=== PATIENT | male | born 1980 | race Caucasian/White ===

== ENCOUNTER 2022-11-21 12:30 | Emergency (ER) | payer MEDICARE, SELFPAY ==
[2022-11-21 12:44] VITALS: BP 123/81; PULSE 75; O2SAT 99
[2022-11-21 13:03] VITALS: BP 110/67; PULSE 65; RESP 16; TEMP 35.5; O2SAT 97; BMI 19.3
--- NOTE | 2022-11-21 13:58 | PC.NURSE ---
patient a&ox3, pt admits to using 1 bag of heroin today- he states he intermittently uses heroin, generally uses crack. pt is not interested in any type of services/rehab. vss, denies pain/discomfort, speaking in full sentences, will continue to monitor
--- NOTE | 2022-11-21 14:09 | ED.OVERDOSE ---
HPI - Overdose General Chief Complaint: ETOH/Substance Use Stated Complaint: Overdose Time Seen by Provider: 11/21/22 14:03 Source: patient Mode of arrival: EMS Limitations: no limitations History of Present Illness HPI Narrative: Patient comes to emergency room after overdosing on heroin. Patient states that this was an accident, denies suicidal or homicidal ideation. Patient admits using heroin. Patient states that intermittently he uses heroin but usually he uses crack. Seems that police department gave the patient 12 mg of intranasal Narcan. At this time, patient has no complaints. Related Data Allergies Allergy/AdvReac Type Severity Reaction Status Date / Time No Known Allergies Allergy Verified 11/21/22 14:12 Review of Systems Review of Systems: Constitutional : No Weight loss, No Fever, No Chills, No Night Sweats, No Fatigue, No Malaise ENT/Mouth : No Hearing loss, No Ear Pain, No Nasal Congestion, No Sinus Pain, No Hoarseness, No sore throat, No Rhinorrhea, No Swallowing Difficulty Eyes: No Eye Pain, No Swelling, No Redness, No Foreign Body, No Discharge, No Vision Changes Cardiovascular : No Chest Pain, No SOB, No Dyspnea on Exertion, No Orthopnea, No Edema, No Palpitations Respiratory : No Cough, No Sputum, No Wheezing, No Smoke Exposure, No Dyspnea Gastrointestinal : No Nausea, No Vomiting, No Diarrhea, No Constipation, No abdominal Pain, No Hematochezia, No Melena Genitourinary : no irregular bleeding, No Dysuria, No Urinary Frequency, No Hematuria, No Urinary Incontinence, No Urgency, No Flank Pain, No Urinary Flow Changes, No Hesitancy Musculoskeletal : No joint pain, No Myalgias, No Joint Swelling Skin : No Skin Lesions, No rash Neuro : No Weakness, No Numbness, No Paresthesias, No Loss of Consciousness, No Dizziness, No Headache Psych : No Anxiety/Panic, No Depression, No SI/HI/AH/VH, admits to drug abuse Heme/Lymph: No Bruising, No Bleeding,No Lymphadenopathy Endocrine : No Polyuria, No Polydipsia, No Temperature Intolerance PMFSH Past Medical History Medical History Crack cocaine use Heroin abuse Schizophrenia Substance abuse Social History Social History Alcohol intake: current Alcohol intake frequency: holidays/special occasions only Smoked in Last 30 Days: Yes Use of substances other than those prescribed or required for medical reasons: Yes Substance Use Type: Crack/Cocaine and Heroin Substance Use Frequency: Occasionally Any prior treatment program specific to substance use: Yes Advance Directives: No Advance Directives Information Provided: Yes Physical Exam Vital Signs: Vital Signs: Last Vital Signs Temp 96 F L 11/21/22 13:03 Pulse 65 11/21/22 13:03 Resp 16 11/21/22 13:03 BP 110/67 11/21/22 13:03 Pulse Ox 97 11/21/22 13:03 O2 Del Method Room Air 11/21/22 13:03 BMI result Body Mass Index 19.3 Const: Other: Appearance: Alert. Oriented X3. No acute distress. Eyes: Pupils equal, round and reactive to light. ENT: Pharynx normal. Neck: Normal inspection. Neck supple. No lymph nodes noted. No crepitus CVS: Normal heart rate and rhythm. Pulses normal. Normal S1 and S2 Respiratory: No respiratory distress. Breath sounds normal. No Wheezing. No rales Abdomen: Soft and nontender. No rigidity. No distention. Skin: Skin warm and dry. Normal skin color. Normal skin turgor. Extremities: No lower extremity edema. No Lacerations. No Rash Neuro: Oriented X 3. No motor deficit. No sensory deficit. Moving all extremities. No slurred speech. CN 2 through 12 grossly intact Psych: calm, cooperative, normal affect Medical Decision Making Medical Decision Making MDM Narrative: -patient denies suicidal or homicidal ideation, admits this was an accident -patient declined an evaluation by the care team/jud ramos -patient has been in the emergency room for nearly 2 hours, patient has been awake, alert and oriented x3, calm, cooperative -patient was provided with home Narcan Differential Diagnosis Differential Diagnoses: The differential diagnosis associated with the presentation includes (Polysubstance overdose, depression) Discharge Plan Discharge Clinical Impression: Accidental overdose Patient Disposition: Home, Self-Care Instructions: Adult Overdose (ED) Additional Instructions: Please follow-up with your primary care physician tomorrow. If you have any worsening or new symptoms, please return to the emergency room or call 911
[2022-11-21] MEDS: Naloxone HCl Nasal TAKE HOME 4 MG SPRAY NOSTRILALT (14:30)
== END 2022-11-21 14:36 | disposition home or self-care (01) ==
PROVIDERS: Emergency Provider Emergency Medicine
DX: F19.10 Other psychoactive substance abuse, uncomplicated (principal); T40.1X1A Poisoning by heroin, accidental (unintentional), initial encounter; Y92.9 Unspecified place or not applicable
CPT/HCPCS: 99283; 99284

== ENCOUNTER 2023-01-29 10:56 | Emergency (ER) | payer MEDICARE, SELFPAY ==
[2023-01-29 11:46] VITALS: BP 120/76; PULSE 93; RESP 16; TEMP 36.8; O2SAT 97; BMI 21.5
--- NOTE | 2023-01-29 11:46 | ED_ITS ---
HPI - General Adult General Chief complaint: General Medical Stated complaint: Testing to be done before going to [facility]? Time Seen by Provider: 01/29/23 12:46 Source: patient Mode of arrival: ambulatory Limitations: no limitations History of Present Illness HPI narrative: 42 yold male presents to the ED for Utox screen. patient was at [facility] and left. In order for patient to be allowed back to the rehab program, they required him to have a utox. patient admits to cocaine use. patient states no physical complaints. Related Data Allergies Allergy/AdvReac Type Severity Reaction Status Date / Time No Known Allergies Allergy Verified 01/29/23 11:50 Review of Systems Review of Systems: VORA Yes all other systems are reviewed and are negative [facility] Past Medical History Medical History Crack cocaine use Heroin abuse Schizophrenia Substance abuse Social History Social History Alcohol intake: current Alcohol intake frequency: holidays/special occasions only Substance Use Type: Crack/Cocaine and Heroin Advance Directives: No Advance Directives Information Provided: Yes Physical Exam ED Vital Signs: Vital Signs - 24 hr 01/29/23 11:46 Temperature 98.2 F Pulse Rate 93 Respiratory Rate 16 Blood Pressure 120/76 Pulse Oximetry 97 Oxygen Delivery Method Room Air BMI result Body Mass Index 21.5 Const General: cooperative, healthy appearing, comfortable, no acute distress, well developed, alert and awake Orientation/consciousness: oriented to person, oriented to place, oriented to time and patient oriented x3 HENMT Head: Yes normal to inspection, Yes No palpable skull fracture present, Yes normocephalic, Yes atraumatic and No abrasion Eyes General: appearance normal, both eyes and all related structures Neck Neck: Yes normal visual inspection, Yes full ROM, Yes no lymphadenopathy, Yes no meningeal signs, Yes trachea midline, Yes supple, No anterior neck swelling and No tender Chest Chest palpation & inspection: normal inspection of the chest and normal palpation of entire chest wall Resp Effort & Inspection: normal respiratory effort and able to speak in complete sentences Auscultation: clear to auscultation bilaterally Cardio Jugular venous distension: no JVD Heart sounds: S1 normal heart sound present and S2 normal heart sound present GI Inspection: Yes normal to inspection and No abdominal wall ecchymosis Palpation (GI): Soft to palpation, not firm, nontender, no guarding and not rigid General: No CVA tenderness and Yes no CVA tenderness Back/Spine/Pelvis Back: no CVA tenderness, No CVA tenderness and No back tenderness Skin General skin exam: no rashes or lesions noted, elasticity normal and turgor normal Neuro General: oriented to person, oriented to place, oriented to time, patient oriented x3, gait normal, tone normal, moves all extremities, Normal light touch and pain sensation, no meningeal signs, no focal motor deficits, CN's II-XI intact bilaterally and normal sensation to monofilament Extrem General: Yes normal to inspection and Yes full ROM Psych Appearance: grossly normal, well kempt and not disheveled Course Course Course Narrative: This is a rapid medical exam. Deferred additional HPI, ROS, PE to primary provider. 42 yo male with history of cocaine abuse here seeking VORA so he may return to his sober living home. Patient reports he left and in order to return he needs a drug screen. No other complaints. Will obtain VORA. VSS Medical Decision Making Medical Decision Making [facility] Narrative: Patient presents to ED for U tox techs mandated by rehab program. Patient left rehab program and they required patient to get a Utox before coming back to the program. Patient denies any physical complaints. BS positive for cocaine Differential Diagnosis Differential Diagnoses: The differential diagnosis associated with the presen tation includes ( U tox) Lab Data [facility] Lab Attestation statement: I reviewed the patient's lab results. Labs: Lab Results 01/29/23 Range/Units 11:55 Urine Opiates Screen Not Detected (Not Detect) Urine Fentanyl Screen Not Detected (Not Detect) Ur Barbiturates Screen Not Detected (Not Detect) Ur Phencyclidine Scrn Not Detected (Not Detect) Ur Amphetamines Screen Not Detected (Not Detect) U Benzodiazepines Scrn Not Detected (Not Detect) Urine Cocaine Screen POSITIVE H (Not Detect) U Marijuana (THC) Screen Not Detected (Not Detect) Independent Historian Clinical information obtained from an independent historian. History obtained from or confirmed by: Other (Detox program technician) External Record Review External record reviewed: Other (previous ED visit) Chronic Conditions Patient?s care impacted by: Other (Substance) Discharge Plan Discharge Clinical Impression: Substance abuse Patient Disposition: Home, Self-Care Instructions: Cocaine Abuse (ED) Additional Instructions: return to the ED immediately for any physical or mental complaints. Please follow-up with rehab program and Primary provider Interventions: ED Discharge Assessment Last Done: 01/29/23 13:12 Discharge Date/Time: 01/29/23 13:12 Print Language: Greenlandic
--- NOTE | 2023-01-29 11:52 | PC.NURSE ---
Patient attempting to provide urine specimen at this time for urine drug screen.
[2023-01-29 12:27] LABS: Amphetamine Screen Urine Not Detected (Not Detect); Barbiturates, Urine Not Detected (Not Detect); Benzodiazepines Screen Urine Not Detected (Not Detect); Cannabinoid Screen Urine Not Detected (Not Detect); Cocaine Screen Urine POSITIVE (Not Detect); Fentanyl, urine Not Detected (Not Detect); Opiate Screen Urine Not Detected (Not Detect); Phencyclidine Screen Urine Not Detected (Not Detect)
== END 2023-01-29 13:12 | disposition home or self-care (01) ==
PROVIDERS: Nurse Practitioner Family; Emergency Provider Emergency Medicine
DX: F14.19 Cocaine abuse with unspecified cocaine-induced disorder (principal); Z79.899 Other long term (current) drug therapy
CPT/HCPCS: 80307; 99282

== ENCOUNTER 2024-01-02 09:23 | Inpatient (IN) | payer OTHER, SELFPAY ==
[2024-01-02] VITALS (29 sets, daily range): BP systolic 80–113; BP diastolic 38–73; PULSE 68–103; RESP 15–30; TEMP 34.9–37.1; O2SAT 94–99; BMI 21.0; BMI 20.9
--- NOTE | ~2024-01-02 | XR_ITS ---
EXAMINATION: XR CHEST CLINICAL INFORMATION: Patient found down. Possible aspiration. COMPARISON: None available. TECHNIQUE: Frontal view of the chest was obtained. FINDINGS: Lungs are well-inflated and clear. Trachea is midline in position. No interstitial disease, consolidation or mass. No pleural effusion or pneumothorax. Cardiac silhouette and pulmonary vessels are normal in size. The mediastinum and rusty have normal contour. The visualized bones and upper abdomen are unremarkable. XR/XR chest 1V IMPRESSION: No evidence of aspiration pneumonia. No acute cardiopulmonary abnormality.
--- NOTE | ~2024-01-02 | CT_ITS ---
EXAMINATION: CT HEAD W/O IV CONTRAST CT CERVICAL SPINE W/O IV CONTRAST CLINICAL INFORMATION: 43-year-old male with history of change in mental status. Possible neck trauma. COMPARISON: None TECHNIQUE: Head - Contiguous axial imaging of the head was performed from the skull base to the vertex without the administration of intravenous contrast, and axial images are reconstructed at 2 mm and 5 mm slice thickness. Cervical spine - A volumetric, helical CT acquisition of the cervical spine was obtained without contrast; in addition to the standard set of axial images, multiplanar reformatted images were provided in the coronal and sagittal imaging planes. This CT examination was performed using dose optimization techniques as appropriate, variously including the following: *Automated exposure control *Adjustment of mA and/or kV according to patient size (this includes techniques or standardized protocols for targeted exams where dose is matched to indication/reason for exam; i.e. extremities or head) *Use of iterative reconstruction technique DLP: 1767 mGy-cm (total) FINDINGS: HEAD: The localizer images demonstrate that the patient's head is tilted toward the right. No acute intracranial findings. Vasquez to white matter differentiation is preserved. No evidence of intracranial hemorrhage, major vascular territory infarction, focal mass effect or midline shift. The ventricles have normal size and configuration. No hydrocephalus or extra-axial fluid collections. The calvarium is intact. Mild mucosal thickening at the floor of the right maxillary sinus. Dental caries of some of the partially visualized right maxillary teeth and associated periapical lucency around roots of one of these teeth which appears to represent the first premolar. The mastoid air cells and middle ear cavities are clear. The temporomandibular joints are normal. The orbits and globes are unremarkable. CERVICAL SPINE: The craniocervical junction is normal. The occipital condyles, dens and atlantodental articulation are intact. The vertebral body heights and alignment are maintained. No fractures in the anterior or posterior elements. No prevertebral soft tissue edema or hematoma. The disc spaces are preserved. The facet joints and uncovertebral joints are unremarkable. No significant stenosis of the central spinal canal or neural foramina. Thyroid gland is unremarkable. Centrilobular and paraseptal emphysematous changes at the visualized lung apices. CT/CT cervical spine wo IV con IMPRESSION: * No intracranial hemorrhage or other acute intracranial pathology. * No fracture or malalignment in the cervical spine. * Centrilobular and paraseptal emphysema within the visualized lung apices. * Incidentally noted are dental caries of some of the partially visualized maxillary teeth and periapical lucency around a right maxillary premolar tooth.
--- NOTE | ~2024-01-02 | CT_ITS ---
EXAMINATION: CT ABDOMEN AND PELVIS WITH CONTRAST CLINICAL INFORMATION: Unexplained lactic acidosis COMPARISON: None available. TECHNIQUE: Multidetector volumetric images were obtained from the superior aspect of the liver through the pubic symphysis following administration 85 mL of Omnipaque 350 intravenous contrast. Sagittal and coronal reformatted images were obtained on the technologist's workstation. Oral contrast: No This CT examination was performed using dose optimization techniques as appropriate, variously including the following: *Automated exposure control *Adjustment of mA and/or kV according to patient size (this includes techniques or standardized protocols for targeted exams where dose is matched to indication/reason for exam; i.e. extremities or head) *Use of iterative reconstruction technique DLP: 545 mGy-cm FINDINGS: LUNG BASES: The visualized lung bases are unremarkable. There is minimal bibasilar atelectasis. LIVER, GALLBLADDER, AND BILIARY TREE: The liver is normal in size, shape, and attenuation. No focal hepatic lesion or biliary ductal dilatation is present. There is mild periportal edema. The gallbladder is unremarkable with no evidence of radiopaque gallstones, gallbladder wall thickening, or obvious pericholecystic inflammatory changes. PANCREAS: Unremarkable. SPLEEN: Unremarkable. ADRENAL GLANDS: Unremarkable. KIDNEYS AND URETERS: The kidneys are normal in size, shape, and attenuation. No hydronephrosis, hydroureter, or calculi seen. No perinephric stranding. BLADDER: Lara catheter present in the bladder which is empty GASTROINTESTINAL TRACT: The small and large bowel are unremarkable. A moderate stool burden is present throughout the colon. The appendix is unremarkable. ABDOMINAL WALL: No significant hernia is appreciated. LYMPH NODES: No retroperitoneal lymphadenopathy. VASCULAR: Calcific atherosclerotic changes are present in the aorta and iliofemoral vessels. There is no evidence of an abdominal aortic aneurysm. PELVIC VISCERA: Unremarkable. OSSEOUS STRUCTURES: Unremarkable. CT/CT abdomen pelvis w IV con IMPRESSION: 1. A cause for the patient's lactic acidosis has not been found. 2. Incidental note made of mild periportal edema, Lara catheter in the bladder and calcific atherosclerotic changes in the aorta and iliofemoral vessels. Fleischner guidelines were followed.
[2024-01-02] MEDS: Naloxone HCl 2 MG/2 ML SYRINGE IVPUSH (09:30)
[2024-01-02] MEDS: ondansetron HCL 4 MG/2 ML VIAL IVPUSH (09:30)
--- NOTE | 2024-01-02 09:31 | ECG_ITS ---
Test Reason : OD Blood Pressure : / mmHG Vent. Rate : 078 BPM Atrial Rate : 078 BPM P-R Int : 130 ms QRS Dur : 096 ms QT Int : 380 ms P-R-T Axes : 073 088 068 degrees QTc Int : 433 ms Normal sinus rhythm Normal ECG No previous ECGs available Referred By: Kira Serrano Electronically Signed By:Stuart Gary
--- NOTE | 2024-01-02 09:35 | ED_ITS ---
HPI - General Adult General Chief complaint: General Medical Stated complaint: UNRESPONSIVE/AMS, PER EMS Source: EMS Mode of arrival: EMS Limitations: altered mental status History of Present Illness ED Provider: ZAIDA IRWIN narrative: 43 yo male with PMH of schizophrenia and substance abuse was found laying down on pavement responsive to pain only given 4mg IN narcan no response. hypotensive on EMS arrival no other history provided BS in 100s MD complaint: found down Onset (ago): unknown Severity: severe Relieving factors: none Exacerbating factors: none Associated symptoms: denies other symptoms Treatments prior to arrival: other (IVF) Related Data Allergies Allergy/AdvReac Type Severity Reaction Status Date / Time No Known Allergies Allergy Verified 01/02/24 09:30 Review of Systems 2 Review of Systems: ROS unable to be obtained due to altered mental status [facility] Past Medical History Source: old records reviewed Medical History Crack cocaine use Heroin abuse Substance abuse Schizophrenia Social History Social History Unable to assess alcohol history related to: Unknown Alcohol intake: current Alcohol intake frequency: holidays/special occasions only Use of substances other than those prescribed or required for medical reasons: Unknown Substance Use Type: Crack/Cocaine and Heroin Advance Directives: No Physical Exam ED Vital Signs: Vital Signs - 24 hr 01/02/24 09:28 01/02/24 09:41 01/02/24 10:01 Temperature 98.7 F Pulse Rate 83 83 102 H Respiratory Rate 20 15 25 H Blood Pressure 92/47 L 88/39 L 93/42 L Pulse Oximetry 95 94 97 Oxygen Delivery Method Room Air Room Air 01/02/24 10:12 01/02/24 10:19 01/02/24 10:27 Temperature Pulse Rate 99 94 90 Respiratory Rate 21 H 19 20 Blood Pressure 92/43 L 94/38 L 89/39 L Pulse Oximetry 97 96 97 Oxygen Delivery Method Room Air Room Air Room Air 01/02/24 10:49 01/02/24 11:13 01/02/24 11:27 Temperature Pulse Rate 103 H 96 95 Respiratory Rate 21 H 19 22 H Blood Pressure 94/39 L 99/45 L 82/42 L Pulse Oximetry 98 99 Oxygen Delivery Method Room Air Room Air 01/02/24 11:35 01/02/24 12:00 01/02/24 12:49 Temperature Pulse Rate 103 H 95 75 Respiratory Rate 30 H 28 H 20 Blood Pressure 84/42 L 101/47 L 88/45 L Pulse Oximetry 97 98 98 Oxygen Delivery Method Room Air Room Air Room Air 01/02/24 13:19 01/02/24 14:02 01/02/24 15:17 Temperature Pulse Rate 68 70 73 Respiratory Rate 16 19 19 Blood Pressure 92/41 L 88/55 L 83/42 L Pulse Oximetry 99 99 99 Oxygen Delivery Method Room Air Room Air Room Air BMI result Body Mass Index 21.0 Appearance: lethargic responsive to painful stimuli. Moderate acute distress. thin and small Eyes: Pupils equal, round and reactive to light. 5mm ENT: Pharynx normal. atraumatic no blood in nose or ears no abrasions to tongue Neck: Normal inspection. Neck supple. CVS: Normal heart rate and rhythm. Pulses normal. Respiratory: No respiratory distress. Breath sounds normal. Abdomen: Soft and nontender. no distention on incontinence Skin: Skin warm and dry. Normal skin color. Extremities: No lower extremity edema. atraumatic no obvious track panda Neuro: withdraws from painful stimuli, making incoherent sounds, responds to tactile stimuli currently GCS 9 Course Course Course Narrative: awakes to voice now and follows commands but not fully with it and intermittently agitated droperidol for CT scans ordered Reevaluation(s) Reevaluation #1: at this time repeat hypotension due to versed (needed sedation for imaging) and not infection or severe sepsis [id number] focused exam for sepsis performed at 12pm will continue fluids, pending CT scans at this time Reevaluation #2: ICU Dr. Hughes has been notified HR and BP low but he is improving I am going to get abdominal CT scan to be thorough will continue to observe he is making urine he has no obvious signs of infection aorta US bedside normal will hold off pressors low suspicion for severe sepsis at this time Reevaluation #3: repeat call to ICU recommends continue to give IVF and monitor repeat eval at 530pm does not feel he warrants ICU at this time 330pm Medications Administered Discontinued Medications Generic Name Dose Route Start Last Admin Trade Name Freq PRN Reason Stop Dose Admin Droperidol 1.25 mg 01/02/24 09:53 01/02/24 09:56 Droperidol 5 Mg/2 Ml Vial IVPUSH 01/02/24 09:54 1.25 mg ONCE ONE Administration Sodium Chloride 1,000 mls @ 999 mls/hr 01/02/24 09:30 01/02/24 10:12 Ns IV 01/02/24 10:30 Infused .Q1H1M ONE Infusion Sodium Chloride 1,000 mls @ 999 mls/hr 01/02/24 09:30 01/02/24 10:30 Ns IV 01/02/24 10:30 Infused .Q1H1M ONE Infusion Sodium Chloride 1,000 mls @ 999 mls/hr 01/02/24 09:41 01/02/24 10:50 Ns IV 01/02/24 10:41 Infused .Q1H1M ONE Infusion Ceftriaxone Sodium 2 gm/ 50 mls @ 100 mls/hr 01/02/24 09:42 01/02/24 10:19 Sodium Chloride IV 01/02/24 10:11 Infused ONCE ONE Infusion Albumin Human 100 mls @ 133.333 mls/hr 01/02/24 13:00 01/02/24 15:08 Kedbumin 25 % IV 01/02/24 14:44 Infused Q1H HEIDY Infusion Iohexol 85 ml 01/02/24 14:56 01/02/24 14:57 Iohexol 350 Mg/Ml 100 Ml Infus..Btl IV 01/02/24 14:57 85 ml ONCE ONE Administration Lidocaine HCl 10 ml 01/02/24 14:21 01/02/24 14:25 Lidocaine Hcl 2 % Urojet 10 Ml Jel.Pf.Lilliam TOPICAL 01/02/24 14:22 10 ml ONCE ONE Administration Midazolam HCl 2 mg 01/02/24 11:19 01/02/24 11:22 Midazolam Hcl/Pf 2 Mg/2 Ml Vial IVPUSH 01/02/24 11:20 2 mg ONCE ONE Administration Naloxone HCl 2 mg 01/02/24 09:32 01/02/24 09:30 Naloxone Hcl 2 Mg/2 Ml Syringe IVPUSH 01/02/24 09:33 2 mg ONCE ONE Administration Ondansetron HCl 4 mg 01/02/24 09:32 01/02/24 09:30 Ondansetron Hcl 4 Mg/2 Ml Vial IVPUSH 01/02/24 09:33 4 mg ONCE ONE Administration Procedures FAST Exam FAST Exam 1: Fluid in Morison's pouch: Yes Fluid in Splenorenal [place]: Yes Fluid around bladder, Transverse view: Yes Fluid around bladder, Sagittal view: Yes Fluid in Pericardial Sac: Yes Gross Wall Motion Abnormality: No Study normal for this patient: Yes Images saved for further review: No Medical Decision Making Medical Decision Making [facility] Narrative: 43 yo male with undifferentiated found down in street with hx of substance abuse - at this time no obvious trauma will need basic labs, EKG, CT head/cspine, CXR, FAST exam, IVF x 3L, repeat narcan in case of xylazine but no effect noted, anticipate sedation possible droperidol for CT scan has normal qtc wide differential for cause - infectious, metabolic toxic encephalopathy. Seizure is possible but no tongue biting no incontinence. Differential Diagnosis Differential Diagnoses: The differential diagnosis associated with the presentation includes infectious, metabolic toxic encephalopathy Admission/Observation Consideration of admission/observation: Escalation of care including admission/observation considered Consult Healthcare Provider Management of the patient was discussed with: Crop Specialist (Dr. Hughes has been notified) Lab Data [facility] Lab Attestation statement: I reviewed the patient's lab results. 01/02/24 09:35 01/02/24 09:35 Labs: Lab Results 01/02/24 01/02/24 01/02/24 Range/Units 09:25 09:35 09:48 WBC 11.2 H (4.8-10.8) X10*3/uL RBC 3.82 L (4.60-5.80) X10*6/uL Hgb 12.3 L (14.0-18.0) g/dl Hct 34.9 L (42.0-52.0) % MCV 91.4 (80.0-98.0) fL MCH 32.2 (27.0-33.0) pg MCHC 35.2 (31.0-36.0) g/dl RDW 13.5 (11.0-16.0) % Plt Count 222 (160-400) X10*3/uL MPV 10.1 (9.4-12.4) fL Immature Gran % (Auto) 0.4 (0.0-0.4) % Neut % (Auto) 71.6 (45-73) % Lymph % (Auto) 20.4 (20-40) % [place] % (Auto) 6.0 (2-11) % Eos % (Auto) 1.2 (0-4) % Baso % (Auto) 0.4 (0-2) % Lymph # (Auto) 2.3 (1.2-4.9) X10*3/uL [place] # (Auto) 0.7 (0.1-1.2) X10*3/uL Eos # (Auto) 0.1 (0.0-0.4) X10*3/uL Baso # (Auto) 0.0 (0.0-0.2) X10*3/uL Abs Immat Gran (auto) 0.05 H (0.00-0.03) X10*3/uL Absolute Neuts (auto) 8.1 (2.0-8.3) x10*3/uL Absolute Nucleated RBC 0.000 (0.0-0.012) X10*3/uL Nucleated RBC % (auto) 0.0 (0.0-0.2) /100WBC VBG pH 7.37 (7.32-7.43) VBG pCO2 29 mmHg VBG pO2 195 mmHg VBG HCO3 17 L (22-26) mmol/L VBG O2 Saturation 99.0 % VBG Base Excess -6.5 mmol/L Sodium 143 (135-145) mmol/L Potassium 3.9 (3.3-5.1) mmol/L Chloride 110 H (96-108) mmol/L Carbon Dioxide 18 L (22-29) mmol/L Anion Gap 19 (12-20) BUN 15 (9-16) mg/dL Creatinine 1.00 (0.5-1.4) mg/dL Estim Creat Clear Calc 87.7 Estimated GFR > 60 POC Glucose 124 H (60-115) mg/dL Random Glucose 124 H (60-115) mg/dL Lactic Acid 4.0 H* (0.5-2.0) mmol/L Lactic Acid F/U @ 2Hr (0.5-2.0) mmol/L Lactic Acid F/U @ 4Hr (0.5-2.0) mmol/L Calcium 8.7 (8.4-10.2) mg/dL Magnesium 2.0 (1.6-2.6) mg/dL Total Bilirubin 0.1 (0.0-1.0) mg/dL Direct Bilirubin < 0.2 (0.0-0.5) mg/dL AST 13 (5-37) U/L ALT 8 (0-40) U/L Alkaline Phosphatase 49 (39-117) U/L Ammonia 28 (13-55) umol/L Total Creatine Kinase 105 (38-174) U/L Troponin I High Sens < 2.7 (<3.5-35.0) ng/L B-Natriuretic Peptide < 10 (<100) pg/mL Total Protein 6.5 (6.5-8.0) g/dL Albumin 4.0 (3.5-5.0) g/dL Lipase 15 (8-78) U/L TSH 2.71 (0.32-4.0) uIU/mL Urine Color Urine Appearance Urine pH (5.0-9.0) Ur Specific Benson (1.005-1.025) Urine Protein (Neg-Trace) mg/dL Urine Glucose (UA) (Negative) mg/dL Urine Ketones (Negative) mg/dL Urine Blood (Negative) Urine Nitrite (Negative) Ur Leukocyte Esterase (Negative) Urine Opiates Screen (Not Detect) Ur Buprenorphine Scrn (Not Detect) ng/mL Ur Oxycodone Screen (Not Detect) ng/mL Urine Methadone Screen (Not Detect) ng/mL Urine Fentanyl Screen (Not Detect) Ur Barbiturates Screen (Not Detect) Ur Phencyclidine Scrn (Not Detect) Ur Amphetamines Screen (Not Detect) U Benzodiazepines Scrn (Not Detect) Urine Cocaine Screen (Not Detect) U Marijuana (THC) Screen (Not Detect) Ethyl Alcohol < 10 mg/dL Influenza Type A (PCR) NEGATIVE (Negative) Influenza Type B (PCR) NEGATIVE (Negative) RSV RNA Qual (PCR) NEGATIVE (Negative) SARS-CoV-2 RNA (RT-PCR) NEGATIVE (Negative) 01/02/24 01/02/24 01/02/24 Range/Units 11:57 12:01 14:39 WBC (4.8-10.8) X10*3/uL RBC (4.60-5.80) X10*6/uL Hgb (14.0-18.0) g/dl Hct (42.0-52.0) % MCV (80.0-98.0) fL MCH (27.0-33.0) pg MCHC (31.0-36.0) g/dl RDW (11.0-16.0) % Plt Count (160-400) X10*3/uL MPV (9.4-12.4) fL Immature Gran % (Auto) (0.0-0.4) % Neut % (Auto) (45-73) % Lymph % (Auto) (20-40) % [place] % (Auto) (2-11) % Eos % (Auto) (0-4) % Baso % (Auto) (0-2) % Lymph # (Auto) (1.2-4.9) X10*3/uL [place] # (Auto) (0.1-1.2) X10*3/uL Eos # (Auto) (0.0-0.4) X10*3/uL Baso # (Auto) (0.0-0.2) X10*3/uL Abs Immat Gran (auto) (0.00-0.03) X10*3/uL Absolute Neuts (auto) (2.0-8.3) x10*3/uL Absolute Nucleated RBC (0.0-0.012) X10*3/uL Nucleated RBC % (auto) (0.0-0.2) /100WBC VBG pH (7.32-7.43) VBG pCO2 mmHg VBG pO2 mmHg VBG HCO3 (22-26) mmol/L VBG O2 Saturation % VBG Base Excess mmol/L Sodium (135-145) mmol/L Potassium (3.3-5.1) mmol/L Chloride (96-108) mmol/L Carbon Dioxide (22-29) mmol/L Anion Gap (12-20) BUN (9-16) mg/dL Creatinine (0.5-1.4) mg/dL Estim Creat Clear Calc Estimated GFR POC Glucose (60-115) mg/dL Random Glucose (60-115) mg/dL Lactic Acid (0.5-2.0) mmol/L Lactic Acid F/U @ 2Hr 3.7 H* (0.5-2.0) mmol/L Lactic Acid F/U @ 4Hr 2.7 H* (0.5-2.0) mmol/L Calcium (8.4-10.2) mg/dL Magnesium (1.6-2.6) mg/dL Total Bilirubin (0.0-1.0) mg/dL Direct Bilirubin (0.0-0.5) mg/dL AST (5-37) U/L ALT (0-40) U/L Alkaline Phosphatase (39-117) U/L Ammonia (13-55) umol/L Total Creatine Kinase (38-174) U/L Troponin I High Sens (<3.5-35.0) ng/L B-Natriuretic Peptide (<100) pg/mL Total Protein (6.5-8.0) g/dL Albumin (3.5-5.0) g/dL Lipase (8-78) U/L TSH (0.32-4.0) uIU/mL Urine Color Yellow Urine Appearance Clear Urine pH 5.5 (5.0-9.0) Ur Specific [place] 1.015 (1.005-1.025) Urine Protein Negative (Neg-Trace) mg/dL Urine Glucose (UA) Negative (Negative) mg/dL Urine Ketones Negative (Negative) mg/dL Urine Blood Negative (Negative) Urine Nitrite Negative (Negative) Ur Leukocyte Esterase Negative (Negative) Urine Opiates Screen Not Detected (Not Detect) Ur Buprenorphine Scrn Not Detected (Not Detect) ng/mL Ur Oxycodone Screen Not Detected (Not Detect) ng/mL Urine Methadone Screen Not Detected (Not Detect) ng/mL Urine Fentanyl Screen Not Detected (Not Detect) Ur Barbiturates Screen Not Detected (Not Detect) Ur Phencyclidine Scrn Not Detected (Not Detect) Ur Amphetamines Screen Not Detected (Not Detect) U Benzodiazepines Scrn Not Detected (Not Detect) Urine Cocaine Screen POSITIVE H (Not Detect) U Marijuana (THC) Screen Not Detected (Not Detect) Ethyl Alcohol mg/dL Influenza Type A (PCR) (Negative) Influenza Type B (PCR) (Negative) RSV RNA Qual (PCR) (Negative) SARS-CoV-2 RNA (RT-PCR) (Negative) Independent Interpretation I performed an independent interpretation of an: EKG, Plain X-Ray (no pneumonia) and CT Scan Interpretation: Rate: 78 Rhythm: NSR Gilmer: normal Normal P waves. Normal ALESSANDRA. Normal QRS complex. ST T wave : no LOVELY, inverated T wave V3 qTC: 430 prior studies: no prior The study has been interpreted contemporaneously by me. . Radiology Impression Discussion of test interpretation with radiology: I have reviewed the radiologist's reading. Independent Historian Clinical information obtained from an independent historian. History obtained from or confirmed by: EMS External Record Review External record reviewed: Inpatient record Critical Care Time Critical Care Time Critical Care Time: Yes Total Critical Care Time: 80 Attestation: IVF x 3L, repeat lactic acid, repeat assessments, medical consult, review of labs, repeat neuro checks I attest to this time spent taking care of the patient Discharge Plan Discharge Clinical Impression: Acute alteration in mental status, Cocaine abuse, Acidosis, lactic, Acute hypotension Patient Disposition: Still a Patient Print Language: Bulgarian
[2024-01-02] MEDS: 0.9 % Sodium Chloride 1,000 ML 999 ML IV ×4 (09:39→18:28)
[2024-01-02 09:44] LABS: MANUAL DIFF FLAG NO
[2024-01-02 09:46] LABS: Basophils Percent Auto 0.4 % (0-2); Eosinophils Absolute Auto 0.1 X10*3/uL (0.0-0.4); Eosinophils Percent Auto 1.2 % (0-4); Hematocrit 34.9 % (42.0-52.0); Hemoglobin 12.3 g/dl (14.0-18.0); Imm Gran Abs Auto 0.05 X10*3/uL (0.00-0.03); Imm Gran Pct Auto 0.4 % (0.0-0.4); Lymphocytes Absolute Auto 2.3 X10*3/uL (1.2-4.9); Lymphocytes Percent Auto 20.4 % (20-40); Mean Corpuscular HGB Conc 35.2 g/dl (31.0-36.0); Mean Corpuscular Hemoglobin 32.2 pg (27.0-33.0); Mean Corpuscular Volume 91.4 fL (80.0-98.0); Mean Platelet Volume 10.1 fL (9.4-12.4); Monocytes Absolute Auto 0.7 X10*3/uL (0.1-1.2); Neutrophils Absolute Auto 8.1 x10*3/uL (2.0-8.3); Neutrophils Percent Auto 71.6 % (45-73); Platelet Count 222 X10*3/uL (160-400); Red Blood Count 3.82 X10*6/uL (4.60-5.80); Red Cell Distribution Width 13.5 % (11.0-16.0); White Blood Count 11.2 X10*3/uL (4.8-10.8)
[2024-01-02 09:54] LABS: Ammonia 28 umol/L (13-55)
[2024-01-02] MEDS: cefTRIAXone sodium 2 GM in 0.9 % Sodium Chloride 50 ML IV (09:54)
[2024-01-02 09:55] LABS: VBG Base Excess -6.5 mmol/L; VBG HCO3 17 mmol/L (22-26); VBG pCO2 29 mmHg; VBG pH 7.37 (7.32-7.43); VBG pO2 195 mmHg
[2024-01-02] MEDS: droPERidol 5 MG/2 ML VIAL 1.25 MG IVPUSH (09:56)
[2024-01-02 10:04] LABS: Alanine Aminotransferase 8 U/L (0-40); Alkaline Phosphatase 49 U/L (39-117); Anion Gap 19 (12-20); Aspartate Amino Transferase 13 U/L (5-37); Bilirubin Direct < 0.2 mg/dL (0.0-0.5); Bilirubin Total 0.1 mg/dL (0.0-1.0); Blood Urea Nitrogen 15 mg/dL (9-16); Calcium 8.7 mg/dL (8.4-10.2); Carbon Dioxide 18 mmol/L (22-29); Chloride 110 mmol/L (96-108); Creatinine Clr Calc Pharmacy 87.7; Estimated Glomerular Filt Rate > 60; Glucose Random 124 mg/dL (60-115); Lipase 15 U/L (8-78); Potassium 3.9 mmol/L (3.3-5.1); Sodium 143 mmol/L (135-145); Total Protein 6.5 g/dL (6.5-8.0)
--- NOTE | 2024-01-02 10:08 | PC.NURSE ---
Pt presented to ED by EMS, EMS reports pt found unresponsive, given 4mg of IN Narcan by PD with no improvements. EMS placed IV line and gave approx 200 mL NS, no other meds. Pt semi-responsive, opens eyes to painful stimuli, no verbal response and doesn't follow commands. Breathing elevated, skin clammy and pale. NSR on speech communication instructor, BP hypotensive. Second IV line established and pt medicated per SEP.
[2024-01-02 10:09] LABS: Venous Blood Gas Refer to POC result
--- NOTE | 2024-01-02 10:10 | PC.NURSE ---
Pt restless in bed, pulling at lines. Redirected and calmed by RNs. No obvious trauma noted to body on fast exam.
[2024-01-02 10:12] LABS: Troponin-I High Sensitivity < 2.7 ng/L (<3.5-35.0)
[2024-01-02 10:23] LABS: Influenza A PCR NEGATIVE (Negative); Influenza B PCR NEGATIVE (Negative); Resp Syncy Virus RNA Qual PCR NEGATIVE (Negative); SARS COV2 PCR INHOUSE NEGATIVE (Negative)
[2024-01-02] MEDS: Midazolam HCl/PF 2 MG/2 ML VIAL IVPUSH (11:22)
--- NOTE | 2024-01-02 11:35 | PC.NURSE ---
Sedation needed for CT due to pt moving and grabbing at wires. Medicated per MAR
[2024-01-02 11:41] LABS: Reflex Lactate? Lactic Acid Added
--- NOTE | 2024-01-02 11:45 | PC.NURSE ---
Pt noted to have increase in RR, 28-35. rapid breathing. Remains unresponsive. Provider alerted and at bedside for eval. Pt straight cath, tolerated procedure well, 450 mL urine out put clear straw yellow
[2024-01-02 12:07] LABS: Appearance Urine Clear; Color Urine Yellow; Glucose Urine UA Negative (Negative); Leukocyte Esterase Urine Negative (Negative); Nitrite Urine Negative (Negative); PH 5.5 (5.0-9.0); Specific Gravity - Urine 1.015 (1.005-1.025); Urine Blood Negative (Negative); Urine Ketones Negative (Negative); Urine Protein Negative (Neg-Trace)
[2024-01-02 12:19] LABS: B Type Natriuretic Peptide < 10 pg/mL (<100)
[2024-01-02 12:20] LABS: Ethanol < 10 mg/dL
[2024-01-02 12:29] LABS: TSH reflex Free T4 2.71 uIU/mL (0.32-4.0)
[2024-01-02 12:38] LABS: ~Lactic Acid-LAB USE ONLY 3.7 mmol/L (0.5-2.0)
[2024-01-02 12:38] LABS: Amphetamine Screen Urine Not Detected (Not Detect); Barbiturates, Urine Not Detected (Not Detect); Benzodiazepines Screen Urine Not Detected (Not Detect); Buprenorphine Scr Not Detected (Not Detect); Cannabinoid Screen Urine Not Detected (Not Detect); Cocaine Screen Urine POSITIVE (Not Detect); Fentanyl, urine Not Detected (Not Detect); Methadone Screen, Urine Not Detected (Not Detect); Opiate Screen Urine Not Detected (Not Detect); Oxycodone Screen Urine Not Detected (Not Detect); Phencyclidine Screen Urine Not Detected (Not Detect)
[2024-01-02 12:38] LABS: Glucose, Whole Blood 124 mg/dL (60-115)
--- NOTE | 2024-01-02 12:50 | PC.NURSE ---
Pt sleeping at this time, only response to painful stimul. NSR on property assessment monitor, remains hypotensive
[2024-01-02] MEDS: Albumin Human 25 % 100 ML 133.33 ML IV ×2 (13:19→14:02)
[2024-01-02 14:03] LABS: Reflex Lactate? 2 Y
[2024-01-02] MEDS: Lidocaine HCl 2 % Urojet 10 ML JEL.PF.APP TOPICAL (14:25)
[2024-01-02] MEDS: iohexoL 350 MG/ML 100 ML INFUS..BTL 85 ML IV (14:57)
[2024-01-02 15:02] LABS: ~Lactic Acid-LAB USE ONLY 2.7 mmol/L (0.5-2.0)
--- NOTE | 2024-01-02 18:19 | PC.NURSE ---
Pt continues to have drops in BP, provider aware.
--- NOTE | 2024-01-02 19:10 | PC.NURSE ---
assumed care of pt at 1900. Pt resting comfortably on stretcher in no apparent distress. BP 87/41 - MD Zazueta aware. Pt pending admission to ICU for low bps.
[2024-01-02 19:30] LABS: MANUAL DIFF FLAG NO
--- NOTE | 2024-01-02 19:31 | PM.CCHP ---
History of Present Illness Date of Service: 01/02/24 Attending physician on admission: Robert Hughes Chief Complaint: Unresponsive The patient is a 43-year-old male with a past medical history of schizophrenia and substance abuse who presented to the emergency department after he was found unresponsive.? Per EMS,? patient only responsive to pain when he was found,? was given 4 mg IN? Narcan no response.? ? On arrival to the emergency department? he was hypotensive to systolic of 80s,? slightly tachycardic to 102,? afebrile. ? He? continue to be? minimally responsive,? responsive only to painful stimuli, but protecting airway.? Laboratory data was significant for? WBC 11.2,? serum bicarb 18 and? lactic acid 4 IMAGING:? CHEST X-RAY:? no acute ? findings Abdominal CT:? no evidence of? infectious process/? cause for elevated lactic acid Head/ Cervical spine CT: ? no acute findings ED COURSE:? He received a total of 4 L of crystalloids,? 200 mL of albumin, ceftriaxone 2 g, Narcan 2 mg, Zofran 4 mg, droperidol 1.25,? and 2 mg of Versed.? ? Despite 4 L administration of? crystalloids and albumin,? patient continued to be hypotensive.? Will be admitted to ICU? hemodynamically monitoring.? Review of Systems Review of Systems: Yes Unobtainable due to mental status PMFSH Past Medical History Medical History Crack cocaine use Heroin abuse Substance abuse Schizophrenia Social History Social History Unable to assess alcohol history related to: Unknown Alcohol intake: current Alcohol intake frequency: holidays/special occasions only Patient Tobacco Use Status: Tobacco use Unknown Use of substances other than those prescribed or required for medical reasons: Unknown Substance Use Type: Crack/Cocaine and Heroin Currently Displaying Signs/Symptoms of Drug Intoxication Withdrawal: No Advance Directives: No Suicidal Behavior: History of suicide attemps Current/Past Psychiatric Disorders: Alcohol abuse, Psychotic disorder and Substance abuse [place] Symptoms: Hopelessness Do you have a plan to hurt others: No Plan Nutrition Risks: No Nutritional Risk Meds Allergies Allergy/AdvReac Type Severity Reaction Status Date / Time No Known Allergies Allergy Verified 01/02/24 09:30 Active Medications: Current Medications Enoxaparin Sodium (Enoxaparin Sodium 40 Mg/0.4 Ml Syringe) 40 mg SUBCUT Q24H HEIDY Norepinephrine Bitartrate (Levophed) 8 mg in 250 mls @ 0 mls/hr IV .Q0M HEIDY; Protocol Lactated Ringer's (Lr) 1,000 mls @ 150 mls/hr IVCONT .Q6H40M HEIDY Home Medications ?Medication ?Instructions ?Recorded ?Confirmed ?Last Taken ?Type benztropine 1 mg tablet 1 mg PO DAILY 01/02/24 01/02/24 Unknown History risperidone 4 mg tablet 4 mg PO BEDTIME 01/02/24 01/02/24 Unknown History Physical Exam Vital Signs: Vital Signs: Last Vital Signs Temp 97.8 F 01/02/24 16:16 Pulse 83 01/02/24 18:20 Resp 20 01/02/24 18:20 BP 91/52 L 01/02/24 18:20 Pulse Ox 99 01/02/24 18:20 O2 Del Method Room Air 01/02/24 18:20 BMI result Body Mass Index 21.0 ?General:? No severe distress ?HEENT:? Head is normocephalic, atraumatic, pupils equal round reactive to light accommodation bilaterally.? Buccal mucosa is dry, Neck is supple ?Cardiac:? Sinus tach, 100-110. Clear S1-S2, no murmurs rubs or gallops. ?Pulmonary:? Rhonchi at bases. No significant respiratory distress. ?Abdomen:? ?Abdomen soft, non-tender, non-distended. Normal bowel sounds. No pulsatile mass. No hepatosplenomegaly. ?Musculoskeletal:? Moving all 4 extremities randomly and to painful stimuli ?Neurologic:?Lethargic, mumbles to some verbal commands, withdraws to painful stimuli..?? ?Skin:? Intact, no lesions, edema, erythema, clubbing or cyanosis.? No ulcers. Vascular:? 2+ pulses upper and lower extremities distally.? Results Labs 01/03/24 04:38 01/03/24 04:38 Labs: Laboratory Results - last 24 hr 01/02/24 01/02/24 01/02/24 09:25 09:35 09:48 MCV 91.4 MCH 32.2 MCHC 35.2 RDW 13.5 Plt Count 222 MPV 10.1 Immature Gran % (Auto) 0.4 Neut % (Auto) 71.6 Lymph % (Auto) 20.4 [place] % (Auto) 6.0 Eos % (Auto) 1.2 Baso % (Auto) 0.4 Lymph # (Auto) 2.3 [place] # (Auto) 0.7 Eos # (Auto) 0.1 Baso # (Auto) 0.0 Abs Immat Gran (auto) 0.05 H Absolute Neuts (auto) 8.1 Absolute Nucleated RBC 0.000 Nucleated RBC % (auto) 0.0 VBG pH 7.37 VBG pCO2 29 VBG pO2 195 VBG HCO3 17 L VBG O2 Saturation 99.0 VBG Base Excess -6.5 Anion Gap 19 Estim Creat Clear Calc 87.7 Estimated GFR > 60 POC Glucose 124 H Random Glucose 124 H Lactic Acid 4.0 H* Lactic Acid F/U @ 2Hr Lactic Acid F/U @ 4Hr Calcium 8.7 Magnesium 2.0 Total Bilirubin 0.1 Direct Bilirubin < 0.2 AST 13 ALT 8 Alkaline Phosphatase 49 Ammonia 28 Total Creatine Kinase 105 Troponin I High Sens < 2.7 B-Natriuretic Peptide < 10 Total Protein 6.5 Albumin 4.0 Lipase 15 TSH 2.71 Urine Color Urine Appearance Urine pH Ur Specific [place] Urine Protein Urine Glucose (UA) Urine Ketones Urine Blood Urine Nitrite Ur Leukocyte Esterase Urine Opiates Screen Ur Buprenorphine Scrn Ur Oxycodone Screen Urine Methadone Screen Urine Fentanyl Screen Ur Barbiturates Screen Ur Phencyclidine Scrn Ur Amphetamines Screen U Benzodiazepines Scrn Urine Cocaine Screen U Marijuana (THC) Screen Ethyl Alcohol < 10 Influenza Type A (PCR) NEGATIVE Influenza Type B (PCR) NEGATIVE RSV RNA Qual (PCR) NEGATIVE SARS-CoV-2 RNA (RT-PCR) NEGATIVE 01/02/24 01/02/24 01/02/24 11:57 12:01 14:39 MCV MCH MCHC RDW Plt Count MPV Immature Gran % (Auto) Neut % (Auto) Lymph % (Auto) [place] % (Auto) Eos % (Auto) Baso % (Auto) Lymph # (Auto) [place] # (Auto) Eos # (Auto) Baso # (Auto) Abs Immat Gran (auto) Absolute Neuts (auto) Absolute Nucleated RBC Nucleated RBC % (auto) VBG pH VBG pCO2 VBG pO2 VBG HCO3 VBG O2 Saturation VBG Base Excess Anion Gap Estim Creat Clear Calc Estimated GFR POC Glucose Random Glucose Lactic Acid Lactic Acid F/U @ 2Hr 3.7 H* Lactic Acid F/U @ 4Hr 2.7 H* Calcium Magnesium Total Bilirubin Direct Bilirubin AST ALT Alkaline Phosphatase Ammonia Total Creatine Kinase Troponin I High Sens B-Natriuretic Peptide Total Protein Albumin Lipase TSH Urine Color Yellow Urine Appearance Clear Urine pH 5.5 Ur Specific [place] 1.015 Urine Protein Negative Urine Glucose (UA) Negative Urine Ketones Negative Urine Blood Negative Urine Nitrite Negative Ur Leukocyte Esterase Negative Urine Opiates Screen Not Detected Ur Buprenorphine Scrn Not Detected Ur Oxycodone Screen Not Detected Urine Methadone Screen Not Detected Urine Fentanyl Screen Not Detected Ur Barbiturates Screen Not Detected Ur Phencyclidine Scrn Not Detected Ur Amphetamines Screen Not Detected U Benzodiazepines Scrn Not Detected Urine Cocaine Screen POSITIVE H U Marijuana (THC) Screen Not Detected Ethyl Alcohol Influenza Type A (PCR) Influenza Type B (PCR) RSV RNA Qual (PCR) SARS-CoV-2 RNA (RT-PCR) Imaging Radiologist's Impressions: Impressions Chest X-Ray 01/02/24 10:27 IMPRESSION: No evidence of aspiration pneumonia. No acute cardiopulmonary abnormality. Cervical Spine CT 01/02/24 12:10 IMPRESSION: * No intracranial hemorrhage or other acute intracranial pathology. * No fracture or malalignment in the cervical spine. * Centrilobular and paraseptal emphysema within the visualized lung apices. * Incidentally noted are dental caries of some of the partially visualized maxillary teeth and periapical lucency around a right maxillary premolar tooth. Head CT 01/02/24 12:10 IMPRESSION: * No intracranial hemorrhage or other acute intracranial pathology. * No fracture or malalignment in the cervical spine. * Centrilobular and paraseptal emphysema within the visualized lung apices. * Incidentally noted are dental caries of some of the partially visualized maxillary teeth and periapical lucency around a right maxillary premolar tooth. Abdomen/Pelvis CT 01/02/24 14:55 IMPRESSION: 1. A cause for the patient's lactic acidosis has not been found. 2. Incidental note made of mild periportal edema, Lara catheter in the bladder and calcific atherosclerotic changes in the aorta and iliofemoral vessels. Fleischner guidelines were followed. Assessment and Plan (1) Acute hypotension: Status: Acute (2) Acidosis, lactic: Status: Acute (3) Cocaine abuse: Status: Acute (4) Encephalopathy: Status: Acute (5) Metabolic acidosis: Status: Acute (6) Leukocytosis: Status: Acute Plan ?43-year-old with a past medical history of schizophrenia and substance abuse who presented to the emergency department unresponsive now admitted to ICU with hypotension likely from substance? use Neuro: ?Encephalopathy: patient is lethargic,? response to painful stimuli? and some verbal commands, ? likely from substance use,? patient is slightly metabolic acidic,? urine? toxicology was positive for cocaine.? Head CT is negative for acute findings. ? Continue to monitor neuro checks Cardiac:? ?Elevated lactic acidosis:? patient with significant elevation in lactic acid to 4,? but there is no evidence of severe sepsis,? chest x-ray,? abdominal CT? and urine do not show any signs of infection.? This is related to cocaine abuse. ? Lactic is down trending,? but will continue to monitor.? ?Hypotension:? no evidence of infection,? patient has received a total of 4 L of normal saline and 200 mL of albumin and continued to be slightly hypotensive.? Could be related to cocaine abuse.? We will continue IV fluids? and? start Levophed if necessary. Pulmonary:? ??No acute issues?? Renal:? ?Metabolic acidosis:? serum bicarb is 18,? venous pH is 7.29.? Abdominal CT is negative for acute findings, Patients not a diabetic,? there is no clear source for acidosis.? We will give 2 amps of bicarb, ? repeat lactic and blood gas.? Endo:? No acute issues.?? GI:? no acute issues ID: ?Leukocytosis:? patient with a slight elevation in leukocytosis,? no evidence of severe septic shock,? chest x-ray did not show any signs of pneumonia or aspiration,? but due to patient?s mentation aspiration is highly likely.? We will cover with Unasyn? empirically.? Blood cultures are pending Heme/Onc:? No acute issues. Psych:? No acute issues. Miscellaneous:? no acute issues Diet: NPO? due to mentation prophylaxis:? Lovenox ?Critical care time:? X 75 minutes of critical care time
[2024-01-02 19:34] LABS: Basophils Percent Auto 0.2 % (0-2); Eosinophils Percent Auto 0.1 % (0-4); Hematocrit 33.6 % (42.0-52.0); Hemoglobin 11.9 g/dl (14.0-18.0); Imm Gran Abs Auto 0.08 X10*3/uL (0.00-0.03); Imm Gran Pct Auto 0.5 % (0.0-0.4); Lymphocytes Absolute Auto 2.1 X10*3/uL (1.2-4.9); Mean Corpuscular HGB Conc 35.4 g/dl (31.0-36.0); Mean Corpuscular Hemoglobin 32.8 pg (27.0-33.0); Mean Corpuscular Volume 92.6 fL (80.0-98.0); Mean Platelet Volume 9.7 fL (9.4-12.4); Monocytes Absolute Auto 0.7 X10*3/uL (0.1-1.2); Monocytes Percent Auto 4.1 % (2-11); Neutrophils Absolute Auto 13.4 x10*3/uL (2.0-8.3); Neutrophils Percent Auto 82.1 % (45-73); Platelet Count 203 X10*3/uL (160-400); Red Blood Count 3.63 X10*6/uL (4.60-5.80); Red Cell Distribution Width 13.8 % (11.0-16.0); White Blood Count 16.3 X10*3/uL (4.8-10.8)
[2024-01-02 19:36] LABS: VBG Base Excess -7.8 mmol/L; VBG HCO3 17 mmol/L (22-26); VBG pCO2 35 mmHg; VBG pH 7.29 (7.32-7.43); VBG pO2 50 mmHg
[2024-01-02 19:37] LABS: Venous Blood Gas Refer to POC result
--- NOTE | 2024-01-02 19:40 | PC.NURSE ---
report given to Jonathon RN, ICU.
[2024-01-02] MEDS: Lactated Ringers 1,000 ML 150 ML IVCONT ×2 (19:48→20:42)
[2024-01-02 19:51] LABS: Alanine Aminotransferase 8 U/L (0-40); Alkaline Phosphatase 43 U/L (39-117); Anion Gap 19 (12-20); Aspartate Amino Transferase 15 U/L (5-37); Bilirubin Total 0.1 mg/dL (0.0-1.0); Blood Urea Nitrogen 13 mg/dL (9-16); Calcium 7.8 mg/dL (8.4-10.2); Carbon Dioxide 18 mmol/L (22-29); Chloride 113 mmol/L (96-108); Creatinine Clr Calc Pharmacy 105.7; Estimated Glomerular Filt Rate > 60; Glucose Random 91 mg/dL (60-115); Magnesium 2.1 mg/dL (1.6-2.6); Phosphorus 3.9 mg/dL (2.7-4.5); Potassium 4.1 mmol/L (3.3-5.1); Sodium 146 mmol/L (135-145); Total Protein 6.2 g/dL (6.5-8.0)
--- NOTE | 2024-01-02 19:53 | PHA.MEDREC ---
Pharmacy Consult ? Medication Reconciliation Pharmacy has completed the medication reconciliation. Patient cover his head with a blanket when I attempted to speak with him. Utilized claim history to complete med rec. Jasmina RomeroD
--- NOTE | 2024-01-02 20:02 | MHC.EDTECH ---
All patient belongings are lock in decon
[2024-01-02] MEDS: Calcium Gluconate/NaCl,Iso-Osm 2 GM/100 ML PLAST..BAG IV (20:34)
[2024-01-02] MEDS: Sodium Bicarbonate 8.4% 50 MEQ/50 ML SYRINGE IVPUSH ×2 (20:37→22:10)
[2024-01-02] MEDS: Ampicillin Sodium/Sulbactam Na 3 GM in 0.9 % Sodium Chloride 100 ML IV (20:38)
[2024-01-02] MEDS: Enoxaparin Sodium 40 MG/0.4 ML SYRINGE SUBCUT (20:42)
[2024-01-02 23:16] LABS: VBG Base Excess -3.4 mmol/L; VBG HCO3 19 mmol/L (22-26); VBG pCO2 29 mmHg; VBG pH 7.43 (7.32-7.43); VBG pO2 60 mmHg
[2024-01-02 23:20] LABS: Lactic Acid 0.9 mmol/L (0.5-2.0)
[2024-01-02 23:32] LABS: Venous Blood Gas Refer to POC result
[2024-01-03] VITALS (15 sets, daily range): BP systolic 111–151; BP diastolic 55–92; PULSE 60–87; RESP 14–24; TEMP 36.3–37; O2SAT 97–100; BMI 20.5
[2024-01-03] MEDS: Ampicillin Sodium/Sulbactam Na 3 GM in 0.9 % Sodium Chloride 100 ML IV ×4 (01:15→19:58)
[2024-01-03] MEDS: Lactated Ringers 1,000 ML 150 ML IVCONT ×2 (01:17→07:17)
[2024-01-03 04:52] LABS: VBG Base Excess -3.3 mmol/L; VBG HCO3 19 mmol/L (22-26); VBG pCO2 28 mmHg; VBG pH 7.43 (7.32-7.43); VBG pO2 60 mmHg
[2024-01-03 04:55] LABS: MANUAL DIFF FLAG NO
[2024-01-03 04:57] LABS: Basophils Absolute Auto 0.1 X10*3/uL (0.0-0.2); Basophils Percent Auto 0.3 % (0-2); Eosinophils Percent Auto 0.1 % (0-4); Hematocrit 35.7 % (42.0-52.0); Hemoglobin 12.5 g/dl (14.0-18.0); Imm Gran Pct Auto 0.5 % (0.0-0.4); Lymphocytes Absolute Auto 2.5 X10*3/uL (1.2-4.9); Lymphocytes Percent Auto 13.2 % (20-40); Mean Corpuscular Hemoglobin 31.8 pg (27.0-33.0); Mean Corpuscular Volume 90.8 fL (80.0-98.0); Monocytes Absolute Auto 1.2 X10*3/uL (0.1-1.2); Monocytes Percent Auto 6.3 % (2-11); Neutrophils Absolute Auto 15.1 x10*3/uL (2.0-8.3); Neutrophils Percent Auto 79.6 % (45-73); Platelet Count 209 X10*3/uL (160-400); Red Blood Count 3.93 X10*6/uL (4.60-5.80); White Blood Count 18.9 X10*3/uL (4.8-10.8)
[2024-01-03 05:03] LABS: Venous Blood Gas Refer to POC result
[2024-01-03 05:13] LABS: Alanine Aminotransferase 9 U/L (0-40); Albumin Level 3.9 g/dL (3.5-5.0); Alkaline Phosphatase 43 U/L (39-117); Anion Gap 14 (12-20); Aspartate Amino Transferase 14 U/L (5-37); Bilirubin Total 0.2 mg/dL (0.0-1.0); Blood Urea Nitrogen 15 mg/dL (9-16); Calcium 8.7 mg/dL (8.4-10.2); Carbon Dioxide 20 mmol/L (22-29); Chloride 111 mmol/L (96-108); Creatinine Clr Calc Pharmacy 108.3; Estimated Glomerular Filt Rate > 60; Glucose Random 138 mg/dL (60-115); Magnesium 1.9 mg/dL (1.6-2.6); Phosphorus 2.7 mg/dL (2.7-4.5); Potassium 3.4 mmol/L (3.3-5.1); Sodium 142 mmol/L (135-145); Total Protein 6.1 g/dL (6.5-8.0)
[2024-01-03] MEDS: Potassium Chloride Packet 20 MEQ PACKET 40 MEQ PO (06:29)
--- NOTE | 2024-01-03 07:29 | PC.NURSE ---
Assumed care at 0700. Informed patient on current medical status. Patient A&Ox3, no complaints this morning. Patient admits to taking 200 over the counter pain pills along with a 3 day prescription of risperadol prior to admission. Patient admits this was a positive SI attempt stating I wanted to end myself . Sitter placed at bedside. notified. Care team consult placed.
[2024-01-03 09:01] LABS: Acetaminophen LAB < 3 mcg/mL (<30)
--- NOTE | 2024-01-03 09:49 | P.PNCC_ITS ---
Subjective Subjective Date of Service: 01/03/24 Interval History: 43-year-old gentleman with underlying schizophrenia and polysubstance abuse including cocaine and heroin admitted 01/02/2024 after he was found unresponsive with no response to Narcan. On ER evaluation patient somnolent and with borderline blood pressors after IV fluid resuscitation with no evidence of sepsis and essentially normal imaging admitted to the intensive care unit for close monitoring. This a.m. patient with improvement in blood pressure and stating that he was trying to commit suicide by taking unspecified amount of unspecified [id number] pain pills and his 3 day supply of risperidone. His laboratory study shows normal renal function, no evidence of transaminitis, and undetectable salicylate level. No events overnight. Critical Care Time (minutes): 0 Physical Exam 2 Vital Signs: Vital Signs: Last Vital Signs Temp 98.6 F 01/03/24 08:00 Pulse 75 01/03/24 08:00 Resp 14 01/03/24 08:00 BP 128/75 01/03/24 08:00 Pulse Ox 99 01/03/24 08:00 O2 Del Method Room Air 01/03/24 08:00 BMI result Body Mass Index 20.5 Const: General: no acute distress, alert and awake Eyes: Sclerae: sclerae normal EOM: EOMs intact bilaterally Neck: Neck: Yes no lymphadenopathy, Yes trachea midline and Yes supple Resp: Effort & Inspection: normal respiratory effort and no respiratory distress Auscultation: clear to auscultation bilaterally Cardio: Rate: regular rate Rhythm: regular rhythm Heart sounds: no gallops, no murmurs and no rubs GI: Palpation (GI): Soft to palpation and Other GI palpation findings present ( Nontender) Auscultation: normal bowel sounds Extrem: General: Yes no pedal edema, No clubbing and No cyanosis Objective Data Labs 01/03/24 04:38 01/03/24 04:38 Labs: Laboratory Results - last 24 hr 01/02/24 01/02/24 01/02/24 09:25 09:35 09:48 WBC RBC Hgb Hct MCV MCH MCHC RDW Plt Count MPV Immature Gran % (Auto) Neut % (Auto) Lymph % (Auto) [place] % (Auto) Eos % (Auto) Baso % (Auto) Lymph # (Auto) [place] # (Auto) Eos # (Auto) Baso # (Auto) Abs Immat Gran (auto) Absolute Neuts (auto) Absolute Nucleated RBC Nucleated RBC % (auto) VBG pH 7.37 VBG pCO2 29 VBG pO2 195 VBG HCO3 17 L VBG O2 Saturation 99.0 VBG Base Excess -6.5 Sodium 143 Potassium 3.9 Chloride 110 H Carbon Dioxide 18 L Anion Gap 19 BUN 15 Creatinine 1.00 Estim Creat Clear Calc 87.7 Estimated GFR > 60 POC Glucose 124 H Random Glucose 124 H Lactic Acid 4.0 H* Lactic Acid F/U @ 2Hr Lactic Acid F/U @ 4Hr Calcium 8.7 Phosphorus Magnesium 2.0 Total Bilirubin 0.1 Direct Bilirubin < 0.2 AST 13 ALT 8 Alkaline Phosphatase 49 Ammonia 28 Total Creatine Kinase 105 Troponin I High Sens < 2.7 B-Natriuretic Peptide < 10 Total Protein 6.5 Albumin 4.0 Lipase 15 TSH 2.71 Urine Color Urine Appearance Urine pH Ur Specific [place] Urine Protein Urine Glucose (UA) Urine Ketones Urine Blood Urine Nitrite Ur Leukocyte Esterase Urine Opiates Screen Ur Buprenorphine Scrn Ur Oxycodone Screen Urine Methadone Screen Urine Fentanyl Screen Acetaminophen Ur Barbiturates Screen Ur Phencyclidine Scrn Ur Amphetamines Screen U Benzodiazepines Scrn Urine Cocaine Screen U Marijuana (THC) Screen Ethyl Alcohol < 10 Influenza Type A (PCR) NEGATIVE Influenza Type B (PCR) NEGATIVE RSV RNA Qual (PCR) NEGATIVE SARS-CoV-2 RNA (RT-PCR) NEGATIVE 01/02/24 01/02/24 01/02/24 11:57 12:01 14:39 WBC RBC Hgb Hct MCV MCH MCHC RDW Plt Count MPV Immature Gran % (Auto) Neut % (Auto) Lymph % (Auto) [place] % (Auto) Eos % (Auto) Baso % (Auto) Lymph # (Auto) [place] # (Auto) Eos # (Auto) Baso # (Auto) Abs Immat Gran (auto) Absolute Neuts (auto) Absolute Nucleated RBC Nucleated RBC % (auto) VBG pH VBG pCO2 VBG pO2 VBG HCO3 VBG O2 Saturation VBG Base Excess Sodium Potassium Chloride Carbon Dioxide Anion Gap BUN Creatinine Estim Creat Clear Calc Estimated GFR POC Glucose Random Glucose Lactic Acid Lactic Acid F/U @ 2Hr 3.7 H* Lactic Acid F/U @ 4Hr 2.7 H* Calcium Phosphorus Magnesium Total Bilirubin Direct Bilirubin AST ALT Alkaline Phosphatase Ammonia Total Creatine Kinase Troponin I High Sens B-Natriuretic Peptide Total Protein Albumin Lipase TSH Urine Color Yellow Urine Appearance Clear Urine pH 5.5 Ur Specific [place] 1.015 Urine Protein Negative Urine Glucose (UA) Negative Urine Ketones Negative Urine Blood Negative Urine Nitrite Negative Ur Leukocyte Esterase Negative Urine Opiates Screen Not Detected Ur Buprenorphine Scrn Not Detected Ur Oxycodone Screen Not Detected Urine Methadone Screen Not Detected Urine Fentanyl Screen Not Detected Acetaminophen Ur Barbiturates Screen Not Detected Ur Phencyclidine Scrn Not Detected Ur Amphetamines Screen Not Detected U Benzodiazepines Scrn Not Detected Urine Cocaine Screen POSITIVE H U Marijuana (THC) Screen Not Detected Ethyl Alcohol Influenza Type A (PCR) Influenza Type B (PCR) RSV RNA Qual (PCR) SARS-CoV-2 RNA (RT-PCR) 01/02/24 01/02/24 01/02/24 19:25 19:28 23:04 WBC 16.3 H RBC 3.63 L Hgb 11.9 L Hct 33.6 L MCV 92.6 MCH 32.8 MCHC 35.4 RDW 13.8 Plt Count 203 MPV 9.7 Immature Gran % (Auto) 0.5 H Neut % (Auto) 82.1 H Lymph % (Auto) 13.0 L [place] % (Auto) 4.1 Eos % (Auto) 0.1 Baso % (Auto) 0.2 Lymph # (Auto) 2.1 [place] # (Auto) 0.7 Eos # (Auto) 0.0 Baso # (Auto) 0.0 Abs Immat Gran (auto) 0.08 H Absolute Neuts (auto) 13.4 H Absolute Nucleated RBC 0.000 Nucleated RBC % (auto) 0.0 VBG pH 7.29 L VBG pCO2 35 VBG pO2 50 VBG HCO3 17 L VBG O2 Saturation 76.0 VBG Base Excess -7.8 Sodium 146 H Potassium 4.1 Chloride 113 H Carbon Dioxide 18 L Anion Gap 19 BUN 13 Creatinine 0.83 Estim Creat Clear Calc 105.7 Estimated GFR > 60 POC Glucose Random Glucose 91 Lactic Acid 0.9 Lactic Acid F/U @ 2Hr Lactic Acid F/U @ 4Hr Calcium 7.8 L D Phosphorus 3.9 Magnesium 2.1 Total Bilirubin 0.1 Direct Bilirubin AST 15 ALT 8 Alkaline Phosphatase 43 Ammonia Total Creatine Kinase Troponin I High Sens B-Natriuretic Peptide Total Protein 6.2 L Albumin 4.0 Lipase TSH Urine Color Urine Appearance Urine pH Ur Specific [place] Urine Protein Urine Glucose (UA) Urine Ketones Urine Blood Urine Nitrite Ur Leukocyte Esterase Urine Opiates Screen Ur Buprenorphine Scrn Ur Oxycodone Screen Urine Methadone Screen Urine Fentanyl Screen Acetaminophen Ur Barbiturates Screen Ur Phencyclidine Scrn Ur Amphetamines Screen U Benzodiazepines Scrn Urine Cocaine Screen U Marijuana (THC) Screen Ethyl Alcohol Influenza Type A (PCR) Influenza Type B (PCR) RSV RNA Qual (PCR) SARS-CoV-2 RNA (RT-PCR) 01/02/24 01/03/24 01/03/24 23:07 04:38 04:42 WBC 18.9 H RBC 3.93 L Hgb 12.5 L Hct 35.7 L MCV 90.8 MCH 31.8 MCHC 35.0 RDW 14.0 Plt Count 209 MPV 10.0 Immature Gran % (Auto) 0.5 H Neut % (Auto) 79.6 H Lymph % (Auto) 13.2 L [place] % (Auto) 6.3 Eos % (Auto) 0.1 Baso % (Auto) 0.3 Lymph # (Auto) 2.5 [place] # (Auto) 1.2 Eos # (Auto) 0.0 Baso # (Auto) 0.1 Abs Immat Gran (auto) 0.10 H Absolute Neuts (auto) 15.1 H Absolute Nucleated RBC 0.000 Nucleated RBC % (auto) 0.0 VBG pH 7.43 7.43 VBG pCO2 29 28 VBG pO2 60 60 VBG HCO3 19 L 19 L VBG O2 Saturation 90.0 90.0 VBG Base Excess -3.4 -3.3 Sodium 142 Potassium 3.4 Chloride 111 H Carbon Dioxide 20 L Anion Gap 14 BUN 15 Creatinine 0.79 Estim Creat Clear Calc 108.3 Estimated GFR > 60 POC Glucose Random Glucose 138 H Lactic Acid Lactic Acid F/U @ 2Hr Lactic Acid F/U @ 4Hr Calcium 8.7 D Phosphorus 2.7 Magnesium 1.9 Total Bilirubin 0.2 Direct Bilirubin AST 14 ALT 9 Alkaline Phosphatase 43 Ammonia Total Creatine Kinase Troponin I High Sens B-Natriuretic Peptide Total Protein 6.1 L Albumin 3.9 Lipase TSH Urine Color Urine Appearance Urine pH Ur Specific [place] Urine Protein Urine Glucose (UA) Urine Ketones Urine Blood Urine Nitrite Ur Leukocyte Esterase Urine Opiates Screen Ur Buprenorphine Scrn Ur Oxycodone Screen Urine Methadone Screen Urine Fentanyl Screen Acetaminophen Ur Barbiturates Screen Ur Phencyclidine Scrn Ur Amphetamines Screen U Benzodiazepines Scrn Urine Cocaine Screen U Marijuana (THC) Screen Ethyl Alcohol Influenza Type A (PCR) Influenza Type B (PCR) RSV RNA Qual (PCR) SARS-CoV-2 RNA (RT-PCR) 01/03/24 08:36 WBC RBC Hgb Hct MCV MCH MCHC RDW Plt Count MPV Immature Gran % (Auto) Neut % (Auto) Lymph % (Auto) [place] % (Auto) Eos % (Auto) Baso % (Auto) Lymph # (Auto) [place] # (Auto) Eos # (Auto) Baso # (Auto) Abs Immat Gran (auto) Absolute Neuts (auto) Absolute Nucleated RBC Nucleated RBC % (auto) VBG pH VBG pCO2 VBG pO2 VBG HCO3 VBG O2 Saturation VBG Base Excess Sodium Potassium Chloride Carbon Dioxide Anion Gap BUN Creatinine Estim Creat Clear Calc Estimated GFR POC Glucose Random Glucose Lactic Acid Lactic Acid F/U @ 2Hr Lactic Acid F/U @ 4Hr Calcium Phosphorus Magnesium Total Bilirubin Direct Bilirubin AST ALT Alkaline Phosphatase Ammonia Total Creatine Kinase Troponin I High Sens B-Natriuretic Peptide Total Protein Albumin Lipase TSH Urine Color Urine Appearance Urine pH Ur Specific [place] Urine Protein Urine Glucose (UA) Urine Ketones Urine Blood Urine Nitrite Ur Leukocyte Esterase Urine Opiates Screen Ur Buprenorphine Scrn Ur Oxycodone Screen Urine Methadone Screen Urine Fentanyl Screen Acetaminophen < 3 Ur Barbiturates Screen Ur Phencyclidine Scrn Ur Amphetamines Screen U Benzodiazepines Scrn Urine Cocaine Screen U Marijuana (THC) Screen Ethyl Alcohol Influenza Type A (PCR) Influenza Type B (PCR) RSV RNA Qual (PCR) SARS-CoV-2 RNA (RT-PCR) Progress Note: A&P Assessment and plan (1) Suicide attempt: Status: Acute (2) Cocaine abuse: Status: Acute (3) Acute alteration in mental status: Status: Acute (4) Schizophrenia: Status: Acute Plan Assessment: Plan: Neuro: No acute issues. Cardiac: No acute issues. Pulmonary: Possible pulmonary aspiration, now on empiric Unasyn. Renal: No acute issues. Endo: No acute issues. GI: No acute issues. ID: No acute issues Heme/Onc: No acute issues. Psych: Underlying polysubstance abuse and schizophrenia with what appears to be suicide attempt. One-to-one sitter. Psychiatric evaluation. Miscellaneous: No acute issues. Prophylaxis: Heparin Diet: Regular Quality Stroke Does the patient have a stroke diagnosis?: No VTE Prior VTE?: No VTE Risk Level:: Medical - moderate - high VTE Device Contraindication: N/A - Device Ordered VTE Drug Contraindication: N/A - Med Ordered
--- NOTE | 2024-01-03 13:35 | MHC.CM.PN ---
CM RECEIVED A CALL FROM [facility] [employer], MITCHEL STEWARD [phone] SHE REPORTS [facility] AND THE PTS MOTHER HAVE BEEN UNABLE TO FIND HIM FOR DAYS SHE AND THE [facility] RN, KERWIN [phone] REQUESTED UPDATES AND ASKED THAT THEY BE INFORMED OF DC PLANS MITCHEL [phone] KERWIN [phone]
--- NOTE | 2024-01-03 13:53 | MHC.CM.PN ---
IMM 01/03/24 Male 43 Found down BIBA DX Hypotension s/p intentional OD (pills). HX polysubstance OUD . He is not receiving Methadone. He is not interested.The patient transferred to ICU (hypotension) from the ER. t/w met patient in ICU. 1:[address] r/t SA. He states that he lives by himself. He is independent with all functional mobility. He is connected with [facility] (see previous CM note for contact info). A HCP has been documented. Pt named his Mother Casandra Ortega. PCP Dr Vanessa Pulido update in EMR. Careteam eval ordered. He will be seen when he is medically cleared. An Addiction medicine consult has been ordered. Patient blood cultures cleared. Plan is transfer to Med-surg. DP likely INPT Psych for SA. Patient will need assist with transport at discharge.
--- NOTE | 2024-01-03 14:20 | PM.PSYCN ---
History of Present Illness Date of Service: t Chief Complaint: Hypotension Reason for Consult: Assessment of suicidal ideation Discussed with referring provider: Yes Sources of Information: patient interviewed, chart reviewed and crisis/core team assessment reviewed HPI Narrative: The patient is a 43-year-old male, single, father of 1 adult son, unemployed on disability with a past history of schizophrenia paranoid type, substance abuse with legal encounters, currently on probation and limited social support who was referred to the emergency room after he disclosed to a friend that he took an overdose on his prescription medications such as Risperdal, Tylenol and others in a suicidal attempt.? He was rushed to the emergency room, medically stabilized and transferred to the ICU for continuation of treatment. The patient reported that he had been feeling overwhelmed recently.? He has a legal problem due to substance abuse he is on probation at this moment and he has also conflicts with his girlfriend.? He was feeling desperate and he took an overdose in attempt to or at least sleep.? He called a friend and his friend called 911.? The patient is unable to recall exactly what happened after that since he was intoxicated with several medications. On interview, the patient reported that he carries a diagnosis of schizophrenia and he has legal encounters due to his substance abuse and he feels overwhelmed.? He was able to contract for safety.? He admits chronic auditory hallucinations and mild paranoia but he is able to contract for safety.? We discussed at length safety concerns and he agreed that he should continue treatment as an inpatient.? We are going to inform the care team. Past Psychiatric History: The patient reported that his 1st psychiatric contact was when he was very young, he had been admitted into the hospital several times at least 8 times last admission 2 years ago. He reports that he has been taking Risperdal for several years. Medical Evaluation Reviewed: Yes [facility] Medical History Crack cocaine use Heroin abuse Substance abuse Schizophrenia Diagnostics Vital Signs (24Hr): Vital Signs - 24 hr 01/02/24 15:17 01/02/24 15:56 01/02/24 16:16 Temperature 97.8 F Pulse Rate 73 73 Respiratory Rate 19 20 Blood Pressure 83/42 L 86/43 L Pulse Oximetry 99 97 Oxygen Delivery Method Room Air Room Air 01/02/24 16:51 01/02/24 17:08 01/02/24 17:56 Temperature Pulse Rate 72 70 71 Respiratory Rate 19 18 17 Blood Pressure 90/43 L 99/48 L 82/43 L Pulse Oximetry 98 98 98 Oxygen Delivery Method Room Air Room Air Room Air 01/02/24 18:20 01/02/24 19:38 01/02/24 19:48 Temperature 94.8 F L Pulse Rate 83 89 Respiratory Rate 20 21 H Blood Pressure 91/52 L 87/41 L 89/43 L Pulse Oximetry 99 97 Oxygen Delivery Method Room Air Room Air 01/02/24 20:00 01/02/24 20:39 01/02/24 20:52 Temperature 97.6 F Pulse Rate 77 74 76 Respiratory Rate 19 25 H 18 Blood Pressure 112/59 L 98/58 L 110/69 Pulse Oximetry 97 97 98 Oxygen Delivery Method Room Air Room Air Room Air 01/02/24 21:50 01/02/24 22:44 01/03/24 00:00 Temperature 97.4 F 97.5 F Pulse Rate 74 78 75 Respiratory Rate 18 18 20 Blood Pressure 112/73 113/69 116/67 Pulse Oximetry 99 98 98 Oxygen Delivery Method Room Air Room Air Room Air 01/03/24 01:00 01/03/24 01:07 01/03/24 02:02 Temperature Pulse Rate 78 82 82 Respiratory Rate 21 H 22 H 18 Blood Pressure 113/55 L 113/55 L 114/63 Pulse Oximetry 99 99 100 Oxygen Delivery Method Room Air Room Air Room Air 01/03/24 02:56 01/03/24 03:59 01/03/24 05:00 Temperature 97.4 F Pulse Rate 76 79 87 Respiratory Rate 20 19 16 Blood Pressure 124/70 115/64 121/69 Pulse Oximetry 100 99 100 Oxygen Delivery Method Room Air Room Air Room Air 01/03/24 06:00 01/03/24 07:00 01/03/24 08:00 Temperature 98.6 F Pulse Rate 78 75 75 Respiratory Rate 19 19 14 Blood Pressure 115/70 111/60 128/75 Pulse Oximetry 100 99 99 Oxygen Delivery Method Room Air Room Air Room Air 01/03/24 12:00 01/03/24 13:50 Temperature 97.7 F Pulse Rate 87 80 Respiratory Rate 24 H 14 Blood Pressure 136/73 129/80 Pulse Oximetry 97 99 Oxygen Delivery Method Room Air Room Air [facility] result Body Mass Index 20.5 Labs 01/03/24 04:38 01/03/24 04:38 Labs: Laboratory Results - last 48 hr 01/02/24 01/02/24 01/02/24 09:25 09:35 09:48 WBC 11.2 H RBC 3.82 L Hgb 12.3 L Hct 34.9 L MCV 91.4 MCH 32.2 MCHC 35.2 RDW 13.5 Plt Count 222 MPV 10.1 Immature Gran % (Auto) 0.4 Neut % (Auto) 71.6 Lymph % (Auto) 20.4 [place] % (Auto) 6.0 Eos % (Auto) 1.2 Baso % (Auto) 0.4 Lymph # (Auto) 2.3 [place] # (Auto) 0.7 Eos # (Auto) 0.1 Baso # (Auto) 0.0 Abs Immat Gran (auto) 0.05 H Absolute Neuts (auto) 8.1 Absolute Nucleated RBC 0.000 Nucleated RBC % (auto) 0.0 VBG pH 7.37 VBG pCO2 29 VBG pO2 195 VBG HCO3 17 L VBG O2 Saturation 99.0 VBG Base Excess -6.5 Sodium 143 Potassium 3.9 Chloride 110 H Carbon Dioxide 18 L Anion Gap 19 BUN 15 Creatinine 1.00 Estim Creat Clear Calc 87.7 Estimated GFR > 60 POC Glucose 124 H Random Glucose 124 H Lactic Acid 4.0 H* Lactic Acid F/U @ 2Hr Lactic Acid F/U @ 4Hr Calcium 8.7 Phosphorus Magnesium 2.0 Total Bilirubin 0.1 Direct Bilirubin < 0.2 AST 13 ALT 8 Alkaline Phosphatase 49 Ammonia 28 Total Creatine Kinase 105 Troponin I High Sens < 2.7 B-Natriuretic Peptide < 10 Total Protein 6.5 Albumin 4.0 Lipase 15 TSH 2.71 Urine Color Urine Appearance Urine pH Ur Specific [place] Urine Protein Urine Glucose (UA) Urine Ketones Urine Blood Urine Nitrite Ur Leukocyte Esterase Urine Opiates Screen Ur Buprenorphine Scrn Ur Oxycodone Screen Urine Methadone Screen Urine Fentanyl Screen Acetaminophen Ur Barbiturates Screen Ur Phencyclidine Scrn Ur Amphetamines Screen U Benzodiazepines Scrn Urine Cocaine Screen U Marijuana (THC) Screen Ethyl Alcohol < 10 Influenza Type A (PCR) NEGATIVE Influenza Type B (PCR) NEGATIVE RSV RNA Qual (PCR) NEGATIVE SARS-CoV-2 RNA (RT-PCR) NEGATIVE 01/02/24 01/02/24 01/02/24 11:57 12:01 14:39 WBC RBC Hgb Hct MCV MCH MCHC RDW Plt Count MPV Immature Gran % (Auto) Neut % (Auto) Lymph % (Auto) [place] % (Auto) Eos % (Auto) Baso % (Auto) Lymph # (Auto) [place] # (Auto) Eos # (Auto) Baso # (Auto) Abs Immat Gran (auto) Absolute Neuts (auto) Absolute Nucleated RBC Nucleated RBC % (auto) VBG pH VBG pCO2 VBG pO2 VBG HCO3 VBG O2 Saturation VBG Base Excess Sodium Potassium Chloride Carbon Dioxide Anion Gap BUN Creatinine Estim Creat Clear Calc Estimated GFR POC Glucose Random Glucose Lactic Acid Lactic Acid F/U @ 2Hr 3.7 H* Lactic Acid F/U @ 4Hr 2.7 H* Calcium Phosphorus Magnesium Total Bilirubin Direct Bilirubin AST ALT Alkaline Phosphatase Ammonia Total Creatine Kinase Troponin I High Sens B-Natriuretic Peptide Total Protein Albumin Lipase TSH Urine Color Yellow Urine Appearance Clear Urine pH 5.5 Ur Specific [place] 1.015 Urine Protein Negative Urine Glucose (UA) Negative Urine Ketones Negative Urine Blood Negative Urine Nitrite Negative Ur Leukocyte Esterase Negative Urine Opiates Screen Not Detected Ur Buprenorphine Scrn Not Detected Ur Oxycodone Screen Not Detected Urine Methadone Screen Not Detected Urine Fentanyl Screen Not Detected Acetaminophen Ur Barbiturates Screen Not Detected Ur Phencyclidine Scrn Not Detected Ur Amphetamines Screen Not Detected U Benzodiazepines Scrn Not Detected Urine Cocaine Screen POSITIVE H U Marijuana (THC) Screen Not Detected Ethyl Alcohol Influenza Type A (PCR) Influenza Type B (PCR) RSV RNA Qual (PCR) SARS-CoV-2 RNA (RT-PCR) 01/02/24 01/02/24 01/02/24 19:25 19:28 23:04 WBC 16.3 H RBC 3.63 L Hgb 11.9 L Hct 33.6 L MCV 92.6 MCH 32.8 MCHC 35.4 RDW 13.8 Plt Count 203 MPV 9.7 Immature Gran % (Auto) 0.5 H Neut % (Auto) 82.1 H Lymph % (Auto) 13.0 L [place] % (Auto) 4.1 Eos % (Auto) 0.1 Baso % (Auto) 0.2 Lymph # (Auto) 2.1 [place] # (Auto) 0.7 Eos # (Auto) 0.0 Baso # (Auto) 0.0 Abs Immat Gran (auto) 0.08 H Absolute Neuts (auto) 13.4 H Absolute Nucleated RBC 0.000 Nucleated RBC % (auto) 0.0 VBG pH 7.29 L VBG pCO2 35 VBG pO2 50 VBG HCO3 17 L VBG O2 Saturation 76.0 VBG Base Excess -7.8 Sodium 146 H Potassium 4.1 Chloride 113 H Carbon Dioxide 18 L Anion Gap 19 BUN 13 Creatinine 0.83 Estim Creat Clear Calc 105.7 Estimated GFR > 60 POC Glucose Random Glucose 91 Lactic Acid 0.9 Lactic Acid F/U @ 2Hr Lactic Acid F/U @ 4Hr Calcium 7.8 L D Phosphorus 3.9 Magnesium 2.1 Total Bilirubin 0.1 Direct Bilirubin AST 15 ALT 8 Alkaline Phosphatase 43 Ammonia Total Creatine Kinase Troponin I High Sens B-Natriuretic Peptide Total Protein 6.2 L Albumin 4.0 Lipase TSH Urine Color Urine Appearance Urine pH Ur Specific [place] Urine Protein Urine Glucose (UA) Urine Ketones Urine Blood Urine Nitrite Ur Leukocyte Esterase Urine Opiates Screen Ur Buprenorphine Scrn Ur Oxycodone Screen Urine Methadone Screen Urine Fentanyl Screen Acetaminophen Ur Barbiturates Screen Ur Phencyclidine Scrn Ur Amphetamines Screen U Benzodiazepines Scrn Urine Cocaine Screen U Marijuana (THC) Screen Ethyl Alcohol Influenza Type A (PCR) Influenza Type B (PCR) RSV RNA Qual (PCR) SARS-CoV-2 RNA (RT-PCR) 01/02/24 01/03/24 01/03/24 23:07 04:38 04:42 WBC 18.9 H RBC 3.93 L Hgb 12.5 L Hct 35.7 L MCV 90.8 MCH 31.8 MCHC 35.0 RDW 14.0 Plt Count 209 MPV 10.0 Immature Gran % (Auto) 0.5 H Neut % (Auto) 79.6 H Lymph % (Auto) 13.2 L [place] % (Auto) 6.3 Eos % (Auto) 0.1 Baso % (Auto) 0.3 Lymph # (Auto) 2.5 [place] # (Auto) 1.2 Eos # (Auto) 0.0 Baso # (Auto) 0.1 Abs Immat Gran (auto) 0.10 H Absolute Neuts (auto) 15.1 H Absolute Nucleated RBC 0.000 Nucleated RBC % (auto) 0.0 VBG pH 7.43 7.43 VBG pCO2 29 28 VBG pO2 60 60 VBG HCO3 19 L 19 L VBG O2 Saturation 90.0 90.0 VBG Base Excess -3.4 -3.3 Sodium 142 Potassium 3.4 Chloride 111 H Carbon Dioxide 20 L Anion Gap 14 BUN 15 Creatinine 0.79 Estim Creat Clear Calc 108.3 Estimated GFR > 60 POC Glucose Random Glucose 138 H Lactic Acid Lactic Acid F/U @ 2Hr Lactic Acid F/U @ 4Hr Calcium 8.7 D Phosphorus 2.7 Magnesium 1.9 Total Bilirubin 0.2 Direct Bilirubin AST 14 ALT 9 Alkaline Phosphatase 43 Ammonia Total Creatine Kinase Troponin I High Sens B-Natriuretic Peptide Total Protein 6.1 L Albumin 3.9 Lipase TSH Urine Color Urine Appearance Urine pH Ur Specific [place] Urine Protein Urine Glucose (UA) Urine Ketones Urine Blood Urine Nitrite Ur Leukocyte Esterase Urine Opiates Screen Ur Buprenorphine Scrn Ur Oxycodone Screen Urine Methadone Screen Urine Fentanyl Screen Acetaminophen Ur Barbiturates Screen Ur Phencyclidine Scrn Ur Amphetamines Screen U Benzodiazepines Scrn Urine Cocaine Screen U Marijuana (THC) Screen Ethyl Alcohol Influenza Type A (PCR) Influenza Type B (PCR) RSV RNA Qual (PCR) SARS-CoV-2 RNA (RT-PCR) 01/03/24 08:36 WBC RBC Hgb Hct MCV MCH MCHC RDW Plt Count MPV Immature Gran % (Auto) Neut % (Auto) Lymph % (Auto) [place] % (Auto) Eos % (Auto) Baso % (Auto) Lymph # (Auto) [place] # (Auto) Eos # (Auto) Baso # (Auto) Abs Immat Gran (auto) Absolute Neuts (auto) Absolute Nucleated RBC Nucleated RBC % (auto) VBG pH VBG pCO2 VBG pO2 VBG HCO3 VBG O2 Saturation VBG Base Excess Sodium Potassium Chloride Carbon Dioxide Anion Gap BUN Creatinine Estim Creat Clear Calc Estimated GFR POC Glucose Random Glucose Lactic Acid Lactic Acid F/U @ 2Hr Lactic Acid F/U @ 4Hr Calcium Phosphorus Magnesium Total Bilirubin Direct Bilirubin AST ALT Alkaline Phosphatase Ammonia Total Creatine Kinase Troponin I High Sens B-Natriuretic Peptide Total Protein Albumin Lipase TSH Urine Color Urine Appearance Urine pH Ur Specific [place] Urine Protein Urine Glucose (UA) Urine Ketones Urine Blood Urine Nitrite Ur Leukocyte Esterase Urine Opiates Screen Ur Buprenorphine Scrn Ur Oxycodone Screen Urine Methadone Screen Urine Fentanyl Screen Acetaminophen < 3 Ur Barbiturates Screen Ur Phencyclidine Scrn Ur Amphetamines Screen U Benzodiazepines Scrn Urine Cocaine Screen U Marijuana (THC) Screen Ethyl Alcohol Influenza Type A (PCR) Influenza Type B (PCR) RSV RNA Qual (PCR) SARS-CoV-2 RNA (RT-PCR) Imaging Radiology Impressions: ITS Impressions Chest X-Ray 01/02/24 10:27 IMPRESSION: No evidence of aspiration pneumonia. No acute cardiopulmonary abnormality. Cervical Spine CT 01/02/24 12:10 IMPRESSION: * No intracranial hemorrhage or other acute intracranial pathology. * No fracture or malalignment in the cervical spine. * Centrilobular and paraseptal emphysema within the visualized lung apices. * Incidentally noted are dental caries of some of the partially visualized maxillary teeth and periapical lucency around a right maxillary premolar tooth. Head CT 01/02/24 12:10 IMPRESSION: * No intracranial hemorrhage or other acute intracranial pathology. * No fracture or malalignment in the cervical spine. * Centrilobular and paraseptal emphysema within the visualized lung apices. * Incidentally noted are dental caries of some of the partially visualized maxillary teeth and periapical lucency around a right maxillary premolar tooth. Abdomen/Pelvis CT 01/02/24 14:55 IMPRESSION: 1. A cause for the patient's lactic acidosis has not been found. 2. Incidental note made of mild periportal edema, Lara catheter in the bladder and calcific atherosclerotic changes in the aorta and iliofemoral vessels. Fleischner guidelines were followed. Mental Status Exam Mental Status Exam Patient Appearance: Disheveled and Appropriate (On hospital gowns) Patient Orientation: Person and Situation Level of Consciousness: Awake and Appropriate Patient Behavior: Guarded and Passive Mood Description: Withdrawn Affect Description: Blunted Patient Cognition Impaired: No Ability to Follow Directions: Fair Speech Pattern: Clear and Monotone Hallucinations: Auditory Delusions: Paranoid Ideation and Ideas of Reference Thought Process: Distracted and Slowed Thinking Thought Content: positive for [place], positive for Circumstantial and positive for Poverty of Content Judgement: Poor Medications Medications Current Medications Enoxaparin Sodium (Enoxaparin Sodium 40 Mg/0.4 Ml Syringe) 40 mg SUBCUT Q24H [facility] Last Admin: 01/02/24 20:42 Dose: 40 mg Ampicillin Sodium/Sulbactam (Sodium 3 gm/ Sodium Chloride) 100 mls @ 200 mls/hr IV Q6H [facility] Last Admin: 01/03/24 13:50 Dose: 200 mls/hr Allergies Allergies Allergy/AdvReac Type Severity Reaction Status Date / Time No Known Allergies Allergy Verified 01/02/24 09:30 Assessment & Plan Assessment & Plan (1) Schizophrenia: Status: Acute Code(s): F20.9 - Schizophrenia, unspecified (2) Cocaine abuse: Status: Acute Code(s): F14.10 - Cocaine abuse, uncomplicated (3) Suicide attempt: Status: Acute Code(s): T14.91XA - Suicide attempt, initial encounter (4) Opioid abuse: Status: Acute Code(s): F11.10 - Opioid abuse, uncomplicated Plan The patient is a young male with a past history of schizophrenia, cocaine use disorder, opiate use disorder and limited Social support admitted for an overdose of prescription medications in a suicidal attempt. The patient has several stressors and he was unable to cope with them. Initially admitted at ICU for stabilization and later transferred to the medical robin. At the moment of the interview, the patient reported passive suicidal ideation chronic psychotic symptoms and he admitted an intentional overdose on prescription medications in a suicidal attempt. Plan 1. Gather collateral information. The patient has a community resource officer and needs to be informed that the patient is in the hospital. 2. At this moment we will not start any medications since the patient is still sedated from the overdose. 3. Care team referral for admission to Psychiatry. 4. The patient does not have capacity to sign AMA. He needs to be transferred to Psychiatry for stabilization. If the patient refused to sign a CV, a 12B should be issues. Total time managing care of this patient today __30__ minutes. Patient educated on: diagnosis, substance abuse and therapeutic strategies Informed Consent: further education needed
--- NOTE | 2024-01-03 16:02 | PC.NURSE ---
Pt remains on 1:1 for SI awating care team / psych evaluation
[2024-01-03] MEDS: Enoxaparin Sodium 40 MG/0.4 ML SYRINGE SUBCUT (19:58)
--- NOTE | 2024-01-03 20:20 | MHC.CARE ---
Sofie ([facility] Program Fishing Guide) is able to offer collateral information if needed. [phone]
[2024-01-04] MEDS: Ampicillin Sodium/Sulbactam Na 3 GM in 0.9 % Sodium Chloride 100 ML IV ×2 (01:44→07:15)
[2024-01-04 04:00] VITALS: RESP 18
[2024-01-04 06:00] VITALS: BMI 20.6
[2024-01-04 06:57] LABS: MANUAL DIFF FLAG NO
[2024-01-04 07:04] LABS: Basophils Percent Auto 0.2 % (0-2); Eosinophils Percent Auto 0.3 % (0-4); Hematocrit 34.6 % (42.0-52.0); Imm Gran Abs Auto 0.04 X10*3/uL (0.00-0.03); Imm Gran Pct Auto 0.3 % (0.0-0.4); Lymphocytes Absolute Auto 2.8 X10*3/uL (1.2-4.9); Lymphocytes Percent Auto 23.5 % (20-40); Mean Corpuscular HGB Conc 34.7 g/dl (31.0-36.0); Mean Corpuscular Hemoglobin 31.9 pg (27.0-33.0); Mean Platelet Volume 10.6 fL (9.4-12.4); Monocytes Absolute Auto 0.9 X10*3/uL (0.1-1.2); Monocytes Percent Auto 7.4 % (2-11); Neutrophils Absolute Auto 8.1 x10*3/uL (2.0-8.3); Neutrophils Percent Auto 68.3 % (45-73); Platelet Count 191 X10*3/uL (160-400); Red Blood Count 3.76 X10*6/uL (4.60-5.80); White Blood Count 11.9 X10*3/uL (4.8-10.8)
--- NOTE | 2024-01-04 07:19 | PC.NURSE ---
History of SI, no SI this AM at the start of the shift.
[2024-01-04 07:29] VITALS: BP 125/78; PULSE 60; RESP 18; TEMP 36; O2SAT 98
[2024-01-04 07:47] LABS: Anion Gap 13 (12-20); Blood Urea Nitrogen 9 mg/dL (9-16); Calcium 8.4 mg/dL (8.4-10.2); Carbon Dioxide 20 mmol/L (22-29); Chloride 110 mmol/L (96-108); Creatinine Clr Calc Pharmacy 124.6; Estimated Glomerular Filt Rate > 60; Glucose Random 87 mg/dL (60-115); Magnesium 2.1 mg/dL (1.6-2.6); Phosphorus 1.8 mg/dL (2.7-4.5); Sodium 139 mmol/L (135-145)
--- NOTE | 2024-01-04 09:08 | PC.NURSE ---
Pt refused PO MD Nuvia Pa notified.
[2024-01-04 12:00] VITALS: BP 145/82; PULSE 61; RESP 18; TEMP 36.2; O2SAT 100
--- NOTE | 2024-01-04 14:39 | P.PNIM_ITS ---
Subjective Subjective Date of Service: 01/04/24 Interval History: No acute issues overnight. Maintained with one-to-one sitter. No acute behavioral issues Review of Systems Denies chest pain Denies shortness of breath Denies nausea vomiting diarrhea Denies fever chills Physical Exam 2 Vital Signs: Vital Signs: Last Vital Signs Temp 97.2 F 01/04/24 12:00 Pulse 61 01/04/24 12:00 Resp 18 01/04/24 12:00 BP 145/82 H 01/04/24 12:00 Pulse Ox 100 01/04/24 12:00 O2 Del Method Room Air 01/04/24 12:00 BMI result Body Mass Index 20.6 Const: Other: Awake alert no acute distress Resp: Other: Clear to auscultation bilaterally no rales rhonchi or wheezes Cardio: Other: No S4; positive S1-S2; no S3 murmurs rubs or gallops GI: Other: Soft nontender nondistended normoactive bowel sounds Extrem: Other: No edema bilaterally Objective Data Active Medications Enoxaparin Sodium (Enoxaparin Sodium 40 Mg/0.4 Ml Syringe) 40 mg SUBCUT Q24H [facility] Last Admin: 01/03/24 19:58 Dose: 40 mg Documented By: RIMMA Labs 01/04/24 05:44 01/04/24 05:44 Labs: Laboratory Results - last 24 hr 01/04/24 05:44 MCV 92.0 MCH 31.9 MCHC 34.7 RDW 14.0 Plt Count 191 MPV 10.6 Immature Gran % (Auto) 0.3 Neut % (Auto) 68.3 Lymph % (Auto) 23.5 [place] % (Auto) 7.4 Eos % (Auto) 0.3 Baso % (Auto) 0.2 Lymph # (Auto) 2.8 [place] # (Auto) 0.9 Eos # (Auto) 0.0 Baso # (Auto) 0.0 Abs Immat Gran (auto) 0.04 H Absolute Neuts (auto) 8.1 Absolute Nucleated RBC 0.000 Nucleated RBC % (auto) 0.0 Anion Gap 13 Estim Creat Clear Calc 124.6 Estimated GFR > 60 Random Glucose 87 Calcium 8.4 Phosphorus 1.8 L Magnesium 2.1 Microbiology Microbiology Results: Microbiology 01/02/24 09:35 Blood Culture - Preliminary Blood - Venous No growth after 48 hours. 06/20/24 09:35 Blood Culture - Preliminary Blood - Venous No growth after 48 hours. Assessment and Plan (1) Schizophrenia: Status: Acute Plan The patient is a young male with a past history of schizophrenia, cocaine use disorder, opiate use disorder and limited Social support admitted for an overdose of prescription medications in a suicidal attempt. The patient has several stressors and he was unable to cope with them. Initially admitted at ICU for stabilization and later transferred to the medical robin. Has remained hemodynamically stable 1. Schizophrenia with hypotensive episode (resolved) -Unasyn added empirically... Exam benign setting 100% on room air. Will DC Unasyn -seen by Psychiatry appreciate Dr. Hogan's assistance -care team eval for transfer to acute psychiatric unit (medically acceptable at this time for transfer) Full code Lovenox Requires ongoing hospitalization with one-to-one sitter given suicidal ideations pending safe disposition to acute psychiatric robin Quality Stroke Does the patient have a stroke diagnosis?: No VTE Prior VTE?: No VTE Risk Level:: Medical - moderate - high VTE Device Contraindication: N/A - Device Ordered VTE Drug Contraindication: N/A - Med Ordered
--- NOTE | 2024-01-04 15:06 | PC.NURSE ---
Medically cleared per MD, waiting for psych to take this patient to M5 or M3.
[2024-01-04 16:00] VITALS: BP 135/86; PULSE 58; RESP 16; TEMP 36.5; O2SAT 98
[2024-01-04 19:49] VITALS: BP 115/59; PULSE 50; RESP 16; TEMP 36.4; O2SAT 98
[2024-01-04] MEDS: Enoxaparin Sodium 40 MG/0.4 ML SYRINGE SUBCUT (20:08)
[2024-01-04 23:11] VITALS: BP 124/79; PULSE 52; RESP 16; TEMP 36.3; O2SAT 97
[2024-01-05 03:08] VITALS: BP 130/74; PULSE 55; RESP 16; TEMP 36.2; O2SAT 98
[2024-01-05 05:23] VITALS: BMI 20.4
[2024-01-05 06:58] VITALS: BP 115/76; PULSE 60; RESP 13; TEMP 36.3; O2SAT 98
--- NOTE | 2024-01-05 07:54 | PC.NURSE ---
Medically cleared, waiting for psych bed.
--- NOTE | 2024-01-05 11:52 | P.PNIM_ITS ---
Subjective Subjective Date of Service: 01/05/24 Interval History: No acute issues overnight. No acute behavioral issues. Remains on one-to-one supervision Review of Systems Denies chest pain Denies shortness of breath Denies nausea vomiting diarrhea Denies fever chills Physical Exam 2 Vital Signs: Vital Signs: Last Vital Signs Temp 97.3 F 01/05/24 06:58 Pulse 60 01/05/24 06:58 Resp 13 01/05/24 06:58 BP 115/76 01/05/24 06:58 Pulse Ox 98 01/05/24 06:58 O2 Del Method Room Air 01/05/24 03:08 BMI result Body Mass Index 20.4 Const: Other: Awake alert no acute distress Resp: Other: Clear to auscultation bilaterally no rales rhonchi or wheezes Cardio: Other: No S4; positive S1-S2; no S3 murmurs rubs or gallops GI: Other: Soft nontender nondistended normoactive bowel sounds Extrem: Other: No edema bilaterally Objective Data Active Medications Enoxaparin Sodium (Enoxaparin Sodium 40 Mg/0.4 Ml Syringe) 40 mg SUBCUT Q24H [facility] Last Admin: 01/04/24 20:08 Dose: 40 mg Documented By: RIMMA Labs 01/04/24 05:44 01/04/24 05:44 Microbiology Microbiology Results: Microbiology 01/02/24 09:35 Blood Culture - Preliminary Blood - Venous No growth after 48 hours. 01/02/24 09:35 Blood Culture - Preliminary Blood - Venous No growth after 48 hours. Assessment and Plan (1) Schizophrenia: Status: Acute (2) Suicide attempt: Status: Acute Plan The patient is a young male with a past history of schizophrenia, cocaine use disorder, opiate use disorder and limited Social support admitted for an overdose of prescription medications in a suicidal attempt. The patient has several stressors and he was unable to cope with them. Initially admitted at ICU for stabilization and later transferred to the medical robin. Has remained hemodynamically stable 1. Schizophrenia with hypotensive episode (resolved) -seen by Psychiatry appreciate Dr. Hogan's assistance -care team eval for transfer to acute psychiatric unit (medically acceptable at this time for transfer) -awaiting bed availability Full code Lovenox Requires ongoing hospitalization with one-to-one sitter given suicidal ideations pending safe disposition to acute psychiatric robin Quality Stroke Does the patient have a stroke diagnosis?: No VTE Prior VTE?: No VTE Risk Level:: Medical - moderate - high VTE Device Contraindication: N/A - Device Ordered VTE Drug Contraindication: N/A - Med Ordered
[2024-01-05 11:58] VITALS: BP 116/75; PULSE 63; RESP 13; TEMP 36.2; O2SAT 100
--- NOTE | 2024-01-05 15:50 | P.DS_ITS ---
DS: Providers Provider Date of Service: 01/05/24 Date of admission: 01/02/24 19:22 Date of discharge: 01/05/24 Primary care physician: Unknown Physician Consults: 01/03/24 07:35 Consult for Sitter Routine Reason for consultation: SI Consult to Care Team Stat Comment: Reason for consultation: SI 01/03/24 09:12 Consult to Psychiatry Stat Consulting Provider: Psych Covering Reason for consultation: 01/04/24 13:27 Consult to Care Team Routine Comment: Reason for consultation: Seen by Dr Hogan;suicidal ideation. Medically acceptable for transfer DS: Diagnosis Discharge Diagnosis (1) Schizophrenia: Status: Acute (2) Suicide attempt: Status: Acute DS: Summary Hospital Course Hospital Course: 43-year-old male past medical history of schizophrenia and substance abuse who presents to emergency room after was found unresponsive. Per EMS he was only responsive to painful stimuli and did not respond to 4 mg of intranasal Narcan. Upon arrival to the ER he was found to be hypotensive and mildly tachycardic minimally responsive. He received 4 L of crystalloid and 200 ml of albumin with minimal response. He was given an additional 2 mg of Narcan without response. Case was discussed with ICU and he was transferred to ICU for monitoring. Received 2 g of ceftriaxone as an empiric dosing. Chest x-ray was without acute findings. After 24 hours in the ICU his blood pressure was satisfactory for transfer to the floor. Upon further query by ICU, he stated that he took meds in a questionable suicide attempt. He was transferred to the general medical floor and observed on a one-to-one basis. Psychiatry was consulted and Dr. Hogan who felt he should be transferred to psychiatric floor. At his recommendations, his routine meds were not restarted as it was felt that he would benefit from re-evaluation and then a decision for medication would be made at this time. At this point in time he is medically acceptable to transfer to psychiatric floor; further treatment as per receiving provider Time Attestation Discharge Coordination Time (in mins): 35 Quality: Safe Use of Opioids Does Pt have an Active Cancer Diagnosis on the Problem List?: No Quality: Stroke Does the patient have a stroke diagnosis?: No Physical Exam Vital Signs: Vital Signs: Last Vital Signs Temp 97.1 F 01/05/24 11:58 Pulse 63 01/05/24 11:58 Resp 13 01/05/24 11:58 BP 116/75 01/05/24 11:58 Pulse Ox 100 01/05/24 11:58 O2 Del Method Room Air 01/05/24 11:58 BMI result Body Mass Index 20.4 Const: Other: Awake alert no acute distress Resp: Other: Clear to auscultation bilaterally no rales rhonchi or wheezes Cardio: Other: No S4; positive S1-S2; no S3 murmurs rubs or gallops GI: Other: Soft nontender nondistended normoactive bowel sounds Extrem: Other: No edema bilaterally DS: Data Data Completed and Pending Labs on day of discharge: Preliminary micro results at discharge 01/02/24 09:35 Blood Culture - Preliminary Blood - Venous No growth after 48 hours. 01/02/24 09:35 Blood Culture - Preliminary Blood - Venous No growth after 48 hours. Discharge Plan Discharge Anticipated Discharge Date/Time: 01/05/24 15:47 Patient Disposition: Xfer Psychiatric Hosp Discharge Diagnosis: Suicide attempt in backdrop of schizophrenia Referrals: Physician,Unknown J [Primary Care Provider] - 1 Week Discharge Medications: Discontinued risperidone 4 mg tablet 4 mg PO BEDTIME benztropine 1 mg tablet 1 mg PO DAILY Discharge Orders: Discharge Order (Routine); Ordered 01/05/24 Ordered By: Vitaliy Pedersen Diet: Advance to usual diet Activity on Discharge: As tolerated Stand Alone Forms: Patient Portal Discharge page Print Language: Luxembourgish Care Plan Goals: As per receiving unit Health Concerns: Avoid cocaine and opiates Plan of Treatment: As per receiving physician Assessment: See discharge summary Patient Instructions: Aspiration Pneumonia (GEN), Help Prevent Suicide (GEN), Suicide Prevention (GEN)
[2024-01-05 15:58] VITALS: BP 122/81; PULSE 67; RESP 14; TEMP 36.3; O2SAT 98
== END 2024-01-05 16:42 | DRG 917 ==
LOC: HO.ED 18:50 → HO.EDOVER 19:28 → HO.ICU 19:44 → HO.S3 01-03 12:57
PROVIDERS: Internal Medicine Pulmonary Disease; Admitting Provider Registered Nurse Community Health; Emergency Provider Emergency Medicine; PCP Internal Medicine; Visit Provider Hospitalist
DX: T50.912A Poisoning by multiple unspecified drugs, medicaments and biological substances, intentional self-harm, initial encounter (principal); G92.8 Other toxic encephalopathy; E87.20 Acidosis, unspecified; F20.9 Schizophrenia, unspecified; F17.210 Nicotine dependence, cigarettes, uncomplicated; F11.10 Opioid abuse, uncomplicated; F19.10 Other psychoactive substance abuse, uncomplicated; I95.2 Hypotension due to drugs; T42.4X5A Adverse effect of benzodiazepines, initial encounter; F14.10 Cocaine abuse, uncomplicated; Z20.822 Contact with and (suspected) exposure to COVID-19; Z71.6 Tobacco abuse counseling; Z79.899 Other long term (current) drug therapy
CPT/HCPCS: 0241U; 36415; 70450; 71045; 72125; 74177; 80048; 80053; 80076; 80143; 80307; 81003; 82140; 82550; 82803; 82947; 83605; 83690; 83735; 83880; 84100; 84443; 84484; 85025; 87040; 93005; 99285; C1758; J0295; J0613; J0696; J1650; J1790; J2250; J2310; J2405; J7120; P9047; Q9967; S9485

== ENCOUNTER → 2024-01-02 09:31 | Outpatient (BNV) | payer MEDICARE, SELFPAY | PROVIDERS: Admitting Provider Registered Nurse Community Health; Emergency Provider Emergency Medicine; Visit Provider Internal Medicine Cardiovascular Disease | DX: I95.9 Hypotension, unspecified (principal) | CPT/HCPCS: 93010 ==

== ENCOUNTER → 2024-01-02 19:22 | Outpatient (BNV) | payer OTHER, SELFPAY | PROVIDERS: Admitting Provider Registered Nurse Community Health; Emergency Provider Emergency Medicine; Visit Provider Psychiatry & Neurology Psychiatry | DX: F20.0 Paranoid schizophrenia (principal); T14.91XA Suicide attempt, initial encounter; F14.10 Cocaine abuse, uncomplicated; F11.10 Opioid abuse, uncomplicated | CPT/HCPCS: 99222 ==

== ENCOUNTER → 2024-01-02 19:22 | Outpatient (BNV) | payer OTHER, SELFPAY | PROVIDERS: Admitting Provider Registered Nurse Community Health; Emergency Provider Emergency Medicine; Visit Provider Internal Medicine Pulmonary Disease | DX: T14.91XA Suicide attempt, initial encounter (principal); F14.10 Cocaine abuse, uncomplicated; R41.82 Altered mental status, unspecified; F20.9 Schizophrenia, unspecified | CPT/HCPCS: 99233 ==

== ENCOUNTER → 2024-01-02 19:22 | Outpatient (BNV) | payer OTHER, SELFPAY | PROVIDERS: Admitting Provider Registered Nurse Community Health; Emergency Provider Emergency Medicine; Visit Provider Hospitalist | DX: F20.0 Paranoid schizophrenia (principal); T14.91XA Suicide attempt, initial encounter | CPT/HCPCS: 99232; 99239; 99499 ==

== ENCOUNTER → 2024-01-02 19:22 | Outpatient (BNV) | payer OTHER, SELFPAY | PROVIDERS: Admitting Provider Registered Nurse Community Health; Emergency Provider Emergency Medicine; Visit Provider Registered Nurse Community Health | DX: I95.9 Hypotension, unspecified (principal); F14.10 Cocaine abuse, uncomplicated; E87.20 Acidosis, unspecified; G93.40 Encephalopathy, unspecified; D72.829 Elevated white blood cell count, unspecified | CPT/HCPCS: 99291; 99292 ==

== ENCOUNTER 2024-01-05 17:13 | Inpatient (IN) | payer OTHER, SELFPAY ==
--- NOTE | 2024-01-05 17:47 | MHC.CARE ---
Addendum entered by Autumn Ledesma LCSW 01/05/24 18:24: [facility] auth: From 01/04-01/07 [id number] Denise Link [id number] Original Note: Spoke with Vandana at [facility] for initial auth
[2024-01-05 18:50] VITALS: BP 124/80; PULSE 75; RESP 16; TEMP 36.9; O2SAT 96
[2024-01-05 18:51] VITALS: BMI 20.5
--- NOTE | 2024-01-05 19:52 | PC.ADMIT ---
Benito Nash was admitted to M3 at 1800 from S3 in [facility] for treatment of suicidal ideation and schizophrenia. The patient reported that prior to admission, he attempted to intentionally overdose and commit suicide. ?I took about 100 Tylenol and 100 Aleve, then told my girlfriend what I did, fell asleep on the couch, and woke up in the hospital.? Pt was subsequently admitted to the [facility] ICU and then to the medical unit. Pt was treated for possible aspiration pneumonia as well as overdose. During assessment, patient admitted to a psychiatric history of schizophrenia and ongoing substance abuse. He also stated that he is currently on probation for substance use and this was a factor in his attempted suicide. ?I had a drug test the next day that I knew I was going to fail and I just couldn?t face going to detention.? Pt presents as guarded with a flat affect and thought blocking. However, he was able to converse further in private and engage about his history. Pt was at times difficult to understand and displayed tangential and disorganized thought. This included ruminating about his upbringing, his family and history of drug use. That said, patient appeared to be able to give an accurate history of his psychiatric treatment. Pt is followed by [facility] and Dr. Somers, [facility] psychiatrist, for ongoing care. He currently resides in a motel in [place] with his friend/girlfriend. Patient was unwilling to state which psychiatric medication he is currently taking. ?I?ve been on it for 10 years and I just want to be sober. I don?t need meds.? Pt denies current SI/HI, as well as perceptual disturbances, but does appear to have delusions and possible ongoing hallucinations. Pt is an every-day smoker. Pt admits to drinking ?sometimes but not everyday,? as well as using crack cocaine. Pt denies allergies or medical issues. Pt stated that his goal is to get sober, get a job, and move into his own apartment. Placed on 15 minute safety checks at this time.
[2024-01-06 08:00] VITALS: BP 107/63; PULSE 73; RESP 16; TEMP 37; O2SAT 98
[2024-01-06 08:59] LABS: Alanine Aminotransferase 7 U/L (0-40); Albumin Level 4.5 g/dL (3.5-5.0); Alkaline Phosphatase 49 U/L (39-117); Anion Gap 16 (12-20); Aspartate Amino Transferase 11 U/L (5-37); Bilirubin Total 0.5 mg/dL (0.0-1.0); Blood Urea Nitrogen 19 mg/dL (9-16); Calcium 9.5 mg/dL (8.4-10.2); Carbon Dioxide 26 mmol/L (22-29); Chloride 106 mmol/L (96-108); Cholesterol 147 mg/dL (<200); Creatinine Clr Calc Pharmacy 92.9; Estimated Glomerular Filt Rate > 60; Glucose Fasting 99 mg/dL (60-99); HDL Cholesterol 37 mg/dL (>40); LDL Cholesterol Calculated 94 mg/dL (<100); Sodium 143 mmol/L (135-145); Total Protein 7.2 g/dL (6.5-8.0); Triglycerides 82 mg/dL (<150)
[2024-01-06 09:00] LABS: Estimated Average Glucose 100 mg/dL; Hemoglobin A1C 121.3286 umol/L; Hemoglobin A1c % 5.1 % (<6.0)
--- NOTE | 2024-01-06 09:26 | HO.PSYADMNOT ---
HPI Date of Service: 01/06/24 Chief Complaint: Schizophrenia Sources of Information: patient interviewed, chart reviewed and crisis/core team assessment reviewed HPI Subjective Notes: [place] Warning and Conditional Voluntary Narrative: Patient is a 43 year old male with hx of Schizophrenia, opioid use d/o and cocaine use d/o who was brought in by ambulance on 01/02/24 after being found laying on pavement, responsive to pain only. Pt was medically admitted d/t being hypotensive and minimally responsive. Per crisis report, pt reports he is unclear the sequence of events that resulted him being hospitalized. Pt reported ingesting a bottle of Tylenol; he reports this was in an attempt to sleep. He reports previously overdosing at the age of 17, which resulted in him sleeping for a while . Pt reported he is currently on probation after being found in possession of narcotics while trespassing. Pt missed intake for therapist with [facility] on 11/20 and psychiatry on 12/10. It is unclear if patient has been medication compliant. [facility] staff reported they tried to [place] [address] patient in November but were unsuccessful. During admission assessment, pt presents alert, oriented, calm and cooperative. Pt reports feeling anxious today; pt stated, I took some pills to get here. All I remember is laying down. I'm on probation, I was supposed to go get a drug test and I knew I would fail. I freaked out and took the pills. I wanted to try to pass out and end up detoxing so I could come out clean. I didn't want to deal with the situation of failing the drug test. I do pretty good in rehabs and after, but then seem to blame it on my medications . Pt reports he has no desire to hurt myself ; pt denies SI/HI/VH/AH. Pt reports sleeping well at night. He is requesting to decrease his risperidal dose from 4mg to 2mg PO bedtime; pt stated, the medication gives me lack of motivation. I want to be off meds. I've been taking them for years . Pt educated regarding medication compliance; reviewed risks/benefits. Past Psychiatric History: Hx of multiple inpatient psychiatric admissions hx of multiple detox admissions Outpatient prescriber: Dr. Amos at [facility] Therapist: Kori at [facility] He reports that he has been taking Risperdal for several years. Medical Evaluation Reviewed: Yes [facility] Medical History Crack cocaine use Heroin abuse Substance abuse Schizophrenia Family History: unknown Social History: Lives in an apartment with his girlfriend, single, one son (22y/o), disability (works 4 hours a week at [employer]), GED. Substance History: Pt reports crack/cocaine, heroin, alcohol. Trauma History: denies Diagnostics Vital Signs (24Hr): Vital Signs - 24 hr 01/05/24 18:50 01/06/24 08:00 Temperature 98.4 F 98.6 F Pulse Rate 75 73 Respiratory Rate 16 16 Blood Pressure 124/80 107/63 Pulse Oximetry 96 98 Oxygen Delivery Method Room Air Room Air BMI result Body Mass Index 20.5 Labs 01/06/24 08:17 Labs: Laboratory Results - last 48 hr 01/06/24 08:17 Sodium 143 Potassium 5.0 D Chloride 106 Carbon Dioxide 26 Anion Gap 16 BUN 19 H Creatinine 0.87 Estim Creat Clear Calc 92.9 Estimated GFR > 60 Fasting Glucose 99 Estimat Average Glucose 100 Hemoglobin A1c % 5.1 Calcium 9.5 D Total Bilirubin 0.5 AST 11 ALT 7 Alkaline Phosphatase 49 Total Protein 7.2 Albumin 4.5 Triglycerides 82 Cholesterol 147 LDL Cholesterol, Calc 94 HDL Cholesterol 37 L TSH 7.30 H Meds/Allergies Meds Home Medications ?Medication ?Instructions ?Recorded ?Confirmed ?Type benztropine 1 mg tablet 1 mg PO DAILY 01/05/24 01/05/24 History risperidone 4 mg tablet 4 mg PO BEDTIME 01/05/24 01/05/24 History Allergies Allergies Allergy/AdvReac Type Severity Reaction Status Date / Time No Known Allergies Allergy Verified 01/02/24 09:30 Mental Status Exam Mental Status Exam Narrative: Pt is alert and oriented; behavior is cooperative and calm; dressed in casual attire; mood is described as anxious ; eye contact appropriate; Speech is normal rate, volume and not pressured; thought process is organized and goal directed; Thought content is on tx; otherwise pertinent to relevant topics and without any delusional content, paranoid ideations or grandiosity; denies SI/HI/VH/AH. Assessment & Plan Assessment & Plan (1) Schizophrenia: Status: Acute Code(s): F20.9 - Schizophrenia, unspecified (2) Opioid abuse: Status: Acute Code(s): F11.10 - Opioid abuse, uncomplicated (3) Cocaine abuse: Status: Acute Code(s): F14.10 - Cocaine abuse, uncomplicated Plan Patient is a 43 year old male with hx of Schizophrenia, opioid use d/o and cocaine use d/o who was brought in by ambulance on 01/02/24 after being found laying on pavement, responsive to pain only. Pt was medically admitted d/t being hypotensive and minimally responsive. Plan: CV 15 minute safety checks Continue: Risperidal 2mg PO bedtime Cogentin 1mg PO bedtime Set up appointments for outpatient therapist and prescriber Referral to outpatient substance abuse program? Consult to addiction medicine discharge planning Patient educated on: diagnosis, medication risk/benefits, substance abuse and therapeutic strategies Informed Consent: understands Reason for continued inpatient stay Substantial Risk for: med/psych decompensation Statement Statement: I have reviewed the history and physical and performed a pertinent examination on my patient. No changes have occurred unless specified. If the History and Physical was not performed prior to admission, the Hospitalist's service will be consulted for completing the admission physical. Time Spent With Patient Time: Total time managing care of this patient today _60___ minutes.
[2024-01-06 09:28] LABS: Vitamin B12 550 pg/mL (200-900)
[2024-01-06 20:00] VITALS: BP 115/71; PULSE 58; RESP 16; TEMP 36.4; O2SAT 98
[2024-01-06] MEDS: risperiDONE 2 MG TABLET PO (20:43)
[2024-01-06] MEDS: Benztropine Mesylate 1 MG TABLET PO (20:43)
[2024-01-07 07:45] VITALS: BP 98/62; PULSE 62; RESP 18; TEMP 36.7; O2SAT 99
--- NOTE | 2024-01-07 08:59 | P.PNPSI_ITS ---
Subjective Subjective Date of Service: 01/07/24 Reason For Visit: Schizophrenia Subjective Notes: Conditional Voluntary Interim History: Reviewed with Dr. Molina. Pt reports feeling irritable and angry today;pt stated, I'm mad at myself for what happened and being here. I'm not interested in going to a program. I just want to go back home . Pt reports he is glad the risperidal was decreased to 2mg PO bedtime ; pt denies SI/HI/VH/AH. TSH 7.30 on 01/06/24; consult to hospitalist placed. Medication Compliance: Yes Side effects from medications: No Attending Groups: Intermittent Review of Systems Constitutional: Reports as per HPI Eyes: Reports as per HPI Reports as per HPI Cardiovascular: Reports as per HPI Respiratory: Reports as per HPI Gastrointestinal: Reports as per HPI Genitourinary: Reports as per HPI Musculoskeletal: Reports as per HPI Skin/Breast: Reports as per HPI Reports as per HPI Psychiatric: Reports as per HPI Endocrine: Reports as per HPI Hematologic/Lymphatic: Reports as per HPI Allergic/Immunologic: Reports as per HPI Mental Status Exam Mental Status Exam Narrative: Pt is alert and oriented; behavior is cooperative and calm; dressed in casual attire; mood is described as irritable ; eye contact appropriate; Speech is normal rate, volume and not pressured; thought process is organized and goal directed; Thought content is on tx; otherwise pertinent to relevant topics and without any delusional content, paranoid ideations or grandiosity; denies SI/HI/VH/AH. Diagnostics Vital Signs (24Hr): Vital Signs - 24 hr 01/06/24 20:00 01/07/24 07:45 Temperature 97.5 F 98.1 F Pulse Rate 58 62 Respiratory Rate 16 18 Blood Pressure 115/71 98/62 Pulse Oximetry 98 99 Oxygen Delivery Method Room Air Room Air BMI result Body Mass Index 20.5 Labs 01/06/24 08:17 Labs: Laboratory Results - last 48 hr 01/06/24 08:17 Sodium 143 Potassium 5.0 D Chloride 106 Carbon Dioxide 26 Anion Gap 16 BUN 19 H Creatinine 0.87 Estim Creat Clear Calc 92.9 Estimated GFR > 60 Fasting Glucose 99 Estimat Average Glucose 100 Hemoglobin A1c % 5.1 Calcium 9.5 D Total Bilirubin 0.5 AST 11 ALT 7 Alkaline Phosphatase 49 Total Protein 7.2 Albumin 4.5 Triglycerides 82 Cholesterol 147 LDL Cholesterol, Calc 94 HDL Cholesterol 37 L Vitamin B12 550 Folate 8.0 TSH 7.30 H Medications Medications Current Medications Acetaminophen (Acetaminophen 325 Mg Tablet) 650 mg PO Q6H PRN PRN Reason: Headache/Pain Mild Scale (1-3) Al Hydroxide/Mg Hydroxide (Magnesium Hydrox/Alum Hydrox 30 Ml Oral.Susp) 30 ml PO Q6H PRN PRN Reason: Heartburn/Nausea Benztropine Mesylate (Benztropine Mesylate 1 Mg Tablet) 1 mg PO BEDTIME [facility] Last Admin: 01/06/24 20:43 Dose: 1 mg Hydroxyzine HCl (Hydroxyzine Hcl 25 Mg Tablet) 25 mg PO Q6H PRN PRN Reason: Anxiety Magnesium Hydroxide (Milk Of Magnesia 30 Ml Oral.Susp) 30 ml PO DAILY PRN PRN Reason: Constipation Nicotine (Nicotine 14 Mg Patch.Td24) 14 mg TRANSDERMA DAILY [facility] Last Admin: 01/06/24 08:49 Dose: Not Given Nicotine Polacrilex (Nicotine Polacrilex 2 Mg Gum) 2 mg BUCCAL Q2H PRN PRN Reason: Nicotine Cravings Risperidone (Risperidone 2 Mg Tablet) 2 mg PO BEDTIME [facility] Last Admin: 01/06/24 20:43 Dose: 2 mg Trazodone HCl (Trazodone Hcl 50 Mg Tablet) 50 mg PO BEDTIME MRX1 PRN PRN Reason: Insomnia Allergies Allergies Allergy/AdvReac Type Severity Reaction Status Date / Time No Known Allergies Allergy Verified 01/02/24 09:30 Assessment & Plan Assessment & Plan (1) Schizophrenia: Status: Acute Code(s): F20.9 - Schizophrenia, unspecified (2) Opioid abuse: Status: Acute Code(s): F11.10 - Opioid abuse, uncomplicated (3) Cocaine abuse: Status: Acute Code(s): F14.10 - Cocaine abuse, uncomplicated Plan Patient is a 43 year old male with hx of Schizophrenia, opioid use d/o and cocaine use d/o who was brought in by ambulance on 01/02/24 after being found laying on pavement, responsive to pain only. Pt was medically admitted d/t being hypotensive and minimally responsive. Plan: CV 15 minute safety checks Continue: Risperidal 2mg PO bedtime Cogentin 1mg PO bedtime Set up appointments for outpatient therapist and prescriber Referral to outpatient substance abuse program? Consult to addiction medicine discharge planning 01/06: Pt reports feeling irritable and angry today;pt stated, I'm mad at myself for what happened and being here. I'm not interested in going to a program. I just want to go back home . Pt reports he is glad the risperidal was decreased to 2mg PO bedtime ; pt denies SI/HI/VH/AH. TSH 7.30 on 01/06/24; consult to hospitalist placed Patient educated on: diagnosis, medication risk/benefits and substance abuse Informed Consent: understands Reason for continued inpatient stay Substantial Risk for: med/psych decompensation Time Spent With Patient Time: Total time managing care of this patient today _20___ minutes.
[2024-01-07 10:00] VITALS: BP 98/62; PULSE 62; RESP 18; TEMP 36.7; O2SAT 99
--- NOTE | 2024-01-07 14:21 | MHC.RECOVRN ---
AUDIT-C Brief Intervention Pt had positive screen for unhealthy alcohol use on admission, subsequently met with t/w to discuss alcohol use and recovery supports/options. Pt voices concern regarding alcohol use and is aware that drinking at unhealthy levels is known to increase risk of alcohol related health problems. Pt reports over the past 2 weeks having alcohol on 4 occaisons. Pt reports it can be one 24 ounce beer up to a 6 pack. Pt expresses how alcohol use has impacted health, including negative impact on behavioral health and decision making when it comes to other substances. Pt reports when he drinks alcohol he is more likely to use other substances like cocaine, INH. Discussed risk reduction strategies including drinking below the recommended limit. Provided pt with written resources including information on inpatient and outpatient treatment, [facility], harm reduction, and recovery coaching. Pt plans to return to apartment provided by [facility]. Pt will also look over resources and reach out to t/w if he would like referrals placed. Pt provided with t/w contact information if questions or concerns arise. Denies other questions or concerns at this time.
--- NOTE | 2024-01-07 15:36 | PC.NURSE ---
Contacted Dr Vitaliy Pedersen via tiger text for a hospital consult re: elevated TSH ordered by Mita Lanier NP
--- NOTE | 2024-01-07 16:58 | PM.EVENT ---
Event Note Date of Service: 01/07/24 Event Note: Pt with elevated TSH 7.30. Recommend checking free T4 with elevated TSH. Ordered and WNL at 0.93. Possible subclinical hypothyroidism vs sick euthyroid. Treatment not indicated at this time. Would recommend outpt recheck of TSH w/ reflex free T4 in about 6 weeks. Would not recommend checking TSH prior to this. Thank you for allowing me to participate in this consult. Signing off at this time. Please do not hesitate to call for further questions. Time Spent With Patient Time: Total time managing care of this patient today ____ minutes.
[2024-01-07 18:09] LABS: Free T4 (Free Thyroxine) 0.93 ng/dL (0.71-1.85)
[2024-01-07 20:00] VITALS: BP 112/66; PULSE 57; RESP 16; TEMP 36.6; O2SAT 100
[2024-01-07] MEDS: Benztropine Mesylate 1 MG TABLET PO (20:15)
[2024-01-07] MEDS: risperiDONE 2 MG TABLET PO (20:15)
[2024-01-08 07:39] VITALS: BP 87/55; PULSE 69; RESP 14; TEMP 36.8; O2SAT 96
--- NOTE | 2024-01-08 09:40 | HO.PSYCHPN ---
Subjective Subjective Date of Service: 01/08/24 Reason For Visit: Schizophrenia Subjective Notes: 3 Day Interim History: Reviewed with Dr. Molina. Pt signed 3 day notice on 01/07/24; 3 day notice up on 01/10/24. Pt stated, I'm feeling alright. I signed a 3 day notice because I don't want to be here too long. I'm worried about my girlfriend and her cat. I want to get more hours to work to get our own apartment. I know I have to stay sober . Pt continues to report he is not interested in attending a substance abuse program after discharge or stepping down to a respite. Pt denies SI/HI/VH/AH. Medication Compliance: Yes Side effects from medications: No Attending Groups: Intermittent Review of Systems Constitutional: Reports as per HPI Eyes: Reports as per HPI Reports as per HPI Cardiovascular: Reports as per HPI Respiratory: Reports as per HPI Gastrointestinal: Reports as per HPI Genitourinary: Reports as per HPI Musculoskeletal: Reports as per HPI Skin/Breast: Reports as per HPI Reports as per HPI Psychiatric: Reports as per HPI Endocrine: Reports as per HPI Hematologic/Lymphatic: Reports as per HPI Allergic/Immunologic: Reports as per HPI Mental Status Exam Mental Status Exam Narrative: Pt is alert and oriented; behavior is cooperative and calm; dressed in casual attire; mood is described as okay ; eye contact appropriate; Speech is normal rate, volume and not pressured; thought process is organized and goal directed; Thought content is on tx and obtaining a job with more hours; otherwise pertinent to relevant topics and without any delusional content, paranoid ideations or grandiosity; denies SI/HI/VH/AH. Diagnostics Vital Signs (24Hr): Vital Signs - 24 hr 01/07/24 10:00 01/07/24 20:00 01/08/24 07:39 Temperature 98.1 F 97.8 F 98.2 F Pulse Rate 62 57 69 Respiratory Rate 18 16 14 Blood Pressure 98/62 112/66 87/55 L Pulse Oximetry 99 100 96 Oxygen Delivery Method Room Air Room Air Room Air BMI result Body Mass Index 20.5 Labs 01/06/24 08:17 Labs: Laboratory Results - last 48 hr 01/07/24 17:29 Free T4 0.93 Medications Medications Current Medications Acetaminophen (Acetaminophen 325 Mg Tablet) 650 mg PO Q6H PRN PRN Reason: Headache/Pain Mild Scale (1-3) Al Hydroxide/Mg Hydroxide (Magnesium Hydrox/Alum Hydrox 30 Ml Oral.Susp) 30 ml PO Q6H PRN PRN Reason: Heartburn/Nausea Benztropine Mesylate (Benztropine Mesylate 1 Mg Tablet) 1 mg PO BEDTIME HEIDY Last Admin: 01/07/24 20:15 Dose: 1 mg Hydroxyzine HCl (Hydroxyzine Hcl 25 Mg Tablet) 25 mg PO Q6H PRN PRN Reason: Anxiety Magnesium Hydroxide (Milk Of Magnesia 30 Ml Oral.Susp) 30 ml PO DAILY PRN PRN Reason: Constipation Nicotine Polacrilex (Nicotine Polacrilex 2 Mg Gum) 2 mg BUCCAL Q2H PRN PRN Reason: Nicotine Cravings Risperidone (Risperidone 2 Mg Tablet) 2 mg PO BEDTIME HEIDY Last Admin: 01/07/24 20:15 Dose: 2 mg Trazodone HCl (Trazodone Hcl 50 Mg Tablet) 50 mg PO BEDTIME MRX1 PRN PRN Reason: Insomnia Allergies Allergies Allergy/AdvReac Type Severity Reaction Status Date / Time No Known Allergies Allergy Verified 01/02/24 09:30 Assessment & Plan Assessment & Plan (1) Schizophrenia: Status: Acute Code(s): F20.9 - Schizophrenia, unspecified (2) Opioid abuse: Status: Acute Code(s): F11.10 - Opioid abuse, uncomplicated (3) Cocaine abuse: Status: Acute Code(s): F14.10 - Cocaine abuse, uncomplicated Plan Patient is a 43 year old male with hx of Schizophrenia, opioid use d/o and cocaine use d/o who was brought in by ambulance on 01/02/24 after being found laying on pavement, responsive to pain only. Pt was medically admitted d/t being hypotensive and minimally responsive. Plan: CV 15 minute safety checks Continue: Risperidal 2mg PO bedtime Cogentin 1mg PO bedtime Set up appointments for outpatient therapist and prescriber Referral to outpatient substance abuse program? Consult to addiction medicine discharge planning 01/06: Pt reports feeling irritable and angry today;pt stated, I'm mad at myself for what happened and being here. I'm not interested in going to a program. I just want to go back home . Pt reports he is glad the risperidal was decreased to 2mg PO bedtime ; pt denies SI/HI/VH/AH. TSH 7.30 on 01/06/24; consult to hospitalist placed 01/07: Pt signed 3 day notice on 01/07/24; 3 day notice up on 01/10/24. Pt stated, I'm feeling alright. I signed a 3 day notice because I don't want to be here too long. I'm worried about my girlfriend and her cat. I want to get more hours to work to get our own apartment. I know I have to stay sober . Pt continues to report he is not interested in attending a substance abuse program after discharge or stepping down to a respite. Pt denies SI/HI/VH/AH. Continue current tx plan. Patient educated on: diagnosis, medication risk/benefits, substance abuse and therapeutic strategies Informed Consent: understands Reason for continued inpatient stay Substantial Risk for: med/psych decompensation Time Spent With Patient Time: Total time managing care of this patient today _20___ minutes.
[2024-01-08 11:36] VITALS: BP 101/62; PULSE 62; RESP 16; O2SAT 100
[2024-01-08 19:50] VITALS: BP 107/66; PULSE 81; RESP 16; TEMP 36.7; O2SAT 97
[2024-01-08] MEDS: Benztropine Mesylate 1 MG TABLET PO (20:42)
[2024-01-08] MEDS: risperiDONE 2 MG TABLET PO (20:42)
[2024-01-09 07:00] VITALS: BMI 21.2
[2024-01-09 07:10] VITALS: BP 96/56; PULSE 66; RESP 18; TEMP 36.3; O2SAT 98
[2024-01-09 08:00] VITALS: BP 96/56; PULSE 66; RESP 16; TEMP 36.3; O2SAT 98
--- NOTE | 2024-01-09 09:50 | HO.PSYCHPN ---
Subjective Subjective Date of Service: 01/09/24 Reason For Visit: Schizophrenia Subjective Notes: 3 Day Interim History: Reviewed with Dr. Molina. Pt reports feeling clear headed and optimistic today; pt stated, I met with my [facility] worker. I want to try to make the best of my situation. My worker told me they are going to look into getting me into a respite for a few days. I'm also going to look into affordable rooming and still try to get a job . Pt denies SI/HI/VH/AH. Pt's 3 day notice is up tomorrow. Medication Compliance: Yes Side effects from medications: No Attending Groups: Yes Review of Systems Constitutional: Reports as per HPI Eyes: Reports as per HPI Reports as per HPI Cardiovascular: Reports as per HPI Respiratory: Reports as per HPI Gastrointestinal: Reports as per HPI Genitourinary: Reports as per HPI Musculoskeletal: Reports as per HPI Skin/Breast: Reports as per HPI Reports as per HPI Psychiatric: Reports as per HPI Endocrine: Reports as per HPI Hematologic/Lymphatic: Reports as per HPI Allergic/Immunologic: Reports as per HPI Mental Status Exam Mental Status Exam Narrative: Pt is alert and oriented; behavior is cooperative and calm; dressed in casual attire; mood is described as good ; eye contact appropriate; Speech is normal rate, volume and not pressured; thought process is organized and goal directed; Thought content is on tx and obtaining a job with more hours; otherwise pertinent to relevant topics and without any delusional content, paranoid ideations or grandiosity; denies SI/HI/VH/AH. Diagnostics Vital Signs (24Hr): Vital Signs - 24 hr 01/08/24 11:36 01/08/24 19:50 01/09/24 07:10 Temperature 98.0 F 97.4 F Pulse Rate 62 81 66 Respiratory Rate 16 16 18 Blood Pressure 101/62 107/66 96/56 L Pulse Oximetry 100 97 98 Oxygen Delivery Method Room Air Room Air Room Air BMI result Body Mass Index 20.5 Labs 01/06/24 08:17 Labs: Laboratory Results - last 48 hr 01/07/24 17:29 Free T4 0.93 Medications Medications Current Medications Acetaminophen (Acetaminophen 325 Mg Tablet) 650 mg PO Q6H PRN PRN Reason: Headache/Pain Mild Scale (1-3) Al Hydroxide/Mg Hydroxide (Magnesium Hydrox/Alum Hydrox 30 Ml Oral.Susp) 30 ml PO Q6H PRN PRN Reason: Heartburn/Nausea Benztropine Mesylate (Benztropine Mesylate 1 Mg Tablet) 1 mg PO BEDTIME HEIDY Last Admin: 01/08/24 20:42 Dose: 1 mg Hydroxyzine HCl (Hydroxyzine Hcl 25 Mg Tablet) 25 mg PO Q6H PRN PRN Reason: Anxiety Magnesium Hydroxide (Milk Of Magnesia 30 Ml Oral.Susp) 30 ml PO DAILY PRN PRN Reason: Constipation Nicotine Polacrilex (Nicotine Polacrilex 2 Mg Gum) 2 mg BUCCAL Q2H PRN PRN Reason: Nicotine Cravings Risperidone (Risperidone 2 Mg Tablet) 2 mg PO BEDTIME HEIDY Last Admin: 01/08/24 20:42 Dose: 2 mg Trazodone HCl (Trazodone Hcl 50 Mg Tablet) 50 mg PO BEDTIME MRX1 PRN PRN Reason: Insomnia Allergies Allergies Allergy/AdvReac Type Severity Reaction Status Date / Time No Known Allergies Allergy Verified 01/02/24 09:30 Assessment & Plan Assessment & Plan (1) Schizophrenia: Status: Acute Code(s): F20.9 - Schizophrenia, unspecified (2) Opioid abuse: Status: Acute Code(s): F11.10 - Opioid abuse, uncomplicated (3) Cocaine abuse: Status: Acute Code(s): F14.10 - Cocaine abuse, uncomplicated Plan Patient is a 43 year old male with hx of Schizophrenia, opioid use d/o and cocaine use d/o who was brought in by ambulance on 01/02/24 after being found laying on pavement, responsive to pain only. Pt was medically admitted d/t being hypotensive and minimally responsive. Plan: CV 15 minute safety checks Continue: Risperidal 2mg PO bedtime Cogentin 1mg PO bedtime Set up appointments for outpatient therapist and prescriber Referral to outpatient substance abuse program? Consult to addiction medicine discharge planning 01/06: Pt reports feeling irritable and angry today;pt stated, I'm mad at myself for what happened and being here. I'm not interested in going to a program. I just want to go back home . Pt reports he is glad the risperidal was decreased to 2mg PO bedtime ; pt denies SI/HI/VH/AH. TSH 7.30 on 01/06/24; consult to hospitalist placed 01/07: Pt signed 3 day notice on 01/07/24; 3 day notice up on 01/10/24. Pt stated, I'm feeling alright. I signed a 3 day notice because I don't want to be here too long. I'm worried about my girlfriend and her cat. I want to get more hours to work to get our own apartment. I know I have to stay sober . Pt continues to report he is not interested in attending a substance abuse program after discharge or stepping down to a respite. Pt denies SI/HI/VH/AH. Continue current tx plan. 01/08: Pt reports feeling clear headed and optimistic today; pt stated, I met with my ACCS worker. I want to try to make the best of my situation. My worker told me they are going to look into getting me into a respite for a few days. I'm also going to look into affordable rooming and still try to get a job . Pt denies SI/HI/VH/AH. Pt's 3 day notice is up tomorrow. Patient educated on: diagnosis, medication risk/benefits and therapeutic strategies Informed Consent: understands Reason for continued inpatient stay Substantial Risk for: stable for discharge Time Spent With Patient Time: Total time managing care of this patient today _20___ minutes.
[2024-01-09 21:05] VITALS: BP 115/57; PULSE 71; RESP 16; TEMP 37.7; O2SAT 99
[2024-01-09] MEDS: Benztropine Mesylate 1 MG TABLET PO (22:01)
[2024-01-09] MEDS: risperiDONE 2 MG TABLET PO (22:02)
[2024-01-10 07:56] VITALS: BP 107/60; PULSE 68; RESP 14; TEMP 36.5; O2SAT 97
--- NOTE | 2024-01-10 08:53 | PM.PSYDC ---
DS: Providers Provider Date of Service: 01/10/24 Date of admission: 01/05/24 17:13 Date of discharge: 01/10/24 Primary care physician: Unknown Physician Admitting clinician: Mita Lanier Attending physician on admission: Ming Molina Consults: 01/06/24 16:53 Addiction Medicine Routine Consulting Provider: Addiction Covering Reason for consultation: positive screen Has provider been notified: Yes 01/07/24 15:07 Consult to Hospitalist Routine Comment: Consulting Provider: Hospitalist Reason For Exam: High TSH Attending physician on discharge: Ming Molina Discharging clinician: Mita Lanier DS: Diagnosis Discharge Diagnosis (1) Schizophrenia: Status: Acute (2) Opioid abuse: Status: Acute (3) Cocaine abuse: Status: Acute DS: Medications Discharge Medications Home Medications: Previous Rx's ?Medication ?Instructions ?Recorded benztropine 1 mg tablet 1 mg PO DAILY 30 days #30 tabs 01/09/24 risperidone 2 mg tablet 2 mg PO BEDTIME 30 days #30 tabs 01/09/24 Mental Status Exam Mental Status Exam Narrative: Pt is alert and oriented; behavior is cooperative and calm; dressed in casual attire; mood is described as good ; eye contact appropriate; Speech is normal rate, volume and not pressured; thought process is organized and goal directed; Thought content is on tx and obtaining a job with more hours; otherwise pertinent to relevant topics and without any delusional content, paranoid ideations or grandiosity; denies SI/HI/VH/AH. Data Data Completed and Pending Completed studies during hospitalization [Text1]: 01/06/24 01/07/24 08:17 17:29 Sodium 143 Potassium 5.0 D Chloride 106 Carbon Dioxide 26 Anion Gap 16 BUN 19 H Creatinine 0.87 Estim Creat Clear Calc 92.9 Estimated GFR > 60 Fasting Glucose 99 Estimat Average Glucose 100 Hemoglobin A1c % 5.1 Calcium 9.5 D Total Bilirubin 0.5 AST 11 ALT 7 Alkaline Phosphatase 49 Total Protein 7.2 Albumin 4.5 Triglycerides 82 Cholesterol 147 LDL Cholesterol, Calc 94 HDL Cholesterol 37 L Vitamin B12 550 Folate 8.0 TSH 7.30 H Free T4 0.93 DS: Summary Hospital Course Hospital Course: Patient is a 43 year old male with hx of Schizophrenia, opioid use d/o and cocaine use d/o who was brought in by ambulance on 01/02/24 after being found laying on pavement, responsive to pain only. Pt was medically admitted d/t being hypotensive and minimally responsive. Per crisis report, pt reports he is unclear the sequence of events that resulted him being hospitalized. Pt reported ingesting a bottle of Tylenol; he reports this was in an attempt to sleep. He reports previously overdosing at the age of 17, which resulted in him sleeping for a while . Pt reported he is currently on probation after being found in possession of narcotics while trespassing. Pt missed intake for therapist with [facility] on 11/20 and psychiatry on 12/10. It is unclear if patient has been medication compliant. [facility] staff reported they tried to [place] [address] patient in November but were unsuccessful. During admission assessment, pt presents alert, oriented, calm and cooperative. Pt reports feeling anxious today; pt stated, I took some pills to get here. All I remember is laying down. I'm on probation, I was supposed to go get a drug test and I knew I would fail. I freaked out and took the pills. I wanted to try to pass out and end up detoxing so I could come out clean. I didn't want to deal with the situation of failing the drug test. I do pretty good in rehabs and after, but then seem to blame it on my medications . Pt reports he has no desire to hurt myself ; pt denies SI/HI/VH/AH. Pt reports sleeping well at night. He is requesting to decrease his risperidal dose from 4mg to 2mg PO bedtime; pt stated, the medication gives me lack of motivation. I want to be off meds. I've been taking them for years . Pt educated regarding medication compliance; reviewed risks/benefits. Per hospital course, CV 15 minute safety checks Continue: Risperidal 2mg PO bedtime Cogentin 1mg PO bedtime Set up appointments for outpatient therapist and prescriber Referral to outpatient substance abuse program? Consult to addiction medicine discharge planning Pt reports feeling irritable and angry today;pt stated, I'm mad at myself for what happened and being here. I'm not interested in going to a program. I just want to go back home . Pt reports he is glad the risperidal was decreased to 2mg PO bedtime ; pt denies SI/HI/VH/AH. TSH 7.30 on 01/06/24; consult to hospitalist placed Pt signed 3 day notice on 01/07/24; 3 day notice up on 01/10/24. Pt stated, I'm feeling alright. I signed a 3 day notice because I don't want to be here too long. I'm worried about my girlfriend and her cat. I want to get more hours to work to get our own apartment. I know I have to stay sober . Pt continues to report he is not interested in attending a substance abuse program after discharge or stepping down to a respite. Pt denies SI/HI/VH/AH. Continue current tx plan. Pt reports feeling clear headed and optimistic today; pt stated, I met with my [facility]S worker. I want to try to make the best of my situation. My worker told me they are going to look into getting me into a respite for a few days. I'm also going to look into affordable rooming and still try to get a job . Pt denies SI/HI/VH/AH. Pt's 3 day notice is up tomorrow. Pt reports feeling good and ready to leave ; pt reports he is going to be picked up by his ACCS worker and he plans to continue taking his medications. Pt denies SI/HI/VH/AH. Time spent discussing smoking cessation with patient: 3 to 10 minutes Status at Discharge Cognitive/behavioral status at discharge: Patient was interviewed prior to discharge and found to be fully oriented and without SI or HI. Patient has insight and demonstrates good judgment in terms of wanting to pursue treatment. Patient has a safety plan that includes presenting to the closest ER or calling 911 if feeling unsafe. Functional status at discharge: independent ambulation Overall status at discharge: patient is back to baseline Time Spent with Patient Time attestation: Total time managing care of this patient today _20___ minutes. Time spent: Less than 30 minutes Discharge Plan Discharge Anticipated Discharge Date/Time: 01/10/24 11:30 Patient Disposition: Home, Self-Care Discharge Diagnosis: Schizophrenia, opioid use d/o, cocaine use d/o Referrals: [facility] Jhony Ramos [Other] - 1 Week (ext. [id number], Jhony will follow up with you within 48 hours of discharge ) Kori Vasquez (Therapy) [Other] - 01/10/24 1:00 pm (IN OFFICE APPOINTMENT) Dr. Alex Gaston (Psychiatry) [Other] - 02/24/24 12:20 pm (IN OFFICE APPOINTMENT) Dr. Rosenthal, [Other] - 1 Week (PCP office will follow up with date and time for appt.) Discharge Medications: New risperidone 2 mg Tablet 2 mg PO BEDTIME 30 Days Qty: 30 0RF Continued benztropine 1 mg tablet 1 mg PO DAILY 30 Days Qty: 30 0RF Discontinued risperidone 4 mg tablet 4 mg PO BEDTIME Patient Comments: I dont want to give you any information about my medications because I want to stop taking them and start fresh. I have been taking them for years and my life is worse than ever. Discharge Orders: Discharge Order (Routine); Ordered 01/10/24 Ordered By: Mita Lanier Diet: Regular diet Activity on Discharge: As tolerated Stand Alone Forms: Patient Portal Discharge page, Community Support Print Language: Macedonian Care Plan Goals: Maintain mood and safe behaviors Take medications as prescribed Continue to pursue sobriety Practice coping skills Continue with outpatient providers and reach out to them as needed Health Concerns: Mood stability and behaviors Sobriety Plan of Treatment: Follow up with your PCP, psychiatric provider and other outpatient providers regarding above concerns Take medications as prescribed Assessment: Patient was interviewed prior to discharge and found to be fully oriented and without SI or HI. Patient has insight and demonstrates good judgment in terms of wanting to pursue treatment. Patient has a safety plan that includes presenting to the closest ER or calling 911 if feeling unsafe. Discharge Date/Time: 01/10/24 12:02
[2024-01-10] MEDS: Naloxone HCl Nasal TAKE HOME 4 MG SPRAY 8 MG NOSTRILALT (10:48)
== END 2024-01-10 12:02 | disposition home or self-care (01) | DRG 885 ==
PROVIDERS: Physician Assistant; Admitting Provider Psychiatry & Neurology Psychiatry; Responsible Provider Registered Nurse; Visit Provider Psychiatry & Neurology Psychiatry
DX: F20.9 Schizophrenia, unspecified (principal); F11.10 Opioid abuse, uncomplicated; F14.10 Cocaine abuse, uncomplicated; F17.210 Nicotine dependence, cigarettes, uncomplicated; Z71.6 Tobacco abuse counseling; Z79.899 Other long term (current) drug therapy
CPT/HCPCS: 36415; 80053; 80061; 82607; 82746; 83036; 84439; 84443

== ENCOUNTER → 2024-01-05 17:13 | Outpatient (BNV) | payer OTHER, SELFPAY | PROVIDERS: Admitting Provider Psychiatry & Neurology Psychiatry; Responsible Provider Registered Nurse; Visit Provider Registered Nurse | DX: F20.9 Schizophrenia, unspecified (principal); F11.10 Opioid abuse, uncomplicated; F14.10 Cocaine abuse, uncomplicated | CPT/HCPCS: 90792; 99231; 99232; 99238 ==

== ENCOUNTER 2024-03-01 19:14 | Emergency (ER) | payer OTHER, SELFPAY ==
[2024-03-01 19:21] VITALS: BP 132/78; PULSE 94; O2SAT 99
[2024-03-01 19:22] VITALS: BP 115/71; PULSE 64; RESP 16; TEMP 36.1; O2SAT 99; BMI 19.2
[2024-03-01 20:17] LABS: Amphetamine Screen Urine Not Detected (Not Detect); Barbiturates, Urine Not Detected (Not Detect); Benzodiazepines Screen Urine Not Detected (Not Detect); Buprenorphine Scr Not Detected (Not Detect); Cannabinoid Screen Urine Not Detected (Not Detect); Cocaine Screen Urine POSITIVE (Not Detect); Fentanyl, urine Not Detected (Not Detect); Methadone Screen, Urine Not Detected (Not Detect); Opiate Screen Urine Not Detected (Not Detect); Oxycodone Screen Urine Not Detected (Not Detect); Phencyclidine Screen Urine Not Detected (Not Detect)
--- NOTE | 2024-03-01 20:36 | ED_ITS ---
HPI - General Adult General Chief complaint: General Medical Stated complaint: crisis eval Time Seen by Provider: 03/01/24 19:32 Source: patient, EMS, RN notes reviewed and old records reviewed Mode of arrival: EMS History of Present Illness ED Provider: Savanna Velasco PA-C HPI narrative: 43-year-old male with a past medical history of substance abuse, schizophrenia, presenting to the ED via EMS requesting detox from cocaine and help with homelessness. Patient states he was recently kicked out of [facility] housing/apartment due to using illicit substances. States is soaking wet from the rain and has nowhere else to go. Denies using alcohol. Denies SI/HI, recent injury/trauma or fall. Related Data Previous Rx's ?Medication ?Instructions ?Recorded benztropine 1 mg tablet 1 mg PO DAILY 30 days #30 tabs 01/09/24 risperidone 2 mg tablet 2 mg PO BEDTIME 30 days #30 tabs 01/09/24 Allergies Allergy/AdvReac Type Severity Reaction Status Date / Time No Known Allergies Allergy Verified 03/01/24 19:26 Review of Systems 2 Review of Systems: Constitutional: No Fever, No Chills, No Fatigue, No Malaise ENT/Mouth: No Hearing loss, No Ear Pain, No Nasal Congestion, No sore throat, No Rhinorrhea, No Swallowing Difficulty Cardiovascular: No Chest Pain, No SOB Respiratory: No Cough, No Sputum Gastrointestinal: No Nausea, No Vomiting, No Diarrhea, No Constipation, No Abdominal pain Musculoskeletal: No joint pain, No Myalgias, No Joint Swelling Skin: No Skin Lesions, No rash Neuro: No Weakness, No Headache Psych: No Anxiety/Panic, No Depression, No SI/HI/AH/VH, + Social Issues Yes all other systems are reviewed and are negative Constitutional: Constitutional: Reports as per [facility] Past Medical History Attestation statement: The following information was validated with the patient. Source: old records reviewed Medical History Opioid abuse Suicide attempt Cocaine abuse Crack cocaine use Heroin abuse Substance abuse Schizophrenia Social History Social History Household Members: Other Household Members Other:: Roommate that just moved out Housing: Apartment Do you presently have visiting nurse or other home services: Yes ([facility]) Unable to assess alcohol history related to: Unknown Alcohol intake: current Alcohol intake frequency: holidays/special occasions only Patient Tobacco Use Status: Current everyday Tobacco user Tobacco use type: Cigarette Cigarettes Per Day: 20 Years Smoked: 28 Smoked in Last 30 Days: No Second Hand Smoke Exposure: No Use of substances other than those prescribed or required for medical reasons: Yes Substance Use Type: Crack/Cocaine Substance Use Frequency: Weekly Last Used Substance: Days (ago) Advance Directives: No Advance Directives Information Provided: No service: No Sexual orientation: Straight/Heterosexual Physical Exam ED Vital Signs: Vital Signs - 24 hr 03/01/24 19:22 03/02/24 01:19 Temperature 97.0 F 98.0 F Pulse Rate 64 50 Respiratory Rate 16 16 Blood Pressure 115/71 101/59 L Pulse Oximetry 99 95 Oxygen Delivery Method Room Air Room Air BMI result Body Mass Index 19.2 Const Other: wet clothing General: cooperative and no acute distress Orientation/consciousness: patient oriented x3 Limitations: no limitations HENMT Head: Yes normal to inspection and Yes atraumatic Ears: hearing grossly normal bilaterally General nose exam: Normal external nose present Face and sinus: Yes normal facial exam Eyes General: appearance normal, both eyes and all related structures EOM: EOMs intact bilaterally Neck Neck: Yes normal visual inspection and Yes no meningeal signs Resp Effort & Inspection: normal respiratory effort and no respiratory distress Cardio Rate: regular rate GI Inspection: Yes normal to inspection Skin Rashes: no rashes Wounds: no wounds Neuro General: patient oriented x3, tone normal, no meningeal signs and CN's II-XI intact bilaterally Cranial nerves: Yes CN's II-XII intact bilaterally Extrem General: Yes normal to inspection Psych Thought content: suicidality and no homicidality Course Course Course Narrative: -physician observation initiated at 20:45 as patient needs more time to be evaluated by addiction medicine 2100--ED care transferred to Dr. Zazueta pending addiction medicine consult. Reevaluation(s) Reevaluation #1: Patient met with addiction medicine and is stating he now wishes to be discharged. Discharge order placed. Time: 09:18 Medical Decision Making Medical Decision Making MDM Narrative: 43-year-old male with a past medical history of substance abuse, schizophrenia, presenting to the ED via EMS requesting detox from cocaine and help with homelessness. On exam vital signs stable, NAD, nontoxic appearing, wet clothing appreciated, denies SI/HI. Concern for substance abuse. Plan: Tox screen, addiction medicine consult Please refer to course for remaining clinical decision making, interpretation of labs/imaging results, and discussions with consultants and/or family members. Differential Diagnosis Differential Diagnoses: The differential diagnosis associated with the presentation includes As above Admission/Observation Consideration of admission/observation: Escalation of care including admission/observation considered Consult Healthcare Provider Management of the patient was discussed with: Behavioral Health Provider Lab Data [facility] Lab Attestation statement: I reviewed the patient's lab results. 03/01/24 23:10 03/01/24 23:10 Labs: Lab Results 03/01/24 03/01/24 Range/Units 20:00 23:10 WBC 8.9 (4.8-10.8) X10*3/uL RBC 3.85 L (4.60-5.80) X10*6/uL Hgb 12.5 L (14.0-18.0) g/dl Hct 35.9 L (42.0-52.0) % MCV 93.2 (80.0-98.0) fL MCH 32.5 (27.0-33.0) pg MCHC 34.8 (31.0-36.0) g/dl RDW 12.9 (11.0-16.0) % Plt Count 208 (160-400) X10*3/uL MPV 10.4 (9.4-12.4) fL Immature Gran % (Auto) 0.2 (0.0-0.4) % Neut % (Auto) 45.6 (45-73) % Lymph % (Auto) 44.6 H (20-40) % Williams % (Auto) 6.1 (2-11) % Eos % (Auto) 2.9 (0-4) % Baso % (Auto) 0.6 (0-2) % Lymph # (Auto) 4.0 (1.2-4.9) X10*3/uL Williams # (Auto) 0.5 (0.1-1.2) X10*3/uL Eos # (Auto) 0.3 (0.0-0.4) X10*3/uL Baso # (Auto) 0.1 (0.0-0.2) X10*3/uL Abs Immat Gran (auto) 0.02 (0.00-0.03) X10*3/uL Absolute Neuts (auto) 4.0 (2.0-8.3) x10*3/uL Absolute Nucleated RBC 0.000 (0.0-0.012) X10*3/uL Nucleated RBC % (auto) 0.0 (0.0-0.2) /100WBC Sodium 142 (135-145) mmol/L Potassium 3.9 D (3.3-5.1) mmol/L Chloride 109 H (96-108) mmol/L Carbon Dioxide 25 (22-29) mmol/L Anion Gap 12 (12-20) BUN 9 (9-16) mg/dL Creatinine 0.86 (0.5-1.4) mg/dL Estim Creat Clear Calc 93.3 Estimated GFR > 60 Random Glucose 96 (60-115) mg/dL Calcium 9.2 (8.4-10.2) mg/dL Total Bilirubin 0.4 (0.0-1.0) mg/dL Direct Bilirubin 0.1 (0.0-0.5) mg/dL AST 34 (5-37) U/L ALT 15 (0-40) U/L Alkaline Phosphatase 50 (39-117) U/L Total Protein 6.3 L (6.5-8.0) g/dL Albumin 4.0 (3.5-5.0) g/dL Urine Opiates Screen Not Detected (Not Detect) Ur Buprenorphine Scrn Not Detected (Not Detect) ng/mL Ur Oxycodone Screen Not Detected (Not Detect) ng/mL Urine Methadone Screen Not Detected (Not Detect) ng/mL Urine Fentanyl Screen Not Detected (Not Detect) Ur Barbiturates Screen Not Detected (Not Detect) Ur Phencyclidine Scrn Not Detected (Not Detect) Ur Amphetamines Screen Not Detected (Not Detect) U Benzodiazepines Scrn Not Detected (Not Detect) Urine Cocaine Screen POSITIVE H (Not Detect) U Marijuana (THC) Screen Not Detected (Not Detect) Ethyl Alcohol < 10 mg/dL Independent Historian Clinical information obtained from an independent historian. History obtained from or confirmed by: EMS External Record Review External record reviewed: Inpatient record, Office record, Outpatient record, Prior outpatient labs, Prior outpatient radiology, Primary care record and Outside ED record Tests considered The following testing was considered but not selected: As above Social Determinants Patient?s care significantly limited by Social Determinants of Health including: Inadequate housing, Low income, Alcoholism and drug addiction in family, Problems related to primary support group and Unemployment Discharge Plan Discharge Clinical Impression: Substance abuse, Homelessness Patient Disposition: Home, Self-Care Additional Instructions: Return to the ED with new or worsening symptoms, or if you would like assistance with recovery. Prescriptions: No Action risperidone 2 mg Tablet 2 mg PO BEDTIME 30 Days Qty: 30 0RF benztropine 1 mg tablet 1 mg PO DAILY 30 Days Qty: 30 0RF Print Language: Barbadian
--- NOTE | 2024-03-01 21:04 | MHC.EDTECH ---
Snack provided, meggan Perez RN.
[2024-03-01 23:19] LABS: MANUAL DIFF FLAG NO
[2024-03-01 23:24] LABS: Basophils Absolute Auto 0.1 X10*3/uL (0.0-0.2); Basophils Percent Auto 0.6 % (0-2); Eosinophils Absolute Auto 0.3 X10*3/uL (0.0-0.4); Eosinophils Percent Auto 2.9 % (0-4); Hematocrit 35.9 % (42.0-52.0); Hemoglobin 12.5 g/dl (14.0-18.0); Imm Gran Abs Auto 0.02 X10*3/uL (0.00-0.03); Imm Gran Pct Auto 0.2 % (0.0-0.4); Lymphocytes Percent Auto 44.6 % (20-40); Mean Corpuscular HGB Conc 34.8 g/dl (31.0-36.0); Mean Corpuscular Hemoglobin 32.5 pg (27.0-33.0); Mean Corpuscular Volume 93.2 fL (80.0-98.0); Mean Platelet Volume 10.4 fL (9.4-12.4); Monocytes Absolute Auto 0.5 X10*3/uL (0.1-1.2); Monocytes Percent Auto 6.1 % (2-11); Neutrophils Percent Auto 45.6 % (45-73); Platelet Count 208 X10*3/uL (160-400); Red Blood Count 3.85 X10*6/uL (4.60-5.80); Red Cell Distribution Width 12.9 % (11.0-16.0); White Blood Count 8.9 X10*3/uL (4.8-10.8)
[2024-03-01 23:42] LABS: Alanine Aminotransferase 15 U/L (0-40); Alkaline Phosphatase 50 U/L (39-117); Anion Gap 12 (12-20); Aspartate Amino Transferase 34 U/L (5-37); Bilirubin Direct 0.1 mg/dL (0.0-0.5); Bilirubin Total 0.4 mg/dL (0.0-1.0); Blood Urea Nitrogen 9 mg/dL (9-16); Calcium 9.2 mg/dL (8.4-10.2); Carbon Dioxide 25 mmol/L (22-29); Chloride 109 mmol/L (96-108); Creatinine Clr Calc Pharmacy 93.3; Estimated Glomerular Filt Rate > 60; Ethanol < 10 mg/dL; Glucose Random 96 mg/dL (60-115); Potassium 3.9 mmol/L (3.3-5.1); Sodium 142 mmol/L (135-145); Total Protein 6.3 g/dL (6.5-8.0)
[2024-03-02 01:19] VITALS: BP 101/59; PULSE 50; RESP 16; TEMP 36.7; O2SAT 95
[2024-03-02 09:23] VITALS: BP 00/0; PULSE 0; RESP 0; TEMP -17.7; TEMP 0; O2SAT 0
--- NOTE | 2024-03-02 10:50 | MHC.RECOVRN ---
Addendum entered by Michaela Alas 03/02/24 10:53: Pt encouraged to present as walk in to [place] if he would like ATS. Original Note: Briefly met with pt in [id number] after pt requesting ATS. Pt laying in bed, eyes closed, wakes to voice, difficult to engage in conversation. Pt reports cocaine use, $20 INH, a few times a week. Pt states I don't know why you need to ask all these questions during interview. Explained ATS process and necessity of needing substance use history. Pt reports he no longer is interested in ATS and needs to leave. Pt not willing to wait for dc paperwork, proceeded to walk out of ED.
== END 2024-03-02 09:26 | disposition home or self-care (01) ==
PROVIDERS: Physician Assistant; Emergency Provider Emergency Medicine
DX: F14.10 Cocaine abuse, uncomplicated (principal); F20.9 Schizophrenia, unspecified; Z59.00 Homelessness unspecified; Z51.81 Encounter for therapeutic drug level monitoring; Z79.899 Other long term (current) drug therapy; Z71.51 Drug abuse counseling and surveillance of drug abuser
CPT/HCPCS: 36415; 80048; 80076; 80307; 85025; 99284

== ENCOUNTER 2024-04-08 01:46 | Emergency (ER) | payer OTHER, SELFPAY ==
[2024-04-08 01:54] VITALS: BP 99/52; PULSE 66; RESP 18; TEMP 36.6; O2SAT 99; BMI 19.2
--- NOTE | 2024-04-08 03:03 | PC.NURSE ---
Adjusted CC to reflect patient's reason for arrival to ED
--- NOTE | 2024-04-08 03:40 | ED.GENADULT ---
HPI - General Adult General Chief complaint: General Medical Stated complaint: mental health Time Seen by Provider: 04/08/24 03:40 Source: patient Mode of arrival: ambulatory Limitations: no limitations History of Present Illness ED Provider: ana IRWIN narrative: Patient's history of cocaine abuse schizophrenia , homeless noncompliant with medication does not motor take his risperidone comes here as looking for some help called [facility] this p.m. for assistance finding long-term or other place to stay looking for respite denies any hallucination or delusions Related Data Previous Rx's ?Medication ?Instructions ?Recorded benztropine 1 mg tablet 1 mg PO DAILY 30 days #30 tabs 01/09/24 risperidone 2 mg tablet 2 mg PO BEDTIME 30 days #30 tabs 01/09/24 Allergies Allergy/AdvReac Type Severity Reaction Status Date / Time No Known Allergies Allergy Verified 04/08/24 02:00 Review of Systems Review of Systems: Yes all other systems are reviewed and are negative PMFSH Past Medical History Medical History Opioid abuse Suicide attempt Cocaine abuse Crack cocaine use Heroin abuse Substance abuse Schizophrenia Social History Social History Household Members: Other Household Members Other:: Roommate that just moved out Housing: Apartment Do you presently have visiting nurse or other home services: Yes ([facility]) Unable to assess alcohol history related to: Unknown Alcohol intake: current Alcohol intake frequency: holidays/special occasions only Patient Tobacco Use Status: Current everyday Tobacco user Tobacco use type: Cigarette Cigarettes Per Day: 20 Years Smoked: 28 Second Hand Smoke Exposure: No Substance Use Type: Crack/Cocaine Advance Directives: No Advance Directives Information Provided: No Do you have a plan to hurt others: No Plan service: No Sexual orientation: Straight/Heterosexual Physical Exam ED Vital Signs: Vital Signs - 24 hr 04/08/24 01:54 Temperature 97.8 F Pulse Rate 66 Respiratory Rate 18 Blood Pressure 99/52 L Pulse Oximetry 99 Oxygen Delivery Method Room Air BMI result Body Mass Index 19.2 Appearance: Alert. Oriented X3. No acute distress. Unkept Eyes: PERRLA, No Nystagmus ENT: Pharynx normal. Oral Mucosa moist Neck: Normal inspection. Neck supple. CVS: Normal heart rate and rhythm. Pulses normal. Respiratory: No respiratory distress. Equal air entry bilateral, no wheezing/rales/rhonchi Abdomen: Soft and nontender. Bowel sounds are present, no mass palpable, no CVA tenderness Skin: Skin warm and dry. Normal skin color. Normal skin turgor. Extremities: No lower extremity edema. No calf tenderness PSYCH: Denies any significant depression no SI or HI no hallucination Neuro: Oriented X 3. No motor deficit. No sensory deficit.No cerebellar signs , cranial nerves II-XII intact Medical Decision Making Medical Decision Making MDM Narrative: Patient's schizophrenia refusing any psych evaluation at this time denies any SI or HI does not have any significant hallucinations instructions for the respite was given to the patient will discharge patient advised to follow with psychiatrist Differential Diagnosis Differential Diagnoses: The differential diagnosis associated with the presentation includes Discharge Plan Discharge Clinical Impression: Schizophrenia Patient Disposition: Home, Self-Care Instructions: Schizophrenia (ED) Additional Instructions: Take medications and follow with your psychiatrist Prescriptions: No Action risperidone 2 mg Tablet 2 mg PO BEDTIME 30 Days Qty: 30 0RF benztropine 1 mg tablet 1 mg PO DAILY 30 Days Qty: 30 0RF Print Language: Danish
--- NOTE | 2024-04-08 04:19 | MHC.CARE ---
Per request of the Provider, Pt. was given information on [facility] and a list of local [facility] services. Pt. said he will pursue them on his own. Currently denies SI.
[2024-04-08 06:18] VITALS: BP 95/56; PULSE 80; RESP 18; TEMP 36.3; O2SAT 98
[2024-04-08 06:19] VITALS: BP 95/56; PULSE 80; RESP 18; TEMP 36.3; O2SAT 98
== END 2024-04-08 06:19 | disposition home or self-care (01) ==
PROVIDERS: Emergency Provider Internal Medicine
DX: F20.9 Schizophrenia, unspecified (principal); Z91.148 Patient's other noncompliance with medication regimen for other reason; Z59.00 Homelessness unspecified; F14.10 Cocaine abuse, uncomplicated; F19.10 Other psychoactive substance abuse, uncomplicated; F17.210 Nicotine dependence, cigarettes, uncomplicated
CPT/HCPCS: 99284

== ENCOUNTER 2024-06-06 04:51 | Inpatient (IN) | payer OTHER, SELFPAY ==
--- NOTE | 2024-06-06 04:58 | ED.PSYCH ---
HPI - Psych General Stated Complaint: PSYCH Source: patient, EMS and old records reviewed Mode of arrival: EMS Limitations: no limitations History of Present Illness ED Provider: ZAIDA IRWIN Narrative: 43 yo male with PMH of schizophrenia as well as cocaine abuse - admitted here in December after overdose who presents tonight with c/o just getting out of group home (45 day stay) now homeless x 2 days. He states no meds since March - but he was in group home so that is confusing unless he was not treated. He is here worried as he has no medications. He denies SI/HI. He feels he needs to be seen by mental health clinician. MD complaint: feels depressed and anxiety Onset (ago): day(s) (2) Duration: getting worse History of same: Yes Relieving factors: none Exacerbating factors: other Context: significant life stressor Associated psychiatric symptoms: depression Associated symptoms: denies other symptoms Treatments prior to arrival: none Related Data Previous Rx's ?Medication ?Instructions ?Recorded benztropine 1 mg tablet 1 mg PO DAILY 30 days #30 tabs 01/09/24 risperidone 2 mg tablet 2 mg PO BEDTIME 30 days #30 tabs 01/09/24 Allergies Allergy/AdvReac Type Severity Reaction Status Date / Time No Known Allergies Allergy Verified 06/06/24 05:12 Review of Systems Review of Systems: Constitutional : No Fever, No Chills ENT/Mouth : No Ear Pain, No Nasal Congestion, No sore throat Eyes: No Eye Pain, No Swelling, No Redness Cardiovascular : No Chest Pain, No SOB Respiratory : No Cough, No Sputum, No Dyspnea Gastrointestinal : No Nausea, No Vomiting, No Diarrhea, No Hematochezia, No Melena Genitourinary : No Dysuria, No Urinary Frequency, No Hematuria Musculoskeletal : No Myalgias Skin : No Skin Lesions, No rash Neuro : No Weakness, No Numbness, No Paresthesias, No Dizziness, No Headache Psych : positive Anxiety, positive Depression, no SI/HI All other systems reviewed and are negative PMFSH Past Medical History Attestation statement: The following information was validated with the patient. Source: old records reviewed Medical History Opioid abuse Suicide attempt Cocaine abuse Crack cocaine use Heroin abuse Substance abuse Schizophrenia Social History Social History Household Members: Other Household Members Other:: Roommate that just moved out Housing: Apartment Do you presently have visiting nurse or other home services: Yes ([facility]) Unable to assess alcohol history related to: Unknown Alcohol intake: current Alcohol intake frequency: holidays/special occasions only Patient Tobacco Use Status: Current everyday Tobacco user Tobacco use type: Cigarette Cigarettes Per Day: 20 Years Smoked: 28 Second Hand Smoke Exposure: No Substance Use Type: Crack/Cocaine Advance Directives: No Advance Directives Information Provided: Yes service: No Sexual orientation: Straight/Heterosexual Physical Exam Vital Signs: Appearance: Alert. Oriented X3. No acute distress. disheveled unkempt, calm and cooperative, eating a sandwhich Eyes: Pupils equal, round and reactive to light. ENT: Pharynx normal. Neck: Normal inspection. Neck supple. CVS: Normal heart rate and rhythm. Pulses normal. Respiratory: No respiratory distress. Breath sounds normal. Abdomen: Soft and nontender. Skin: Skin warm and dry. Normal skin color. Normal skin turgor. Extremities: No lower extremity edema. No calf ttp Neuro: Oriented X 3. No motor deficit. No sensory deficit. Cn2-12 intact Medical Decision Making Medical Decision Making MDM Narrative: 43 yo male with PMH of schizophrenia as well as cocaine abuse - admitted here in December after overdose who presents tonight with c/o being worried about his mental health no SI/HI. He has not been on medications since March but then notes he just left group home and has only been homeless for 2 days so maybe he didn't get his medications inpatient. At this time labs, CARE team consult Differential Diagnosis Differential Diagnoses: The differential diagnosis associated with the presentation includes poor social situation, non-compliance Admission/Observation Consideration of admission/observation: Escalation of care including admission/observation considered physician observation started at 5am Lab Data [facility] Lab Attestation statement: I reviewed the patient's lab results. Independent Historian Clinical information obtained from an independent historian. History obtained from or confirmed by: EMS External Record Review External record reviewed: Inpatient record and Outpatient record Social Determinants Patient?s care significantly limited by Social Determinants of Health including: Inadequate housing, Low income and Problems related to primary support group Discharge Plan Discharge Clinical Impression: Schizophrenia Patient Disposition: Still a Patient Prescriptions: No Action risperidone 2 mg Tablet 2 mg PO BEDTIME 30 Days Qty: 30 0RF benztropine 1 mg tablet 1 mg PO DAILY 30 Days Qty: 30 0RF Print Language: Danish
[2024-06-06 05:09] VITALS: BP 115/77; BP 91/57; PULSE 92; PULSE 93; RESP 16; TEMP 37.1; O2SAT 99; BMI 19.9
[2024-06-06 05:32] LABS: Basophils Percent Auto 0.3 % (0-2); Eosinophils Absolute Auto 0.1 X10*3/uL (0.0-0.4); Eosinophils Percent Auto 0.9 % (0-4); Hematocrit 41.6 % (42.0-52.0); Hemoglobin 14.6 g/dl (14.0-18.0); Imm Gran Abs Auto 0.05 X10*3/uL (0.00-0.03); Imm Gran Pct Auto 0.4 % (0.0-0.4); Lymphocytes Absolute Auto 2.9 X10*3/uL (1.2-4.9); Lymphocytes Percent Auto 25.1 % (20-40); Mean Corpuscular HGB Conc 35.1 g/dl (31.0-36.0); Mean Corpuscular Hemoglobin 31.8 pg (27.0-33.0); Mean Corpuscular Volume 90.6 fL (80.0-98.0); Monocytes Absolute Auto 0.8 X10*3/uL (0.1-1.2); Neutrophils Absolute Auto 7.7 x10*3/uL (2.0-8.3); Neutrophils Percent Auto 66.3 % (45-73); Platelet Count 276 X10*3/uL (160-400); Red Blood Count 4.59 X10*6/uL (4.60-5.80); Red Cell Distribution Width 12.9 % (11.0-16.0); White Blood Count 11.6 X10*3/uL (4.8-10.8)
[2024-06-06 05:33] LABS: MANUAL DIFF FLAG NO
[2024-06-06 05:52] LABS: Alanine Aminotransferase 18 U/L (0-40); Albumin Level 4.8 g/dL (3.5-5.0); Alkaline Phosphatase 70 U/L (39-117); Anion Gap 13 (12-20); Aspartate Amino Transferase 44 U/L (5-37); Bilirubin Direct 0.3 mg/dL (0.0-0.5); Bilirubin Total 0.9 mg/dL (0.0-1.0); Blood Urea Nitrogen 16 mg/dL (9-16); Calcium 9.8 mg/dL (8.4-10.2); Carbon Dioxide 26 mmol/L (22-29); Chloride 103 mmol/L (96-108); Creatinine Clr Calc Pharmacy 105.5; Estimated Glomerular Filt Rate > 60; Ethanol < 10 mg/dL; Glucose Random 83 mg/dL (60-115); Potassium 3.9 mmol/L (3.3-5.1); Sodium 138 mmol/L (135-145); Total Protein 7.7 g/dL (6.5-8.0)
--- NOTE | 2024-06-06 08:13 | PC.NURSE ---
Has been sleeping since this RN arrival.
[2024-06-06 08:34] VITALS: BP 99/59; PULSE 90; RESP 18; TEMP 36.9; O2SAT 99
--- NOTE | 2024-06-06 10:39 | MHC.EDTECH ---
Patient requested to take a shower gave him clean hospital clothes and clean and change bed linen
--- NOTE | 2024-06-06 15:01 | PC.NURSE ---
RN to RN michelle Patino on M5
[2024-06-06 17:06] VITALS: BP 100/59; PULSE 82; RESP 16; TEMP 36.2; O2SAT 97
[2024-06-06 17:07] VITALS: BMI 19.8
--- NOTE | 2024-06-06 18:18 | PC.ADMIT ---
Benito arrived on M5 via wheelchair from [facility] pod. He is oriented x4. He cooperated with the skin and safety check, skin check unremarkable. He is thin, older appearing than stated age. He signed a CV while in the ED. He self presented due to feelings of depression, hopelessness and wanting to restart his medications that he stopped a few months ago. He was inpatient for an overdose in early summer. He had a probation violation in the fall and was in [facility] for 45 days, just getting out recently. He is homeless currently. He has a long history or substance use disorder and IPLOCs. He denies any health problems and any discomfort. He denies urges to harm self or others. He complains of thoughts, voices, I'm not sure, maybe everyone has them . He is a half pack/day cigarette smoker, he declines NRT and flu vaccine. He denies uses any illicit substances since leaving [facility]. He said a couple nights ago, he drank a couple of pints of beer. BAL<10. No tox screen obtained. He was oriented to room and routine. Ordered meals and settled in his room. He is on 15 minute safety checks.
[2024-06-06 20:00] VITALS: BP 108/56; PULSE 100; TEMP 36.6; O2SAT 97
[2024-06-06] MEDS: risperiDONE 1 MG TABLET PO (20:50)
[2024-06-07 08:00] VITALS: BP 100/59; PULSE 69; RESP 16; TEMP 36.4; O2SAT 98
[2024-06-07] MEDS: risperiDONE 1 MG TABLET PO (09:02)
[2024-06-07 09:18] LABS: Alanine Aminotransferase 23 U/L (0-40); Albumin Level 4.5 g/dL (3.5-5.0); Alkaline Phosphatase 61 U/L (39-117); Anion Gap 15 (12-20); Aspartate Amino Transferase 26 U/L (5-37); Bilirubin Total 0.4 mg/dL (0.0-1.0); Blood Urea Nitrogen 21 mg/dL (9-16); Calcium 9.5 mg/dL (8.4-10.2); Carbon Dioxide 27 mmol/L (22-29); Chloride 107 mmol/L (96-108); Cholesterol 150 mg/dL (<200); Creatinine Clr Calc Pharmacy 96.2; Estimated Glomerular Filt Rate > 60; Glucose Fasting 111 mg/dL (60-99); HDL Cholesterol 52 mg/dL (>40); LDL Cholesterol Calculated 87 mg/dL (<100); Potassium 4.8 mmol/L (3.3-5.1); Sodium 144 mmol/L (135-145); Total Protein 7.1 g/dL (6.5-8.0); Triglycerides 57 mg/dL (<150)
[2024-06-07 11:34] LABS: Amphetamine Screen Urine Not Detected (Not Detect); Barbiturates, Urine Not Detected (Not Detect); Benzodiazepines Screen Urine Not Detected (Not Detect); Buprenorphine Scr Not Detected (Not Detect); Cannabinoid Screen Urine Not Detected (Not Detect); Cocaine Screen Urine Not Detected (Not Detect); Fentanyl, urine Not Detected (Not Detect); Methadone Screen, Urine Not Detected (Not Detect); Opiate Screen Urine Not Detected (Not Detect); Oxycodone Screen Urine Not Detected (Not Detect); Phencyclidine Screen Urine Not Detected (Not Detect)
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
[2024-06-07 19:53] VITALS: BP 129/68; PULSE 73; RESP 15; TEMP 36.8; O2SAT 97
[2024-06-07] MEDS: risperiDONE 2 MG TABLET PO (20:04)
[2024-06-08 08:00] VITALS: BP 109/56; PULSE 91; RESP 16; TEMP 36.3; O2SAT 98
--- NOTE | 2024-06-08 09:35 | HO.PSYCHPN ---
Subjective Subjective Date of Service: 06/08/24 Reason For Visit: psychosis Interim History: met with patient; discussed with team; reviewed chart Patient reports that he is overall doing better. Says his mood is improved and depression resolving; still has auditory hallucinations but was happy to be restarted on Risperdal and says that their intensity is lowered; does not want to increase dose. Denies any SI and says he is sleeping well. Mental Status Exam Mental Status Exam Narrative: Pt is alert and oriented; behavior is cooperative, friendly and calm, keeping to himself; patient is not in distress; dressed in casual attire, disheveled/unkempt;; mood is described as okay and affect congruent; eye contact appropriate; Speech is normal rate, volume and prosody and not pressured; some psychomotor retardation present; thought process is organized and goal directed; Thought content is on tx; otherwise pertinent to relevant topics and without any delusional content, paranoid ideations or grandiosity; denies any SI/HI. Says auditory hallucinations remain but less intense Patients insight and judgment impaired but seem to be improving Diagnostics Vital Signs (24Hr): Vital Signs - 24 hr 06/07/24 19:53 06/08/24 08:00 Temperature 98.2 F 97.3 F Pulse Rate 73 91 Respiratory Rate 15 16 Blood Pressure 129/68 109/56 L Pulse Oximetry 97 98 Oxygen Delivery Method Room Air BMI result Body Mass Index 19.8 Labs 06/06/24 05:25 06/07/24 08:36 Labs: Laboratory Results - last 48 hr 06/07/24 06/07/24 08:36 10:55 Sodium 144 Potassium 4.8 D Chloride 107 Carbon Dioxide 27 Anion Gap 15 BUN 21 H Creatinine 0.86 Estim Creat Clear Calc 96.2 Estimated GFR > 60 Fasting Glucose 111 H Calcium 9.5 Total Bilirubin 0.4 AST 26 ALT 23 Alkaline Phosphatase 61 Total Protein 7.1 Albumin 4.5 Triglycerides 57 Cholesterol 150 LDL Cholesterol, Calc 87 HDL Cholesterol 52 Urine Opiates Screen Not Detected Ur Buprenorphine Scrn Not Detected Ur Oxycodone Screen Not Detected Urine Methadone Screen Not Detected Urine Fentanyl Screen Not Detected Ur Barbiturates Screen Not Detected Ur Phencyclidine Scrn Not Detected Ur Amphetamines Screen Not Detected U Benzodiazepines Scrn Not Detected Urine Cocaine Screen Not Detected U Marijuana (THC) Screen Not Detected Medications Medications Current Medications Acetaminophen (Acetaminophen 325 Mg Tablet) 650 mg PO Q6H PRN PRN Reason: Headache/Pain Mild Scale (1-3) Al Hydroxide/Mg Hydroxide (Magnesium Hydrox/Alum Hydrox 30 Ml Oral.Susp) 30 ml PO Q6H PRN PRN Reason: Heartburn/Nausea Benztropine Mesylate (Benztropine Mesylate 0.5 Mg Tablet) 0.5 mg PO TID PRN PRN Reason: Extrapyramidal Effects Hydroxyzine HCl (Hydroxyzine Hcl 25 Mg Tablet) 25 mg PO Q6H PRN PRN Reason: Anxiety Magnesium Hydroxide (Milk Of Magnesia 30 Ml Oral.Susp) 30 ml PO DAILY PRN PRN Reason: Constipation Nicotine (Nicotine 14 Mg Patch.Td24) 14 mg TRANSDERMA DAILY [facility] Last Admin: 06/08/24 07:50 Dose: Not Given Nicotine Polacrilex (Nicotine Polacrilex 2 Mg Gum) 2 mg BUCCAL Q2H PRN PRN Reason: Nicotine Cravings Risperidone (Risperidone 2 Mg Tablet) 2 mg PO BEDTIME [facility] Last Admin: 06/07/24 20:04 Dose: 2 mg Trazodone HCl (Trazodone Hcl 50 Mg Tablet) 50 mg PO BEDTIME MRX1 PRN PRN Reason: Insomnia Allergies Allergies Allergy/AdvReac Type Severity Reaction Status Date / Time No Known Allergies Allergy Verified 06/06/24 05:12 Assessment & Plan Assessment & Plan (1) Schizophrenia: Qualifiers: Schizophrenia type: unspecified Qualified Code(s): F20.9 - Schizophrenia, unspecified Status: Acute Code(s): F20.9 - Schizophrenia, unspecified (2) Movement disorder: Status: Acute Code(s): G25.9 - Extrapyramidal and movement disorder, unspecified Plan Hospital course: 06/08 Patient reports that he is overall doing better. Says his mood is improved and depression resolving; still has auditory hallucinations but was happy to be restarted on Risperdal and says that their intensity is lowered; does not want to increase dose. Denies any SI and says he is sleeping well. Plan: CV Q 15 minute checks Continue Risperdal 2 mg daily Cogentin remains is p.r.n. Need collateral; social work reached out to out patient providers Guardian/Caregiver educated on: diagnosis, medication risk/benefits and therapeutic strategies Informed Consent: understands Reason for continued inpatient stay Substantial Risk for: rapid decompensation Time Spent With Patient Time: Total time managing care of this patient today ____ minutes.
[2024-06-08 20:00] VITALS: BP 113/63; PULSE 80; TEMP 36.9; O2SAT 98
[2024-06-08] MEDS: risperiDONE 2 MG TABLET PO (21:49)
[2024-06-09 08:00] VITALS: BP 109/59; PULSE 68; RESP 20; TEMP 36.8; O2SAT 98
--- NOTE | 2024-06-09 09:42 | P.PNPSI_ITS ---
Subjective Subjective Date of Service: 06/09/24 Reason For Visit: psychosis Interim History: Met with patient; discussed with team Patient says he is doing well, feels medications are helpful and does not want doses changed. AH remains present but less bothersome. Patient explained that when he is in a stable situation, with housing and sober, he does pretty well even without Risperdal. Patient said that things were so disruptive this past months that he did know what else to do besides get back on his medication which he says helps him think more clearly. Patient eating and sleeping well. He feels back to his regular self, safe and ready for discharge. Patient says he will see if it can stay at his mother's for the holiday as he continues to work out housing. Mental Status Exam Mental Status Exam Narrative: Pt is alert and oriented; behavior is cooperative, friendly and calm, keeping to himself; patient is not in distress; dressed in casual attire, unkempt, but improved hygiene;; mood is described as okay and affect congruent; eye contact appropriate; Speech is normal rate, volume and prosody and not pressured; no psychomotor retardation present; some mouth movements, some unfolding of arms and legs, similar to akathisia; thought process is organized and goal directed; Thought content is on tx; otherwise pertinent to relevant topics and without any delusional content, paranoid ideations or grandiosity; denies any SI/HI. auditory hallucinations remain but less intense Patients insight and judgment fair. Diagnostics Vital Signs (24Hr): Vital Signs - 24 hr 06/08/24 20:00 06/09/24 08:00 Temperature 98.5 F 98.3 F Pulse Rate 80 68 Respiratory Rate 20 Blood Pressure 113/63 109/59 L Pulse Oximetry 98 98 Oxygen Delivery Method Room Air Room Air BMI result Body Mass Index 19.8 Labs 06/06/24 05:25 06/07/24 08:36 Labs: Laboratory Results - last 48 hr 06/07/24 10:55 Urine Opiates Screen Not Detected Ur Buprenorphine Scrn Not Detected Ur Oxycodone Screen Not Detected Urine Methadone Screen Not Detected Urine Fentanyl Screen Not Detected Ur Barbiturates Screen Not Detected Ur Phencyclidine Scrn Not Detected Ur Amphetamines Screen Not Detected U Benzodiazepines Scrn Not Detected Urine Cocaine Screen Not Detected U Marijuana (THC) Screen Not Detected Medications Medications Current Medications Acetaminophen (Acetaminophen 325 Mg Tablet) 650 mg PO Q6H PRN PRN Reason: Headache/Pain Mild Scale (1-3) Al Hydroxide/Mg Hydroxide (Magnesium Hydrox/Alum Hydrox 30 Ml Oral.Susp) 30 ml PO Q6H PRN PRN Reason: Heartburn/Nausea Benztropine Mesylate (Benztropine Mesylate 0.5 Mg Tablet) 0.5 mg PO TID PRN PRN Reason: Extrapyramidal Effects Hydroxyzine HCl (Hydroxyzine Hcl 25 Mg Tablet) 25 mg PO Q6H PRN PRN Reason: Anxiety Magnesium Hydroxide (Milk Of Magnesia 30 Ml Oral.Susp) 30 ml PO DAILY PRN PRN Reason: Constipation Nicotine (Nicotine 14 Mg Patch.Td24) 14 mg TRANSDERMA DAILY [facility] Last Admin: 06/09/24 08:30 Dose: Not Given Nicotine Polacrilex (Nicotine Polacrilex 2 Mg Gum) 2 mg BUCCAL Q2H PRN PRN Reason: Nicotine Cravings Risperidone (Risperidone 2 Mg Tablet) 2 mg PO BEDTIME [facility] Last Admin: 06/08/24 21:49 Dose: 2 mg Trazodone HCl (Trazodone Hcl 50 Mg Tablet) 50 mg PO BEDTIME MRX1 PRN PRN Reason: Insomnia Allergies Allergies Allergy/AdvReac Type Severity Reaction Status Date / Time No Known Allergies Allergy Verified 06/06/24 05:12 Assessment & Plan Assessment & Plan (1) Schizophrenia: Qualifiers: Schizophrenia type: unspecified Qualified Code(s): F20.9 - Schizophrenia, unspecified Status: Acute Code(s): F20.9 - Schizophrenia, unspecified (2) Movement disorder: Status: Acute Code(s): G25.9 - Extrapyramidal and movement disorder, unspecified (3) Homelessness: Status: Inactive Code(s): Z59.00 - Homelessness unspecified (4) Cocaine use disorder: Status: Acute Code(s): F14.10 - Cocaine abuse, uncomplicated (5) Alcohol use disorder: Status: Acute Code(s): F10.90 - Alcohol use, unspecified, uncomplicated Plan HPI: 43 yo WM who lost his housing due to relapse on drugs/alcohol- didn't follow through with probation or staying sober so went to group home for 45 days, got out 3 night ago and didn't sleep, was homeless, had no medication ( says didn't take medication in group home as he didn't need it there - likely with the structure and no access to drugs/etoh-) out of group home it was hard to find a [facility] and mat worker had him buy a phone but he couldn't get it to work - and got confused, then was unable to sleep and couldn't find a [facility] and so thoughts about suicide. Called ambulance after 3rd night of not sleeping- REports a long psychiatric hx complicated by drug/alcohol use and various relationships with women who also use drugs/alcohol- Hospital course: 06/08 Patient reports that he is overall doing better. Says his mood is improved and depression resolving; still has auditory hallucinations but was happy to be restarted on Risperdal and says that their intensity is lowered; does not want to increase dose. Denies any SI and says he is sleeping well. 06/09 Patient says he is doing well, feels medications are helpful and does not want doses changed. AH remains present but less bothersome. Patient explained that when he is in a stable situation, with housing and sober, he does pretty well even without Risperdal. Patient said that things were so disruptive this past months that he did know what else to do besides get back on his medication which he says helps him think more clearly. Patient eating and sleeping well. He feels back to his regular self, safe and ready for discharge. Patient says he will see if it can stay at his mother's for the holiday as he continues to work out housing. -patient asked for Cogentin to be prescribed as a p.r.n.. He says that in the past once in a while he would get a dystonic reaction with his tongue and Cogentin helps with this. Patient also folding on folding his arms and legs, looking a little fidgety, freddy to akathisia; tag writer address this and that it could be a possible medication side effect however patient said it does not bother him and does not want any treatment for it Patient has remained in good behavioral and impulse control throughout his time in the unit. Mostly isolative and keeping himself, but otherwise appropriate with peers and staff. No SI, HI and AH is tolerable. Patient of course remains vulnerable to relapse and decompensation however this is a chronic struggle for him, one1 with which he understands well, and will not be changed by longer stay on inpatient unit. Patient is not in imminent risk for harm to self or others and appropriate to return to the community for treatment. Plan: CV Q 15 minute checks Continue Risperdal 2 mg daily Lina remains is p.r.n. Need collateral; social work reached out to out patient providers Patient educated on: diagnosis, medication risk/benefits, substance abuse and therapeutic strategies Informed Consent: understands Reason for continued inpatient stay Substantial Risk for: stable for discharge Time Spent With Patient Time: Total time managing care of this patient today ____ minutes.
[2024-06-09 19:38] VITALS: BP 116/61; PULSE 73; RESP 16; TEMP 36.9; O2SAT 99
[2024-06-09] MEDS: risperiDONE 2 MG TABLET PO (21:14)
[2024-06-10 08:00] VITALS: BP 114/57; PULSE 97; TEMP 36.8; O2SAT 98
--- NOTE | 2024-06-10 09:42 | P.DS_ITS ---
DS: Providers Provider Date of Service: 06/10/24 Date of admission: 06/06/24 12:38 Date of discharge: 06/10/24 Primary care physician: None Physician Attending physician on admission: Chanda Naranjo Attending physician on discharge: Mick Simms DS: Diagnosis Discharge Diagnosis (1) Schizophrenia: Status: Acute (2) Movement disorder: Status: Acute (3) Homelessness: Status: Inactive (4) Cocaine use disorder: Status: Acute (5) Alcohol use disorder: Status: Acute DS: Medications Discharge Medications Home Medications: Previous Rx's ?Medication ?Instructions ?Recorded benztropine 0.5 mg tablet 0.5 mg PO TID PRN Extrapyramidal 06/10/24 Effects 30 days #30 tabs risperidone 2 mg tablet 2 mg PO BEDTIME 30 days #30 tabs 06/10/24 Mental Status Exam Mental Status Exam Narrative: Pt is alert and oriented; behavior is cooperative, friendly and calm; patient is not in distress; dressed in casual attire, unkempt, but improved hygiene;; mood is described as ok and affect congruent; eye contact appropriate; Speech is normal rate, volume and prosody and not pressured; no psychomotor retardation present; chronic mouth movements, some likely akathesia; thought process is organized and goal directed; Thought content is on post discharge plans and WNL; otherwise pertinent to relevant topics and without any delusional content, paranoid ideations or grandiosity; denies any SI/HI. auditory hallucinations remain but less intense Patients insight and judgment fair. Data Data Completed and Pending Completed studies during hospitalization [Text1]: 06/06/24 06/07/24 06/07/24 05:25 08:36 10:55 WBC 11.6 H RBC 4.59 L Hgb 14.6 Hct 41.6 L MCV 90.6 MCH 31.8 MCHC 35.1 RDW 12.9 Plt Count 276 D MPV 10.0 Immature Gran % (Auto) 0.4 Neut % (Auto) 66.3 Lymph % (Auto) 25.1 [place] % (Auto) 7.0 Eos % (Auto) 0.9 Baso % (Auto) 0.3 Lymph # (Auto) 2.9 [place] # (Auto) 0.8 Eos # (Auto) 0.1 Baso # (Auto) 0.0 Abs Immat Gran (auto) 0.05 H Absolute Neuts (auto) 7.7 Absolute Nucleated RBC 0.000 Nucleated RBC % (auto) 0.0 Sodium 138 144 Potassium 3.9 4.8 D Chloride 103 107 Carbon Dioxide 26 27 Anion Gap 13 15 BUN 16 21 H Creatinine 0.79 0.86 Estim Creat Clear Calc 105.5 96.2 Estimated GFR > 60 > 60 Random Glucose 83 Fasting Glucose 111 H Calcium 9.8 D 9.5 Magnesium 2.0 Total Bilirubin 0.9 0.4 Direct Bilirubin 0.3 AST 44 H 26 ALT 18 23 Alkaline Phosphatase 70 61 Total Protein 7.7 7.1 Albumin 4.8 4.5 Triglycerides 57 Cholesterol 150 LDL Cholesterol, Calc 87 HDL Cholesterol 52 Urine Opiates Screen Not Detected Ur Buprenorphine Scrn Not Detected Ur Oxycodone Screen Not Detected Urine Methadone Screen Not Detected Urine Fentanyl Screen Not Detected Ur Barbiturates Screen Not Detected Ur Phencyclidine Scrn Not Detected Ur Amphetamines Screen Not Detected U Benzodiazepines Scrn Not Detected Urine Cocaine Screen Not Detected U Marijuana (THC) Screen Not Detected Ethyl Alcohol < 10 DS: Summary Hospital Course Hospital Course: HPI: 43 yo WM who lost his housing due to relapse on drugs/alcohol- didn't follow through with probation or staying sober so went to custodial for 45 days, got out 3 night ago and didn't sleep, was homeless, had no medication ( says didn't take medication in custodial as he didn't need it there - likely with the structure and no access to drugs/etoh-) out of custodial it was hard to find a senior living and director of outreach had him buy a phone but he couldn't get it to work - and got confused, then was unable to sleep and couldn't find a senior living and so thoughts about suicide. Called ambulance after 3rd night of not sleeping- REports a long psychiatric hx complicated by drug/alcohol use and various relationships with women who also use drugs/alcohol- Hospital course: Depressed with AH and some paranoid delusional thoughts (Ideas of reference); no SI. Pt restarted on Risperdal. 06/08 Patient reports that he is overall doing better. Says his mood is improved and depression resolving; still has auditory hallucinations but was happy to be restarted on Risperdal and says that their intensity is lowered; does not want to increase dose. Denies any SI and says he is sleeping well. 06/09 Patient says he is doing well, feels medications are helpful and does not want doses changed. AH remains present but less bothersome. Patient explained that when he is in a stable situation, with housing and sober, he does pretty well even without Risperdal. Patient said that things were so disruptive this past months that he did know what else to do besides get back on his medication which he says helps him think more clearly. Patient eating and sleeping well. He feels back to his regular self, safe and ready for discharge. Patient says he will see if it can stay at his mother's for the holiday as he continues to work out housing. -does not want substance abuse tx -patient asked for Cogentin to be prescribed as a p.r.n.. He says that in the past once in a while he would get a dystonic reaction with his tongue and Cogentin helps with this. Patient also folding on folding his arms and legs, looking a little fidgety, freddy to akathisia; insurance writer address this and that it could be a possible medication side effect however patient said it does not bother him and does not want any treatment for it Impression: Patient has remained in good behavioral and impulse control throughout his time in the unit. Mostly isolative and keeping himself, but otherwise appropriate with peers and staff. No SI, HI and AH is tolerable. Patient of course remains vulnerable to relapse and decompensation however this is a chronic struggle for him, one1 with which he understands well, and will not be changed by longer stay on inpatient unit. Patient is not in imminent risk for harm to self or others and appropriate to return to the community for treatment. Time spent discussing smoking cessation with patient: 3 to 10 minutes Status at Discharge Functional status at discharge: independent ambulation Overall status at discharge: patient is back to baseline Time Spent with Patient Time attestation: Total time managing care of this patient today __40__ minutes. Time spent: Greater than 30 minutes Specific discharge activities: met with pt; discussed with team; prescriptions, charting Discharge Plan Discharge Anticipated Discharge Date/Time: 06/10/24 11:30 Patient Disposition: [facility] Discharge Diagnosis: schizophrenia Referrals: [facility] [Other] - 06/17/24 (Appointment with Dr. Alex Gaston, if you have not heard from [facility] in 1 week please call to follow up about appointment time and date or follow up with your ACCS Team- Sofie- [phone]) Physician,None [Primary Care Provider] - 1 Week Discharge Medications: New benztropine 0.5 mg Tablet 0.5 mg PO TID PRN (Reason: Extrapyramidal Effects) 30 Days Qty: 30 0RF risperidone 2 mg Tablet 2 mg PO BEDTIME 30 Days Qty: 30 0RF Discharge Orders: Discharge Order (Routine); Ordered 06/10/24 Ordered By: Mick Simms Diet: Regular diet Activity on Discharge: As tolerated Stand Alone Forms: Patient Portal Discharge page Print Language: Telugu Care Plan Goals: Maintain mood and safe behaviors Take medications as prescribed Continue to pursue sobriety Practice coping skills Continue with outpatient providers and reach out to them as needed Health Concerns: Mood stability and behaviors Sobriety Extra pyramidal movements Plan of Treatment: Follow up with your PCP, psychiatric provider and other outpatient providers regarding above concerns Take medications as prescribed Assessment: Risk assessment at time of discharge:? Patient was interviewed prior to discharge and found to be fully oriented and without any SI or HI. Patient has improved insight and judgment and wants to continue treatment. Patient is not in imminent risk of harm to self or others and has a safety plan that includes presenting to the closest ER or calling 911 if feeling unsafe.? Patient has been observed closely by nursing and unit staff throughout admission; patient has not engaged in any behaviors that suggest dangerousness to self or others and has demonstrated appropriate behaviors and impulse control
== END 2024-06-10 12:20 | disposition home or self-care (01) | DRG 885 ==
LOC: HO.ED 05:16 → HO.PM5 13:11
PROVIDERS: Admitting Provider Psychiatry & Neurology Psychiatry; Emergency Provider Emergency Medicine; Visit Provider Psychiatry & Neurology Psychiatry
DX: F20.9 Schizophrenia, unspecified (principal); Z59.02 Unsheltered homelessness; F17.210 Nicotine dependence, cigarettes, uncomplicated; F14.10 Cocaine abuse, uncomplicated; Z71.6 Tobacco abuse counseling; Z79.899 Other long term (current) drug therapy
CPT/HCPCS: 36415; 80048; 80053; 80061; 80076; 80307; 83735; 85025; 99284; S9485

== ENCOUNTER → 2024-06-06 12:38 | Outpatient (BNV) | payer OTHER, SELFPAY | PROVIDERS: Admitting Provider Psychiatry & Neurology Psychiatry; Emergency Provider Emergency Medicine; Visit Provider Psychiatry & Neurology Psychiatry | DX: F20.9 Schizophrenia, unspecified (principal); F14.10 Cocaine abuse, uncomplicated; G25.9 Extrapyramidal and movement disorder, unspecified; Z59.00 Homelessness unspecified; F10.90 Alcohol use, unspecified, uncomplicated | CPT/HCPCS: 99232; 99239 ==

== ENCOUNTER 2024-07-14 03:18 | Inpatient (IN) | payer OTHER, SELFPAY ==
[2024-07-14 03:35] VITALS: BP 102/57; PULSE 65; RESP 16; TEMP 36.3; O2SAT 98
[2024-07-14 03:38] VITALS: BP 118/68; PULSE 67; O2SAT 98; BMI 19.9
[2024-07-14 04:02] LABS: Basophils Absolute Auto 0.1 X10*3/uL (0.0-0.2); Basophils Percent Auto 0.4 % (0-2); Eosinophils Absolute Auto 0.2 X10*3/uL (0.0-0.4); Eosinophils Percent Auto 1.6 % (0-4); Hematocrit 41.6 % (42.0-52.0); Hemoglobin 14.5 g/dl (14.0-18.0); Imm Gran Abs Auto 0.04 X10*3/uL (0.00-0.03); Imm Gran Pct Auto 0.3 % (0.0-0.4); Lymphocytes Absolute Auto 3.9 X10*3/uL (1.2-4.9); Lymphocytes Percent Auto 28.7 % (20-40); MANUAL DIFF FLAG NO; Mean Corpuscular HGB Conc 34.9 g/dl (31.0-36.0); Mean Corpuscular Hemoglobin 32.3 pg (27.0-33.0); Mean Corpuscular Volume 92.7 fL (80.0-98.0); Mean Platelet Volume 9.3 fL (9.4-12.4); Monocytes Percent Auto 7.2 % (2-11); Neutrophils Absolute Auto 8.3 x10*3/uL (2.0-8.3); Neutrophils Percent Auto 61.8 % (45-73); Platelet Count 318 X10*3/uL (160-400); Red Blood Count 4.49 X10*6/uL (4.60-5.80); Red Cell Distribution Width 12.8 % (11.0-16.0); White Blood Count 13.5 X10*3/uL (4.8-10.8)
[2024-07-14 04:03] LABS: Appearance Urine Cloudy; Color Urine Dark Yellow; Glucose Urine UA Negative (Negative); Leukocyte Esterase Urine Negative (Negative); Nitrite Urine Negative (Negative); PH 5.5 (5.0-9.0); Specific Gravity - Urine >= 1.030 (1.005-1.025); UMIC TRIGGER UACC YES; Urine Blood Negative (Negative); Urine Ketones Trace mg/dL (Negative); Urine Protein 30 (1+) mg/dL (Neg-Trace)
[2024-07-14 04:16] LABS: Amphetamine Screen Urine Not Detected (Not Detect); Barbiturates, Urine Not Detected (Not Detect); Benzodiazepines Screen Urine Not Detected (Not Detect); Buprenorphine Scr Not Detected (Not Detect); Cannabinoid Screen Urine Not Detected (Not Detect); Cocaine Screen Urine POSITIVE (Not Detect); Fentanyl, urine Not Detected (Not Detect); Methadone Screen, Urine Not Detected (Not Detect); Opiate Screen Urine Not Detected (Not Detect); Oxycodone Screen Urine Not Detected (Not Detect); Phencyclidine Screen Urine Not Detected (Not Detect)
[2024-07-14 04:19] LABS: Bacteria Urine None Seen (None Seen); RBC Urine 0-2 /HPF (0-2); Squamous Epithelial Cell Urine 0-2 /HPF (0-2); WBC Urine 0-5 /HPF (0-5)
[2024-07-14 04:23] LABS: Alanine Aminotransferase 14 U/L (0-40); Albumin Level 4.8 g/dL (3.5-5.0); Alkaline Phosphatase 71 U/L (39-117); Anion Gap 15 (12-20); Aspartate Amino Transferase 19 U/L (5-37); Bilirubin Total 0.2 mg/dL (0.0-1.0); Blood Urea Nitrogen 18 mg/dL (9-16); Calcium 9.4 mg/dL (8.4-10.2); Carbon Dioxide 25 mmol/L (22-29); Chloride 109 mmol/L (96-108); Creatinine Clr Calc Pharmacy 104.1; Estimated Glomerular Filt Rate > 60; Ethanol < 10 mg/dL; Glucose Random 79 mg/dL (60-115); Potassium 4.6 mmol/L (3.3-5.1); Sodium 144 mmol/L (135-145); Total Protein 7.9 g/dL (6.5-8.0)
[2024-07-14 04:36] LABS: Acetaminophen LAB < 3 mcg/mL (<30); Salicylate < 5.0 mg/dL (15-30)
--- NOTE | 2024-07-14 06:41 | ED_ITS ---
HPI - General Adult General Chief complaint: Psychiatric Symptoms Stated complaint: Schizophrenia off meds Time Seen by Provider: 07/14/24 06:39 Source: patient and EMS Mode of arrival: EMS Limitations: no limitations History of Present Illness ED Provider: Kathleen Hong PA-C HPI narrative: Patient is a 43 year old assigned male at with a history of mental illness presenting to the emergency department today with auditory and visual hallucinations. Patient states that over the last 3 days he has not been taking his medications and has been having hallucinations including visual and auditory. Patient states that he did use cocaine recently. Patient denies any dizziness, lightheadedness, abdominal pain, nausea, vomiting, fever, chills, blurry vision, double vision, loss of vision, chest pain, difficulty breathing, shortness of breath, back pain, night sweats, pain with urination, increased urinary frequency, increased urinary urgency, blood in his urine or stool, syncope or a near syncopal episode, recent trauma or falls, bowel incontinence, bladder incontinence, or any other complaints at this time. Onset (ago): day(s) (3) Relieving factors: none Exacerbating factors: none Associated symptoms: denies other symptoms Treatments prior to arrival: none Related Data Home Medications ?Medication ?Instructions ?Recorded ?Confirmed risperidone 2 mg tablet 2 mg PO DAILY 07/14/24 07/14/24 Allergies Allergy/AdvReac Type Severity Reaction Status Date / Time No Known Allergies Allergy Verified 07/14/24 03:45 Review of Systems 2 Constitutional: Constitutional: Reports no additional constitutional complaints, Denies chills, Denies fever(s) and Denies night sweats Eyes: Eyes: Reports no additional eye complaints, Denies blurry vision, Denies change in vision, Denies diplopia, Denies eye discharge, Denies loss of vision and Denies eye pain ENT: Denies dizziness Cardiovascular: Cardiovascular: Reports no additional cardiovascular complaints, Denies chest pain, Denies lightheadedness, Denies Loss of Consciousness and Denies dyspnea Respiratory: Respiratory: Reports no additional respiratory complaints and Denies dyspnea Gastrointestinal: Gastrointestinal: Reports no additional gastrointestinal complaints, Denies abdominal pain, Denies melena, Denies hematochezia, Denies change in bowel habits and Denies change in stool character Genitourinary: Genitourinary: Reports no additional male genitourinary complaints, Denies hematuria, Denies oliguria, Denies difficulty urinating, Denies dysuria, Denies urinary frequency, Denies urinary hesitancy, Denies urinary incontinence and Denies urinary urgency Musculoskeletal: Musculoskeletal: Reports no additional musculoskeletal complaints, Denies numbness and Denies tingling Neurologic: Denies dizziness, Denies loss of vision, Denies numbness and Denies tingling Psychiatric: Psychiatric: Reports auditory hallucinations, Denies homicidal ideation and Denies suicidal ideation Comments: visual hallucinations Endocrine: Endocrine: Reports no additional endocrine complaints Hematologic/Lymphatic: Hematologic/Lymphatic: Reports no additional hematologic/lymphatic complaints Allergic/Immunologic: Allergic/Immunologic: Reports no additional allergic/immunologic complaints [facility] Past Medical History Attestation statement: The following information was validated with the patient. Source: old records reviewed and nursing notes reviewed Social History Social History Smoked in Last 30 Days: Yes Use of substances other than those prescribed or required for medical reasons: Yes Substance Use Type: Crack/Cocaine Substance Use Frequency: Occasionally Last Used Substance: Days (ago) Advance Directives: No Advance Directives Information Provided: Yes Do you have a plan to hurt others: No Plan Physical Exam ED Vital Signs: Vital Signs - 24 hr 07/14/24 03:35 Temperature 97.4 F Pulse Rate 65 Respiratory Rate 16 Blood Pressure 102/57 L Pulse Oximetry 98 Oxygen Delivery Method Room Air BMI result Body Mass Index 19.9 Const General: cooperative, no acute distress, alert and awake Nutritional Appearance: well nourished Orientation/consciousness: patient oriented x3 Limitations: no limitations [facility] Head: Yes normal to inspection and Yes atraumatic Ears: hearing grossly normal bilaterally and external ears normal General nose exam: Normal external nose present, no nasal discharge noted and no epistaxis Face and sinus: Yes normal facial exam, No abrasion and No laceration Mouth: Normal oral and palatal mucosa present, no drooling and no muffled voice Eyes General: appearance normal, both eyes and all related structures Periorbital: periorbital findings normal Eyelids: Yes eyelids normal Conjunctivae: conjunctivae normal Pupils: Equal, round and reactive pupils present EOM: EOMs intact bilaterally Neck Neck: Yes normal visual inspection, Yes full ROM and Yes no lymphadenopathy Chest Chest palpation & inspection: normal inspection of the chest Resp Effort & Inspection: normal respiratory effort and able to speak in complete sentences GI Inspection: Yes normal to inspection Neuro General: patient oriented x3 and moves all extremities Cranial nerves: Yes Equal, round and reactive pupils present Cognition (Neuro): normal cognition Extrem General: Yes normal to inspection, Yes full ROM and Yes capillary refill normal Psych Appearance: grossly normal Mental Status: mental status grossly normal Thought content: Hallucination(s) present auditory and visual Medical Decision Making Medical Decision Making [facility] Narrative: Patient is a 43 year old assigned male at with a history of mental illness presenting to the emergency department today with auditory and visual hallucinations. Patient's physical exam was as noted in the physical exam portion of this note. Patient's blood work was unremarkable. Patient's urine showed no acute process. Patient's EKG was unremarkable. I explained my physical exam findings as well as all test results to the patient. I answered all questions asked by the patient. Patient's disposition is pending CARE team evaluation. Differential Diagnosis Differential Diagnoses: The differential diagnosis associated with the presentation includes Auditory hallucinations Visual hallucinations Medication non-compliance Admission/Observation Consideration of admission/observation: Escalation of care including admission/observation considered Disposition will be determined after CARE Team evaluation Lab Data [facility] Lab Attestation statement: I reviewed the patient's lab results. My interpretation of these results are in the MDM Rationale portion of this note. 07/14/24 03:56 07/14/24 03:57 Labs: Lab Results 07/14/24 07/14/24 Range/Units 03:56 03:57 WBC 13.5 H (4.8-10.8) X10*3/uL RBC 4.49 L (4.60-5.80) X10*6/uL Hgb 14.5 (14.0-18.0) g/dl Hct 41.6 L (42.0-52.0) % MCV 92.7 (80.0-98.0) fL MCH 32.3 (27.0-33.0) pg MCHC 34.9 (31.0-36.0) g/dl RDW 12.8 (11.0-16.0) % Plt Count 318 (160-400) X10*3/uL MPV 9.3 L (9.4-12.4) fL Immature Gran % (Auto) 0.3 (0.0-0.4) % Neut % (Auto) 61.8 (45-73) % Lymph % (Auto) 28.7 (20-40) % [place] % (Auto) 7.2 (2-11) % Eos % (Auto) 1.6 (0-4) % Baso % (Auto) 0.4 (0-2) % Lymph # (Auto) 3.9 (1.2-4.9) X10*3/uL [place] # (Auto) 1.0 (0.1-1.2) X10*3/uL Eos # (Auto) 0.2 (0.0-0.4) X10*3/uL Baso # (Auto) 0.1 (0.0-0.2) X10*3/uL Abs Immat Gran (auto) 0.04 H (0.00-0.03) X10*3/uL Absolute Neuts (auto) 8.3 (2.0-8.3) x10*3/uL Absolute Nucleated RBC 0.000 (0.0-0.012) X10*3/uL Nucleated RBC % (auto) 0.0 (0.0-0.2) /100WBC Sodium 144 (135-145) mmol/L Potassium 4.6 (3.3-5.1) mmol/L Chloride 109 H (96-108) mmol/L Carbon Dioxide 25 (22-29) mmol/L Anion Gap 15 (12-20) BUN 18 H (9-16) mg/dL Creatinine 0.80 (0.5-1.4) mg/dL Estim Creat Clear Calc 104.1 Estimated GFR > 60 Random Glucose 79 (60-115) mg/dL Calcium 9.4 (8.4-10.2) mg/dL Total Bilirubin 0.2 (0.0-1.0) mg/dL AST 19 (5-37) U/L ALT 14 (0-40) U/L Alkaline Phosphatase 71 (39-117) U/L Total Protein 7.9 (6.5-8.0) g/dL Albumin 4.8 (3.5-5.0) g/dL Urine Color Dark Yellow Urine Appearance Cloudy Urine pH 5.5 (5.0-9.0) Ur Specific [place] >= 1.030 H (1.005-1.025) Urine Protein 30 (1+) H (Neg-Trace) mg/dL Urine Glucose (UA) Negative (Negative) mg/dL Urine Ketones Trace (Negative) mg/dL Urine Blood Negative (Negative) Urine Nitrite Negative (Negative) Ur Leukocyte Esterase Negative (Negative) Urine RBC 0-2 (0-2) /HPF Urine WBC 0-5 (0-5) /HPF Ur Squamous Epith Cells 0-2 (0-2) /HPF Urine Bacteria None Seen (None Seen) Hyaline Casts 3-5 (0-2) /LPF Salicylates < 5.0 L (15-30) mg/dL Urine Opiates Screen Not Detected (Not Detect) Ur Buprenorphine Scrn Not Detected (Not Detect) ng/mL Ur Oxycodone Screen Not Detected (Not Detect) ng/mL Urine Methadone Screen Not Detected (Not Detect) ng/mL Urine Fentanyl Screen Not Detected (Not Detect) Acetaminophen < 3 (<30) mcg/mL Ur Barbiturates Screen Not Detected (Not Detect) Ur Phencyclidine Scrn Not Detected (Not Detect) Ur Amphetamines Screen Not Detected (Not Detect) U Benzodiazepines Scrn Not Detected (Not Detect) Urine Cocaine Screen POSITIVE H (Not Detect) U Marijuana (THC) Screen Not Detected (Not Detect) Ethyl Alcohol < 10 mg/dL Independent Interpretation I performed an independent interpretation of an: EKG Interpretation: Vent. Rate: 063 BPM Atrial Rate: 063 BPM P-R Int: 108 ms QRS Dur: 106 ms QT Int: 414 ms P-R-T Axes: 037 084 058 degrees QTc Int: 423 ms Sinus rhythm with short [place] Otherwise normal ECG No previous ECGs available DD/ 0923 Independent Historian Clinical information obtained from an independent historian. History obtained from or confirmed by: EMS (EMS provided additional history and confirmed the history provided by the patient.) Discharge Plan Discharge Clinical Impression: Auditory hallucination, Hallucination, visual Patient Disposition: Still a Patient Prescriptions: No Action risperidone 2 mg Tablet 2 mg PO DAILY Interventions: Williams-Suicide Risk Severity Scale Last Done: 07/14/24 03:47 Print Language: [place]
--- NOTE | 2024-07-14 07:33 | ECG_ITS ---
Test Reason : COCAINE USE Blood Pressure : / mmHG Vent. Rate : 063 BPM Atrial Rate : 063 BPM P-R Int : 108 ms QRS Dur : 106 ms QT Int : 414 ms P-R-T Axes : 037 084 058 degrees QTc Int : 423 ms Sinus rhythm with short IN Otherwise normal ECG No previous ECGs available Referred By: Kathleen Hong Electronically Signed By:ROSALBA GIRARD MD
--- OUTSIDE RECORDS SUMMARY | 2024-07-14 09:40 | XMS_ITS | Clinical Summary ---
Author Organization Unknown Care Team Providers Care Emt I/85 Name Role Phone ELBERT YOU, ALEXANDRA Unavailable Unavailable MARINA RODAS, CHRISTY Unavailable Unavailable Payers Payer Name Policy Type Policy Number Effective Date Expira tion Date [facility] [id number] MEDICAID [facility] [id number] MEDICARE - [facility] [id number] Problems Condition Name Condition Details Condition Category Status Onset Date Resolution Date Last Treatment Date Treating Clinician Comments MAJOR DEPRESSIVE DISORDER, RECURRENT, MILD Active 09-19 00:00: 00 Allergies, Adverse Reactions, Alerts Allergy Name Allergy Type Status Severity Reaction(s) Onset Date Inactive Date Treating Clinician Comments NKA Propensity to adverse reactions Active 2023-09 13:12:0 5 Medications Ordered Medication Name Filled Medication Name Start Date Stop Date Current Medication? Ordering Clinician Indication Dosage Frequency Signature (SIG) Comments Components benztropine 1 mg tablet 09-24 00:00: 00 Yes [id number] 1 mg EVERY AM 1 mg EVER Y AM (route: oral) Med Classific ation: Central Nervous System Agents Risperdal 4 mg tablet 09-24 00:00: 00 01-09 23:59 :00 No [id number] 4 mg EVERY AM 4 mg EVERY AM (route: oral) Med Classific ation: Central Nervous System Agents Risperdal 2 mg tablet 01-09 00:00: 00 Yes [id number] 2 mg DAILY 2 mg LIZANDRO Y (route: oral) Med Classific ation: Central Nervous System Agents BENZTROPINE ORAL 03-03 00:00: 00 04-02 00:00 :00 No 1 mg1 TABLET DAILY 1 mg1 TABLET DAILY (route: ) Alternate Route: BY MOUTH . Med Classific ation: CENTRAL NERVOUS SYSTEM AGENTS PENICILLIN V POTASSIUM ORAL 11-07 00:00: 00 11-14 00:00 :00 No 500 mg1 TABLET 4 TIMES A DAY 500 mg1 TABLET 4 TIMES A DAY (route: ) Med Classific ation: ANTI-INFE CTIVE AGENTS Vital Signs Vital Name Observation Time Observation Value Commen ts Temperature 2024-04-09 12:17:00.000 97.5 [degF] Temperature 2024-04-08 23:17:00.000 97 [degF] Temperature 2024-04-07 13:37:00.000 97.5 [degF] Temperature 2024-04-06 14:57:00.000 97.8 [degF] Temperature 2024-04-05 11:28:00.000 97.5 [degF] Temperature 2024-04-04 12:21:00.000 97.5 [degF] Temperature 2024-04-03 23:24:00.000 97.5 [degF] Temperature 2024-04-02 13:11:00.000 97.8 [degF] Temperature 2024-04-01 14:13:00.000 98 [degF] Temperature 2024-03-31 11:02:00.000 97.5 [degF] Temperature 2024-03-30 22:58:00.000 97.5 [degF] Temperature 2024-03-29 18:25:00.000 97.5 [degF] Temperature 2024-03-28 19:54:00.000 97.4 [degF] Temperature 2024-03-28 12:31:00.000 97.5 [degF] Temperature 2024-03-26 10:19:00.000 97.8 [degF] Temperature 2024-03-25 12:48:00.000 97.5 [degF] Temperature 2024-03-24 11:28:00.000 97.8 [degF] Temperature 2024-03-23 11:16:00.000 97.8 [degF] Plan of Treatment Planned Activity Planned Date Details Comments Future Scheduled Test SKILLED NU RSE TO EVALUATE PATIENT, IDENTIFY PRIMARY AND CO-MORBID CONDITIONS CODED PER CODING GUIDELINES, AND DEVELOP PATIENT SPECIFIC PLAN OF CARE THAT INCLUDES PATIENT GOAL FOR HOME HEALTH. [code = SKILLED NURSE TO EVALUATE PATIENT, IDENTIFY PRIMARY AND CO-MORBID CONDITIONS CODED PER CODING GUIDELINES, AND DEVELOP PATIENT SPECIFIC PLAN OF CARE THAT INCLUDES PATIENT GOAL FOR HOME HEALTH.] Future Scheduled Test SKILLED NU RSE TO PERFORM HOME SAFETY AND FALL ASSESSMENT AND PROVIDE INSTRUCTION TO IMPLEMENT HOME SAFETY AND FALL PREVENTION STRATEGIES. [code = SKILLED NURSE TO PERFORM HOME SAFETY AND FALL ASSESSMENT AND PROVIDE INSTRUCTION TO IMPLEMENT HOME SAFETY AND FALL PREVENTION STRATEGIES.] Future Scheduled Test SKILLED NU RSE FOR OBSERVATION AND ASSESSMENT OF PATIENTS PAIN LEVEL AND EFFECTIVENESS OF PAIN MANAGEMENT REGIMEN. SKILLED NURSE TO INSTRUCT PATIENT/CAREGIVER REGARDING PHARMACOLOGIC AND NON-PHARMACOLOGIC PAIN CONTROL MEASURES. SKILLED NURSE TO REPORT TO PHYSICIAN IF PAIN IS UNCONTROLLED WITH CURRENT PAIN MANAGEMENT REGIMEN. [code = SKILLED NURSE FOR OBSERVATION AND ASSESSMENT OF PATIENTS PAIN LEVEL AND EFFECTIVENESS OF PAIN MANAGEMENT REGIMEN. SKILLED NURSE TO INSTRUCT PATIENT/CAREGIVER REGARDING PHARMACOLOGIC AND NON-PHARMACOLOGIC PAIN CONTROL MEASURES. SKILLED NURSE TO REPORT TO PHYSICIAN IF PAIN IS UNCONTROLLED WITH CURRENT PAIN MANAGEMENT REGIMEN.] Future Scheduled Test SKILLED NU RSE TO PROVIDE INSTRUCTION TO PATIENT/CAREGIVER RELATED TO DISCHARGE PLANNING. [code = SKILLED NURSE TO PROVIDE INSTRUCTION TO PATIENT/CAREGIVER RELATED TO DISCHARGE PLANNING.] Future Scheduled Test SKILLED NU RSE TO O/A OF PATIENTS MENTAL/BEHAVIORAL STATUS, ASSESS VITAL SIGNS DAILY [code = SKILLED NURSE TO O/A OF PATIENTS MENTAL/BEHAVIORAL STATUS, ASSESS VITAL SIGNS DAILY ] Future Scheduled Test CLINICAL S UMMARY (SOC/RECERT, 10 DAY, 60 DAY): THE PATIENT IS RECEIVING HOMECARE DUE TO NEW ONSET/EXACERBATION OF: YES RECENT HOSPITALIZATION/INPATIENT ADMISSION RELATED TO: YES NEW OR CHANGED MEDICATIONS PERTINENT TO THE PLAN OF CARE: YES PATIENT LIVING SITUATION/CAREGIVER STATUS: ALONE SUMMARIZE SKILLED NEED: MEDICATION MANAGEMENT, VITAL SIGN ASSESSMENT, MENTAL STATUS ASSESSMENT AND DIAGNOSIS MANAGEMENT [code = CLINICAL SUMMARY (SOC/RECERT, 10 DAY, 60 DAY): THE PATIENT IS RECEIVING HOMECARE DUE TO NEW ONSET/EXACERBATION OF: YES RECENT HOSPITALIZATION/INPATIENT ADMISSION RELATED TO: YES NEW OR CHANGED MEDICATIONS PERTINENT TO THE PLAN OF CARE: YES PATIENT LIVING SITUATION/CAREGIVER STATUS: ALONE SUMMARIZE SKILLED NEED: MEDICATION MANAGEMENT, VITAL SIGN ASSESSMENT, MENTAL STATUS ASSESSMENT AND DIAGNOSIS MANAGEMENT ] Future Scheduled Test SKILLED NU RSE WILL MAINTAIN SITUATIONAL AWARENESS FOR SAFETY AND WILL NOTIFY CLINICAL EXECUTIVE WELLNESS PROGRAMS DIRECTOR AND PHYSICIAN/PROVIDER WITH ANY CHANGE IN CONDITION. [code = SKILLED NURSE WILL MAINTAIN SITUATIONAL AWARENESS FOR SAFETY AND WILL NOTIFY CLINICAL EXECUTIVE WELLNESS PROGRAMS DIRECTOR AND PHYSICIAN/PROVIDER WITH ANY CHANGE IN CONDITION.] Future Scheduled Test SKILLED NU RSE TO REVIEW PATIENT MEDICATIONS. INSTRUCT PATIENT/CAREGIVER ON MONITORING OF EFFECTIVENESS, ADVERSE DRUG REACTIONS, SIDE EFFECTS OF ALL MEDICATIONS (PRESCRIPTION/-OTC), AND HOW AND WHEN TO REPORT PROBLEMS. [code = SKILLED NURSE TO REVIEW PATIENT MEDICATIONS. INSTRUCT PATIENT/CAREGIVER ON MONITORING OF EFFECTIVENESS, ADVERSE DRUG REACTIONS, SIDE EFFECTS OF ALL MEDICATIONS (PRESCRIPTION/-OTC), AND HOW AND WHEN TO REPORT PROBLEMS.] Future Scheduled Test SKILLED NU RSE TO ADMINISTER MEDICATIONS DAILY AND PRE-POUR MEDICATIONS TILL NEXT SHELTER VISIT PER MEDICATION LIST. [code = SKILLED NURSE TO ADMINISTER MEDICATIONS DAILY AND PRE-POUR MEDICATIONS TILL NEXT SHELTER VISIT PER MEDICATION LIST.] Future Scheduled Test SKILLED NU RSE FOR MEDICATION ADMINISTRATION PER MEDICATION LIST TO BE PERFORMED DAILY [code = SKILLED NURSE FOR MEDICATION ADMINISTRATION PER MEDICATION LIST TO BE PERFORMED DAILY ] Future Scheduled Test SKILLED NU RSE TO PRE-POUR MEDICATION PER MEDICATION LIST TILL NEXT SHELTER VISIT [code = SKILLED NURSE TO PRE-POUR MEDICATION PER MEDICATION LIST TILL NEXT SHELTER VISIT ] Future Scheduled Test SKILLED NU RSE FOR O/A AND SKILLED TEACHING RELATED TO MANAGEMENT OF DEPRESSIVE SYMPTOMS AND/OR DEPRESSION. SN TO REPORT SIGNIFICANT CHANGE IN DEPRESSIVE SYMPTOMS TO CLINICAL PROVIDER FOR EARLY INTERVENTION. [code = SKILLED NURSE FOR O/A AND SKILLED TEACHING RELATED TO MANAGEMENT OF DEPRESSIVE SYMPTOMS AND/OR DEPRESSION. SN TO REPORT SIGNIFICANT CHANGE IN DEPRESSIVE SYMPTOMS TO CLINICAL PROVIDER FOR EARLY INTERVENTION.] Future Scheduled Test SKILLED NU RSE FOR O/A OF PATIENT'S RISK FOR VIOLENCE (TOWARD SELF OR OTHERS) AND TO PROVIDE INTERVENTION TECHNIQUES TO PROMOTE SAFETY TO PATIENT AND OTHERS [code = SKILLED NURSE FOR O/A OF PATIENT'S RISK FOR VIOLENCE (TOWARD SELF OR OTHERS) AND TO PROVIDE INTERVENTION TECHNIQUES TO PROMOTE SAFETY TO PATIENT AND OTHERS] Future Scheduled Test SKILLED NU RSE TO ASSESS PATIENTS PSYCHOSOCIAL STATUS TO IDENTIFY POTENTIAL ISSUES THAT MAY COMPLICATE THE PROVISION OF THE PLAN OF CARE INCLUDING THE PATIENTS ABILITY TO ACCESS COMMUNITY RESOURCES AND PSYCHOSOCIAL SUPPORT SERVICES. [code = SKILLED NURSE TO ASSESS PATIENTS PSYCHOSOCIAL STATUS TO IDENTIFY POTENTIAL ISSUES THAT MAY COMPLICATE THE PROVISION OF THE PLAN OF CARE INCLUDING THE PATIENTS ABILITY TO ACCESS COMMUNITY RESOURCES AND PSYCHOSOCIAL SUPPORT SERVICES.] Future Scheduled Test SKILLED NU RSE FOR O/A OF CLIENT'S SOCIAL ISOLATION AND PROVIDE ASSISTANCE TO CLIENT IN DEVELOPMENT OF PLANNED ACTIVITIES [code = SKILLED NURSE FOR O/A OF CLIENT'S SOCIAL ISOLATION AND PROVIDE ASSISTANCE TO CLIENT IN DEVELOPMENT OF PLANNED ACTIVITIES] Future Scheduled Test MEDICATION S WILL BE HELD AND STORED IN LOCKBOX [code = MEDICATIONS WILL BE HELD AND STORED IN LOCKBOX] Goal 2023-11-19 Patient Goal - TAKING MY MED S Goal 2024-01-19 Patient Goal - TAKING MY MED S Goal 2024-03-18 Patient Goal - TAKING MY MED S Goal 2024-05-20 Patient Goal - TAKING MY MED S Goal Provider Goal - A PLAN OF CARE WILL BE ESTABLISHED THAT MEETS PATIENT'S SHELTER NEEDS AND INCLUDES PATIENT GOAL FOR HOME HEALTH. Goal Provider Goal - PATIENT/CAREGIVER WILL VERBALIZE/DEMONSTRATE EFFECTIVE HOME SAFETY AND FALL PREVENTION STRATEGIES THROUGHOUT CERTIFICATION PERIOD. Goal Provider Goal - PATIENT/CAREGIVER WILL DEMONSTRATE UNDERSTANDING OF PHARMACOLOGIC AND NONPHARMACOLOGIC PAIN CONTROL MEASURES AND PATIENT WILL HAVE IMPROVEMENT IN PAIN INTERFERING WITH ACTIVITY EVIDENCED BY PAIN CONTROLLED AT LEVEL OF (SPECIFY PATIENT GOAL ON 0-10 PAIN SCALE) OR LESS BY END OF CERTIFICATION PERIOD. Goal Provider Goal - PATIENT/CAREGIVER WILL VERBALIZE UNDERSTANDING OF DISCHARGE PLANNING INSTRUCTIONS BY DATE OF DISCHARGE. Goal Provider Goal - ALTERED MENTAL/BEHAVIORAL STATUS WILL BE IDENTIFIED PROMPTLY AND INTERVENTION INITIATED QUICKLY TO MINIMIZE ASSOCIATED RISKS THROUGHOUT CERTIFICATION PERIOD. Goal Provider Goal - Goal Provider Goal - PATIENT WILL REMAIN SAFE IN THE COMMUNITY AND WILL BE FREE OF DANGER TO SELF AND OTHERS THROUGHOUT THE CERTIFICATION PERIOD. Goal Provider Goal - PATIENT/CAREGIVER WILL VERBALIZE UNDERSTANDING OF EDUCATION PROVIDED ON MEDICATIONS BY THE END OF THE CERTIFICATION PERIOD. Goal Provider Goal - PATIENT WILL COMPLY WITH MEDICATION WHEN SKILLED NURSE ADMINISTERS AND PRE-POURS MEDICATION THROUGHOUT CERTIFICATION PERIOD. Goal Provider Goal - PATIENT WILL COMPLY WITH MEDICATION WHEN NURSE ADMINISTERS THROUGHOUT CERTIFICATION PERIOD. Goal Provider Goal - PATIENT WILL COMPLY WITH MEDICATION WHEN SKILLED NURSE PRE-POURS MEDICATION THROUGHOUT CERTIFICATION PERIOD. Goal Provider Goal - PATIENT WILL REMAIN SAFE WITHOUT DECOMPENSATION IN DEPRESSIVE CONDITION, WHILE MAINTAINING OPTIMAL LEVEL OF MENTAL HEALTH AND WELL BEING THROUGHOUT CERTIFICATION PERIOD. Goal Provider Goal - PATIENT WILL REMAIN SAFE IN COMMUNITY WITHOUT EVIDENCE OF INJURY/HARM TO SELF OR OTHERS THROUGHOUT CERTIFICATION PERIOD. Goal Provider Goal - PSYCHOSOCIAL NEEDS WILL BE IDENTIFIED AND PLAN IMPLEMENTED TO MINIMIZE RISK THROUGHOUT CERTIFICATION PERIOD. Goal Provider Goal - PATIENT WILL DEMONSTRATE AN INCREASED INTEREST IN SOCIALIZATION AND ACTIVITIES BY THE END OF THE CERTIFICATION PERIOD. Goal Provider Goal - MEDICATION WILL BE STORED IN LOCKBOX FOR SAFETY. Reason for Visit MINIMUM ASSIST WITH TRANSFER/AMBULATION/ADLS Encounters Start Date/Time End Date/Time Encounter Type Admission Type Attending [facility] Care [facility] [place] Care Department Encounter ID Discharge Date Discharge Status Discharge Condition Discharge Reason Percent Goals Met 2023-09-25 00:00:00 2024-05-20 00:00:00 [facility] [id number] 2024-05-20 00:00:00 DISCHARGED /TRANSFERR ED TO A [facility] MINIMUM ASSIST WITH TRANSFER/A MBULATION/ ADLS NON COMPLIANT WITH PLAN OF TREATMENT 11.54
--- NOTE | 2024-07-14 11:00 | PC.NURSE ---
Pt resting quietly- no other complaints @ present
--- NOTE | 2024-07-14 14:55 | PC.NURSE ---
Pt conitnues to deny SI. Asked this nurse if I could get the voices to stop- Pt states the voices are intrusive
[2024-07-14 15:07] VITALS: BP 101/58; PULSE 65; RESP 14; TEMP 36.6; O2SAT 97
--- NOTE | 2024-07-14 16:23 | PC.NURSE ---
RN to Rn with dianne on 3rd floor.
--- NOTE | 2024-07-14 16:25 | PC.NURSE ---
Pt resting quietly
[2024-07-14 17:43] VITALS: BP 98/65; PULSE 73; RESP 16; TEMP 36.5; O2SAT 98
[2024-07-14 18:16] VITALS: BMI 18.8
--- NOTE | 2024-07-14 18:54 | PC.NURSE ---
Benito was admitted to [facility] at 1736 from [facility] on CV for treatment of psychosis and cocaine use disorder. Pt reports he called an ambulance ? to get back on meds for a few days? Throughout the admission process pt is very disorganized, appears suspicious and appears to be attending to internal stimuli requiring constant redire.? Pt reports AH and VH. He is unwilling to discuss content/ details and appears paranoid/ guarded. He shared that the TV sends him messages but he is ? not sure? what they are.? When asked about mood pt states,? ? I don?t know man, you tell me.? Affect is anxious. Pt denies ideation, plan or intent to harm self or others. He reports appetite is good and reported his weight is higher than he expected at 127 lbs.?? Sleep is impaired per pt. He is unable to remember when he last took his prescribed medications. ? I take them and then I don?t. I have no details.? Substance Issues include cocaine use - primarily smoking crack. He denies medical issues or physical complaint.? Safety Checks are q 15 minutes
[2024-07-14 19:55] VITALS: BP 136/84; PULSE 80; RESP 16; TEMP 37.1; O2SAT 98
[2024-07-14] MEDS: risperiDONE 2 MG TABLET PO (20:24)
[2024-07-15 07:55] VITALS: BP 93/57; PULSE 72; RESP 12; TEMP 36.4; O2SAT 98
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
[2024-07-15 20:00] VITALS: BP 99/58; PULSE 67; RESP 16; TEMP 36.7; O2SAT 98
[2024-07-15] MEDS: risperiDONE 2 MG TABLET PO (20:09)
[2024-07-16 07:40] VITALS: BP 104/72; PULSE 75; RESP 14; TEMP 36.6; O2SAT 99
--- NOTE | 2024-07-16 18:25 | HO.PSYCHPN ---
Subjective Subjective Date of Service: 07/16/24 Reason For Visit: psychosis Interim History: had been taking risperidone and cogentin, then lapsed without prescriber. restarted now, feeling better. feels being on meds helps him to staff off cocaine. goals are to restart meds, get outpt prescriber appointment. per staff, psychotic Sx of inappropriate laughter and non-sensical statements. slept 8 hours. refused cogentin. Mental Status Exam Mental Status Exam Narrative: Pt is alert and oriented; behavior is cooperative and calm; dressed in casual attire; mood is not assessed; eye contact appropriate; Speech is normal rate, volume and not pressured; thought process is organized and goal directed; Thought content is on tx and remaining abstinent from cocaine; otherwise pertinent to relevant topics and without any delusional content, paranoid ideations or grandiosity; no SI/HI/VH/AH expressed. Diagnostics Vital Signs (24Hr): Vital Signs - 24 hr 07/15/24 20:00 07/16/24 07:40 Temperature 98.0 F 97.8 F Pulse Rate 67 75 Respiratory Rate 16 14 Blood Pressure 99/58 L 104/72 Pulse Oximetry 98 99 Oxygen Delivery Method Room Air Room Air BMI result Body Mass Index 20.0 Labs 07/14/24 03:56 07/14/24 03:57 Medications Medications Current Medications Acetaminophen (Acetaminophen 325 Mg Tablet) 650 mg PO Q6H PRN PRN Reason: Headache/Pain Mild Scale (1-3) Al Hydroxide/Mg Hydroxide (Magnesium Hydrox/Alum Hydrox 30 Ml Oral.Susp) 30 ml PO Q6H PRN PRN Reason: Heartburn/Nausea Benztropine Mesylate (Benztropine Mesylate 1 Mg Tablet) 1 mg PO BEDTIME [facility] Last Admin: 07/15/24 20:10 Dose: Not Given Hydroxyzine HCl (Hydroxyzine Hcl 25 Mg Tablet) 25 mg PO Q6H PRN PRN Reason: Anxiety Magnesium Hydroxide (Milk Of Magnesia 30 Ml Oral.Susp) 30 ml PO DAILY PRN PRN Reason: Constipation Nicotine Polacrilex (Nicotine Polacrilex 2 Mg Gum) 4 mg BUCCAL Q2H PRN PRN Reason: Nicotine Cravings Risperidone (Risperidone 2 Mg Tablet) 2 mg PO BEDTIME [facility] Last Admin: 07/15/24 20:09 Dose: 2 mg Trazodone HCl (Trazodone Hcl 50 Mg Tablet) 50 mg PO BEDTIME MRX1 PRN PRN Reason: Insomnia Allergies Allergies Allergy/AdvReac Type Severity Reaction Status Date / Time No Known Allergies Allergy Verified 07/14/24 13:44 Assessment & Plan Assessment & Plan (1) Schizophrenia: Qualifiers: Schizophrenia type: unspecified Qualified Code(s): F20.9 - Schizophrenia, unspecified Status: Acute Code(s): F20.9 - Schizophrenia, unspecified Assessment and Plan: Versus substance induced psychosis; or could be both (2) Cocaine use disorder: Status: Acute Code(s): F14.10 - Cocaine abuse, uncomplicated Plan Patient is a 43-year-old male with history of psychotic illness, cocaine use disorder, recently discharge 4 weeks ago from , who presents for feeling confused and auditory hallucinations. Patient is a poor historian, giving vague answers to narrative writer. He says that when he left the hospital he could not get his meds . On inquiry he says I do not know why... He says that his meds were only dispensed 1 at a time; narrative writer further inquired since he was discharged with a 30 day supply; patient just keeps saying I do not know and kept saying he did not know who his psychiatrist was. Patient at 1st was vague but then acknowledged he relapsed with cocaine; denied alcohol or opiate use. Hand Salter asked why he presented to the hospital and he said I did not know what was going on... So I called the ambulance because my mind was all messed up... He also said that he thought perhaps son was trying to run him off the road when he was out walking. He said it is not easy staying sober... Patient says he has auditory hallucinations all the time but does not want an increase in medication. Formulation/clinical reasoning: Not really sure what patient is experiencing; reports AH; maybe some paranoid thinking, which could be drug-induced. Patient seems to be minimizing his substance abuse and is very vague on why he did not continue with medication. Again patient is vague but had earlier reported that while in [facility], no AH at all. -will diagnosed with schizophrenia however drug-induced psychosis is also on the differential Plan: CV Q 15 minute checks Risperdal 2 mg q.h.s. Cogentin 07/16: feeling improved upon restarting medications. would like prescriber appointment. continue current mgmt. Reason for continued inpatient stay Substantial Risk for: inability to function and rapid decompensation Time Spent With Patient Time: Total time managing care of this patient today __25__ minutes.
[2024-07-16 20:00] VITALS: BP 102/78; PULSE 65; RESP 18; TEMP 36.4; O2SAT 99
[2024-07-16] MEDS: risperiDONE 2 MG TABLET PO (20:18)
[2024-07-17 08:23] VITALS: BP 102/59; PULSE 64; RESP 16; TEMP 36.7; O2SAT 100
--- NOTE | 2024-07-17 16:43 | HO.PSYCHPN ---
Subjective Subjective Date of Service: 07/17/24 Reason For Visit: psychosis Interim History: feeling well, would like to continue current regimen. wondering when he might be discharged. per staff, no SI/HI. visible. attending groups. eating well. +AH. dialogue with TV at times. refusing cogentin. Mental Status Exam Mental Status Exam Narrative: Pt is alert and oriented; behavior is cooperative and calm; dressed in casual attire; mood is not assessed; eye contact appropriate; Speech is normal rate, volume and not pressured; thought process is organized and goal directed; Thought content is on tx; otherwise pertinent to relevant topics and without any delusional content, paranoid ideations or grandiosity; no SI/HI/VH/AH expressed. Diagnostics Vital Signs (24Hr): Vital Signs - 24 hr 07/16/24 20:00 07/17/24 08:23 Temperature 97.5 F 98.1 F Pulse Rate 65 64 Respiratory Rate 18 16 Blood Pressure 102/78 102/59 L Pulse Oximetry 99 100 Oxygen Delivery Method Room Air Room Air BMI result Body Mass Index 20.0 Labs 07/14/24 03:56 07/14/24 03:57 Medications Medications Current Medications Acetaminophen (Acetaminophen 325 Mg Tablet) 650 mg PO Q6H PRN PRN Reason: Headache/Pain Mild Scale (1-3) Al Hydroxide/Mg Hydroxide (Magnesium Hydrox/Alum Hydrox 30 Ml Oral.Susp) 30 ml PO Q6H PRN PRN Reason: Heartburn/Nausea Benztropine Mesylate (Benztropine Mesylate 1 Mg Tablet) 1 mg PO TID PRN PRN Reason: EPS Hydroxyzine HCl (Hydroxyzine Hcl 25 Mg Tablet) 25 mg PO Q6H PRN PRN Reason: Anxiety Magnesium Hydroxide (Milk Of Magnesia 30 Ml Oral.Susp) 30 ml PO DAILY PRN PRN Reason: Constipation Nicotine Polacrilex (Nicotine Polacrilex 2 Mg Gum) 4 mg BUCCAL Q2H PRN PRN Reason: Nicotine Cravings Risperidone (Risperidone 2 Mg Tablet) 2 mg PO BEDTIME [facility] Last Admin: 07/16/24 20:18 Dose: 2 mg Trazodone HCl (Trazodone Hcl 50 Mg Tablet) 50 mg PO BEDTIME MRX1 PRN PRN Reason: Insomnia Allergies Allergies Allergy/AdvReac Type Severity Reaction Status Date / Time No Known Allergies Allergy Verified 07/14/24 13:44 Assessment & Plan Assessment & Plan (1) Schizophrenia: Qualifiers: Schizophrenia type: unspecified Qualified Code(s): F20.9 - Schizophrenia, unspecified Status: Acute Code(s): F20.9 - Schizophrenia, unspecified Assessment and Plan: Versus substance induced psychosis; or could be both (2) Cocaine use disorder: Status: Acute Code(s): F14.10 - Cocaine abuse, uncomplicated Plan Patient is a 43-year-old male with history of psychotic illness, cocaine use disorder, recently discharge 4 weeks ago from , who presents for feeling confused and auditory hallucinations. Patient is a poor historian, giving vague answers to advertising writer. He says that when he left the hospital he could not get his meds . On inquiry he says I do not know why... He says that his meds were only dispensed 1 at a time; advertising writer further inquired since he was discharged with a 30 day supply; patient just keeps saying I do not know and kept saying he did not know who his psychiatrist was. Patient at 1st was vague but then acknowledged he relapsed with cocaine; denied alcohol or opiate use. Coal Bagger asked why he presented to the hospital and he said I did not know what was going on... So I called the ambulance because my mind was all messed up... He also said that he thought perhaps son was trying to run him off the road when he was out walking. He said it is not easy staying sober... Patient says he has auditory hallucinations all the time but does not want an increase in medication. Formulation/clinical reasoning: Not really sure what patient is experiencing; reports AH; maybe some paranoid thinking, which could be drug-induced. Patient seems to be minimizing his substance abuse and is very vague on why he did not continue with medication. Again patient is vague but had earlier reported that while in assisted, no AH at all. -will diagnosed with schizophrenia however drug-induced psychosis is also on the differential Plan: CV Q 15 minute checks Risperdal 2 mg q.h.s. Cogentin 07/16: feeling improved upon restarting medications. would like prescriber appointment. continue current mgmt. 07/17: gains continue. starting to inquire about discharge date. feeling improved on meds. not having side effects so reasonably refusing cogentin. had been on 4 mg risperidone daily, only wants to take 2 for now. continue current mgmt, discharge next week. Reason for continued inpatient stay Substantial Risk for: inability to function and rapid decompensation Time Spent With Patient Time: Total time managing care of this patient today __25__ minutes.
[2024-07-17 20:49] VITALS: BP 116/57; PULSE 65; RESP 20; TEMP 36.6; O2SAT 100
[2024-07-17] MEDS: risperiDONE 2 MG TABLET PO (20:49)
[2024-07-18 07:56] VITALS: BP 116/59; PULSE 53; RESP 16; TEMP 36; O2SAT 100
--- NOTE | 2024-07-18 09:49 | P.PNPSI_ITS ---
Subjective Subjective Date of Service: 07/18/24 Reason For Visit: psychosis Interim History: Met with patient. Discussed with Nursing. Has been feeling depressed. Isolative. Reports he was on off his medications for around 3 weeks which led to higher anxiety, more depression and hallucinations. Looking forward to medications being consistent as these symptoms have been improving. Denies SI. Feeling safe and supported. Sleep okay. Medication Compliance: Yes Side effects from medications: No Attending Groups: Intermittent Review of Systems Acute medical concerns: No Review of Systems Review of Systems unremarkable Mental Status Exam Mental Status Exam Narrative: Pt is alert and oriented; behavior is cooperative and calm; dressed in casual attire; mood is less depressed; eye contact appropriate; Speech is normal rate, volume and not pressured; thought process is organized and goal directed; Thought content is on tx; otherwise pertinent to relevant topics and without any delusional content, paranoid ideations or grandiosity; no SI/HI/VH/AH expressed. Diagnostics Vital Signs (24Hr): Vital Signs - 24 hr 07/17/24 20:49 07/18/24 07:56 Temperature 97.9 F 96.8 F Pulse Rate 65 53 Respiratory Rate 20 16 Blood Pressure 116/57 L 116/59 L Pulse Oximetry 100 100 Oxygen Delivery Method Room Air Room Air BMI result Body Mass Index 20.0 Labs 07/14/24 03:56 07/14/24 03:57 Medications Medications Current Medications Acetaminophen (Acetaminophen 325 Mg Tablet) 650 mg PO Q6H PRN PRN Reason: Headache/Pain Mild Scale (1-3) Al Hydroxide/Mg Hydroxide (Magnesium Hydrox/Alum Hydrox 30 Ml Oral.Susp) 30 ml PO Q6H PRN PRN Reason: Heartburn/Nausea Benztropine Mesylate (Benztropine Mesylate 1 Mg Tablet) 1 mg PO TID PRN PRN Reason: EPS Hydroxyzine HCl (Hydroxyzine Hcl 25 Mg Tablet) 25 mg PO Q6H PRN PRN Reason: Anxiety Magnesium Hydroxide (Milk Of Magnesia 30 Ml Oral.Susp) 30 ml PO DAILY PRN PRN Reason: Constipation Nicotine Polacrilex (Nicotine Polacrilex 2 Mg Gum) 4 mg BUCCAL Q2H PRN PRN Reason: Nicotine Cravings Risperidone (Risperidone 2 Mg Tablet) 2 mg PO BEDTIME [facility] Last Admin: 07/17/24 20:49 Dose: 2 mg Trazodone HCl (Trazodone Hcl 50 Mg Tablet) 50 mg PO BEDTIME MRX1 PRN PRN Reason: Insomnia Allergies Allergies Allergy/AdvReac Type Severity Reaction Status Date / Time No Known Allergies Allergy Verified 07/14/24 13:44 Assessment & Plan Assessment & Plan (1) Schizophrenia: Qualifiers: Schizophrenia type: unspecified Qualified Code(s): F20.9 - Schizophrenia, unspecified Status: Acute Code(s): F20.9 - Schizophrenia, unspecified Assessment and Plan: Versus substance induced psychosis; or could be both (2) Cocaine use disorder: Status: Acute Code(s): F14.10 - Cocaine abuse, uncomplicated Plan Patient is a 43-year-old male with history of psychotic illness, cocaine use disorder, recently discharge 4 weeks ago from , who presents for feeling confused and auditory hallucinations. Patient is a poor historian, giving vague answers to underwriter solicitation director. He says that when he left the hospital he could not get his meds . On inquiry he says I do not know why... He says that his meds were only dispensed 1 at a time; underwriter solicitation director further inquired since he was discharged with a 30 day supply; patient just keeps saying I do not know and kept saying he did not know who his psychiatrist was. Patient at 1st was vague but then acknowledged he relapsed with cocaine; denied alcohol or opiate use. Customer Account Manager asked why he presented to the hospital and he said I did not know what was going on... So I called the ambulance because my mind was all messed up... He also said that he thought perhaps son was trying to run him off the road when he was out walking. He said it is not easy staying sober... Patient says he has auditory hallucinations all the time but does not want an increase in medication. Formulation/clinical reasoning: Not really sure what patient is experiencing; reports AH; maybe some paranoid thinking, which could be drug-induced. Patient seems to be minimizing his substance abuse and is very vague on why he did not continue with medication. Again patient is vague but had earlier reported that while in [facility], no AH at all. -will diagnosed with schizophrenia however drug-induced psychosis is also on the differential Plan: CV Q 15 minute checks Risperdal 2 mg q.h.s. Cogentin 07/16: feeling improved upon restarting medications. would like prescriber appointment. continue current mgmt. 07/17: gains continue. starting to inquire about discharge date. feeling improved on meds. not having side effects so reasonably refusing cogentin. had been on 4 mg risperidone daily, only wants to take 2 for now. continue current mgmt, discharge next week. 07/18/2024: No changes Reason for continued inpatient stay Substantial Risk for: rapid decompensation Time Spent With Patient Time: Total time managing care of this patient today ____ minutes.
[2024-07-18 20:00] VITALS: BP 128/65; PULSE 70; TEMP 36.7; O2SAT 98
[2024-07-18] MEDS: risperiDONE 2 MG TABLET PO (20:23)
[2024-07-19 08:00] VITALS: BP 101/57; PULSE 67; RESP 14; TEMP 36.7; O2SAT 99
--- NOTE | 2024-07-19 08:32 | P.PNPSI_ITS ---
Subjective Subjective Date of Service: 07/19/24 Reason For Visit: psychosis Interim History: Met with patient. Discussed with Nursing- appears more guarded and internally preoccupied. With automobile and property underwriter reports being blocking medications has been helpful as less depressed, less anxious and hallucinations are gradually getting better. Denies SI. Feeling supported on the unit. Sleep okay. Hopeful for discharge planning soon. Agree to Risperdal adjustment. Medication Compliance: Yes Side effects from medications: No Attending Groups: Intermittent Review of Systems Acute medical concerns: No Review of Systems Review of Systems unremarkable Mental Status Exam Mental Status Exam Narrative: Pt is alert and oriented; behavior is cooperative and calm; dressed in casual attire; mood is less depressed; eye contact appropriate; Speech is normal rate, volume and not pressured; thought process is organized and goal directed; Thought content is on tx; otherwise pertinent to relevant topics and without any delusional content, paranoid ideations or grandiosity; no SI/HI. Reports hallucinations are improving/almost gone Diagnostics Vital Signs (24Hr): Vital Signs - 24 hr 07/18/24 20:00 07/19/24 08:00 Temperature 98.1 F 98.1 F Pulse Rate 70 67 Respiratory Rate 14 Blood Pressure 128/65 101/57 L Pulse Oximetry 98 99 Oxygen Delivery Method Room Air Room Air BMI result Body Mass Index 20.0 Labs 07/14/24 03:56 07/14/24 03:57 Medications Medications Current Medications Acetaminophen (Acetaminophen 325 Mg Tablet) 650 mg PO Q6H PRN PRN Reason: Headache/Pain Mild Scale (1-3) Al Hydroxide/Mg Hydroxide (Magnesium Hydrox/Alum Hydrox 30 Ml Oral.Susp) 30 ml PO Q6H PRN PRN Reason: Heartburn/Nausea Benztropine Mesylate (Benztropine Mesylate 1 Mg Tablet) 1 mg PO TID PRN PRN Reason: EPS Hydroxyzine HCl (Hydroxyzine Hcl 25 Mg Tablet) 25 mg PO Q6H PRN PRN Reason: Anxiety Magnesium Hydroxide (Milk Of Magnesia 30 Ml Oral.Susp) 30 ml PO DAILY PRN PRN Reason: Constipation Nicotine Polacrilex (Nicotine Polacrilex 2 Mg Gum) 4 mg BUCCAL Q2H PRN PRN Reason: Nicotine Cravings Risperidone (Risperidone 2 Mg Tablet) 2 mg PO BEDTIME [facility] Last Admin: 07/18/24 20:23 Dose: 2 mg Trazodone HCl (Trazodone Hcl 50 Mg Tablet) 50 mg PO BEDTIME MRX1 PRN PRN Reason: Insomnia Allergies Allergies Allergy/AdvReac Type Severity Reaction Status Date / Time No Known Allergies Allergy Verified 07/14/24 13:44 Assessment & Plan Assessment & Plan (1) Schizophrenia: Qualifiers: Schizophrenia type: unspecified Qualified Code(s): F20.9 - Schizophrenia, unspecified Status: Acute Code(s): F20.9 - Schizophrenia, unspecified Assessment and Plan: Versus substance induced psychosis; or could be both (2) Cocaine use disorder: Status: Acute Code(s): F14.10 - Cocaine abuse, uncomplicated Plan Patient is a 43-year-old male with history of psychotic illness, cocaine use disorder, recently discharge 4 weeks ago from , who presents for feeling confused and auditory hallucinations. Patient is a poor historian, giving vague answers to automobile and property underwriter. He says that when he left the hospital he could not get his meds . On inquiry he says I do not know why... He says that his meds were only dispensed 1 at a time; automobile and property underwriter further inquired since he was discharged with a 30 day supply; patient just keeps saying I do not know and kept saying he did not know who his psychiatrist was. Patient at 1st was vague but then acknowledged he relapsed with cocaine; denied alcohol or opiate use. Fleet Mechanic asked why he presented to the hospital and he said I did not know what was going on... So I called the ambulance because my mind was all messed up... He also said that he thought perhaps son was trying to run him off the road when he was out walking. He said it is not easy staying sober... Patient says he has auditory hallucinations all the time but does not want an increase in medication. Formulation/clinical reasoning: Not really sure what patient is experiencing; reports AH; maybe some paranoid thinking, which could be drug-induced. Patient seems to be minimizing his substance abuse and is very vague on why he did not continue with medication. Again patient is vague but had earlier reported that while in long term, no AH at all. -will diagnosed with schizophrenia however drug-induced psychosis is also on the differential Plan: CV Q 15 minute checks Risperdal 2 mg q.h.s. Cogentin 07/16: feeling improved upon restarting medications. would like prescriber appointment. continue current mgmt. 07/17: gains continue. starting to inquire about discharge date. feeling improved on meds. not having side effects so reasonably refusing cogentin. had been on 4 mg risperidone daily, only wants to take 2 for now. continue current mgmt, discharge next week. 07/18/2024: No changes 07/19/2024: Increase Risperdal to 3 mg Reason for continued inpatient stay Substantial Risk for: inability to function and rapid decompensation Time Spent With Patient Time: Total time managing care of this patient today ____ minutes.
[2024-07-19 19:35] VITALS: BP 127/73; PULSE 66; RESP 16; TEMP 36.4; O2SAT 98
--- NOTE | 2024-07-19 23:34 | PC.NURSE ---
Pt refused Risperdal 3mg, states he unaware of medication dose change, would like to speak to doctor before taking.
[2024-07-20 07:59] VITALS: BP 116/68; PULSE 64; TEMP 36.4; O2SAT 97
--- NOTE | 2024-07-20 16:19 | HO.PSYCHPN ---
Subjective Subjective Date of Service: 07/20/24 Reason For Visit: psychosis Interim History: hyperverbal, conspiracy theory. seems to agree to take risperidone 3 mg at HS. asking for DC soon, agrees to . per staff, declined risperidone dosing increase last night. slept only 2.5 hours. no sleep saturday night. Mental Status Exam Mental Status Exam Narrative: Pt is alert and oriented; behavior is cooperative and moderately agitated; dressed in casual attire; mood is not assessed; eye contact appropriate; Speech is incr rate, amount, loudness, decr latency; thought process is less organized and somewhat paranoid; no SI/HI/VH/AH expressed. Diagnostics Vital Signs (24Hr): Vital Signs - 24 hr 07/19/24 19:35 07/20/24 07:59 Temperature 97.5 F 97.5 F Pulse Rate 66 64 Respiratory Rate 16 Blood Pressure 127/73 116/68 Pulse Oximetry 98 97 Oxygen Delivery Method Room Air Room Air BMI result Body Mass Index 20.0 Labs 07/14/24 03:56 07/14/24 03:57 Medications Medications Current Medications Acetaminophen (Acetaminophen 325 Mg Tablet) 650 mg PO Q6H PRN PRN Reason: Headache/Pain Mild Scale (1-3) Al Hydroxide/Mg Hydroxide (Magnesium Hydrox/Alum Hydrox 30 Ml Oral.Susp) 30 ml PO Q6H PRN PRN Reason: Heartburn/Nausea Benztropine Mesylate (Benztropine Mesylate 1 Mg Tablet) 1 mg PO TID PRN PRN Reason: EPS Hydroxyzine HCl (Hydroxyzine Hcl 25 Mg Tablet) 25 mg PO Q6H PRN PRN Reason: Anxiety Magnesium Hydroxide (Milk Of Magnesia 30 Ml Oral.Susp) 30 ml PO DAILY PRN PRN Reason: Constipation Nicotine Polacrilex (Nicotine Polacrilex 2 Mg Gum) 4 mg BUCCAL Q2H PRN PRN Reason: Nicotine Cravings Risperidone (Risperidone 3 Mg Tablet) 3 mg PO BEDTIME HEIDY Last Admin: 07/19/24 23:34 Dose: Not Given Trazodone HCl (Trazodone Hcl 50 Mg Tablet) 50 mg PO BEDTIME MRX1 PRN PRN Reason: Insomnia Allergies Allergies Allergy/AdvReac Type Severity Reaction Status Date / Time No Known Allergies Allergy Verified 07/14/24 13:44 Assessment & Plan Assessment & Plan (1) Schizophrenia: Qualifiers: Schizophrenia type: unspecified Qualified Code(s): F20.9 - Schizophrenia, unspecified Status: Acute Code(s): F20.9 - Schizophrenia, unspecified Assessment and Plan: Versus substance induced psychosis; or could be both (2) Cocaine use disorder: Status: Acute Code(s): F14.10 - Cocaine abuse, uncomplicated Plan Patient is a 43-year-old male with history of psychotic illness, cocaine use disorder, recently discharge 4 weeks ago from , who presents for feeling confused and auditory hallucinations. Patient is a poor historian, giving vague answers to video game script writer. He says that when he left the hospital he could not get his meds . On inquiry he says I do not know why... He says that his meds were only dispensed 1 at a time; video game script writer further inquired since he was discharged with a 30 day supply; patient just keeps saying I do not know and kept saying he did not know who his psychiatrist was. Patient at 1st was vague but then acknowledged he relapsed with cocaine; denied alcohol or opiate use. Mortgage Processor asked why he presented to the hospital and he said I did not know what was going on... So I called the ambulance because my mind was all messed up... He also said that he thought perhaps son was trying to run him off the road when he was out walking. He said it is not easy staying sober... Patient says he has auditory hallucinations all the time but does not want an increase in medication. Formulation/clinical reasoning: Not really sure what patient is experiencing; reports AH; maybe some paranoid thinking, which could be drug-induced. Patient seems to be minimizing his substance abuse and is very vague on why he did not continue with medication. Again patient is vague but had earlier reported that while in halfway, no AH at all. -will diagnosed with schizophrenia however drug-induced psychosis is also on the differential Plan: CV Q 15 minute checks Risperdal 2 mg q.h.s. Cogentin 07/16: feeling improved upon restarting medications. would like prescriber appointment. continue current mgmt. 07/17: gains continue. starting to inquire about discharge date. feeling improved on meds. not having side effects so reasonably refusing cogentin. had been on 4 mg risperidone daily, only wants to take 2 for now. continue current mgmt, discharge next week. 07/18/2024: No changes 07/19/2024: Increase Risperdal to 3 mg 07/20: refused risperidone increase last night, seems to agree to take it tonight. no sleep saturday night, only 2.5 hours last night. asking for DC, agrees to . would do better to stay and probably start mood stabilizer. Reason for continued inpatient stay Substantial Risk for: inability to function and rapid decompensation Time Spent With Patient Time: Total time managing care of this patient today _25___ minutes.
[2024-07-20 20:00] VITALS: BP 117/70; PULSE 67; RESP 16; TEMP 36.9; O2SAT 99
[2024-07-20] MEDS: risperiDONE 3 MG TABLET PO (21:44)
[2024-07-21 07:40] VITALS: BP 105/54; PULSE 71; RESP 14; TEMP 36.4; O2SAT 98
[2024-07-21] MEDS: Milk of Magnesia 30 ML ORAL.SUSP PO (09:07)
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
[2024-07-21 20:00] VITALS: BP 123/60; PULSE 64; RESP 16; TEMP 36.3; O2SAT 99
[2024-07-21] MEDS: risperiDONE 3 MG TABLET PO (20:57)
[2024-07-22 08:00] VITALS: BP 138/74; PULSE 90; RESP 16; TEMP 36.2; O2SAT 99
--- NOTE | 2024-07-22 10:52 | PC.NURSE ---
Patient easily engaged. Reports mood is stable. Denies depression or sadness. Denies SI/HI plan or intent. Denies A/V hallucinations. Reports I am still having conversations in my head, they interact but don't make sense . I am not trying to enforce or get anything from people . Planning to walk from here to [facility] for checks. Discharge paperwork reviewed with patient reports understanding. Appointments reviewed, reports understanding. Information provided regarding obtaining a PCP through [facility]. Discharge medication reviewed with patient reports understanding. All belongings taken with patient. Crisis numbers provided.
== END 2024-07-22 10:26 | disposition home or self-care (01) | DRG 885 ==
LOC: HO.ED 10:01 → HO.PADLT16 16:15
PROVIDERS: Admitting Provider Psychiatry & Neurology Psychiatry; Emergency Provider Emergency Medicine; Visit Provider Psychiatry & Neurology Psychiatry
DX: F20.0 Paranoid schizophrenia (principal); F17.210 Nicotine dependence, cigarettes, uncomplicated; Z71.6 Tobacco abuse counseling; F14.10 Cocaine abuse, uncomplicated; Z79.899 Other long term (current) drug therapy
CPT/HCPCS: 36415; 80053; 80143; 80179; 80307; 81001; 85025; 93005; 99285; S9485

== ENCOUNTER → 2024-07-14 14:33 | Outpatient (BNV) | payer OTHER, SELFPAY | PROVIDERS: Admitting Provider Psychiatry & Neurology Psychiatry; Emergency Provider Emergency Medicine; Visit Provider Psychiatry & Neurology Psychiatry | DX: F20.9 Schizophrenia, unspecified (principal); F14.10 Cocaine abuse, uncomplicated | CPT/HCPCS: 90792; 99231; 99232 ==

== ENCOUNTER 2024-07-30 17:12 | Inpatient (IN) | payer OTHER, SELFPAY ==
--- NOTE | 2024-07-30 17:21 | MHC.CARE ---
Esther from [facility] co-response called CARE team to inform us she had attempted to assess pt but he asked EMT to transport him to hospital. She was initially contacted because pt refused to get into ambulance. Pt is currently on crisis alert due to making SI statements, stating he was going to slit his throat . Pt has hx of homelessness and substance use (crack cocaine). He is currently engaged with [facility]'s ACCS team.
[2024-07-30 17:24] VITALS: BP 118/66; PULSE 79; RESP 16; TEMP 36.8; O2SAT 99; BMI 18.2
[2024-07-30 17:33] VITALS: RESP 16
--- NOTE | 2024-07-30 17:37 | PC.NURSE ---
Benito comes to the ED today reporting that there is too much on my mind . He reports to this RN during triage assessment that It's cold outside, I can't think straight, I'm doing shitty . Patient refused to answer question of whether or not he is SI or HI but did report to [facility] and EMS that he was suicidal. patient initially refused microsoft exchange administrator, reporting I have freedom of yarsanism right? So I can have my mandaeism items . Pt has metal cross and metal pendant which patient was made aware he cannot have in the pod but was offered substitutes for each item. patient became angry and began arguing with this RN and DORINA Reece. Pt also initially refused to change out of underwear. After speaking with pt, pt agreeable to changing however continued to accuse staff of not caring about patient's dignity . Patient was walked to 3, provided with snacks and is now sleeping, respirations even and unlabored, no apparent distress noted
[2024-07-30 18:38] LABS: MANUAL DIFF FLAG NO
[2024-07-30 18:41] LABS: Basophils Percent Auto 0.5 % (0-2); Eosinophils Absolute Auto 0.4 X10*3/uL (0.0-0.4); Eosinophils Percent Auto 4.9 % (0-4); Hematocrit 36.7 % (42.0-52.0); Hemoglobin 12.3 g/dl (14.0-18.0); Imm Gran Abs Auto 0.02 X10*3/uL (0.00-0.03); Imm Gran Pct Auto 0.2 % (0.0-0.4); Lymphocytes Absolute Auto 3.1 X10*3/uL (1.2-4.9); Lymphocytes Percent Auto 38.5 % (20-40); Mean Corpuscular HGB Conc 33.5 g/dl (31.0-36.0); Mean Corpuscular Hemoglobin 31.9 pg (27.0-33.0); Mean Corpuscular Volume 95.1 fL (80.0-98.0); Mean Platelet Volume 9.8 fL (9.4-12.4); Monocytes Absolute Auto 0.5 X10*3/uL (0.1-1.2); Neutrophils Absolute Auto 4.1 x10*3/uL (2.0-8.3); Neutrophils Percent Auto 49.9 % (45-73); Platelet Count 265 X10*3/uL (160-400); Red Blood Count 3.86 X10*6/uL (4.60-5.80); Red Cell Distribution Width 13.2 % (11.0-16.0); White Blood Count 8.1 X10*3/uL (4.8-10.8)
[2024-07-30 18:57] LABS: Alanine Aminotransferase 15 U/L (0-40); Albumin Level 4.1 g/dL (3.5-5.0); Alkaline Phosphatase 61 U/L (39-117); Anion Gap 10 (12-20); Aspartate Amino Transferase 18 U/L (5-37); Bilirubin Total 0.2 mg/dL (0.0-1.0); Blood Urea Nitrogen 12 mg/dL (9-16); Calcium 8.8 mg/dL (8.4-10.2); Carbon Dioxide 26 mmol/L (22-29); Chloride 111 mmol/L (96-108); Creatinine Clr Calc Pharmacy 100.1; Estimated Glomerular Filt Rate > 60; Ethanol < 10 mg/dL; Glucose Random 147 mg/dL (60-115); Potassium 3.9 mmol/L (3.3-5.1); Sodium 143 mmol/L (135-145); Total Protein 6.8 g/dL (6.5-8.0)
--- NOTE | 2024-07-30 19:31 | PC.NURSE ---
patient appears to remain at rest presently respirations are even and unlabored patient appears in no distress, presently speaking to provider.
--- NOTE | 2024-07-30 20:16 | ED.GENADULT ---
HPI - General Adult General Chief complaint: Psychiatric Symptoms Stated complaint: si, doesnt feel right Time Seen by Provider: 07/30/24 18:50 Source: patient, RN notes reviewed and old records reviewed Mode of arrival: EMS Limitations: no limitations History of Present Illness ED Provider: Shanta HPI narrative: 43-year-old male with past medical history significant for polysubstance abuse, schizophrenia presents for evaluation of depression. The patient is unwilling to give detailed history. He admits to being depressed and is not currently suicidal but reports being suicidal earlier today He denies any somatic complaints He has no other complaints or concerns at this time Related Data Previous Rx's ?Medication ?Instructions ?Recorded benztropine 1 mg tablet 1 mg PO DAILY 30 days #30 tabs 07/21/24 risperidone 3 mg tablet 3 mg PO BEDTIME 30 days #30 tabs 07/21/24 Allergies Allergy/AdvReac Type Severity Reaction Status Date / Time No Known Allergies Allergy Verified 07/30/24 17:32 Review of Systems Constitutional: Constitutional: Denies body ache(s), Denies chills, Denies fever(s) and Denies headache(s) ENT: Denies vertigo, Denies dizziness and Denies headache(s) Cardiovascular: Cardiovascular: Denies chest pain and Denies dyspnea Respiratory: Respiratory: Denies dyspnea Gastrointestinal: Gastrointestinal: Denies abdominal pain Neurologic: Denies vertigo, Denies dizziness and Denies headache(s) Psychiatric: Psychiatric: Reports depression and Denies suicidal ideation [facility] Past Medical History Medical History (Updated 07/30/24 @ 20:21 by Kali Womack) Alcohol use disorder Cocaine use disorder Opioid abuse Suicide attempt Cocaine abuse Crack cocaine use Heroin abuse Substance abuse Schizophrenia Social History Social History (System 07/14/24 @ 13:44 by Heather Mcgill) Household Members: None Household Members Other:: Roommate that just moved out Housing: Apartment Do you presently have visiting nurse or other home services: No Unable to assess alcohol history related to: Refusing to respond Alcohol intake: current Alcohol intake frequency: holidays/special occasions only Patient Tobacco Use Status: Current everyday Tobacco user Tobacco use type: Cigarette Cigarettes Per Day: 10 Years Smoked: 28 Second Hand Smoke Exposure: No Use of substances other than those prescribed or required for medical reasons: Refusing to respond Substance Use Type: Crack/Cocaine Advance Directives: No Advance Directives Information Provided: No service: No Sexual orientation: Straight/Heterosexual Physical Exam ED Vital Signs: Vital Signs - 24 hr 07/30/24 17:24 07/30/24 17:33 07/31/24 06:13 Temperature 98.2 F 97.8 F Pulse Rate 79 75 Respiratory Rate 16 16 17 Blood Pressure 118/66 114/67 Pulse Oximetry 99 98 Oxygen Delivery Method Room Air Room Air BMI result Body Mass Index 18.2 Const General: healthy appearing, comfortable, no acute distress, alert and awake Nutritional Appearance: well nourished Orientation/consciousness: patient oriented x3 HENMT Head: Yes normocephalic and Yes atraumatic Eyes Eyelids: Yes eyelids normal Conjunctivae: conjunctivae normal Sclerae: sclerae normal Corneas: corneas normal Pupils: Equal, round and reactive pupils present EOM: EOMs intact bilaterally Neck Neck: Yes full ROM Resp Effort & Inspection: normal respiratory effort, able to speak in complete sentences and not labored Skin General skin exam: no rashes or lesions noted and elasticity normal Neuro General: patient oriented x3 Cranial nerves: Yes Equal, round and reactive pupils present and Yes Bilaterally intact EOM present Cognition (Neuro): normal cognition Extrem Other: Moving all extremities well without any obvious deformities Course Reevaluation(s) Reevaluation #1: The patient was seen by the care team and arrangements were made for inpatient hospitalization. The patient has been admitted to [facility]. Time: 16:19 Medications Administered Generic Name Dose Route Start Last Admin Trade Name Freq PRN Reason Stop Dose Admin Benztropine Mesylate 1 mg 07/31/24 09:00 07/31/24 09:16 Benztropine Mesylate 1 Mg Tablet PO 1 mg DAILY HEIDY Administration Risperidone 3 mg 07/30/24 22:00 07/30/24 22:08 Risperidone 3 Mg Tablet PO 3 mg BEDTIME HEIDY Administration Discontinued Medications Generic Name Dose Route Start Last Admin Trade Name Freq PRN Reason Stop Dose Admin Lorazepam 2 mg 07/31/24 09:04 07/31/24 09:16 Lorazepam 1 Mg Tablet PO 07/31/24 09:05 2 mg ONCE ONE Administration Medical Decision Making Medical Decision Making MDM Narrative: 43-year-old male with past medical history as documented above presents for evaluation of depression. He is currently calm and cooperative, plan for medical clearance with basic labs and a tox screen. We will obtain care team evaluation once medically cleared Differential Diagnosis Differential Diagnoses: The differential diagnosis associated with the presentation includes Substance abuse Alcohol abuse Depression Schizophrenia Lab Data MDM Lab Attestation statement: I reviewed the patient's lab results. No leukocytosis. The patient does have a mild normocytic anemia consistent with his baseline. No significant electrolyte abnormalities warranting intervention. 07/30/24 18:15 07/30/24 18:15 Labs: Lab Results 07/30/24 07/30/24 Range/Units 18:15 20:43 WBC 8.1 (4.8-10.8) X10*3/uL RBC 3.86 L (4.60-5.80) X10*6/uL Hgb 12.3 L (14.0-18.0) g/dl Hct 36.7 L (42.0-52.0) % MCV 95.1 (80.0-98.0) fL MCH 31.9 (27.0-33.0) pg MCHC 33.5 (31.0-36.0) g/dl RDW 13.2 (11.0-16.0) % Plt Count 265 (160-400) X10*3/uL MPV 9.8 (9.4-12.4) fL Immature Gran % (Auto) 0.2 (0.0-0.4) % Neut % (Auto) 49.9 (45-73) % Lymph % (Auto) 38.5 (20-40) % [place] % (Auto) 6.0 (2-11) % Eos % (Auto) 4.9 H (0-4) % Baso % (Auto) 0.5 (0-2) % Lymph # (Auto) 3.1 (1.2-4.9) X10*3/uL [place] # (Auto) 0.5 (0.1-1.2) X10*3/uL Eos # (Auto) 0.4 (0.0-0.4) X10*3/uL Baso # (Auto) 0.0 (0.0-0.2) X10*3/uL Abs Immat Gran (auto) 0.02 (0.00-0.03) X10*3/uL Absolute Neuts (auto) 4.1 (2.0-8.3) x10*3/uL Absolute Nucleated RBC 0.000 (0.0-0.012) X10*3/uL Nucleated RBC % (auto) 0.0 (0.0-0.2) /100WBC Sodium 143 (135-145) mmol/L Potassium 3.9 (3.3-5.1) mmol/L Chloride 111 H (96-108) mmol/L Carbon Dioxide 26 (22-29) mmol/L Anion Gap 10 L (12-20) BUN 12 (9-16) mg/dL Creatinine 0.74 (0.5-1.4) mg/dL Estim Creat Clear Calc 100.1 Estimated GFR > 60 Random Glucose 147 H (60-115) mg/dL Calcium 8.8 D (8.4-10.2) mg/dL Total Bilirubin 0.2 (0.0-1.0) mg/dL AST 18 (5-37) U/L ALT 15 (0-40) U/L Alkaline Phosphatase 61 (39-117) U/L Total Protein 6.8 (6.5-8.0) g/dL Albumin 4.1 (3.5-5.0) g/dL Urine Color Dark Yellow Urine Appearance Clear Urine pH 6.0 (5.0-9.0) Ur Specific [place] >= 1.030 H (1.005-1.025) Urine Protein Trace (Neg-Trace) mg/dL Urine Glucose (UA) Negative (Negative) mg/dL Urine Ketones Trace (Negative) mg/dL Urine Blood Negative (Negative) Urine Nitrite Negative (Negative) Ur Leukocyte Esterase Negative (Negative) Urine Opiates Screen Not Detected (Not Detect) Ur Buprenorphine Scrn Not Detected (Not Detect) ng/mL Ur Oxycodone Screen Not Detected (Not Detect) ng/mL Urine Methadone Screen Not Detected (Not Detect) ng/mL Urine Fentanyl Screen Not Detected (Not Detect) Ur Barbiturates Screen Not Detected (Not Detect) Ur Phencyclidine Scrn Not Detected (Not Detect) Ur Amphetamines Screen Not Detected (Not Detect) U Benzodiazepines Scrn Not Detected (Not Detect) Urine Cocaine Screen POSITIVE H (Not Detect) U Marijuana (THC) Screen Not Detected (Not Detect) Ethyl Alcohol < 10 mg/dL Attestation Attending Attestation: I was personally present and available for consultation in the ED. I have reviewed everything on the chart that is available and agree with the documentation provided by the SARA including discussion about the assessment, treatment plan and discussion. Based on medical record the care appears appropriate. Blaine Hua MD [facility] Emergency Medicine Discharge Plan Discharge Clinical Impression: Depression Patient Disposition: Still a Patient Interventions: Falls-Suicide Risk Severity Scale Last Done: 07/30/24 17:33
[2024-07-30 20:51] LABS: Appearance Urine Clear; Color Urine Dark Yellow; Glucose Urine UA Negative (Negative); Leukocyte Esterase Urine Negative (Negative); Nitrite Urine Negative (Negative); Specific Gravity - Urine >= 1.030 (1.005-1.025); Urine Blood Negative (Negative); Urine Ketones Trace mg/dL (Negative); Urine Protein Trace mg/dL (Neg-Trace)
[2024-07-30 21:07] LABS: Amphetamine Screen Urine Not Detected (Not Detect); Barbiturates, Urine Not Detected (Not Detect); Benzodiazepines Screen Urine Not Detected (Not Detect); Buprenorphine Scr Not Detected (Not Detect); Cannabinoid Screen Urine Not Detected (Not Detect); Cocaine Screen Urine POSITIVE (Not Detect); Fentanyl, urine Not Detected (Not Detect); Methadone Screen, Urine Not Detected (Not Detect); Opiate Screen Urine Not Detected (Not Detect); Oxycodone Screen Urine Not Detected (Not Detect); Phencyclidine Screen Urine Not Detected (Not Detect)
--- OUTSIDE RECORDS SUMMARY | 2024-07-30 21:09 | XMS_ITS | Clinical Summary ---
Author Organization Unknown Care Team Providers Care Data Warehouse Architect Name Role Phone ELBERT YOU, ALEXANDRA Unavailable Unavailable MARINA RODAS, CHRISTY Unavailable Unavailable Payers Payer Name Policy Type Policy Number Effective Date Expira tion Date [facility] [id number] MEDICAID [facility] [id number] MEDICARE - [facility] [id number] Problems Condition Name Condition Details Condition Category [...] 1 mg tablet 09-24 00:00: 00 Yes [id number] 1 mg EVERY AM 1 mg EVER Y AM (route: oral) Med Classific ation: Central Nervous System Agents Risperdal 4 mg tablet 09-24 00:00: 00 01-09 23:59 :00 No [id number] 4 mg EVERY AM 4 mg EVERY AM (route: oral) Med Classific ation: Central Nervous System Agents Risperdal 2 mg tablet 01-09 00:00: 00 Yes [id number] 2 mg DAILY 2 mg LIZANDRO Y (route: oral) Med Classific ation: Central Nervous System Agents PENICILLIN V POTASSIUM ORAL 11-07 00:00: 00 11-14 00:00 :00 No 500 mg1 TABLET 4 TIMES A DAY 500 mg1 TABLET 4 TIMES A DAY (route: ) Med Classific ation: ANTI-INFE CTIVE AGENTS BENZTROPINE ORAL 03-03 00:00: 00 04-02 00:00 :00 No 1 mg1 TABLET DAILY 1 mg1 TABLET DAILY (route: ) Alternate Route: BY MOUTH . Med Classific ation: CENTRAL NERVOUS SYSTEM AGENTS Vital Signs Vital Name Observation Time [...] AWARENESS FOR SAFETY AND WILL NOTIFY CLINICAL NUCLEAR OPERATIONS SPECIALIST AND PHYSICIAN/PROVIDER WITH ANY CHANGE IN CONDITION. [code = SKILLED NURSE WILL MAINTAIN SITUATIONAL AWARENESS FOR SAFETY AND WILL NOTIFY CLINICAL NUCLEAR OPERATIONS SPECIALIST AND PHYSICIAN/PROVIDER WITH ANY CHANGE IN CONDITION.] [...] MEDICATIONS DAILY AND PRE-POUR MEDICATIONS TILL NEXT LONG TERM VISIT PER MEDICATION LIST. [code = SKILLED NURSE TO ADMINISTER MEDICATIONS DAILY AND PRE-POUR MEDICATIONS TILL NEXT LONG TERM VISIT PER MEDICATION LIST.] Future Scheduled Test SKILLED NU RSE FOR MEDICATION ADMINISTRATION PER MEDICATION LIST TO BE PERFORMED DAILY [code = SKILLED NURSE FOR MEDICATION ADMINISTRATION PER MEDICATION LIST TO BE PERFORMED DAILY ] Future Scheduled Test SKILLED NU RSE TO PRE-POUR MEDICATION PER MEDICATION LIST TILL NEXT LONG TERM VISIT [code = SKILLED NURSE TO PRE-POUR MEDICATION PER MEDICATION LIST TILL NEXT LONG TERM VISIT ] Future Scheduled Test SKILLED NU [...] BE HELD AND STORED IN LOCKBOX] Goal 2024-05-20 Patient Goal - TAKING MY MED S Goal 2024-03-18 Patient Goal - TAKING MY MED S Goal 2024-01-19 Patient Goal - TAKING MY MED S Goal 2023-11-19 Patient Goal - TAKING MY MED S Goal Provider Goal - A PLAN OF CARE WILL BE ESTABLISHED THAT MEETS PATIENT'S LONG TERM NEEDS AND INCLUDES PATIENT GOAL FOR HOME [...] End Date/Time Encounter Type Admission Type Attending [facility] Care Department Encounter ID Discharge Date Discharge Status Discharge Condition Discharge Reason Percent Goals Met 2023-09-25 00:00:00 2024-05-20 00:00:00 Outpatient RECERTIFIC [facility] MARINA CHRISTY [facility] [id number] 2024-05-20 00:00:00 DISCHARGED /TRANSFERR ED TO A [facility] MINIMUM ASSIST WITH TRANSFER/A MBULATION/ ADLS NON COMPLIANT WITH PLAN OF TREATMENT 11.54
--- OUTSIDE RECORDS SUMMARY | 2024-07-30 21:09 | XMS_ITS | Clinical Summary ---
Author Organization Unknown Care Team Providers Care Longwall Headgate Operator Name Role Phone ELBERT YOU, ALEXANDRA Unavailable Unavailable MARINA RODAS, CHRISTY Unavailable Unavailable Payers Payer Name Policy Type Policy Number Effective Date Expira tion Date [facility] [id number] MEDICAID [facility] [id number] MEDICARE - [facility] [id number] Problems Condition Name Condition Details Condition Category [...] 1 mg tablet 09-24 00:00: 00 Yes [id number] 1 mg EVERY AM 1 mg EVER Y AM (route: oral) Med Classific ation: Central Nervous System Agents Risperdal 4 mg tablet 09-24 00:00: 00 01-09 23:59 :00 No [id number] 4 mg EVERY AM 4 mg EVERY AM (route: oral) Med Classific ation: Central Nervous System Agents Risperdal 2 mg tablet 01-09 00:00: 00 Yes [id number] 2 mg DAILY 2 mg LIZANDRO Y [...] AWARENESS FOR SAFETY AND WILL NOTIFY CLINICAL CHARGE COORDINATOR AND PHYSICIAN/PROVIDER WITH ANY CHANGE IN CONDITION. [code = SKILLED NURSE WILL MAINTAIN SITUATIONAL AWARENESS FOR SAFETY AND WILL NOTIFY CLINICAL CHARGE COORDINATOR AND PHYSICIAN/PROVIDER WITH ANY CHANGE IN CONDITION.] [...] MEDICATIONS DAILY AND PRE-POUR MEDICATIONS TILL NEXT CUSTODIAL VISIT PER MEDICATION LIST. [code = SKILLED NURSE TO ADMINISTER MEDICATIONS DAILY AND PRE-POUR MEDICATIONS TILL NEXT CUSTODIAL VISIT PER MEDICATION LIST.] Future Scheduled Test SKILLED NU RSE FOR MEDICATION ADMINISTRATION PER MEDICATION LIST TO BE PERFORMED DAILY [code = SKILLED NURSE FOR MEDICATION ADMINISTRATION PER MEDICATION LIST TO BE PERFORMED DAILY ] Future Scheduled Test SKILLED NU RSE TO PRE-POUR MEDICATION PER MEDICATION LIST TILL NEXT CUSTODIAL VISIT [code = SKILLED NURSE TO PRE-POUR MEDICATION PER MEDICATION LIST TILL NEXT CUSTODIAL VISIT ] Future Scheduled Test SKILLED NU [...] CARE WILL BE ESTABLISHED THAT MEETS PATIENT'S CUSTODIAL NEEDS AND INCLUDES PATIENT GOAL FOR HOME [...] End Date/Time Encounter Type Admission Type Attending [facility] Care [facility] Care Department Encounter ID Discharge Date Discharge Status Discharge Condition Discharge Reason Percent Goals Met 2023-09-25 00:00:00 2024-05-20 00:00:00 Outpatient RECERTIFIC [facility] MARINA CHRISTY [facility] [id number] 2024-05-20 00:00:00 DISCHARGED /TRANSFERR ED TO A [facility] MINIMUM ASSIST WITH TRANSFER/A MBULATION/ ADLS NON COMPLIANT WITH PLAN OF TREATMENT 11.54
[2024-07-30] MEDS: risperiDONE 3 MG TABLET PO (22:08)
--- NOTE | 2024-07-31 | ECG_ITS ---
Test Reason : prolonged qtc Blood Pressure : */* mmHG Vent. Rate : 78 BPM Atrial Rate : 78 BPM P-R Int : 110 ms QRS Dur : 90 ms QT Int : 354 ms P-R-T Axes : 51 89 67 degrees QTcB Int : 403 ms Sinus rhythm with short [place] Otherwise normal ECG When compared with ECG of 02-Jan-2024 09:36, No significant change was found Referred By: Kali Womack Electronically Signed By: Stuart Gary
--- NOTE | 2024-07-31 06:12 | PC.NURSE ---
patient appears to remain at rest presently appears in no distress, awaits placement externally, appears in no distress.
[2024-07-31 06:13] VITALS: BP 114/67; PULSE 75; RESP 17; TEMP 36.6; O2SAT 98
[2024-07-31] MEDS: LORazepam 1 MG TABLET 2 MG PO (09:16)
[2024-07-31] MEDS: Benztropine Mesylate 1 MG TABLET PO (09:16)
--- NOTE | 2024-07-31 09:23 | MHC.CARE ---
Pt meets the criteria for IPLOC at this time. Section 12a in chart. Provider in agreement.
--- NOTE | 2024-07-31 14:59 | PHA.MEDREC ---
Pharmacy Consult ? Medication Reconciliation Pharmacy has reviewed the medication reconciliation done by RN
[2024-07-31 16:30] VITALS: BP 113/63; PULSE 100; RESP 16; TEMP 36.4; O2SAT 97
--- NOTE | 2024-07-31 17:14 | PC.ADMIT ---
Benito is a 43-year-old male admitted from [facility] to [facility] on a CV for treatment of unspecified schizophrenia and cocaine use disorder. Tox screen positive for cocaine. Per crisis eval, pt did not disclose precipitating factors leading to the ED. However upon arrival to [facility] pt disclosed that [facility] kept telling me to do things that would help but they wouldn't tell me how. They didn't tell me about any shelters available so I just said I was going to slit my throat. I was trying to go to confession but they took me away in the ambulance before I could. Pt denied thoughts of hurting himself while he's here and reported feeling safe while on the unit. Pt is currently homeless. Pt was pleasant, cooperative, alert and oriented x3. Thought process linear and organized. Mood is depressed with congruent affect. Pt placed on 15 minute safety checks.
[2024-07-31 17:25] VITALS: BMI 20.3
--- NOTE | 2024-07-31 18:48 | PC.NURSE ---
Pt refused flu vaccine at this time
[2024-07-31 20:26] VITALS: BP 123/64; PULSE 82; RESP 18; TEMP 37.1; O2SAT 98
[2024-07-31] MEDS: risperiDONE 3 MG TABLET PO (20:35)
[2024-08-01 07:43] VITALS: BP 100/54; PULSE 82; RESP 16; TEMP 37.1; O2SAT 99
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
[2024-08-01 20:00] VITALS: BP 115/62; PULSE 80; RESP 18; TEMP 36.7; O2SAT 97
[2024-08-01] MEDS: risperiDONE 3 MG TABLET PO (20:46)
[2024-08-01] MEDS: Nicotine Polacrilex 2 MG GUM 4 MG BUCCAL (20:48)
[2024-08-02 07:30] VITALS: BP 102/74; PULSE 72; RESP 16; TEMP 36.6; O2SAT 97
--- NOTE | 2024-08-02 13:17 | HO.PSYCHPN ---
Subjective Subjective Date of Service: 08/02/24 Reason For Visit: SI Subjective Notes: Conditional Voluntary Interim History: The nursing staff reported the patient had been compliant with treatment eating well slept after 02:00, poor slept needed trazodone. On interview the patient reports that he is feeling very tired since he slept poorly. Mental Status Exam Mental Status Exam Patient Appearance: Appropriate Patient Orientation: Person and Situation Level of Consciousness: Awake and Appropriate Patient Behavior: Guarded and Passive Mood Description: Withdrawn Affect Description: Constricted Patient Cognition Impaired: Yes Ability to Follow Directions: Good Speech Pattern: Clear Hallucinations: None Delusions: Paranoid Ideation and Ideas of Reference Thought Process: Distracted and Slowed Thinking Thought Content: positive for [place] and positive for Poverty of Content Judgement: Poor Diagnostics Vital Signs (24Hr): Vital Signs - 24 hr 08/01/24 20:00 08/02/24 07:30 Temperature 98.1 F 97.8 F Pulse Rate 80 72 Respiratory Rate 18 16 Blood Pressure 115/62 102/74 Pulse Oximetry 97 97 Oxygen Delivery Method Room Air Room Air BMI result Body Mass Index 20.3 Labs 07/30/24 18:15 07/30/24 18:15 Medications Medications Current Medications Acetaminophen (Acetaminophen 325 Mg Tablet) 650 mg PO Q6H PRN PRN Reason: Headache/Pain Mild Scale (1-3) Al Hydroxide/Mg Hydroxide (Magnesium Hydrox/Alum Hydrox 30 Ml Oral.Susp) 30 ml PO Q6H PRN PRN Reason: Heartburn/Nausea Benztropine Mesylate (Benztropine Mesylate 1 Mg Tablet) 1 mg PO DAILY [facility] Last Admin: 08/02/24 09:26 Dose: Not Given Hydroxyzine HCl (Hydroxyzine Hcl 25 Mg Tablet) 25 mg PO Q6H PRN PRN Reason: Anxiety Magnesium Hydroxide (Milk Of Magnesia 30 Ml Oral.Susp) 30 ml PO DAILY PRN PRN Reason: Constipation Nicotine Polacrilex (Nicotine Polacrilex 2 Mg Gum) 4 mg BUCCAL Q2H PRN PRN Reason: Nicotine Cravings Last Admin: 08/01/24 20:48 Dose: 4 mg Risperidone (Risperidone 3 Mg Tablet) 3 mg PO BEDTIME HEIDY Last Admin: 08/01/24 20:46 Dose: 3 mg Trazodone HCl (Trazodone Hcl 50 Mg Tablet) 50 mg PO BEDTIME MRX1 PRN PRN Reason: Insomnia Allergies Allergies Allergy/AdvReac Type Severity Reaction Status Date / Time No Known Allergies Allergy Verified 07/30/24 17:32 Assessment & Plan Assessment & Plan (1) Schizophrenia: Qualifiers: Schizophrenia type: unspecified Qualified Code(s): F20.9 - Schizophrenia, unspecified Status: Acute Code(s): F20.9 - Schizophrenia, unspecified (2) Cocaine use disorder: Status: Acute Code(s): F14.10 - Cocaine abuse, uncomplicated Plan The patient is an adult male with a history of schizophrenia, cocaine use disorder and several psychosocial stressors such as chronic homelessness and limited social support admitted for exacerbation psychosis in the context of relapse of cocaine. He was assessed by crisis and transferring to this facility for psychiatric stabilization. Plan 1. Gather collateral information. 2. Restarted on his regular antipsychotics. 3. 15 minute checks since the patient is able to contract for safety. 4. Blood work and physical exam. 5. Reassessment with results. Reason for continued inpatient stay Substantial Risk for: inability to function, rapid decompensation and med/psych decompensation Time Spent With Patient Time: Total time managing care of this patient today __20__ minutes.
[2024-08-02 19:40] VITALS: BP 111/57; PULSE 76; RESP 16; TEMP 36.9; O2SAT 97
[2024-08-02] MEDS: risperiDONE 3 MG TABLET PO (20:47)
[2024-08-02] MEDS: Nicotine Polacrilex 2 MG GUM 4 MG BUCCAL (20:47)
[2024-08-03] MEDS: Nicotine Polacrilex 2 MG GUM 4 MG BUCCAL ×3 (05:02→19:23)
[2024-08-03 08:10] VITALS: BP 96/59; PULSE 68; RESP 16; TEMP 36.3; O2SAT 100
--- NOTE | 2024-08-03 10:18 | HO.PSYCHPN ---
Subjective Subjective Date of Service: 08/03/24 Reason For Visit: SI Subjective Notes: Conditional Voluntary Interim History: Active on unit, social with peers, attending groups. Pt reports feeling okay today; pt stated, I feel like I'll be ready to go soon. I plan on going back to where I was living . denies SI/HI/VH. Pt reports auditory hallucinations but states he doesn't listen to what they are saying . discussed medications; plan to increase risperidal to 4mg PO bedtime. Medication Compliance: Yes Side effects from medications: No Attending Groups: Yes Review of Systems Constitutional: Reports as per HPI Eyes: Reports as per HPI Reports as per HPI Cardiovascular: Reports as per HPI Respiratory: Reports as per HPI Gastrointestinal: Reports as per HPI Genitourinary: Reports as per HPI Musculoskeletal: Reports as per HPI Skin/Breast: Reports as per HPI Reports as per HPI Psychiatric: Reports as per HPI Endocrine: Reports as per HPI Hematologic/Lymphatic: Reports as per HPI Allergic/Immunologic: Reports as per HPI Mental Status Exam Mental Status Exam Narrative: Pt is alert and oriented; behavior is cooperative and calm; dressed in casual attire; mood is described as good ; eye contact; Speech is normal rate, volume and not pressured; thought process is organized; Thought content is on tx; denies SI/HI/VH. Pt reports auditory hallucinations. Diagnostics Vital Signs (24Hr): Vital Signs - 24 hr 08/02/24 19:40 08/03/24 08:10 Temperature 98.5 F 97.4 F Pulse Rate 76 68 Respiratory Rate 16 16 Blood Pressure 111/57 L 96/59 L Pulse Oximetry 97 100 Oxygen Delivery Method Room Air Room Air BMI result Body Mass Index 20.3 Labs 07/30/24 18:15 07/30/24 18:15 Medications Medications Current Medications Acetaminophen (Acetaminophen 325 Mg Tablet) 650 mg PO Q6H PRN PRN Reason: Headache/Pain Mild Scale (1-3) Al Hydroxide/Mg Hydroxide (Magnesium Hydrox/Alum Hydrox 30 Ml Oral.Susp) 30 ml PO Q6H PRN PRN Reason: Heartburn/Nausea Benztropine Mesylate (Benztropine Mesylate 1 Mg Tablet) 1 mg PO DAILY HE[facility] Last Admin: 08/03/24 08:12 Dose: Not Given Hydroxyzine HCl (Hydroxyzine Hcl 25 Mg Tablet) 25 mg PO Q6H PRN PRN Reason: Anxiety Magnesium Hydroxide (Milk Of Magnesia 30 Ml Oral.Susp) 30 ml PO DAILY PRN PRN Reason: Constipation Nicotine Polacrilex (Nicotine Polacrilex 2 Mg Gum) 4 mg BUCCAL Q2H PRN PRN Reason: Nicotine Cravings Last Admin: 08/03/24 05:02 Dose: 4 mg Risperidone (Risperidone 3 Mg Tablet) 3 mg PO BEDTIME HEIDY Last Admin: 08/02/24 20:47 Dose: 3 mg Trazodone HCl (Trazodone Hcl 50 Mg Tablet) 50 mg PO BEDTIME MRX1 PRN PRN Reason: Insomnia Allergies Allergies Allergy/AdvReac Type Severity Reaction Status Date / Time No Known Allergies Allergy Verified 07/30/24 17:32 Assessment & Plan Assessment & Plan (1) Schizophrenia: Qualifiers: Schizophrenia type: unspecified Qualified Code(s): F20.9 - Schizophrenia, unspecified Status: Acute Code(s): F20.9 - Schizophrenia, unspecified (2) Cocaine use disorder: Status: Acute Code(s): F14.10 - Cocaine abuse, uncomplicated Plan The patient is an adult male with a history of schizophrenia, cocaine use disorder and several psychosocial stressors such as chronic homelessness and limited social support admitted for exacerbation psychosis in the context of relapse of cocaine. He was assessed by crisis and transferring to this facility for psychiatric stabilization. Plan 1. Gather collateral information. 2. Restarted on his regular antipsychotics. 3. 15 minute checks since the patient is able to contract for safety. 4. Blood work and physical exam. 5. Reassessment with results. 08/03: Active on unit, social with peers, attending groups. Pt reports feeling okay today; pt stated, I feel like I'll be ready to go soon. I plan on going back to where I was living . denies SI/HI/VH. Pt reports auditory hallucinations but states he doesn't listen to what they are saying . discussed medications; plan to increase risperidal to 4mg PO bedtime. Patient educated on: diagnosis and medication risk/benefits Reason for continued inpatient stay Substantial Risk for: med/psych decompensation Time Spent With Patient Time: Total time managing care of this patient today _20___ minutes.
[2024-08-03 20:00] VITALS: BP 121/67; PULSE 72; RESP 16; TEMP 36.3; O2SAT 98
[2024-08-03] MEDS: risperiDONE 2 MG TABLET 4 MG PO (20:42)
[2024-08-04 07:43] VITALS: BP 110/61; PULSE 68; RESP 16; TEMP 36.3; O2SAT 99
[2024-08-04] MEDS: Nicotine Polacrilex 2 MG GUM 4 MG BUCCAL (09:35)
--- NOTE | 2024-08-04 11:27 | P.PNPSI_ITS ---
Subjective Subjective Date of Service: 08/04/24 Reason For Visit: SI Subjective Notes: Conditional Voluntary Interim History: Pt reports feeling good today; pt reports he feels ready for discharge tomorrow. Reports sleeping well. denies SI/HI/VH/AH. Plans on following up with his outpatient providers. Medication Compliance: Yes Side effects from medications: No Attending Groups: Yes Review of Systems Constitutional: Reports as per HPI Eyes: Reports as per HPI Reports as per HPI Cardiovascular: Reports as per HPI Respiratory: Reports as per HPI Gastrointestinal: Reports as per HPI Genitourinary: Reports as per HPI Musculoskeletal: Reports as per HPI Skin/Breast: Reports as per HPI Reports as per HPI Psychiatric: Reports as per HPI Endocrine: Reports as per HPI Hematologic/Lymphatic: Reports as per HPI Allergic/Immunologic: Reports as per HPI Mental Status Exam Mental Status Exam Narrative: Pt is alert and oriented; behavior is cooperative and calm; dressed in casual attire; mood is described as good ; eye contact; Speech is normal rate, volume and not pressured; thought process is organized; Thought content is on discharge; denies SI/HI/VH/AH Diagnostics Vital Signs (24Hr): Vital Signs - 24 hr 08/03/24 20:00 08/04/24 07:43 Temperature 97.3 F 97.4 F Pulse Rate 72 68 Respiratory Rate 16 16 Blood Pressure 121/67 110/61 Pulse Oximetry 98 99 Oxygen Delivery Method Room Air Room Air BMI result Body Mass Index 20.3 Labs 07/30/24 18:15 07/30/24 18:15 Medications Medications Current Medications Acetaminophen (Acetaminophen 325 Mg Tablet) 650 mg PO Q6H PRN PRN Reason: Headache/Pain Mild Scale (1-3) Al Hydroxide/Mg Hydroxide (Magnesium Hydrox/Alum Hydrox 30 Ml Oral.Susp) 30 ml PO Q6H PRN PRN Reason: Heartburn/Nausea Benztropine Mesylate (Benztropine Mesylate 1 Mg Tablet) 1 mg PO DAILY [facility] Last Admin: 08/04/24 08:04 Dose: Not Given Hydroxyzine HCl (Hydroxyzine Hcl 25 Mg Tablet) 25 mg PO Q6H PRN PRN Reason: Anxiety Magnesium Hydroxide (Milk Of Magnesia 30 Ml Oral.Susp) 30 ml PO DAILY PRN PRN Reason: Constipation Nicotine Polacrilex (Nicotine Polacrilex 2 Mg Gum) 4 mg BUCCAL Q2H PRN PRN Reason: Nicotine Cravings Last Admin: 08/04/24 09:35 Dose: 4 mg Risperidone (Risperidone 2 Mg Tablet) 4 mg PO BEDTIME HEIDY Last Admin: 08/03/24 20:42 Dose: 4 mg Trazodone HCl (Trazodone Hcl 50 Mg Tablet) 50 mg PO BEDTIME MRX1 PRN PRN Reason: Insomnia Allergies Allergies Allergy/AdvReac Type Severity Reaction Status Date / Time No Known Allergies Allergy Verified 07/30/24 17:32 Assessment & Plan Assessment & Plan (1) Schizophrenia: Qualifiers: Schizophrenia type: unspecified Qualified Code(s): F20.9 - Schizophrenia, unspecified Status: Acute Code(s): F20.9 - Schizophrenia, unspecified (2) Cocaine use disorder: Status: Acute Code(s): F14.10 - Cocaine abuse, uncomplicated Plan The patient is an adult male with a history of schizophrenia, cocaine use disorder and several psychosocial stressors such as chronic homelessness and limited social support admitted for exacerbation psychosis in the context of relapse of cocaine. He was assessed by crisis and transferring to this facility for psychiatric stabilization. Plan 1. Gather collateral information. 2. Restarted on his regular antipsychotics. 3. 15 minute checks since the patient is able to contract for safety. 4. Blood work and physical exam. 5. Reassessment with results. 08/03: Active on unit, social with peers, attending groups. Pt reports feeling okay today; pt stated, I feel like I'll be ready to go soon. I plan on going back to where I was living . denies SI/HI/VH. Pt reports auditory hallucinations but states he doesn't listen to what they are saying . discussed medications; plan to increase risperidal to 4mg PO bedtime. 08/04: Pt reports feeling good today; pt reports he feels ready for discharge tomorrow. Reports sleeping well. denies SI/HI/VH/AH. Plans on following up with his outpatient providers. Patient educated on: diagnosis and medication risk/benefits Reason for continued inpatient stay Substantial Risk for: stable for discharge Time Spent With Patient Time: Total time managing care of this patient today _20___ minutes.
[2024-08-04 19:28] VITALS: BP 109/66; PULSE 72; RESP 18; TEMP 37.1; O2SAT 99
[2024-08-04] MEDS: risperiDONE 2 MG TABLET 4 MG PO (21:09)
[2024-08-04] MEDS: Benztropine Mesylate 1 MG TABLET PO (21:11)
--- NOTE | 2024-08-04 21:20 | PC.NURSE ---
Pt requested to take cogentin with HS med; he has been refusing his scheduled morning dose. Mita Lanier NP ok'd pt to take dose tonight.
[2024-08-05 07:20] VITALS: BP 108/59; PULSE 93; RESP 18; TEMP 36.6; O2SAT 98
[2024-08-05] MEDS: Nicotine Polacrilex 2 MG GUM 4 MG BUCCAL (08:35)
[2024-08-05] MEDS: Naloxone HCl Nasal TAKE HOME 4 MG SPRAY 8 MG NOSTRILALT (08:48)
--- NOTE | 2024-08-05 09:10 | PM.PSYDC ---
DS: Providers Provider Date of Service: 08/05/24 Date of admission: 07/31/24 15:05 Date of discharge: 08/05/24 Primary care physician: Leobardo Physician Attending physician on admission: Dequan Hogan Attending physician on discharge: Mick Simms Discharging clinician: Mita Lanier DS: Diagnosis Discharge Diagnosis (1) Schizophrenia: Status: Acute (2) Cocaine use disorder: Status: Acute DS: Medications Discharge Medications Home Medications: Previous Rx's ?Medication ?Instructions ?Recorded benztropine 1 mg tablet 1 mg PO DAILY 30 days #30 tabs 08/04/24 risperidone 4 mg tablet 4 mg PO BEDTIME 30 days #30 tabs 08/04/24 Mental Status Exam Mental Status Exam Narrative: Pt is alert and oriented; behavior is cooperative and calm; dressed in casual attire; mood is described as good ; eye contact; Speech is normal rate, volume and not pressured; thought process is organized; Thought content is on discharge; denies SI/HI/VH/ Data Data Completed and Pending Completed studies during hospitalization [Text1]: 07/30/24 07/30/24 18:15 20:43 WBC 8.1 RBC 3.86 L Hgb 12.3 L Hct 36.7 L MCV 95.1 MCH 31.9 MCHC 33.5 RDW 13.2 Plt Count 265 MPV 9.8 Immature Gran % (Auto) 0.2 Neut % (Auto) 49.9 Lymph % (Auto) 38.5 [place] % (Auto) 6.0 Eos % (Auto) 4.9 H Baso % (Auto) 0.5 Lymph # (Auto) 3.1 [place] # (Auto) 0.5 Eos # (Auto) 0.4 Baso # (Auto) 0.0 Abs Immat Gran (auto) 0.02 Absolute Neuts (auto) 4.1 Absolute Nucleated RBC 0.000 Nucleated RBC % (auto) 0.0 Sodium 143 Potassium 3.9 Chloride 111 H Carbon Dioxide 26 Anion Gap 10 L BUN 12 Creatinine 0.74 Estim Creat Clear Calc 100.1 Estimated GFR > 60 Random Glucose 147 H Calcium 8.8 D Total Bilirubin 0.2 AST 18 ALT 15 Alkaline Phosphatase 61 Total Protein 6.8 Albumin 4.1 Urine Color Dark Yellow Urine Appearance Clear Urine pH 6.0 Ur Specific [place] >= 1.030 H Urine Protein Trace Urine Glucose (UA) Negative Urine Ketones Trace Urine Blood Negative Urine Nitrite Negative Ur Leukocyte Esterase Negative Urine Opiates Screen Not Detected Ur Buprenorphine Scrn Not Detected Ur Oxycodone Screen Not Detected Urine Methadone Screen Not Detected Urine Fentanyl Screen Not Detected Ur Barbiturates Screen Not Detected Ur Phencyclidine Scrn Not Detected Ur Amphetamines Screen Not Detected U Benzodiazepines Scrn Not Detected Urine Cocaine Screen POSITIVE H U Marijuana (THC) Screen Not Detected Ethyl Alcohol < 10 DS: Summary Hospital Course Hospital Course: The patient is a 43-year-old male, known by this team since he was admitted into this unit a few days ago on discharge with a past history of schizophrenia, cocaine use disorder and chronic homelessness. According to [facility] rehabilitation case coordinator, the patient was noncompliant in the community, he relapsed on cocaine and he became grossly psychotic and disorganized, with auditory hallucinations, suicidal ideation with a plan to slit his throat and inability to take care of himself. He was rushed to the emergency room, assessed by the crisis team and transferring to this facility for psychiatric stabilization. On the intake interview, the patient was very sleepy, he stated that he slept only 2 or 3 hours last night, he stated that he was not feeling very well and he was complaining of auditory hallucinations but refused to engage more into the conversation. He was able to contract for safety and he is willing to follow treatment. We will try to gather more collateral information, according to the chart this is the 3rd admission in the last 60 days. The patient is an adult male with a history of schizophrenia, cocaine use disorder and several psychosocial stressors such as chronic homelessness and limited social support admitted for exacerbation psychosis in the context of relapse of cocaine. He was assessed by crisis and transferring to this facility for psychiatric stabilization. Plan 1. Gather collateral information. 2. Restarted on his regular antipsychotics. 3. 15 minute checks since the patient is able to contract for safety. 4. Blood work and physical exam. 5. Reassessment with results. Active on unit, social with peers, attending groups. Pt reports feeling okay today; pt stated, I feel like I'll be ready to go soon. I plan on going back to where I was living . denies SI/HI/VH. Pt reports auditory hallucinations but states he doesn't listen to what they are saying . discussed medications; plan to increase risperidal to 4mg PO bedtime. Pt reports feeling good today; pt reports he feels ready for discharge tomorrow. Reports sleeping well. denies SI/HI/VH/AH. Plans on following up with his outpatient providers. Patient continues to report feeling good and looking forward to leaving ; pt reports he plans on following up with his outpatient providers and being medication compliant. denies SI/HI/VH/AH. Status at Discharge Cognitive/behavioral status at discharge: Patient has insight and demonstrates good judgment in terms of wanting to pursue treatment. Patient has a safety plan that includes presenting to the closest ER or calling 911 if feeling unsafe. Functional status at discharge: independent ambulation Overall status at discharge: patient is back to baseline Time Spent with Patient Time attestation: Total time managing care of this patient today _20___ minutes. Time spent: Less than 30 minutes Discharge Plan Discharge Anticipated Discharge Date/Time: 08/05/24 11:00 Patient Disposition: Home, Self-Care Discharge Diagnosis: Schizophrenia, cocaine use d/o Referrals: Mechelle Phillips (Psychiatry) [Other] - 09/04/24 11:00 am (IN OFFICE APPOINTMENT) Russel Pulido MD [Physician] - 1 Week (08-04-24 Your primary care provider has been notified of your upcoming discharge. They will contact you with the date and time of your appt.) Discharge Medications: New risperidone 4 mg tablet 4 mg PO BEDTIME 30 Days Qty: 30 0RF Continued benztropine 1 mg tablet 1 mg PO DAILY 30 Days Qty: 30 0RF Discontinued risperidone 3 mg Tablet 3 mg PO BEDTIME 30 Days Qty: 30 0RF Discharge Orders: Discharge Order (Routine); Ordered 08/05/24 Ordered By: Mita Lanier Diet: Regular diet Activity on Discharge: As tolerated Stand Alone Forms: Patient Portal Discharge page, Community Support Print Language: Andorran Care Plan Goals: Maintain mood and safe behaviors Take medications as prescribed Continue to pursue sobriety Practice coping skills Continue with outpatient providers and reach out to them as needed Health Concerns: Mood stability and behaviors Sobriety Plan of Treatment: Follow up with your PCP, psychiatric provider and other outpatient providers regarding above concerns Take medications as prescribed Assessment: Patient has insight and demonstrates good judgment in terms of wanting to pursue treatment. Patient has a safety plan that includes presenting to the closest ER or calling 911 if feeling unsafe. Discharge Date/Time: 08/05/24 11:13
[2024-08-05] MEDS: Milk of Magnesia 30 ML ORAL.SUSP PO (09:22)
[2024-08-05] MEDS: Magnesium Hydrox/Alum Hydrox 30 ML ORAL.SUSP PO (09:23)
== END 2024-08-05 11:13 | disposition home or self-care (01) | DRG 885 ==
LOC: HO.ED 20:30 → HO.PADLT16 07-31 15:05
PROVIDERS: Admitting Provider Psychiatry & Neurology Psychiatry; Emergency Provider Emergency Medicine; Responsible Provider Registered Nurse; Visit Provider Psychiatry & Neurology Psychiatry
DX: F20.9 Schizophrenia, unspecified (principal); Z59.02 Unsheltered homelessness; F14.10 Cocaine abuse, uncomplicated; F17.210 Nicotine dependence, cigarettes, uncomplicated; F19.90 Other psychoactive substance use, unspecified, uncomplicated; Z71.6 Tobacco abuse counseling; Z79.899 Other long term (current) drug therapy
CPT/HCPCS: 36415; 80053; 80307; 81003; 85025; 93005; 99285; S9485

== ENCOUNTER → 2024-07-31 09:30 | Outpatient (BNV) | payer OTHER, SELFPAY | PROVIDERS: Admitting Provider Psychiatry & Neurology Psychiatry; Emergency Provider Emergency Medicine; Visit Provider Internal Medicine Cardiovascular Disease | DX: I45.6 Pre-excitation syndrome (principal) | CPT/HCPCS: 93010 ==

== ENCOUNTER → 2024-07-31 15:05 | Outpatient (BNV) | payer OTHER, SELFPAY | PROVIDERS: Admitting Provider Psychiatry & Neurology Psychiatry; Emergency Provider Emergency Medicine; Visit Provider Psychiatry & Neurology Psychiatry | DX: F20.1 Disorganized schizophrenia (principal); F14.10 Cocaine abuse, uncomplicated | CPT/HCPCS: 90792; 99231; 99232; 99238 ==

== ENCOUNTER 2024-08-18 05:35 | Inpatient (IN) | payer OTHER, SELFPAY ==
[2024-08-18 05:37] VITALS: PULSE 79; O2SAT 98; BMI 20.7
[2024-08-18 05:50] VITALS: BP 111/59; PULSE 73; RESP 16; TEMP 36.7; O2SAT 98
--- OUTSIDE RECORDS SUMMARY | 2024-08-18 06:01 | XMS_ITS | Clinical Summary ---
Author Organization [employer] Address [address] [place] [address] Care Team Providers [employer] Name Role Phone Unavailable Primary Care Provider Unavailabl e Immunizations Name Administration Dates Next Due Moderna Covid-19 Vaccine 12+ 06/30/2021,09/14/19,08/16/2020 Moderna Covid-19 Vaccine 6+ Bivalent 07/26/2022 Social History Tobacco Use Types Packs/Day Years Used Date Smoking Tobacco: Never Assessed Sex and Gender Information Value Date Recorded Sex Assigned at Male 08/07/2022 11:44 AM EST Legal Sex Male 9:27 AM EST Gender Identity Male 08/07/2022 11:44 AM EST Sexual Orientation Don't know 08/07/2022 11 :52 AM EST Plan of Treatment Health Maintenance Due Date Last Done Comments Depression Screening 1981 HIV Screening 1981 Lipid Panel 1981 SDOH Screening 1981 Alcohol/Substance Use Screening 1993 Tobacco Screening 1993 Family Planning (PISQ) 1996 Hepatitis C Screening 10/27/1999 DTaP/Tdap/Td Vaccines (1 - Tdap) 2000 Hepatitis B Vaccines (1 of 3 - 19+ 3-dose series) 2000 COVID-19 Vaccine (2023- season) 2024 07/26/2022, 06/30/2021, 09/13/2020, Additional history exists Influenza Vaccine (#1) 2024 Zoster Vaccines (1 of 2) 10/27/2031 RSV Patients and Patients Aged 60 years or older (1 - 1-dose 75+ series) 2056 HIB Vaccines Aged Out No longer eligi ble based on patient's age to complete this topic HPV Vaccines Aged Out No longer eligi ble based on patient's age to complete this topic Hepatitis A Vaccines Aged Out No long er eligible based on patient's age to complete this topic IPV Vaccines Aged Out No longer eligi ble based on patient's age to complete this topic Meningococcal Vaccine Aged Out No dat gee eligible based on patient's age to complete this topic Pneumococcal Vaccine: Pediatrics (0 to 5 Years) and At-Risk Patients (6 to 49) Years) Aged Out No longer eligible based on patient's age to complete this topic RSV under 20 months Aged Out No longe r eligible based on patient's age to complete this topic Rotavirus Vaccines Aged Out No longer eligible based on patient's age to complete this topic [place] [address] [place] [address] [employer]
[2024-08-18 07:55] VITALS: RESP 14
--- NOTE | 2024-08-18 07:57 | PC.NURSE ---
Assumed care of patient at 0645, patient appears to be sleeping, respirations even and unlabored, no apparent distress noted. Continue plan of care for medical clearance and CARE team richard
--- NOTE | 2024-08-18 10:37 | ED.PSYCH ---
HPI - Psych General Chief Complaint: Psychiatric Symptoms Stated Complaint: mental health eval, homeless, no si/hi Time Seen by Provider: 08/18/24 10:11 Source: patient, EMS, RN notes reviewed and old records reviewed Mode of arrival: EMS History of Present Illness ED Provider: Savanna Velasco PA-C HPI Narrative: 43-year-old male with a past medical history depression, ETOH use disorder, substance use, schizophrenia, presenting to the ED via EMS [place] [employer]. Patient states the police found him and suggested he come to the emergency department & that's why he is here. States he is trying to get into a [facility] in [place]. Does not know why he is here. Denies SI/HI. Admits to using illicit substances, however will not elaborate. Denies ETOH use. Denies injuries/fall or trauma. Keeps stating I do not know. Related Data Previous Rx's ?Medication ?Instructions ?Recorded benztropine 1 mg tablet 1 mg PO DAILY 30 days #30 tabs 08/04/24 risperidone 4 mg tablet 4 mg PO BEDTIME 30 days #30 tabs 08/04/24 Allergies Allergy/AdvReac Type Severity Reaction Status Date / Time No Known Allergies Allergy Verified 08/18/24 05:41 Review of Systems Review of Systems: Yes all other systems are reviewed and are negative Constitutional: Constitutional: Reports as per [facility] Past Medical History Attestation statement: The following information was validated with the patient. Source: old records reviewed Medical History Depression Alcohol use disorder Cocaine use disorder Opioid abuse Suicide attempt Cocaine abuse Crack cocaine use Heroin abuse Substance abuse Schizophrenia Social History Social History Household Members: None Household Members Other:: Roommate that just moved out Housing: Homeless Do you presently have visiting nurse or other home services: No Unable to assess alcohol history related to: Refusing to respond Alcohol intake: current Alcohol intake frequency: a few times a month Patient Tobacco Use Status: Current everyday Tobacco user Tobacco use type: Cigarette Cigarettes Per Day: 10 Years Smoked: 28 Smoked in Last 30 Days: Yes e-Cigarette/Vaping Use: Never Used Second Hand Smoke Exposure: No Use of substances other than those prescribed or required for medical reasons: Refusing to respond Substance Use Type: Crack/Cocaine Last Used Substance: Unknown Advance Directives: No Advance Directives Information Provided: Yes Do you have a plan to hurt others: No Plan service: No Sexual orientation: Straight/Heterosexual Physical Exam Vital Signs: Vital Signs: Last Vital Signs Temp 98.0 F 08/18/24 05:50 Pulse 73 08/18/24 05:50 Resp 14 08/18/24 07:55 BP 111/59 L 08/18/24 05:50 Pulse Ox 98 08/18/24 05:50 O2 Del Method Room Air 08/18/24 05:50 BMI result Body Mass Index 20.7 Const: Other: Disheveled. Appears under the influence General: cooperative and no acute distress Orientation/consciousness: patient oriented x3 Limitations: no limitations HEENT: Head: Yes normal to inspection and Yes atraumatic Ears: hearing grossly normal bilaterally General nose exam: Normal external nose present Face and sinus: Yes normal facial exam Eyes: General: appearance normal, both eyes and all related structures EOM: EOMs intact bilaterally Neck: Neck: Yes normal visual inspection and Yes no meningeal signs Resp: Effort & Inspection: normal respiratory effort and no respiratory distress Cardio: Rate: regular rate Skin: Rashes: no rashes Wounds: no wounds Neuro: General: patient oriented x3, tone normal, moves all extremities and no meningeal signs Cranial nerves: Yes CN's II-XII intact bilaterally Extrem: General: Yes normal to inspection Psych: Thought content: suicidality and no homicidality Course Course Course Narrative: -1100--patient currently refusing lab draw and UA -1551--patient is still refusing labs -1630--physician observation initiated as patient needs more time to be agreeable to lab draw. ED care transferred to GAVIN Maravilla pending labs and CARE team eval Medical Decision Making Medical Decision Making MDM Narrative: 43-year-old male with a past medical history depression, ETOH use disorder, substance use, schizophrenia, presenting to the ED via EMS from outside [facility] Department. Denies SI/HI. On exam vital signs stable, disheveled, appears under the influence, not forthcoming with information. Concern for substance abuse. Rule out organic causes. Plan: Labs, VORA, CARE team consult Please refer to course for remaining clinical decision making, interpretation of labs/imaging results, and discussions with consultants and/or family members. Differential Diagnosis Differential Diagnoses: The differential diagnosis associated with the presentation includes As above Admission/Observation Consideration of admission/observation: Escalation of care including admission/observation considered Consult Healthcare Provider Management of the patient was discussed with: Behavioral Health Provider Lab Data MDM Lab Attestation statement: I reviewed the patient's lab results. Radiology Impression Discussion of test interpretation with radiology: I have reviewed the radiologist's reading. Independent Historian Clinical information obtained from an independent historian. History obtained from or confirmed by: EMS and Other External Record Review External record reviewed: Inpatient record, Office record, Outpatient record, Prior outpatient labs, Prior outpatient radiology, Primary care record and Outside ED record Tests considered The following testing was considered but not selected: As above Prescription Management I considered prescription management with: Other Chronic Conditions Patient?s care impacted by: Other Social Determinants Patient?s care significantly limited by Social Determinants of Health including: Inadequate housing, Low income, Alcoholism and drug addiction in family, Problems related to primary support group, Unemployment, Problems related to employment and Other Social Determinant of Health Discharge Plan Discharge Clinical Impression: Psychiatric illness Patient Disposition: Still a Patient Prescriptions: No Action risperidone 4 mg tablet 4 mg PO BEDTIME 30 Days Qty: 30 0RF benztropine 1 mg tablet 1 mg PO DAILY 30 Days Qty: 30 0RF Interventions: [place]-Suicide Risk Severity Scale Last Done: 08/18/24 05:45 Print Language: Mauritian
--- NOTE | 2024-08-18 10:40 | PC.NURSE ---
Patient refusing blood draw no, my blood is fine . patient made aware of need for blood draw to be seen, patient continues to refuse
--- NOTE | 2024-08-18 17:02 | PC.NURSE ---
Patient continues to refuse blood draw
[2024-08-18 17:48] LABS: Appearance Urine Clear; Color Urine Yellow; Glucose Urine UA Negative (Negative); Leukocyte Esterase Urine Negative (Negative); Nitrite Urine Negative (Negative); Urine Blood Negative (Negative); Urine Ketones Negative (Negative); Urine Protein Negative (Neg-Trace)
[2024-08-18 17:54] LABS: Bacteria Urine None Seen (None Seen); Hyaline Casts Urine 0-2 /LPF (0-2); RBC Urine 0-2 /HPF (0-2); WBC Urine 0-5 /HPF (0-5)
[2024-08-18 17:57] VITALS: BP 109/63; PULSE 82; RESP 18; TEMP 36.8; O2SAT 98
[2024-08-18 18:00] LABS: Amphetamine Screen Urine Not Detected (Not Detect); Barbiturates, Urine Not Detected (Not Detect); Benzodiazepines Screen Urine Not Detected (Not Detect); Buprenorphine Scr Not Detected (Not Detect); Cannabinoid Screen Urine Not Detected (Not Detect); Cocaine Screen Urine POSITIVE (Not Detect); Fentanyl, urine Not Detected (Not Detect); Methadone Screen, Urine Not Detected (Not Detect); Opiate Screen Urine Not Detected (Not Detect); Oxycodone Screen Urine Not Detected (Not Detect); Phencyclidine Screen Urine Not Detected (Not Detect)
--- NOTE | 2024-08-19 05:40 | PC.NURSE ---
Patient slept through the night, up twice for bathroom use and for snacks, med rec completed/pending approval, patient has been refusing blood draws per report, patient was assessed by care team with disposition section-12 inpatient bed search, 15 minutes safety check, no behavior and safety concerns.
--- NOTE | 2024-08-19 08:23 | ECG_ITS ---
Test Reason : prolonged qtc Blood Pressure : */* mmHG Vent. Rate : 60 BPM Atrial Rate : 60 BPM P-R Int : 118 ms QRS Dur : 86 ms QT Int : 406 ms P-R-T Axes : 51 85 65 degrees QTcB Int : 406 ms Normal sinus rhythm Normal ECG When compared with ECG of 31-Jul-2024 09:30, No significant change was found Referred By: Alejandro Aguilar Electronically Signed By: Stuart Gary
[2024-08-19 08:57] LABS: MANUAL DIFF FLAG NO
[2024-08-19 09:00] LABS: Basophils Percent Auto 0.5 % (0-2); Eosinophils Absolute Auto 0.3 X10*3/uL (0.0-0.4); Eosinophils Percent Auto 4.7 % (0-4); Imm Gran Abs Auto 0.01 X10*3/uL (0.00-0.03); Imm Gran Pct Auto 0.2 % (0.0-0.4); Lymphocytes Absolute Auto 2.3 X10*3/uL (1.2-4.9); Lymphocytes Percent Auto 35.8 % (20-40); Mean Corpuscular HGB Conc 33.3 g/dl (31.0-36.0); Mean Corpuscular Hemoglobin 31.5 pg (27.0-33.0); Mean Corpuscular Volume 94.4 fL (80.0-98.0); Mean Platelet Volume 9.2 fL (9.4-12.4); Monocytes Absolute Auto 0.6 X10*3/uL (0.1-1.2); Monocytes Percent Auto 9.5 % (2-11); Neutrophils Absolute Auto 3.2 x10*3/uL (2.0-8.3); Neutrophils Percent Auto 49.3 % (45-73); Platelet Count 288 X10*3/uL (160-400); Red Blood Count 4.45 X10*6/uL (4.60-5.80); White Blood Count 6.4 X10*3/uL (4.8-10.8)
[2024-08-19 09:16] LABS: Acetaminophen LAB < 3 mcg/mL (<30); Alanine Aminotransferase 28 U/L (0-40); Albumin Level 4.8 g/dL (3.5-5.0); Alkaline Phosphatase 64 U/L (39-117); Anion Gap 13 (12-20); Aspartate Amino Transferase 22 U/L (5-37); Bilirubin Total 0.3 mg/dL (0.0-1.0); Blood Urea Nitrogen 20 mg/dL (9-16); Calcium 9.4 mg/dL (8.4-10.2); Carbon Dioxide 23 mmol/L (22-29); Chloride 109 mmol/L (96-108); Creatinine Clr Calc Pharmacy 118.4; Estimated Glomerular Filt Rate > 60; Ethanol < 10 mg/dL; Glucose Random 78 mg/dL (60-115); Magnesium 2.3 mg/dL (1.6-2.6); Potassium 4.4 mmol/L (3.3-5.1); Salicylate < 5.0 mg/dL (15-30); Sodium 141 mmol/L (135-145); Total Protein 8.3 g/dL (6.5-8.0)
--- NOTE | 2024-08-19 12:09 | PC.NURSE ---
Patient has been cooperative and asks for snacks and things appropriately. Patient spoke to manager cath lab to help him deal whats going on in his head. He allowed Edith to draw his blood and get an EKG.
--- NOTE | 2024-08-19 12:40 | PHA.MEDREC ---
Pharmacy Consult ? Medication Reconciliation Pharmacy has completed the medication reconciliation. Pharmacy has reviewed med rec completed by nursing and compared to claims and discharge from this facility in July.
--- NOTE | 2024-08-19 13:14 | PC.NURSE ---
Patient came up to this RN states a patient came up out of floor and sat in her chair and was staring at her. She came out confirm it wasn't true.
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
--- NOTE | 2024-08-19 14:37 | PC.NURSE ---
Pt declined to receive flu vaccine at this time.
[2024-08-19 16:17] VITALS: BMI 19.8
[2024-08-19 16:36] VITALS: BP 114/68; PULSE 72; RESP 16; TEMP 36.1; O2SAT 100
--- NOTE | 2024-08-19 17:29 | PC.ADMIT ---
Benito is a 43 year old male admitted to at 13:28 from [facility] on a CV and 3 day for unspecified depressive disorder and cocaine use. Tox screen was positive for cocaine. Last use was just prior to admission. Pt was BIBA after presenting to [facility] stating he felt unsafe at [facility] . Upon arrival to , pt was pleasant and cooperative. Skin check completed which revealed healed scars on his chest. P that he sometimes say I want to but I just say things when I'm upset, ya know?
--- NOTE | 2024-08-19 17:44 | PC.ADMIT ---
Benito is a 43 year old male admitted to [facility] at 13:28 from [facility] on a CV for treatment of unspecified depressive disorder and substance use. Tox screen was positive for cocaine. Last use was just prior to admission. Pt was BIBA after presenting to [facility] stating he felt unsafe at [facility] and needed to be checked out . Upon arrival to , pt was pleasant and cooperative. Affect is blunted. Skin check was complete revealing small healed scars on chest. When RN asked how he was feeling, pt stated, The dog . The woman on the TV show, Cherelle, her dog just . Pt has poor insight stating I'm not really sure why I'm back here. I thought I was doing the right thing by telling the police I wasn't feeling safe where I was. Pt is a poor historian, reporting seeing a therapist either again in 2 months or in 5 weeks. He also stated they keep putting my meds up but I don't know why. Benito stated he was interested in exploring other treatment options such as therapy to figure out the main problem here. Pt is homeless. Pt reports AH/VH, primarily VH of flies. Denies SI/HI. Pt placed on 15 minute checks.
[2024-08-19 20:00] VITALS: BP 96/65; PULSE 63; RESP 16; TEMP 36.6; O2SAT 100
[2024-08-19] MEDS: risperiDONE 2 MG TABLET 4 MG PO (20:47)
[2024-08-20] MEDS: Benztropine Mesylate 1 MG TABLET PO (07:52)
[2024-08-20] MEDS: Nicotine Polacrilex 2 MG GUM 4 MG BUCCAL (07:52)
[2024-08-20 08:00] VITALS: BP 102/61; PULSE 65; RESP 14; TEMP 36.4; O2SAT 98
--- NOTE | 2024-08-20 15:14 | P.PNPSI_ITS ---
Subjective Subjective Date of Service: 08/20/24 Reason For Visit: mental health eval, homeless, no si/hi Interim History: interested in referral to [facility]. retracted 3-day. took meds last night. more engaging today. per staff, 3-day up saturday. cocaine POS utox. slept 7 hours. Mental Status Exam Mental Status Exam Narrative: Pt is alert and oriented; behavior is not guarded; patient is not in distress; dressed and groomed adequately; mood is not assessed, affect constricted; eye contact appropriate; Speech is nml rate amount loudness tone latency; no psychomotor agitation/retardation present; thought process linear and logical; Thought content is on finding [facility]; no SI/HI/AVH expressed. Patients insight and judgment impaired Diagnostics Vital Signs (24Hr): Vital Signs - 24 hr 08/19/24 16:36 08/19/24 20:00 08/20/24 08:00 Temperature 97 F 98 F 97.5 F Pulse Rate 72 63 65 Respiratory Rate 16 16 14 Blood Pressure 114/68 96/65 102/61 Pulse Oximetry 100 100 98 Oxygen Delivery Method Room Air Room Air Room Air BMI result Body Mass Index 20.0 Labs 08/19/24 08:51 08/19/24 08:51 Labs: Laboratory Results - last 48 hr 08/18/24 08/19/24 17:30 08:51 WBC 6.4 RBC 4.45 L Hgb 14.0 Hct 42.0 MCV 94.4 MCH 31.5 MCHC 33.3 RDW 13.0 Plt Count 288 MPV 9.2 L Immature Gran % (Auto) 0.2 Neut % (Auto) 49.3 Lymph % (Auto) 35.8 Rooks % (Auto) 9.5 Eos % (Auto) 4.7 H Baso % (Auto) 0.5 Lymph # (Auto) 2.3 Rooks # (Auto) 0.6 Eos # (Auto) 0.3 Baso # (Auto) 0.0 Abs Immat Gran (auto) 0.01 Absolute Neuts (auto) 3.2 Absolute Nucleated RBC 0.000 Nucleated RBC % (auto) 0.0 Sodium 141 Potassium 4.4 Chloride 109 H Carbon Dioxide 23 Anion Gap 13 BUN 20 H Creatinine 0.73 Estim Creat Clear Calc 118.4 Estimated GFR > 60 Random Glucose 78 Calcium 9.4 D Magnesium 2.3 Total Bilirubin 0.3 AST 22 ALT 28 Alkaline Phosphatase 64 Total Protein 8.3 H Albumin 4.8 Urine Color Yellow Urine Appearance Clear Urine pH 6.0 Ur Specific [place] 1.020 Urine Protein Negative Urine Glucose (UA) Negative Urine Ketones Negative Urine Blood Negative Urine Nitrite Negative Ur Leukocyte Esterase Negative Urine RBC 0-2 Urine WBC 0-5 Ur Squamous Epith Cells 6-10 Urine Bacteria None Seen Hyaline Casts 0-2 Salicylates < 5.0 L Urine Opiates Screen Not Detected Ur Buprenorphine Scrn Not Detected Ur Oxycodone Screen Not Detected Urine Methadone Screen Not Detected Urine Fentanyl Screen Not Detected Acetaminophen < 3 Ur Barbiturates Screen Not Detected Ur Phencyclidine Scrn Not Detected Ur Amphetamines Screen Not Detected U Benzodiazepines Scrn Not Detected Urine Cocaine Screen POSITIVE H U Marijuana (THC) Screen Not Detected Ethyl Alcohol < 10 Medications Medications Current Medications Acetaminophen (Acetaminophen 325 Mg Tablet) 650 mg PO Q6H PRN PRN Reason: Headache/Pain Mild Scale (1-3) Al Hydroxide/Mg Hydroxide (Magnesium Hydrox/Alum Hydrox 30 Ml Oral.Susp) 30 ml PO Q6H PRN PRN Reason: Heartburn/Nausea Benztropine Mesylate (Benztropine Mesylate 1 Mg Tablet) 1 mg PO DAILY [facility] Last Admin: 08/20/24 07:52 Dose: 1 mg Hydroxyzine HCl (Hydroxyzine Hcl 25 Mg Tablet) 25 mg PO Q6H PRN PRN Reason: Anxiety Magnesium Hydroxide (Milk Of Magnesia 30 Ml Oral.Susp) 30 ml PO DAILY PRN PRN Reason: Constipation Nicotine Polacrilex (Nicotine Polacrilex 2 Mg Gum) 4 mg BUCCAL Q2H PRN PRN Reason: Nicotine Cravings Last Admin: 08/20/24 07:52 Dose: 4 mg Risperidone (Risperidone 2 Mg Tablet) 4 mg PO BEDTIME [facility] Last Admin: 08/19/24 20:47 Dose: 4 mg Trazodone HCl (Trazodone Hcl 50 Mg Tablet) 50 mg PO BEDTIME MRX1 PRN PRN Reason: Insomnia Allergies Allergies Allergy/AdvReac Type Severity Reaction Status Date / Time No Known Allergies Allergy Verified 08/18/24 05:41 Assessment & Plan Assessment & Plan (1) Schizophrenia: Qualifiers: Schizophrenia type: unspecified Qualified Code(s): F20.9 - Schizophrenia, unspecified Status: Acute Code(s): F20.9 - Schizophrenia, unspecified (2) Cocaine use disorder: Status: Acute Code(s): F14.10 - Cocaine abuse, uncomplicated Plan 08/19: restart prior regimen of risperidone 4 mg and cogentin 1 QHS for schizophrenia. pt signed CV and 3-day notice. 3-day matures next saturday. supportive care for cocaine withdrawal. 08/20: 3-day notice withdrawn. looking to work with SW to get into [facility]. took meds last night. continue current mgmt. Reason for continued inpatient stay Substantial Risk for: inability to function and rapid decompensation Time Spent With Patient Time: Total time managing care of this patient today __25__ minutes.
[2024-08-20 20:00] VITALS: BP 117/78; PULSE 57; RESP 16; TEMP 36.4; O2SAT 99
[2024-08-20] MEDS: risperiDONE 2 MG TABLET 4 MG PO (20:17)
[2024-08-21 07:58] VITALS: BP 96/54; PULSE 57; RESP 16; TEMP 36.7; O2SAT 99
[2024-08-21] MEDS: Nicotine Polacrilex 2 MG GUM 4 MG BUCCAL ×3 (08:26→21:12)
--- NOTE | 2024-08-21 15:19 | HO.PSYCHPN ---
Subjective Subjective Date of Service: 08/21/24 Reason For Visit: mental health eval, homeless, no si/hi Interim History: engaging, pleasant. reiterates his plan to call [facility] saturday about a bed. reports his mood is Fine, and he is eating well. per staff, wants help finding housing. Mental Status Exam Mental Status Exam Narrative: Pt is alert and oriented; behavior is not guarded; patient is not in distress; dressed and groomed adequately; mood is fine. affect constricted; eye contact appropriate; Speech is nml rate amount loudness tone latency; no psychomotor agitation/retardation present; thought process linear and logical; Thought content is on finding care home; no SI/HI/AVH expressed. Patients insight and judgment impaired Diagnostics Vital Signs (24Hr): Vital Signs - 24 hr 08/20/24 20:00 08/21/24 07:58 Temperature 97.6 F 98.1 F Pulse Rate 57 57 Respiratory Rate 16 16 Blood Pressure 117/78 96/54 L Pulse Oximetry 99 99 Oxygen Delivery Method Room Air Room Air BMI result Body Mass Index 20.0 Labs 08/19/24 08:51 08/19/24 08:51 Medications Medications Current Medications Acetaminophen (Acetaminophen 325 Mg Tablet) 650 mg PO Q6H PRN PRN Reason: Headache/Pain Mild Scale (1-3) Al Hydroxide/Mg Hydroxide (Magnesium Hydrox/Alum Hydrox 30 Ml Oral.Susp) 30 ml PO Q6H PRN PRN Reason: Heartburn/Nausea Benztropine Mesylate (Benztropine Mesylate 1 Mg Tablet) 1 mg PO DAILY [facility] Last Admin: 08/21/24 08:24 Dose: Not Given Hydroxyzine HCl (Hydroxyzine Hcl 25 Mg Tablet) 25 mg PO Q6H PRN PRN Reason: Anxiety Magnesium Hydroxide (Milk Of Magnesia 30 Ml Oral.Susp) 30 ml PO DAILY PRN PRN Reason: Constipation Nicotine Polacrilex (Nicotine Polacrilex 2 Mg Gum) 4 mg BUCCAL Q2H PRN PRN Reason: Nicotine Cravings Last Admin: 08/21/24 11:35 Dose: 4 mg Risperidone (Risperidone 2 Mg Tablet) 4 mg PO BEDTIME [facility] Last Admin: 08/20/24 20:17 Dose: 4 mg Trazodone HCl (Trazodone Hcl 50 Mg Tablet) 50 mg PO BEDTIME MRX1 PRN PRN Reason: Insomnia Allergies Allergies Allergy/AdvReac Type Severity Reaction Status Date / Time No Known Allergies Allergy Verified 08/18/24 05:41 Assessment & Plan Assessment & Plan (1) Schizophrenia: Qualifiers: Schizophrenia type: unspecified Qualified Code(s): F20.9 - Schizophrenia, unspecified Status: Acute Code(s): F20.9 - Schizophrenia, unspecified (2) Cocaine use disorder: Status: Acute Code(s): F14.10 - Cocaine abuse, uncomplicated Plan 08/19: restart prior regimen of risperidone 4 mg and cogentin 1 QHS for schizophrenia. pt signed CV and 3-day notice. 3-day matures next saturday. supportive care for cocaine withdrawal. 08/20: 3-day notice withdrawn. looking to work with SW to get into care home. took meds last night. continue current mgmt. 08/21: improved. continue current mgmt. accelerate care home search saturday. Reason for continued inpatient stay Substantial Risk for: rapid decompensation Time Spent With Patient Time: Total time managing care of this patient today __25__ minutes.
[2024-08-21 20:00] VITALS: BP 107/64; PULSE 63; RESP 16; TEMP 37.1; O2SAT 98
[2024-08-21] MEDS: risperiDONE 2 MG TABLET 4 MG PO (21:11)
[2024-08-22 08:15] VITALS: BP 108/67; PULSE 83; RESP 14; TEMP 36.4; O2SAT 99
--- NOTE | 2024-08-22 08:40 | HO.PSYCHPN ---
Subjective Subjective Date of Service: 08/22/24 Reason For Visit: mental health eval, homeless, no si/hi Subjective Notes: Conditional Voluntary Healthcare Proxy: No Guardianship: No Medical Problems Affecting Mental Status: No Interim History: 43 yo WM reports he is doing better back on 4mg risperidone but doesn't find he needs cogentin scheduled- says thoughts seem more able to be followed- Medication Compliance: Yes Side effects from medications: No Attending Groups: Yes Review of Systems Medical Review of Systems: unchanged Mental Status Exam Mental Status Exam Patient Appearance: Disheveled and Unkempt Patient Orientation: Person, Place and Situation Level of Consciousness: Awake Patient Behavior: Appropriate, Cooperative and Good Eye Contact Mood Description: Calm Affect Description: Blunted Patient Cognition Impaired: No Ability to Follow Directions: Good Speech Pattern: Clear Hallucinations: None Delusions: Not Present Thought Process: Intact Thought Content: positive for [place] Depressive Symptoms: Difficulty Concentrating Judgement: Fair Diagnostics Vital Signs (24Hr): Vital Signs - 24 hr 08/21/24 20:00 08/22/24 08:15 Temperature 98.7 F 97.6 F Pulse Rate 63 83 Respiratory Rate 16 14 Blood Pressure 107/64 108/67 Pulse Oximetry 98 99 Oxygen Delivery Method Room Air Room Air BMI result Body Mass Index 20.0 Labs 08/19/24 08:51 08/19/24 08:51 Medications Medications Current Medications Acetaminophen (Acetaminophen 325 Mg Tablet) 650 mg PO Q6H PRN PRN Reason: Headache/Pain Mild Scale (1-3) Al Hydroxide/Mg Hydroxide (Magnesium Hydrox/Alum Hydrox 30 Ml Oral.Susp) 30 ml PO Q6H PRN PRN Reason: Heartburn/Nausea Benztropine Mesylate (Benztropine Mesylate 1 Mg Tablet) 1 mg PO DAILY [facility] Last Admin: 08/21/24 08:24 Dose: Not Given Hydroxyzine HCl (Hydroxyzine Hcl 25 Mg Tablet) 25 mg PO Q6H PRN PRN Reason: Anxiety Magnesium Hydroxide (Milk Of Magnesia 30 Ml Oral.Susp) 30 ml PO DAILY PRN PRN Reason: Constipation Nicotine Polacrilex (Nicotine Polacrilex 2 Mg Gum) 4 mg BUCCAL Q2H PRN PRN Reason: Nicotine Cravings Last Admin: 08/21/24 21:12 Dose: 4 mg Risperidone (Risperidone 2 Mg Tablet) 4 mg PO BEDTIME [facility] Last Admin: 08/21/24 21:11 Dose: 4 mg Trazodone HCl (Trazodone Hcl 50 Mg Tablet) 50 mg PO BEDTIME MRX1 PRN PRN Reason: Insomnia Allergies Allergies Allergy/AdvReac Type Severity Reaction Status Date / Time No Known Allergies Allergy Verified 08/18/24 05:41 Assessment & Plan Assessment & Plan (1) Schizophrenia: Qualifiers: Schizophrenia type: unspecified Qualified Code(s): F20.9 - Schizophrenia, unspecified Status: Acute Code(s): F20.9 - Schizophrenia, unspecified (2) Cocaine use disorder: Status: Acute Code(s): F14.10 - Cocaine abuse, uncomplicated Plan 08/19: restart prior regimen of risperidone 4 mg and cogentin 1 QHS for schizophrenia. pt signed CV and 3-day notice. 3-day matures next saturday. supportive care for cocaine withdrawal. 08/20: 3-day notice withdrawn. looking to work with SW to get into [facility]. took meds last night. continue current mgmt. 08/21: improved. continue current mgmt. accelerate [facility] search saturday. Patient educated on: medication risk/benefits Informed Consent: understands Reason for continued inpatient stay Substantial Risk for: rapid decompensation Time Spent With Patient Time: Total time managing care of this patient today ____ minutes.
[2024-08-22] MEDS: Benztropine Mesylate 1 MG TABLET PO (09:25)
[2024-08-22] MEDS: Nicotine Polacrilex 2 MG GUM 4 MG BUCCAL ×2 (09:29→20:07)
[2024-08-22 20:00] VITALS: BP 104/55; PULSE 58; RESP 16; TEMP 36.7; O2SAT 99
[2024-08-22] MEDS: risperiDONE 2 MG TABLET 4 MG PO (20:07)
[2024-08-23 07:56] VITALS: BP 105/60; PULSE 59; RESP 6; TEMP 36.3; O2SAT 100
[2024-08-23] MEDS: Benztropine Mesylate 1 MG TABLET PO (08:24)
--- NOTE | 2024-08-23 11:51 | HO.PSYCHPN ---
Subjective Subjective Date of Service: 08/23/24 Reason For Visit: mental health eval, homeless, no si/hi Subjective Notes: Conditional Voluntary Healthcare Proxy: No Guardianship: No Medical Problems Affecting Mental Status: No Medication Compliance: Yes Side effects from medications: No Attending Groups: Yes Review of Systems Acute medical concerns: No Medical Review of Systems: unchanged Mental Status Exam Mental Status Exam Patient Appearance: Unkempt Patient Orientation: Person, Place, Time and Situation Level of Consciousness: Awake Patient Behavior: Appropriate Mood Description: Calm Affect Description: Blunted Patient Cognition Impaired: No Ability to Follow Directions: Fair Speech Pattern: Clear Hallucinations: None Thought Process: Intact Thought Content: positive for Goal Oriented Judgement: Fair Diagnostics Vital Signs (24Hr): Vital Signs - 24 hr 08/22/24 20:00 08/23/24 07:56 Temperature 98.0 F 97.3 F Pulse Rate 58 59 Respiratory Rate 16 6 L Blood Pressure 104/55 L 105/60 Pulse Oximetry 99 100 Oxygen Delivery Method Room Air Room Air BMI result Body Mass Index 20.0 Labs 08/19/24 08:51 08/19/24 08:51 Medications Medications Current Medications Acetaminophen (Acetaminophen 325 Mg Tablet) 650 mg PO Q6H PRN PRN Reason: Headache/Pain Mild Scale (1-3) Al Hydroxide/Mg Hydroxide (Magnesium Hydrox/Alum Hydrox 30 Ml Oral.Susp) 30 ml PO Q6H PRN PRN Reason: Heartburn/Nausea Benztropine Mesylate (Benztropine Mesylate 1 Mg Tablet) 1 mg PO BID PRN PRN Reason: stiffness Hydroxyzine HCl (Hydroxyzine Hcl 25 Mg Tablet) 25 mg PO Q6H PRN PRN Reason: Anxiety Magnesium Hydroxide (Milk Of Magnesia 30 Ml Oral.Susp) 30 ml PO DAILY PRN PRN Reason: Constipation Nicotine Polacrilex (Nicotine Polacrilex 2 Mg Gum) 4 mg BUCCAL Q2H PRN PRN Reason: Nicotine Cravings Last Admin: 08/22/24 20:07 Dose: 4 mg Risperidone (Risperidone 2 Mg Tablet) 4 mg PO BEDTIME [facility] Last Admin: 08/22/24 20:07 Dose: 4 mg Trazodone HCl (Trazodone Hcl 50 Mg Tablet) 50 mg PO BEDTIME MRX1 PRN PRN Reason: Insomnia Allergies Allergies Allergy/AdvReac Type Severity Reaction Status Date / Time No Known Allergies Allergy Verified 08/18/24 05:41 Assessment & Plan Assessment & Plan (1) Schizophrenia: Qualifiers: Schizophrenia type: unspecified Qualified Code(s): F20.9 - Schizophrenia, unspecified Status: Acute Code(s): F20.9 - Schizophrenia, unspecified (2) Cocaine use disorder: Status: Acute Code(s): F14.10 - Cocaine abuse, uncomplicated Plan 08/19: restart prior regimen of risperidone 4 mg and cogentin 1 QHS for schizophrenia. pt signed CV and 3-day notice. 3-day matures next saturday. supportive care for cocaine withdrawal. 08/20: 3-day notice withdrawn. looking to work with SW to get into [facility]. took meds last night. continue current mgmt. 08/21: improved. continue current mgmt. accelerate [facility] search saturday. Patient educated on: medication risk/benefits Informed Consent: understands Reason for continued inpatient stay Substantial Risk for: rapid decompensation Time Spent With Patient Time: Total time managing care of this patient today ____ minutes.
[2024-08-23] MEDS: Nicotine Polacrilex 2 MG GUM 4 MG BUCCAL ×2 (18:55→20:46)
[2024-08-23 20:00] VITALS: BP 109/71; PULSE 66; RESP 18; TEMP 36.6; O2SAT 100
[2024-08-23] MEDS: risperiDONE 2 MG TABLET 4 MG PO (20:44)
[2024-08-24 07:50] VITALS: BP 104/58; PULSE 62; RESP 14; TEMP 36.4; O2SAT 99
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
== END 2024-08-24 10:47 | disposition home or self-care (01) | DRG 885 ==
LOC: HO.ED 15:52 → HO.PADLT16 08-19 12:57
PROVIDERS: Physician Assistant; Admitting Provider Psychiatry & Neurology Psychiatry; Emergency Provider Emergency Medicine; Visit Provider Psychiatry & Neurology Psychiatry
DX: F20.0 Paranoid schizophrenia (principal); Z59.00 Homelessness unspecified; F14.10 Cocaine abuse, uncomplicated
CPT/HCPCS: 36415; 80053; 80143; 80179; 80307; 81001; 83735; 85025; 93005; 99285; S9485

== ENCOUNTER → 2024-08-19 12:57 | Outpatient (BNV) | payer OTHER, SELFPAY | PROVIDERS: Admitting Provider Psychiatry & Neurology Psychiatry; Emergency Provider Emergency Medicine; Visit Provider Psychiatry & Neurology Psychiatry | DX: F20.9 Schizophrenia, unspecified (principal); F14.10 Cocaine abuse, uncomplicated | CPT/HCPCS: 90792; 99231; 99232 ==

== ENCOUNTER 2024-11-04 04:10 | Inpatient (IN) | payer OTHER, SELFPAY ==
--- NOTE | 2024-11-04 | ECG_ITS ---
Test Reason : check qt Blood Pressure : */* mmHG Vent. Rate : 60 BPM Atrial Rate : 60 BPM P-R Int : 116 ms QRS Dur : 94 ms QT Int : 404 ms P-R-T Axes : 44 85 63 degrees QTcB Int : 404 ms Normal sinus rhythm Normal ECG When compared with ECG of 19-Aug-2024 08:52, No significant change was found Referred By: Alejandro Aguilar Electronically Signed By: NILSA CLEMONS
[2024-11-04 04:22] VITALS: BP 98/65; PULSE 68; RESP 16; TEMP 36.6; O2SAT 97; BMI 20.4
[2024-11-04 05:12] LABS: Basophils Absolute Auto 0.1 X10*3/uL (0.0-0.2); Basophils Percent Auto 0.4 % (0-2); Eosinophils Absolute Auto 0.2 X10*3/uL (0.0-0.4); Eosinophils Percent Auto 1.8 % (0-4); Hematocrit 38.7 % (42.0-52.0); Hemoglobin 13.2 g/dl (14.0-18.0); Imm Gran Abs Auto 0.03 X10*3/uL (0.00-0.03); Imm Gran Pct Auto 0.2 % (0.0-0.4); Lymphocytes Absolute Auto 3.5 X10*3/uL (1.2-4.9); Lymphocytes Percent Auto 27.6 % (20-40); MANUAL DIFF FLAG NO; Mean Corpuscular HGB Conc 34.1 g/dl (31.0-36.0); Mean Corpuscular Hemoglobin 31.5 pg (27.0-33.0); Mean Corpuscular Volume 92.4 fL (80.0-98.0); Monocytes Percent Auto 8.1 % (2-11); Neutrophils Absolute Auto 7.9 x10*3/uL (2.0-8.3); Neutrophils Percent Auto 61.9 % (45-73); Platelet Count 275 X10*3/uL (160-400); Red Blood Count 4.19 X10*6/uL (4.60-5.80); White Blood Count 12.8 X10*3/uL (4.8-10.8)
--- NOTE | 2024-11-04 05:21 | ED_ITS ---
HPI - Psych General Chief Complaint: Psychiatric Symptoms Stated Complaint: crisis Time Seen by Provider: 11/04/24 05:13 Source: patient Mode of arrival: ambulatory Limitations: no limitations History of Present Illness ED Provider: DR. Houston HPI Narrative: 44-year-old male with history of schizophrenia on Risperdal he has not been on his medication for a few weeks, patient also admit to using crack cocaine yesterday, no SI, no HI, positive for auditory hallucination. Related Data Previous Rx's ?Medication ?Instructions ?Recorded benztropine 1 mg tablet 1 mg PO BID PRN stiffness 30 days 08/24/24 #60 tabs risperidone 4 mg tablet 4 mg PO BEDTIME 30 days #30 tabs 08/24/24 Allergies Allergy/AdvReac Type Severity Reaction Status Date / Time No Known Allergies Allergy Verified 11/04/24 04:25 Review of Systems 2 Review of Systems: All other systems are reviewed and are negative Constitutional: Reports as per HPI and Reports no additional constitutional complaints Eyes: Reports as per HPI and Reports no additional eye complaints Reports system reviewed and no additional complaints, except as documented Cardiovascular: Reports as per HPI and Reports no additional cardiovascular complaints Respiratory: Reports as per HPI and Reports no additional respiratory complaints Gastrointestinal: Reports as per HPI and Reports no additional gastrointestinal complaints Genitourinary: Reports no additional female genitourinary complaints Musculoskeletal: Reports no additional musculoskeletal complaints Skin/Breast: Reports system reviewed and no additional complaints, except as docu Psychiatric: Reports no additional psychiatric complaints Endocrine: Reports no additional endocrine complaints Hematologic/Lymphatic: Reports no additional hematologic/lymphatic complaints Allergic/Immunologic: Reports no additional allergic/immunologic complaints Reports system reviewed and no additional complaints, except as documented and Reports Abnormal speech present [facility] Past Medical History Medical History Psychiatric illness Depression Alcohol use disorder Cocaine use disorder Opioid abuse Suicide attempt Cocaine abuse Crack cocaine use Heroin abuse Substance abuse Schizophrenia Social History Social History Household Members: None Household Members Other:: Roommate that just moved out Housing: Homeless Do you presently have visiting nurse or other home services: No Unable to assess alcohol history related to: Refusing to respond Alcohol intake: current Alcohol intake frequency: a few times a month Patient Tobacco Use Status: Current everyday Tobacco user Tobacco use type: Cigarette Cigarette Packs Per Day: 2 Cigarettes Per Day: 40.0 Years Smoked: 28 Smoked in Last 30 Days: Yes e-Cigarette/Vaping Use: Never Used Second Hand Smoke Exposure: No Use of substances other than those prescribed or required for medical reasons: Unknown Substance Use Type: Crack/Cocaine and Heroin Advance Directives: No Do you have a plan to hurt others: No Plan service: No Sexual orientation: Straight/Heterosexual Physical Exam 2 Vital Signs: Vital Signs: Last Vital Signs Temp 98.7 F 11/04/24 10:04 Pulse 60 11/04/24 10:04 Resp 18 11/04/24 10:04 BP 90/56 L 11/04/24 10:04 Pulse Ox 98 11/04/24 10:04 O2 Del Method Room Air 11/04/24 10:04 BMI result Body Mass Index 20.4 Vital signs have been reviewed and appear to be correct. Blood pressure elevated. Heart rate normal. Respiratory rate normal. Temperature normal. Oxygen saturation normal. Appearance: Alert. Oriented X3. No acute distress. Head: Normal external exam. Normocephalic. Atraumatic. No Mancuso signs noted. No raccoon eyes noted Eyes: PERRLA. EOMI. Conjunctiva and sclera normal. Eyelids normal. ENT: TM's Normal. Pharynx normal. Uvula midline. Moist mucous membranes. No trismus noted. No drooling noted. No muffled voice noted. Neck: Normal inspection. Neck supple. FROM. No adenopathy. Thyroid Normal. No meningeal signs. No neck mass noted. CVS: Normal heart rate and rhythm. Heart sound normal. No murmurs noted. Pulses normal throughout. Respiratory: No respiratory distress. Painless inspiration. Breath sounds normal. No wheezes/rales/rhonchi noted. Chest nontender. No accessory muscle usage noted or decreased air movement noted. Abdomen: Soft and nontender. Bowel sounds normal in all 4 quadrants. No distention noted. No organomegaly noted. No visible injury noted. Back: No CVA tenderness. Full range of motion noted. Skin: Skin warm and dry. Normal skin color. Normal skin turgor. No rashes/lesions/lacerations noted. Extremities: No lower extremity edema. Extremities exhibit normal range of motion. Extremities nontender. Neuro: Oriented X 3. Cranial nerve exam: II-XII are grossly intact No motor deficit. No sensory deficit. Reflexes normal. Patient Orientation: Person, Place, Time and Situation, okay hygiene and grooming. Fair eye contact, attentive, no tics or tremors. Level of Consciousness: Awake, Appropriate and Alert Patient Behavior: Appropriate, Guarded, Cooperative and Anxious Mood Description: Constricted, Blunted and Apprehensive Affect Description: Constricted, Blunted and Apprehensive Patient Cognition Impaired: No Ability to Follow Directions: Excellent Speech Pattern: Clear, Appropriate and Spontaneous Speech, nonpressured, spontaneous with regular rate and rhythm, normal volume and prosody. No dysarthria. Memory Description: Intact, Immediate Intact and Short Term Intact Hallucinations: Auditory hallucination. Delusions: Not Present Thought Process: Intact Thought Content: positive for Intact, positive for Logical, denies Suicidal Ideation and denies Homicidal Ideation. Depressive Symptoms: Not present. Judgement and Insight: Limited but adequate. Course Reevaluation(s) Reevaluation #1: 44-year-old male with history of schizophrenia came in for auditory hallucination and adjusting his medication. Will start physician observation, care team evaluation. Time: 06:00 Reevaluation #2: Time: 15:46 Date: 11/04/24 Provider: Alejandro Aguilar MD Patient in physician observation for psychiatric evaluation.? No acute events reported overnight. No current complaints. VS stable.? Patient has been accepted for admission to our psychiatric unit and will be admitted. There were no acute events during the day shift today.. Time: 15:46 Medical Decision Making Differential Diagnosis Differential Diagnoses: The differential diagnosis associated with the presentation includes (Medical clearance, electrolyte derangement, severe anemia, acute psychosis.) Admission/Observation Consideration of admission/observation: Escalation of care including admission/observation considered Lab Data MDM Lab Attestation statement: I reviewed the patient's lab results. 11/04/24 05:06 11/04/24 05:06 Labs: Lab Results 11/04/24 11/04/24 Range/Units 05:06 14:25 WBC 12.8 H (4.8-10.8) X10*3/uL RBC 4.19 L (4.60-5.80) X10*6/uL Hgb 13.2 L (14.0-18.0) g/dl Hct 38.7 L (42.0-52.0) % MCV 92.4 (80.0-98.0) fL MCH 31.5 (27.0-33.0) pg MCHC 34.1 (31.0-36.0) g/dl RDW 13.0 (11.0-16.0) % Plt Count 275 (160-400) X10*3/uL MPV 10.0 (9.4-12.4) fL Immature Gran % (Auto) 0.2 (0.0-0.4) % Neut % (Auto) 61.9 (45-73) % Lymph % (Auto) 27.6 (20-40) % [place] % (Auto) 8.1 (2-11) % Eos % (Auto) 1.8 (0-4) % Baso % (Auto) 0.4 (0-2) % Lymph # (Auto) 3.5 (1.2-4.9) X10*3/uL [place] # (Auto) 1.0 (0.1-1.2) X10*3/uL Eos # (Auto) 0.2 (0.0-0.4) X10*3/uL Baso # (Auto) 0.1 (0.0-0.2) X10*3/uL Abs Immat Gran (auto) 0.03 (0.00-0.03) X10*3/uL Absolute Neuts (auto) 7.9 (2.0-8.3) x10*3/uL Absolute Nucleated RBC 0.000 (0.0-0.012) X10*3/uL Nucleated RBC % (auto) 0.0 (0.0-0.2) /100WBC Sodium 139 (135-145) mmol/L Potassium 4.0 (3.3-5.1) mmol/L Chloride 106 (96-108) mmol/L Carbon Dioxide 25 (22-29) mmol/L Anion Gap 12 (12-20) BUN 16 (9-16) mg/dL Creatinine 0.77 (0.5-1.4) mg/dL Estim Creat Clear Calc 109.7 Estimated GFR > 60 Random Glucose 81 (60-115) mg/dL Calcium 9.1 (8.4-10.2) mg/dL Urine Color Yellow Urine Appearance Clear Urine pH 7.0 (5.0-9.0) Ur Specific [place] 1.020 (1.005-1.025) Urine Protein Negative (Neg-Trace) mg/dL Urine Glucose (UA) Negative (Negative) mg/dL Urine Ketones Trace (Negative) mg/dL Urine Blood Negative (Negative) Urine Nitrite Negative (Negative) Ur Leukocyte Esterase Negative (Negative) Urine Opiates Screen Not Detected (Not Detect) Ur Buprenorphine Scrn Not Detected (Not Detect) ng/mL Ur Oxycodone Screen Not Detected (Not Detect) ng/mL Urine Methadone Screen Not Detected (Not Detect) ng/mL Urine Fentanyl Screen Not Detected (Not Detect) Ur Barbiturates Screen Not Detected (Not Detect) Ur Phencyclidine Scrn Not Detected (Not Detect) Ur Amphetamines Screen Not Detected (Not Detect) U Benzodiazepines Scrn Not Detected (Not Detect) Urine Cocaine Screen POSITIVE H (Not Detect) U Marijuana (THC) Screen Not Detected (Not Detect) Ethyl Alcohol < 10 mg/dL Discharge Plan Discharge Clinical Impression: Auditory hallucination Patient Disposition: Admitted As Inpatient Interventions: [place]-Suicide Risk Severity Scale Last Done: 11/04/24 05:43
[2024-11-04 05:22] LABS: Ethanol < 10 mg/dL
[2024-11-04 05:24] LABS: Anion Gap 12 (12-20); Blood Urea Nitrogen 16 mg/dL (9-16); Calcium 9.1 mg/dL (8.4-10.2); Carbon Dioxide 25 mmol/L (22-29); Chloride 106 mmol/L (96-108); Creatinine Clr Calc Pharmacy 109.7; Estimated Glomerular Filt Rate > 60; Glucose Random 81 mg/dL (60-115); Sodium 139 mmol/L (135-145)
--- NOTE | 2024-11-04 07:20 | PC.NURSE ---
Assumed care for pt at 0645. Pt appears to be resting quietly. No apparent behavioral/medical concerns at this time. Continue plan of care for CARE team richard.
[2024-11-04 10:04] VITALS: BP 90/56; PULSE 60; RESP 18; TEMP 37.1; O2SAT 98
--- NOTE | 2024-11-04 10:32 | MHC.CARE ---
Pt will be an inpatient bedsearch
[2024-11-04 14:33] LABS: Appearance Urine Clear; Color Urine Yellow; Glucose Urine UA Negative (Negative); Leukocyte Esterase Urine Negative (Negative); Nitrite Urine Negative (Negative); Urine Blood Negative (Negative); Urine Ketones Trace mg/dL (Negative); Urine Protein Negative (Neg-Trace)
[2024-11-04 14:43] LABS: Amphetamine Screen Urine Not Detected (Not Detect); Barbiturates, Urine Not Detected (Not Detect); Benzodiazepines Screen Urine Not Detected (Not Detect); Buprenorphine Scr Not Detected (Not Detect); Cannabinoid Screen Urine Not Detected (Not Detect); Cocaine Screen Urine POSITIVE (Not Detect); Fentanyl, urine Not Detected (Not Detect); Methadone Screen, Urine Not Detected (Not Detect); Opiate Screen Urine Not Detected (Not Detect); Oxycodone Screen Urine Not Detected (Not Detect); Phencyclidine Screen Urine Not Detected (Not Detect)
[2024-11-04 16:00] VITALS: BP 126/61; PULSE 65; RESP 14; TEMP 36.8; O2SAT 95; BMI 20.1
--- NOTE | 2024-11-04 17:02 | PC.ADMIT ---
44 y/o male admitted on a CV at 1553 from [facility] after self presenting to ED with c/o AH, intermittent SI, and desire to restart psych medications. Pt has hx of schizophrenia and reported he stopped taking his medications, which included Risperdal, several months ago. Pt stated that he stopped medications because it didn't feel right , and also reported they made me go get one medication at a time and that was hard . Pt known to CARE team with long history of substance use treatment, and psych admits. Pt reported hx of crack/cocaine and heroin use. Tox screen positive for cocaine. Pt reported occasional ETOH use, a few times a month . Pt is a 2 ppd cigerette smoker and accepted NRT. Pt currently homeless and staying at a care home on [facility]. Pt c/o non-command AH, I can hear the thoughts in my head and then I hear people saying those thoughts out-loud around me . While in the treatment room with nurse, pt stated Even right now I can hear people talking about things I am thinking. It happens a lot. It's a pattern . When asked about VH, pt stated I'm not sure, but that's a really good question. Pt appeared distracted, internally pre-occupied, often looked to the side of life underwriter, or darted his eyes around the room during conversations. Pt denied active thoughts to harm self or others, and stated that he could seek out staff if feeling unsafe. Pt stated he was not eating or sleeping well due to circumstances of being homeless. Pt stated he was hopeful to restart medications, as he was aware that he was not doing well with his mental health. Pt also reported he hoped to return to [facility] care home after discharge. Pt cooperative with safety check and admission process. Pt declined to sign any ELIZABETH, and stated I'll call my mom myself . Pt placed on 15 minute checks.
[2024-11-04 20:00] VITALS: BP 98/53; PULSE 64; TEMP 36.8; O2SAT 97
[2024-11-04] MEDS: risperiDONE 2 MG TABLET 4 MG PO (20:31)
[2024-11-05 07:57] VITALS: BP 119/59; PULSE 79; TEMP 36.4; O2SAT 97
[2024-11-05] MEDS: Nicotine Polacrilex 2 MG GUM 4 MG BUCCAL ×2 (08:34→21:57)
[2024-11-05] MEDS: hydrOXYzine HCL 25 MG TABLET PO ×2 (08:39→21:57)
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
[2024-11-05 20:00] VITALS: BP 95/50; PULSE 68; RESP 16; TEMP 36.5; O2SAT 99
[2024-11-05] MEDS: risperiDONE 2 MG TABLET 4 MG PO (21:54)
[2024-11-06 08:00] VITALS: BP 108/59; PULSE 71; RESP 16; TEMP 36.4; O2SAT 99
[2024-11-06 09:24] LABS: Estimated Average Glucose 103 mg/dL; Hemoglobin A1C 114.6353 umol/L; Hemoglobin A1c % 5.2 % (<6.0); Total Hemoglobin (HGBA1C) 3412.9319 umol/L
[2024-11-06 09:34] LABS: Cholesterol 158 mg/dL (<200); HDL Cholesterol 51 mg/dL (>40); LDL Cholesterol Calculated 98 mg/dL (<100); Magnesium 1.9 mg/dL (1.6-2.6); Triglycerides 49 mg/dL (<150)
--- NOTE | 2024-11-06 09:39 | HO.PSYCHPN ---
Subjective Subjective Date of Service: 11/06/24 Reason For Visit: schizoaffective; polysubstance use disorder Subjective Notes: Conditional Voluntary Healthcare Proxy: No Guardianship: No Medical Problems Affecting Mental Status: No Interim History: Pt reports voices have decreased. Hydroxyzine is useful for anxiety. Denies SI,HI, VH. Discussed broken tooth and need for dental care. Kari Yeung JORGE has consulted with pt's insurance and pt does have options post discharge for dental care. Will review when we receive these from his insurance company. Does report dental pain. Will begin Amoxicillin. Reports Risperdal is effective and without SE at this time. Medication Compliance: Yes Side effects from medications: No Attending Groups: Intermittent Review of Systems Broken tooth. Medical Review of Systems: unchanged Review of Systems Review of Systems caries broken molar pain Mental Status Exam Mental Status Exam Patient Appearance: Fatigued and Appropriate Patient Orientation: Person, Place, Time and Situation Level of Consciousness: Alert Patient Behavior: Appropriate, Talkative, Cooperative and Good Eye Contact Mood Description: Withdrawn Affect Description: Withdrawn and Flat Patient Cognition Impaired: No Ability to Follow Directions: Good Speech Pattern: Spontaneous Speech Memory Description: Episodic Impaired Hallucinations: Auditory Delusions: Present Thought Process: Distracted Thought Content: positive for [place], positive for Circumstantial, positive for Suicidal Ideation (denies) and positive for Homicidal Ideation (denies) Depressive Symptoms: Increased Fatigue and Thoughts of /Suicide (denies) Judgement: Fair Diagnostics Vital Signs (24Hr): Vital Signs - 24 hr 11/05/24 20:00 Temperature 97.7 F Pulse Rate 68 Respiratory Rate 16 Blood Pressure 95/50 L Pulse Oximetry 99 Oxygen Delivery Method Room Air BMI result Body Mass Index 20.1 Labs 11/04/24 05:06 11/04/24 05:06 Labs: Laboratory Results - last 48 hr 11/04/24 11/06/24 14:25 08:56 Estimat Average Glucose 103 Hemoglobin A1c % 5.2 Magnesium 1.9 Triglycerides 49 Cholesterol 158 LDL Cholesterol, Calc 98 HDL Cholesterol 51 Urine Color Yellow Urine Appearance Clear Urine pH 7.0 Ur Specific [place] 1.020 Urine Protein Negative Urine Glucose (UA) Negative Urine Ketones Trace Urine Blood Negative Urine Nitrite Negative Ur Leukocyte Esterase Negative Urine Opiates Screen Not Detected Ur Buprenorphine Scrn Not Detected Ur Oxycodone Screen Not Detected Urine Methadone Screen Not Detected Urine Fentanyl Screen Not Detected Ur Barbiturates Screen Not Detected Ur Phencyclidine Scrn Not Detected Ur Amphetamines Screen Not Detected U Benzodiazepines Scrn Not Detected Urine Cocaine Screen POSITIVE H U Marijuana (THC) Screen Not Detected Medications Medications Current Medications Acetaminophen (Acetaminophen 325 Mg Tablet) 650 mg PO Q6H PRN PRN Reason: Headache/Pain, Scale 1-10 Al Hydroxide/Mg Hydroxide (Magnesium Hydrox/Alum Hydrox 30 Ml Oral.Susp) 30 ml PO Q6H PRN PRN Reason: Heartburn/Nausea Benztropine Mesylate (Benztropine Mesylate 1 Mg Tablet) 1 mg PO BID PRN PRN Reason: stiffness Hydroxyzine HCl (Hydroxyzine Hcl 25 Mg Tablet) 25 mg PO Q6H PRN PRN Reason: mild anxiety Last Admin: 11/05/24 21:57 Dose: 25 mg Magnesium Hydroxide (Milk Of Magnesia 30 Ml Oral.Susp) 30 ml PO DAILY PRN PRN Reason: Constipation Nicotine Polacrilex (Nicotine Polacrilex 2 Mg Gum) 4 mg BUCCAL Q2H PRN PRN Reason: Nicotine Cravings Last Admin: 11/05/24 21:57 Dose: 4 mg Risperidone (Risperidone 2 Mg Tablet) 4 mg PO BEDTIME HEIDY Last Admin: 11/05/24 21:54 Dose: 4 mg Trazodone HCl (Trazodone Hcl 50 Mg Tablet) 50 mg PO BEDTIME MRX1 PRN PRN Reason: Insomnia Allergies Allergies Allergy/AdvReac Type Severity Reaction Status Date / Time No Known Allergies Allergy Verified 11/04/24 04:25 Assessment & Plan Assessment & Plan (1) Schizophrenia: Qualifiers: Schizophrenia type: unspecified Qualified Code(s): F20.9 - Schizophrenia, unspecified Status: Acute Code(s): F20.9 - Schizophrenia, unspecified Assessment and Plan: 44-year-old male with history of schizophrenia, on Risperdal for several years, presents to [facility] ED on 11/04/2024 for auditory hallucination. He notes that he has been on risperidone for several years. However, he stopped taking the medication 2-3 months ago. His mind has been occupied with multiple life stressors, including thinking about securing and functioning well on a job. He stopped taking Risperdal because he thought he would function well without the medication. His symptoms progressively worsened and therefore, he decided to seek help to get back on his medication, so he went to the ED. He endorses auditory hallucinations and states he has history of AH. He currently denies SI, HI, VH. He became irritable with answering questions during the interview and abruptly left the room. 11/05: Dental pain, caries, molar fracture-WBC elevated slightly- Begin Amoxicillin/Anbesol prn Continue Risperdal. Pt looking at DC next week. Formulation/clinical reasoning: Patient present with auditory hallucination and his mind has been occupied with multiple stressors. This may be related to worsening schizophrenia symptoms due to medication noncompliance. PLAN: Admit to M5. CV 15 minutes check. He is on risperidone 4mg at bedtime which he took last night. Continue current treatment regimen. Diagnostics as needed. Collateral contact. Continue remainder of regime. Encouraged full milieu. Discharge planning. Reason for continued inpatient stay Substantial Risk for: rapid decompensation and med/psych decompensation Time Spent With Patient Time: Total time managing care of this patient today ____ minutes.
[2024-11-06 09:54] LABS: Thyroid Stimulating Hormone 3.27 uIU/mL (0.32-4.0)
[2024-11-06 10:06] LABS: Folate 7.5 ng/mL (> or = 4.0); Vitamin B12 684 pg/mL (200-900)
[2024-11-06] MEDS: Nicotine Polacrilex 2 MG GUM 4 MG BUCCAL (16:00)
[2024-11-06] MEDS: hydrOXYzine HCL 25 MG TABLET PO (16:00)
[2024-11-06 20:00] VITALS: BP 120/66; PULSE 84; TEMP 36.8; O2SAT 97
[2024-11-06] MEDS: risperiDONE 2 MG TABLET 4 MG PO (20:37)
[2024-11-07 08:00] VITALS: BP 104/58; PULSE 66; RESP 16; TEMP 36.8; O2SAT 99
[2024-11-07] MEDS: Nicotine Polacrilex 2 MG GUM 4 MG BUCCAL ×3 (08:47→20:27)
--- NOTE | 2024-11-07 09:15 | P.PNPSI_ITS ---
Subjective Subjective Date of Service: 11/07/24 Reason For Visit: schizoaffective; polysubstance use disorder Interim History: met with patient; discussed with team; reviewed chart says AH a little bit; overall feeling better; craving nicotine; hoping for help with aftercare Mental Status Exam Mental Status Exam Patient Appearance: Fatigued and Appropriate Patient Orientation: Person, Place, Time and Situation Level of Consciousness: Alert Patient Behavior: Appropriate, Talkative, Cooperative and Good Eye Contact Mood Description: Anxious Affect Description: Anxious Patient Cognition Impaired: No Ability to Follow Directions: Good Speech Pattern: Spontaneous Speech Memory Description: Episodic Impaired Hallucinations: Auditory Thought Process: Rumination and Goal Oriented Thought Content: positive for [place], positive for Suicidal Ideation (denies) and positive for Homicidal Ideation (denies) Depressive Symptoms: Thoughts of /Suicide (denies) Judgement: Fair Diagnostics Vital Signs (24Hr): Vital Signs - 24 hr 11/06/24 20:00 Temperature 98.2 F Pulse Rate 84 Blood Pressure 120/66 Pulse Oximetry 97 Oxygen Delivery Method Room Air BMI result Body Mass Index 20.1 Labs 11/04/24 05:06 11/04/24 05:06 Labs: Laboratory Results - last 48 hr 11/06/24 08:56 Estimat Average Glucose 103 Hemoglobin A1c % 5.2 Magnesium 1.9 Triglycerides 49 Cholesterol 158 LDL Cholesterol, Calc 98 HDL Cholesterol 51 Vitamin B12 684 Folate 7.5 TSH 3.27 Free T4 1.20 Medications Medications Current Medications Acetaminophen (Acetaminophen 325 Mg Tablet) 650 mg PO Q6H PRN PRN Reason: Headache/Pain, Scale 1-10 Al Hydroxide/Mg Hydroxide (Magnesium Hydrox/Alum Hydrox 30 Ml Oral.Susp) 30 ml PO Q6H PRN PRN Reason: Heartburn/Nausea Amoxicillin (Amoxicillin 250 Mg Capsule) 250 mg PO BID [facility] Last Admin: 11/07/24 08:47 Dose: 250 mg Benzocaine (Benzocaine 20 % Oral Gel 9 Gm Tube) 1 appl MUCOUS MEM QID PRN; Protocol PRN Reason: dental pain Benztropine Mesylate (Benztropine Mesylate 1 Mg Tablet) 1 mg PO BID PRN PRN Reason: stiffness Hydroxyzine HCl (Hydroxyzine Hcl 25 Mg Tablet) 25 mg PO Q6H PRN PRN Reason: mild anxiety Last Admin: 11/06/24 16:00 Dose: 25 mg Magnesium Hydroxide (Milk Of Magnesia 30 Ml Oral.Susp) 30 ml PO DAILY PRN PRN Reason: Constipation Nicotine Polacrilex (Nicotine Polacrilex 2 Mg Gum) 4 mg BUCCAL Q2H PRN PRN Reason: Nicotine Cravings Last Admin: 11/07/24 08:47 Dose: 4 mg Risperidone (Risperidone 2 Mg Tablet) 4 mg PO BEDTIME HEIDY Last Admin: 11/06/24 20:37 Dose: 4 mg Trazodone HCl (Trazodone Hcl 50 Mg Tablet) 50 mg PO BEDTIME MRX1 PRN PRN Reason: Insomnia Allergies Allergies Allergy/AdvReac Type Severity Reaction Status Date / Time No Known Allergies Allergy Verified 11/04/24 04:25 Assessment & Plan Assessment & Plan (1) Schizophrenia: Qualifiers: Schizophrenia type: unspecified Qualified Code(s): F20.9 - Schizophrenia, unspecified Status: Acute Code(s): F20.9 - Schizophrenia, unspecified Assessment and Plan: 44-year-old male with history of schizophrenia, on Risperdal for several years, presents to [facility] ED on 11/04/2024 for auditory hallucination. He notes that he has been on risperidone for several years. However, he stopped taking the medication 2-3 months ago. His mind has been occupied with multiple life stressors, including thinking about securing and functioning well on a job. He stopped taking Risperdal because he thought he would function well without the medication. His symptoms progressively worsened and therefore, he decided to seek help to get back on his medication, so he went to the ED. He endorses auditory hallucinations and states he has history of AH. He currently denies SI, HI, VH. He became irritable with answering questions during the interview and abruptly left the room. 11/05: Dental pain, caries, molar fracture-WBC elevated slightly- Begin Amoxicillin/Anbesol prn Continue Risperdal. Pt looking at DC next week. 11/07 says AH a little bit; overall feeling better; craving nicotine; hoping for help with aftercare Formulation/clinical reasoning: Patient present with auditory hallucination and his mind has been occupied with multiple stressors. This may be related to worsening schizophrenia symptoms due to medication noncompliance. PLAN: Admit to M5. CV 15 minutes check. He is on risperidone 4mg at bedtime which he took last night. Continue current treatment regimen. Diagnostics as needed. Collateral contact. Continue remainder of regime. Encouraged full milieu. Discharge planning. (2) Cocaine use disorder: Status: Acute Code(s): F14.10 - Cocaine abuse, uncomplicated (3) Homelessness: Status: Inactive Code(s): Z59.00 - Homelessness unspecified Patient educated on: diagnosis, medication risk/benefits and substance abuse Informed Consent: understands Reason for continued inpatient stay Substantial Risk for: stable for discharge Time Spent With Patient Time: Total time managing care of this patient today ____ minutes.
[2024-11-07 19:53] VITALS: BP 106/60; PULSE 81; TEMP 36.4; O2SAT 99
[2024-11-07] MEDS: risperiDONE 2 MG TABLET 4 MG PO (20:27)
[2024-11-08 08:00] VITALS: BP 91/50; PULSE 68; RESP 16; TEMP 36.9; O2SAT 98
[2024-11-08] MEDS: Nicotine Polacrilex 2 MG GUM 4 MG BUCCAL ×2 (08:52→20:08)
--- NOTE | 2024-11-08 13:04 | P.PNPSI_ITS ---
Subjective Subjective Date of Service: 11/08/24 Reason For Visit: schizoaffective; polysubstance use disorder Interim History: met with patient; discussed with team craving cigarettes badly; focused on getting aftercare set up and then discharging talked about mom GAYLE remains minimal Mental Status Exam Mental Status Exam Patient Appearance: Fatigued and Appropriate Patient Orientation: Person, Place, Time and Situation Level of Consciousness: Alert Patient Behavior: Appropriate, Talkative, Cooperative and Good Eye Contact Mood Description: Anxious Affect Description: Anxious Patient Cognition Impaired: No Ability to Follow Directions: Good Speech Pattern: Spontaneous Speech Memory Description: Episodic Impaired Hallucinations: Auditory Thought Process: Rumination and Goal Oriented Thought Content: positive for [place], positive for Suicidal Ideation (denies) and positive for Homicidal Ideation (denies) Depressive Symptoms: Thoughts of /Suicide (denies) Judgement: Fair Diagnostics Vital Signs (24Hr): Vital Signs - 24 hr 11/07/24 19:53 11/08/24 08:00 Temperature 97.6 F 98.4 F Pulse Rate 81 68 Respiratory Rate 16 Blood Pressure 106/60 91/50 L Pulse Oximetry 99 98 Oxygen Delivery Method Room Air BMI result Body Mass Index 20.1 Labs 11/04/24 05:06 11/04/24 05:06 Medications Medications Current Medications Acetaminophen (Acetaminophen 325 Mg Tablet) 650 mg PO Q6H PRN PRN Reason: Headache/Pain, Scale 1-10 Al Hydroxide/Mg Hydroxide (Magnesium Hydrox/Alum Hydrox 30 Ml Oral.Susp) 30 ml PO Q6H PRN PRN Reason: Heartburn/Nausea Amoxicillin (Amoxicillin 250 Mg Capsule) 250 mg PO BID [facility] Last Admin: 11/08/24 08:49 Dose: 250 mg Benzocaine (Benzocaine 20 % Oral Gel 9 Gm Tube) 1 appl MUCOUS MEM QID PRN; Protocol PRN Reason: dental pain Benztropine Mesylate (Benztropine Mesylate 1 Mg Tablet) 1 mg PO BID PRN PRN Reason: stiffness Hydroxyzine HCl (Hydroxyzine Hcl 25 Mg Tablet) 25 mg PO Q6H PRN PRN Reason: mild anxiety Last Admin: 11/06/24 16:00 Dose: 25 mg Magnesium Hydroxide (Milk Of Magnesia 30 Ml Oral.Susp) 30 ml PO DAILY PRN PRN Reason: Constipation Nicotine Polacrilex (Nicotine Polacrilex 2 Mg Gum) 4 mg BUCCAL Q2H PRN PRN Reason: Nicotine Cravings Last Admin: 11/08/24 08:52 Dose: 4 mg Risperidone (Risperidone 2 Mg Tablet) 4 mg PO BEDTIME HEIDY Last Admin: 11/07/24 20:27 Dose: 4 mg Trazodone HCl (Trazodone Hcl 50 Mg Tablet) 50 mg PO BEDTIME MRX1 PRN PRN Reason: Insomnia Allergies Allergies Allergy/AdvReac Type Severity Reaction Status Date / Time No Known Allergies Allergy Verified 11/04/24 04:25 Assessment & Plan Assessment & Plan (1) Schizophrenia: Qualifiers: Schizophrenia type: unspecified Qualified Code(s): F20.9 - Schizophrenia, unspecified Status: Acute Code(s): F20.9 - Schizophrenia, unspecified (2) Nicotine addiction: Status: Acute Code(s): F17.200 - Nicotine dependence, unspecified, uncomplicated (3) Homelessness: Status: Inactive Code(s): Z59.00 - Homelessness unspecified (4) Cocaine use disorder: Status: Acute Code(s): F14.10 - Cocaine abuse, uncomplicated Plan 44-year-old male with history of schizophrenia, on Risperdal for several years, presents to [facility] ED on 11/04/2024 for auditory hallucination. He notes that he has been on risperidone for several years. However, he stopped taking the medication 2-3 months ago. His mind has been occupied with multiple life stressors, including thinking about securing and functioning well on a job. He stopped taking Risperdal because he thought he would function well without the medication. His symptoms progressively worsened and therefore, he decided to seek help to get back on his medication, so he went to the ED. He endorses auditory hallucinations and states he has history of AH. He currently denies SI, HI, VH. He became irritable with answering questions during the interview and abruptly left the room. Formulation/clinical reasoning: Patient present with auditory hallucination and his mind has been occupied with multiple stressors. This may be related to worsening schizophrenia symptoms due to medication noncompliance. Hospital course: 11/05: Dental pain, caries, molar fracture-WBC elevated slightly- Begin Amoxicillin/Anbesol prn Continue Risperdal. Pt looking at DC next week. 11/07 says AH a little bit; overall feeling better; craving nicotine; hoping for help with aftercare 11/08 craving cigarettes badly; focused on getting aftercare set up and then discharging -does not want WILEY talked about relationship with mom AH remains minimal PLAN: Admit to M5. CV 15 minutes check. He is on risperidone 4mg at bedtime which he took last night. Continue current treatment regimen. Diagnostics as needed. Collateral contact. Continue remainder of regime. Encouraged full milieu. Discharge planning. Patient educated on: diagnosis, medication risk/benefits and substance abuse Informed Consent: understands Reason for continued inpatient stay Substantial Risk for: stable for discharge Time Spent With Patient Time: Total time managing care of this patient today ____ minutes.
[2024-11-08 20:00] VITALS: BP 108/71; PULSE 59; TEMP 36.4; O2SAT 99
[2024-11-08] MEDS: risperiDONE 2 MG TABLET 4 MG PO (20:05)
[2024-11-08] MEDS: hydrOXYzine HCL 25 MG TABLET PO (20:08)
[2024-11-09 07:49] VITALS: BP 90/52; PULSE 57; RESP 18; TEMP 36.5; O2SAT 98
--- NOTE | 2024-11-09 10:14 | HO.PSYCHPN ---
Subjective Subjective Date of Service: 11/09/24 Reason For Visit: schizoaffective; polysubstance use disorder Subjective Notes: Conditional Voluntary Healthcare Proxy: No Guardianship: No Medical Problems Affecting Mental Status: No Interim History: Pt reports improvement, feeling ready for discharge, craving a cigarette. Concern about PCP appt and not knowing when this will be- call to PCP office, pt will be seen 12/02/24. Concern about dental fracture- Call to [facility]. Pt will be seen 11/12/24. Pt plans to leave the unit at 830 a.m. He will go to work at [employer] for 9am-1pm and then go to [facility]. He is aware that meds will be at [facility] and states this is a merge with [place] he believes. Denies SI,HI,VH. AH-very little. Denies med SE, review of regime. Pt prepared to discharge. Medication Compliance: Yes Side effects from medications: No Attending Groups: Intermittent Review of Systems Acute medical concerns: No Medical Review of Systems: unchanged Review of Systems Review of Systems Dental Pain-Molar Fx-using abx Mental Status Exam Mental Status Exam Patient Appearance: Appropriate Patient Orientation: Person, Place, Time and Situation Level of Consciousness: Alert Patient Behavior: Talkative and Good Eye Contact Mood Description: Appropriate and Apprehensive Affect Description: Appropriate and Apprehensive Patient Cognition Impaired: No Ability to Follow Directions: Good Speech Pattern: Spontaneous Speech Memory Description: Intact Hallucinations: Auditory (minimal per pt report) Delusions: Not Present Thought Process: Intact and Goal Oriented Thought Content: positive for Intact and positive for Goal Oriented Depressive Symptoms: Increased Anxiety (organizing his discharge and return to work) Judgement: Good Diagnostics Vital Signs (24Hr): Vital Signs - 24 hr 11/08/24 20:00 11/09/24 07:49 Temperature 97.5 F 97.7 F Pulse Rate 59 57 Respiratory Rate 18 Blood Pressure 108/71 90/52 L Pulse Oximetry 99 98 Oxygen Delivery Method Room Air Room Air BMI result Body Mass Index 20.1 Labs 11/04/24 05:06 11/04/24 05:06 Medications Medications Current Medications Acetaminophen (Acetaminophen 325 Mg Tablet) 650 mg PO Q6H PRN PRN Reason: Headache/Pain, Scale 1-10 Al Hydroxide/Mg Hydroxide (Magnesium Hydrox/Alum Hydrox 30 Ml Oral.Susp) 30 ml PO Q6H PRN PRN Reason: Heartburn/Nausea Amoxicillin (Amoxicillin 250 Mg Capsule) 250 mg PO BID [facility] Last Admin: 11/09/24 08:14 Dose: 250 mg Benzocaine (Benzocaine 20 % Oral Gel 9 Gm Tube) 1 appl MUCOUS MEM QID PRN; Protocol PRN Reason: dental pain Benztropine Mesylate (Benztropine Mesylate 1 Mg Tablet) 1 mg PO BID PRN PRN Reason: stiffness Hydroxyzine HCl (Hydroxyzine Hcl 25 Mg Tablet) 25 mg PO Q6H PRN PRN Reason: mild anxiety Last Admin: 11/08/24 20:08 Dose: 25 mg Magnesium Hydroxide (Milk Of Magnesia 30 Ml Oral.Susp) 30 ml PO DAILY PRN PRN Reason: Constipation Nicotine Polacrilex (Nicotine Polacrilex 2 Mg Gum) 4 mg BUCCAL Q2H PRN PRN Reason: Nicotine Cravings Last Admin: 11/08/24 20:08 Dose: 4 mg Risperidone (Risperidone 2 Mg Tablet) 4 mg PO BEDTIME [facility] Last Admin: 11/08/24 20:05 Dose: 4 mg Trazodone HCl (Trazodone Hcl 50 Mg Tablet) 50 mg PO BEDTIME MRX1 PRN PRN Reason: Insomnia Allergies Allergies Allergy/AdvReac Type Severity Reaction Status Date / Time No Known Allergies Allergy Verified 11/04/24 04:25 Assessment & Plan Assessment & Plan (1) Schizophrenia: Qualifiers: Schizophrenia type: unspecified Qualified Code(s): F20.9 - Schizophrenia, unspecified Status: Acute Code(s): F20.9 - Schizophrenia, unspecified (2) Nicotine addiction: Status: Acute Code(s): F17.200 - Nicotine dependence, unspecified, uncomplicated (3) Homelessness: Status: Inactive Code(s): Z59.00 - Homelessness unspecified (4) Cocaine use disorder: Status: Acute Code(s): F14.10 - Cocaine abuse, uncomplicated Plan 44-year-old male with history of schizophrenia, on Risperdal for several years, presents to [facility] on 11/04/2024 for auditory hallucination. He notes that he has been on risperidone for several years. However, he stopped taking the medication 2-3 months ago. His mind has been occupied with multiple life stressors, including thinking about securing and functioning well on a job. He stopped taking Risperdal because he thought he would function well without the medication. His symptoms progressively worsened and therefore, he decided to seek help to get back on his medication, so he went to the ED. He endorses auditory hallucinations and states he has history of AH. He currently denies SI, HI, VH. He became irritable with answering questions during the interview and abruptly left the room. Formulation/clinical reasoning: Patient present with auditory hallucination and his mind has been occupied with multiple stressors. This may be related to worsening schizophrenia symptoms due to medication noncompliance. Hospital course: 11/05: Dental pain, caries, molar fracture-WBC elevated slightly- Begin Amoxicillin/Anbesol prn Continue Risperdal. Pt looking at DC next week. 11/07 says AH a little bit; overall feeling better; craving nicotine; hoping for help with aftercare 11/08 craving cigarettes badly; focused on getting aftercare set up and then discharging -does not want WILEY talked about relationship with mom AH remains minimal 11/09 DC 11/10 PLAN: Admit to [facility]. CV 15 minutes check. He is on risperidone 4mg at bedtime which he took last night. Continue current treatment regimen. Diagnostics as needed. Collateral contact. Continue remainder of regime. Encouraged full milieu. Discharge planning. Reason for continued inpatient stay Substantial Risk for: stable for discharge Time Spent With Patient Time: Total time managing care of this patient today ____ minutes.
[2024-11-09] MEDS: Nicotine Polacrilex 2 MG GUM 4 MG BUCCAL (19:15)
[2024-11-09] MEDS: hydrOXYzine HCL 25 MG TABLET PO (19:15)
[2024-11-09 20:00] VITALS: BP 139/81; PULSE 65; RESP 16; TEMP 36.4; O2SAT 98
[2024-11-09] MEDS: risperiDONE 2 MG TABLET 4 MG PO (20:17)
[2024-11-10 07:44] VITALS: BP 94/53; PULSE 67; RESP 16; TEMP 36.6; O2SAT 98
--- NOTE | 2024-11-10 09:27 | PM.PSYDC ---
DS: Providers Provider Date of Service: 11/10/24 Date of admission: 11/04/24 14:36 Date of discharge: 11/10/24 Primary care physician: Russel Pulido MD Admitting clinician: Anayeli Mir Attending physician on admission: Ming Molina Attending physician on discharge: Ming Molina Discharging clinician: Deonna Pascual DS: Diagnosis Discharge Diagnosis (1) Schizophrenia: Status: Acute (2) Nicotine addiction: Status: Acute (3) Homelessness: Status: Inactive (4) Cocaine use disorder: Status: Acute DS: Medications Discharge Medications Home Medications: Previous Rx's ?Medication ?Instructions ?Recorded amoxicillin 250 mg capsule 250 mg PO BID #14 caps 11/09/24 benztropine 1 mg tablet 1 mg PO BID PRN stiffness 30 days 11/09/24 #30 tabs hydroxyzine HCl 25 mg tablet 25 mg PO Q6H PRN mild anxiety #15 11/09/24 tabs nicotine (polacrilex) 2 mg gum 4 mg buccal Q2H PRN Nicotine 11/09/24 Cravings #110 ea risperidone 4 mg tablet 4 mg PO BEDTIME 30 days #15 tabs 11/09/24 Mental Status Exam Mental Status Exam Patient Appearance: Appropriate Patient Orientation: Person, Place, Time and Situation Level of Consciousness: Alert Patient Behavior: Talkative and Good Eye Contact Mood Description: Appropriate and Apprehensive Affect Description: Appropriate and Apprehensive Patient Cognition Impaired: No Ability to Follow Directions: Good Speech Pattern: Spontaneous Speech Memory Description: Intact Hallucinations: Auditory (minimal per pt report) Delusions: Not Present Thought Process: Intact and Goal Oriented Thought Content: positive for Intact and positive for Goal Oriented Depressive Symptoms: Increased Anxiety (organizing his discharge and return to work) Judgement: Good Data Data Completed and Pending Completed studies during hospitalization [Text1]: 11/04/24 11/04/24 11/06/24 05:06 14:25 08:56 WBC 12.8 H RBC 4.19 L Hgb 13.2 L Hct 38.7 L MCV 92.4 MCH 31.5 MCHC 34.1 RDW 13.0 Plt Count 275 MPV 10.0 Immature Gran % (Auto) 0.2 Neut % (Auto) 61.9 Lymph % (Auto) 27.6 [place] % (Auto) 8.1 Eos % (Auto) 1.8 Baso % (Auto) 0.4 Lymph # (Auto) 3.5 [place] # (Auto) 1.0 Eos # (Auto) 0.2 Baso # (Auto) 0.1 Abs Immat Gran (auto) 0.03 Absolute Neuts (auto) 7.9 Absolute Nucleated RBC 0.000 Nucleated RBC % (auto) 0.0 Sodium 139 Potassium 4.0 Chloride 106 Carbon Dioxide 25 Anion Gap 12 BUN 16 Creatinine 0.77 Estim Creat Clear Calc 109.7 Estimated GFR > 60 Random Glucose 81 Estimat Average Glucose 103 Hemoglobin A1c % 5.2 Calcium 9.1 Magnesium 1.9 Triglycerides 49 Cholesterol 158 LDL Cholesterol, Calc 98 HDL Cholesterol 51 Vitamin B12 684 Folate 7.5 TSH 3.27 Free T4 1.20 Urine Color Yellow Urine Appearance Clear Urine pH 7.0 Ur Specific [place] 1.020 Urine Protein Negative Urine Glucose (UA) Negative Urine Ketones Trace Urine Blood Negative Urine Nitrite Negative Ur Leukocyte Esterase Negative Urine Opiates Screen Not Detected Ur Buprenorphine Scrn Not Detected Ur Oxycodone Screen Not Detected Urine Methadone Screen Not Detected Urine Fentanyl Screen Not Detected Ur Barbiturates Screen Not Detected Ur Phencyclidine Scrn Not Detected Ur Amphetamines Screen Not Detected U Benzodiazepines Scrn Not Detected Urine Cocaine Screen POSITIVE H U Marijuana (THC) Screen Not Detected Ethyl Alcohol < 10 DS: Summary Hospital Course Hospital Course: Admission to adult psychiatry for exacerbation of schizophrenia. Pt had stopped medications over the past 2-3 months, thinking he would be able to have improved performance on a job. Reports also using cocaine to manage sx, toxicology positive for this as well. These interventions were not effective and pt began to experience perceptual alterations. He presented to re-establish regime. Medications were evaluated and re-started. Pt was able to recompensate and communicate his current needs from the team. Reported a molar fracture-amoxicillin started, pt has appt 11/12 with [facility] and PCP appt 12/02. Pt to return to [facility] and will follow up with appointments. He will call/return if needed. Status at Discharge Functional status at discharge: independent ambulation Overall status at discharge: patient is back to baseline Time Spent with Patient Time attestation: Total time managing care of this patient today ____ minutes. Time spent: Less than 30 minutes Discharge Plan Discharge Anticipated Discharge Date/Time: 11/10/24 08:30 Patient Disposition: Detention Discharge Diagnosis: Schizophrenia Cocaine Use Disorder Referrals: Psych Prescriber: Sheyla Phillips ([facility]) [Other] - 11/19/24 11:40 am (Appointment is in person at the office ) Detention: [facility] [Other] - 1 Week [facility] [Other] - 1 Week (Follow up with [facility] as needed for support and assistance with your care. [facility] will assist in picking up your medications from the pharmacy and will continue to dispense your medication to you daily. ) Russel Pulido MD [Primary Care Provider] - 12/02/24 3:20 pm Discharge Medications: New nicotine (polacrilex) 2 mg Gum 4 mg buccal Q2H PRN (Reason: Nicotine Cravings) Qty: 110 0RF amoxicillin 250 mg Capsule 250 mg PO BID Qty: 14 0RF hydroxyzine HCl 25 mg Tablet 25 mg PO Q6H PRN (Reason: mild anxiety) Qty: 15 1RF Continued risperidone 4 mg tablet 4 mg PO BEDTIME 30 Days Qty: 15 1RF benztropine 1 mg Tablet 1 mg PO BID PRN (Reason: stiffness) 30 Days Qty: 30 1RF Discharge Orders: Discharge Order (Routine); Ordered 11/10/24 Ordered By: Deonna Pascual Diet: Advance to usual diet Activity on Discharge: As tolerated Stand Alone Forms: Patient Portal Discharge page, Community Support Print Language: Hong Konger Care Plan Goals: Mood and Behavioral Stabilization Abstinence from substances Health Concerns: Mood and Behavioral Stabilization Abstinence from substances Plan of Treatment: [address] Saavedra [phone] November 2pm They will send you a text to provide medical history. BRING A PHOTO ID AND YOUR INSURANCE CARD Attend scheduled appointments Take medications as directed Assessment: Pt has insight and demonstrates good judgment in terms of wanting to pursue treatment. Pt has a safety plan that includes presenting to the closest ER or calling 911 if feeling unsafe Discharge Date/Time: 11/10/24 08:12
== END 2024-11-10 08:12 | disposition home or self-care (01) | DRG 885 ==
LOC: HO.ED 07:05 → HO.PM5 14:38
PROVIDERS: Emergency Medicine; Admitting Provider Clinical Nurse Specialist Psychiatric/Mental Health, Adult; Emergency Provider Emergency Medicine; PCP Internal Medicine; Visit Provider Clinical Nurse Specialist Psychiatric/Mental Health, Adult
DX: F20.9 Schizophrenia, unspecified (principal); Z59.02 Unsheltered homelessness; F14.10 Cocaine abuse, uncomplicated; Z79.899 Other long term (current) drug therapy
CPT/HCPCS: 36415; 80048; 80061; 80307; 81003; 82607; 82746; 83036; 83735; 84439; 84443; 85025; 93005; 99285; S9485

== ENCOUNTER → 2024-11-04 12:29 | Outpatient (BNV) | payer OTHER, SELFPAY | PROVIDERS: Admitting Provider Clinical Nurse Specialist Psychiatric/Mental Health, Adult; Emergency Provider Emergency Medicine; PCP Internal Medicine; Visit Provider Internal Medicine | DX: I45.9 Conduction disorder, unspecified (principal) | CPT/HCPCS: 93010 ==

== ENCOUNTER → 2024-11-04 14:36 | Outpatient (BNV) | payer OTHER, SELFPAY | PROVIDERS: Admitting Provider Clinical Nurse Specialist Psychiatric/Mental Health, Adult; Emergency Provider Emergency Medicine; PCP Internal Medicine; Visit Provider Nurse Practitioner Family | DX: F20.9 Schizophrenia, unspecified (principal) | CPT/HCPCS: 90792; 99231; 99232 ==

== ENCOUNTER 2024-11-11 05:09 | Inpatient (IN) | payer OTHER, SELFPAY ==
--- NOTE | ~2024-11-11 | XR_ITS ---
EXAMINATION: XR CHEST 1 VIEW HISTORY: cough COMPARISON: Comparison is made with the prior examination to 01/02/2024. FINDINGS: A single PA view of the chest is submitted. The lungs are expanded and clear. There is no pleural effusion, pneumothorax, or pulmonary vascular congestion. The heart is normal in size. The bones are intact. XR/XR chest 1V IMPRESSION: No acute cardiopulmonary abnormality. Electronically signed by: Fermín Bowen MD 11/11/2024 03:33 PM EDT
[2024-11-11 05:16] VITALS: BP 128/78; PULSE 94; O2SAT 98
[2024-11-11 05:29] VITALS: BP 121/64; PULSE 82; RESP 20; TEMP 36.1; O2SAT 97; BMI 19.9
--- NOTE | 2024-11-11 05:32 | MHC.EDTECH ---
pt expressed t/w that he needed to use the bathroom. pt provided with urine cup to provide sample, pt came out of bathroom stating actually, I can't go. rn aware.
--- NOTE | 2024-11-11 07:21 | ED_ITS ---
HPI - Psych General Chief Complaint: Psychiatric Symptoms Stated Complaint: Psych Time Seen by Provider: 11/11/24 07:16 Source: patient and EMS History of Present Illness HPI Narrative: This is a 44 years old male with a history of schizophrenia just discharged from the psychiatric unit yesterday presented to the emergency department requesting a psychiatric evaluation in the denies SI HI he does not know what is real , he is homeless he has a history of cocaine use disorder. Patient was admitted for November 04 to November 10 for decompensated schizophrenia MD complaint: hallucinations Onset (ago): hour(s) (8) Duration: constant History of same: Yes Relieving factors: none Exacerbating factors: none Associated psychiatric symptoms: none Associated symptoms: denies other symptoms Related Data Previous Rx's ?Medication ?Instructions ?Recorded amoxicillin 250 mg capsule 250 mg PO BID #14 caps 11/09/24 benztropine 1 mg tablet 1 mg PO BID PRN stiffness 30 days 11/09/24 #30 tabs hydroxyzine HCl 25 mg tablet 25 mg PO Q6H PRN mild anxiety #15 11/09/24 tabs nicotine (polacrilex) 2 mg gum 4 mg buccal Q2H PRN Nicotine 11/09/24 Cravings #110 ea risperidone 4 mg tablet 4 mg PO BEDTIME 30 days #15 tabs 11/09/24 Allergies Allergy/AdvReac Type Severity Reaction Status Date / Time No Known Allergies Allergy Verified 11/11/24 05:32 Review of Systems 2 Constitutional: Constitutional: Reports no additional constitutional complaints ENT: Reports system reviewed and no additional complaints, except as documented Gastrointestinal: Gastrointestinal: Reports no additional gastrointestinal complaints Psychiatric: Psychiatric: Reports as per HPI [facility] Past Medical History Attestation statement: The following information was validated with the patient. Medical History Nicotine addiction Psychiatric illness Depression Alcohol use disorder Cocaine use disorder Opioid abuse Suicide attempt Cocaine abuse Crack cocaine use Heroin abuse Substance abuse Schizophrenia Social History Social History Household Members: None Household Members Other:: Roommate that just moved out Housing: Homeless Do you presently have visiting nurse or other home services: No Unable to assess alcohol history related to: Refusing to respond Alcohol intake: current Alcohol intake frequency: a few times a month Patient Tobacco Use Status: Current everyday Tobacco user Tobacco use type: Cigarette Cigarette Packs Per Day: 2 Cigarettes Per Day: 40.0 Years Smoked: 28 e-Cigarette/Vaping Use: Never Used Second Hand Smoke Exposure: No Substance Use Type: Crack/Cocaine Advance Directives: No Advance Directives Information Provided: Yes service: No Sexual orientation: Straight/Heterosexual Physical Exam 2 Vital Signs: Vital Signs: Last Vital Signs Temp 97.8 F 11/11/24 10:14 Pulse 65 11/11/24 10:14 Resp 18 11/11/24 10:14 BP 121/70 11/11/24 10:14 Pulse Ox 99 11/11/24 10:14 O2 Del Method Room Air 11/11/24 10:14 BMI result Body Mass Index 19.9 No acute distress comfortable in the stretcher Const: General: cooperative HEENT: Head: Yes normal to inspection General nose exam: Normal external nose present Face and sinus: Yes normal facial exam Neck: Neck: Yes normal visual inspection Chest: Chest palpation & inspection: normal inspection of the chest Resp: Effort & Inspection: normal respiratory effort Auscultation: clear to auscultation bilaterally Cardio: Jugular venous distension: no JVD Rate: regular rate Rhythm: r egular rhythm GI: Inspection: Yes normal to inspection Palpation (GI): Soft to palpation, not firm, nontender and no guarding Skin: General skin exam: no rashes or lesions noted and elasticity normal Extrem: General: Yes normal to inspection Right upper extremity: normal to inspection Course Reevaluation(s) Reevaluation #1: Patient was seen by crisis the patient will be psych inpatient level of care Time: 14:58 Reevaluation #2: labs reviewed white count noted however looking through the record the patient always as an elevated white count was 12.8 11/04; 13.5 Jul 07; 18.9 01/05. He has no fever, his heart rate is normal, urinalysis negative, I do not suspect infection ,will add CXR to complete eval . Time: 15:16 Reevaluation #3: 4 PM CXR done negative ,Signed out to Dr Luna incoming attending Medical Decision Making Medical Decision Making MDM Narrative: Patient is here with history of schizophrenia requesting psychiatric evaluation we will consult care team Differential Diagnosis Differential Diagnoses: The differential diagnosis associated with the presentation includes Decompensated schizophrenia/cocaine use disorder/anxiety Lab Data 11/11/24 09:28 11/11/24 09:15 Labs: Lab Results 11/11/24 11/11/24 11/11/24 Range/Units 09:14 09:15 09:28 WBC 17.8 H (4.8-10.8) X10*3/uL RBC 4.21 L (4.60-5.80) X10*6/uL Hgb 13.4 L (14.0-18.0) g/dl Hct 39.0 L (42.0-52.0) % MCV 92.6 (80.0-98.0) fL MCH 31.8 (27.0-33.0) pg MCHC 34.4 (31.0-36.0) g/dl RDW 13.4 (11.0-16.0) % Plt Count 292 (160-400) X10*3/uL MPV 9.8 (9.4-12.4) fL Immature Gran % (Auto) 0.5 H (0.0-0.4) % Neut % (Auto) 77.9 H (45-73) % Lymph % (Auto) 16.8 L (20-40) % [place] % (Auto) 4.3 (2-11) % Eos % (Auto) 0.2 (0-4) % Baso % (Auto) 0.3 (0-2) % Lymph # (Auto) 3.0 (1.2-4.9) X10*3/uL [place] # (Auto) 0.8 (0.1-1.2) X10*3/uL Eos # (Auto) 0.0 (0.0-0.4) X10*3/uL Baso # (Auto) 0.1 (0.0-0.2) X10*3/uL Abs Immat Gran (auto) 0.09 H (0.00-0.03) X10*3/uL Absolute Neuts (auto) 13.8 H (2.0-8.3) x10*3/uL Absolute Nucleated RBC 0.000 (0.0-0.012) X10*3/uL Nucleated RBC % (auto) 0.0 (0.0-0.2) /100WBC Sodium 140 (135-145) mmol/L Potassium 4.4 (3.3-5.1) mmol/L Chloride 108 (96-108) mmol/L Carbon Dioxide 24 (22-29) mmol/L Anion Gap 12 (12-20) BUN 16 (9-16) mg/dL Creatinine 0.73 (0.5-1.4) mg/dL Estim Creat Clear Calc 113.0 Estimated GFR > 60 Random Glucose 77 (60-115) mg/dL Calcium 9.6 (8.4-10.2) mg/dL Total Bilirubin 0.5 (0.0-1.0) mg/dL Direct Bilirubin 0.1 (0.0-0.5) mg/dL AST 30 (5-37) U/L ALT 19 (0-40) U/L Alkaline Phosphatase 78 (39-117) U/L Total Protein 7.1 (6.5-8.0) g/dL Albumin 4.3 (3.5-5.0) g/dL Urine Color Yellow Urine Appearance Clear Urine pH 6.5 (5.0-9.0) Ur Specific [place] 1.015 (1.005-1.025) Urine Protein Negative (Neg-Trace) mg/dL Urine Glucose (UA) Negative (Negative) mg/dL Urine Ketones Negative (Negative) mg/dL Urine Blood Negative (Negative) Urine Nitrite Negative (Negative) Ur Leukocyte Esterase Negative (Negative) Urine Opiates Screen Not Detected (Not Detect) Ur Buprenorphine Scrn Not Detected (Not Detect) ng/mL Ur Oxycodone Screen Not Detected (Not Detect) ng/mL Urine Methadone Screen Not Detected (Not Detect) ng/mL Urine Fentanyl Screen Not Detected (Not Detect) Ur Barbiturates Screen Not Detected (Not Detect) Ur Phencyclidine Scrn Not Detected (Not Detect) Ur Amphetamines Screen Not Detected (Not Detect) U Benzodiazepines Scrn Not Detected (Not Detect) Urine Cocaine Screen POSITIVE H (Not Detect) U Marijuana (THC) Screen Not Detected (Not Detect) Ethyl Alcohol < 10 mg/dL Discharge Plan Discharge Clinical Impression: Schizophrenia Qualifiers: Schizophrenia type: unspecified Qualified Code(s): F20.9 - Schizophrenia, unspecified Prescriptions: No Action nicotine (polacrilex) 2 mg Gum 4 mg buccal Q2H PRN (Reason: Nicotine Cravings) Qty: 110 0RF amoxicillin 250 mg Capsule 250 mg PO BID Qty: 14 0RF hydroxyzine HCl 25 mg Tablet 25 mg PO Q6H PRN (Reason: mild anxiety) Qty: 15 1RF risperidone 4 mg tablet 4 mg PO BEDTIME 30 Days Qty: 15 1RF benztropine 1 mg Tablet 1 mg PO BID PRN (Reason: stiffness) 30 Days Qty: 30 1RF Interventions: [place]-Suicide Risk Severity Scale Last Done: 11/11/24 05:33 Print Language: Citizen [place]
[2024-11-11 09:33] LABS: Appearance Urine Clear; Color Urine Yellow; Glucose Urine UA Negative (Negative); Leukocyte Esterase Urine Negative (Negative); Nitrite Urine Negative (Negative); PH 6.5 (5.0-9.0); Specific Gravity - Urine 1.015 (1.005-1.025); Urine Blood Negative (Negative); Urine Ketones Negative (Negative); Urine Protein Negative (Neg-Trace)
[2024-11-11 09:36] LABS: MANUAL DIFF FLAG NO
[2024-11-11 09:39] LABS: Basophils Absolute Auto 0.1 X10*3/uL (0.0-0.2); Basophils Percent Auto 0.3 % (0-2); Eosinophils Percent Auto 0.2 % (0-4); Hemoglobin 13.4 g/dl (14.0-18.0); Imm Gran Abs Auto 0.09 X10*3/uL (0.00-0.03); Imm Gran Pct Auto 0.5 % (0.0-0.4); Lymphocytes Percent Auto 16.8 % (20-40); Mean Corpuscular HGB Conc 34.4 g/dl (31.0-36.0); Mean Corpuscular Hemoglobin 31.8 pg (27.0-33.0); Mean Corpuscular Volume 92.6 fL (80.0-98.0); Mean Platelet Volume 9.8 fL (9.4-12.4); Monocytes Absolute Auto 0.8 X10*3/uL (0.1-1.2); Monocytes Percent Auto 4.3 % (2-11); Neutrophils Absolute Auto 13.8 x10*3/uL (2.0-8.3); Neutrophils Percent Auto 77.9 % (45-73); Platelet Count 292 X10*3/uL (160-400); Red Blood Count 4.21 X10*6/uL (4.60-5.80); Red Cell Distribution Width 13.4 % (11.0-16.0); White Blood Count 17.8 X10*3/uL (4.8-10.8)
[2024-11-11 09:41] LABS: Amphetamine Screen Urine Not Detected (Not Detect); Barbiturates, Urine Not Detected (Not Detect); Benzodiazepines Screen Urine Not Detected (Not Detect); Buprenorphine Scr Not Detected (Not Detect); Cannabinoid Screen Urine Not Detected (Not Detect); Cocaine Screen Urine POSITIVE (Not Detect); Fentanyl, urine Not Detected (Not Detect); Methadone Screen, Urine Not Detected (Not Detect); Opiate Screen Urine Not Detected (Not Detect); Oxycodone Screen Urine Not Detected (Not Detect); Phencyclidine Screen Urine Not Detected (Not Detect)
[2024-11-11 09:47] LABS: Alanine Aminotransferase 19 U/L (0-40); Albumin Level 4.3 g/dL (3.5-5.0); Alkaline Phosphatase 78 U/L (39-117); Anion Gap 12 (12-20); Aspartate Amino Transferase 30 U/L (5-37); Bilirubin Direct 0.1 mg/dL (0.0-0.5); Bilirubin Total 0.5 mg/dL (0.0-1.0); Blood Urea Nitrogen 16 mg/dL (9-16); Calcium 9.6 mg/dL (8.4-10.2); Carbon Dioxide 24 mmol/L (22-29); Chloride 108 mmol/L (96-108); Estimated Glomerular Filt Rate > 60; Glucose Random 77 mg/dL (60-115); Potassium 4.4 mmol/L (3.3-5.1); Sodium 140 mmol/L (135-145); Total Protein 7.1 g/dL (6.5-8.0)
[2024-11-11 09:49] LABS: Ethanol < 10 mg/dL
--- NOTE | 2024-11-11 10:00 | PC.NURSE ---
Pt speaking with CARE team, pt noted to be yelling with increasing agitation. I CAN'T COPE WITH REALITY. I SHOULD BE IN LONG TERM OR I SHOULD JUST KILL MYSELF.
--- NOTE | 2024-11-11 10:04 | PC.NURSE ---
Pt noted to be pacing in his room. RN at bedside to speak with pt, medication offered for anxiety. Pt declines need for any medication at this time, pt made aware to let RN know if he feels like he needs any.
[2024-11-11 10:14] VITALS: BP 121/70; PULSE 65; RESP 18; TEMP 36.6; O2SAT 99
--- NOTE | 2024-11-11 10:37 | MHC.CARE ---
Pt meets the criteria for IPLOC at this time. Section 12a in chart. Provider in agreement with disposition.
--- NOTE | 2024-11-11 11:28 | ECG_ITS ---
Test Reason : QTC MONITORING Blood Pressure : */* mmHG Vent. Rate : 62 BPM Atrial Rate : 62 BPM P-R Int : 128 ms QRS Dur : 92 ms QT Int : 416 ms P-R-T Axes : 49 77 55 degrees QTcB Int : 422 ms Normal sinus rhythm Normal ECG When compared with ECG of 04-Nov-2024 12:29, No significant change was found Referred By: Jacoby Myers Electronically Signed By: Stuart Gary
--- NOTE | 2024-11-11 15:22 | PC.NURSE ---
patient escorted by automotive brake technician and security to xray.
[2024-11-11 16:49] VITALS: BMI 20.4
[2024-11-11 17:10] VITALS: BP 109/65; PULSE 70; RESP 18; TEMP 37; O2SAT 98
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
[2024-11-11 20:00] VITALS: BP 112/65; PULSE 68; TEMP 36.9; O2SAT 98
[2024-11-11] MEDS: risperiDONE 2 MG TABLET 4 MG PO (20:33)
[2024-11-12 08:04] LABS: MANUAL DIFF FLAG NO
[2024-11-12 08:06] LABS: Basophils Percent Auto 0.5 % (0-2); Eosinophils Absolute Auto 0.3 X10*3/uL (0.0-0.4); Eosinophils Percent Auto 3.7 % (0-4); Hematocrit 37.7 % (42.0-52.0); Imm Gran Abs Auto 0.03 X10*3/uL (0.00-0.03); Imm Gran Pct Auto 0.4 % (0.0-0.4); Lymphocytes Absolute Auto 2.8 X10*3/uL (1.2-4.9); Lymphocytes Percent Auto 35.5 % (20-40); Mean Corpuscular HGB Conc 34.5 g/dl (31.0-36.0); Mean Corpuscular Hemoglobin 31.6 pg (27.0-33.0); Mean Corpuscular Volume 91.7 fL (80.0-98.0); Mean Platelet Volume 9.6 fL (9.4-12.4); Monocytes Absolute Auto 0.7 X10*3/uL (0.1-1.2); Monocytes Percent Auto 8.8 % (2-11); Neutrophils Percent Auto 51.1 % (45-73); Platelet Count 275 X10*3/uL (160-400); Red Blood Count 4.11 X10*6/uL (4.60-5.80); Red Cell Distribution Width 13.6 % (11.0-16.0); White Blood Count 7.8 X10*3/uL (4.8-10.8)
[2024-11-12 08:07] VITALS: BP 93/50; PULSE 58; TEMP 36.9; O2SAT 98
[2024-11-12 08:29] LABS: Alanine Aminotransferase 22 U/L (0-40); Albumin Level 4.3 g/dL (3.5-5.0); Alkaline Phosphatase 72 U/L (39-117); Anion Gap 12 (12-20); Aspartate Amino Transferase 28 U/L (5-37); Bilirubin Total 0.4 mg/dL (0.0-1.0); Blood Urea Nitrogen 19 mg/dL (9-16); Calcium 9.2 mg/dL (8.4-10.2); Carbon Dioxide 26 mmol/L (22-29); Chloride 107 mmol/L (96-108); Creatinine Clr Calc Pharmacy 109.7; Estimated Glomerular Filt Rate > 60; Glucose Random 92 mg/dL (60-115); Potassium 4.6 mmol/L (3.3-5.1); Sodium 140 mmol/L (135-145); Total Protein 7.1 g/dL (6.5-8.0)
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
[2024-11-12 10:29] VITALS: BMI 20.7
[2024-11-12 20:00] VITALS: BP 124/65; TEMP 37.1; O2SAT 97
[2024-11-12] MEDS: Nicotine Polacrilex 2 MG GUM 4 MG BUCCAL (20:09)
[2024-11-12] MEDS: risperiDONE 2 MG TABLET 4 MG PO (20:11)
[2024-11-13 08:00] VITALS: BP 101/59; PULSE 63; TEMP 36.4; O2SAT 98
[2024-11-13] MEDS: Nicotine Polacrilex 2 MG GUM 4 MG BUCCAL ×2 (08:48→21:14)
--- NOTE | 2024-11-13 10:23 | HO.PSYCHPN ---
Subjective Subjective Date of Service: 11/13/24 Reason For Visit: Psych Subjective Notes: Conditional Voluntary Healthcare Proxy: No Guardianship: No Medical Problems Affecting Mental Status: No Interim History: Visable in milieu. 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 Regime is tolerated. Pt is still with sx, however, more alert, attentive and engaged. Medication Compliance: Yes Side effects from medications: No Attending Groups: Intermittent Review of Systems Acute medical concerns: No Review of Systems Review of Systems No, I'm OK Mental Status Exam Mental Status Exam Patient Appearance: Disheveled and Appropriate Patient Orientation: Person, Place, Time and Situation Level of Consciousness: Alert Patient Behavior: Appropriate, Talkative, Cooperative, Distractible and Good Eye Contact Mood Description: Anxious and Apprehensive Affect Description: Anxious and Apprehensive Patient Cognition Impaired: No Ability to Follow Directions: Good Speech Pattern: Spontaneous Speech Memory Description: Episodic Impaired Hallucinations: None (denies) Delusions: Paranoid Ideation (mild) and Present Thought Process: Distracted Thought Content: positive for [place], positive for Circumstantial, positive for Perseveration, positive for Preoccupation and positive for Suicidal Ideation (denies today, positive on admit) Depressive Symptoms: Increased Anxiety, Diff. Making Decisions, Hopelessness and Difficulty Concentrating Judgement: Fair Diagnostics Vital Signs (24Hr): Vital Signs - 24 hr 11/12/24 20:00 11/13/24 08:00 Temperature 98.8 F 97.5 F Pulse Rate 63 Blood Pressure 124/65 101/59 L Pulse Oximetry 97 98 Oxygen Delivery Method Room Air Room Air BMI result Body Mass Index 20.7 Labs 11/12/24 07:57 11/12/24 07:57 Labs: Laboratory Results - last 48 hr 11/12/24 07:57 WBC 7.8 RBC 4.11 L Hgb 13.0 L Hct 37.7 L MCV 91.7 MCH 31.6 MCHC 34.5 RDW 13.6 Plt Count 275 MPV 9.6 Immature Gran % (Auto) 0.4 Neut % (Auto) 51.1 Lymph % (Auto) 35.5 [place] % (Auto) 8.8 Eos % (Auto) 3.7 Baso % (Auto) 0.5 Lymph # (Auto) 2.8 [place] # (Auto) 0.7 Eos # (Auto) 0.3 Baso # (Auto) 0.0 Abs Immat Gran (auto) 0.03 Absolute Neuts (auto) 4.0 Absolute Nucleated RBC 0.000 Nucleated RBC % (auto) 0.0 Sodium 140 Potassium 4.6 Chloride 107 Carbon Dioxide 26 Anion Gap 12 BUN 19 H Creatinine 0.77 Estim Creat Clear Calc 109.7 Estimated GFR > 60 Random Glucose 92 Calcium 9.2 Total Bilirubin 0.4 AST 28 ALT 22 Alkaline Phosphatase 72 Total Protein 7.1 Albumin 4.3 Imaging Radiology Impressions: ITS Impressions Chest X-Ray 11/11/24 15:10 IMPRESSION: No acute cardiopulmonary abnormality. Electronically signed by: Fermín Bowen MD 11/11/2024 03:33 PM EDT RP Medications Medications Current Medications Acetaminophen (Acetaminophen 325 Mg Tablet) 650 mg PO Q6H PRN PRN Reason: Headache/Pain, Scale 1-10 Al Hydroxide/Mg Hydroxide (Magnesium Hydrox/Alum Hydrox 30 Ml Oral.Susp) 30 ml PO Q6H PRN PRN Reason: Heartburn/Nausea Amoxicillin (Amoxicillin 250 Mg Capsule) 250 mg PO BID [facility] Last Admin: 11/13/24 08:43 Dose: 250 mg Benztropine Mesylate (Benztropine Mesylate 1 Mg Tablet) 1 mg PO BID PRN PRN Reason: stiffness Hydroxyzine HCl (Hydroxyzine Hcl 25 Mg Tablet) 25 mg PO Q6H PRN PRN Reason: mild anxiety Magnesium Hydroxide (Milk Of Magnesia 30 Ml Oral.Susp) 30 ml PO DAILY PRN PRN Reason: Constipation Nicotine (Nicotine 21 Mg Patch.Td24) 21 mg TRANSDERMA DAILY PRN PRN Reason: smoking cessation Nicotine Polacrilex (Nicotine Polacrilex 2 Mg Gum) 4 mg BUCCAL Q2H PRN PRN Reason: Nicotine Cravings Last Admin: 11/13/24 08:48 Dose: 4 mg Olanzapine (Olanzapine 5 Mg Tablet) 5 mg PO TID PRN PRN Reason: agitation Risperidone (Risperidone 2 Mg Tablet) 4 mg PO BEDTIME [facility] Last Admin: 11/12/24 20:11 Dose: 4 mg Trazodone HCl (Trazodone Hcl 50 Mg Tablet) 50 mg PO BEDTIME MRX1 PRN PRN Reason: Insomnia Allergies Allergies Allergy/AdvReac Type Severity Reaction Status Date / Time No Known Allergies Allergy Verified 11/11/24 05:32 Assessment & Plan Assessment & Plan (1) Schizophrenia: Qualifiers: Schizophrenia type: unspecified Qualified Code(s): F20.9 - Schizophrenia, unspecified Status: Acute Code(s): F20.9 - Schizophrenia, unspecified (2) Cocaine use disorder: Status: Acute Code(s): F14.10 - Cocaine abuse, uncomplicated Plan Admit, CV, 15 minute checks Diagnostics as needed --Iron Profile Collateral contact-discussed with team and Lorena Tirado [facility]-who will discuss with OP team pt's need for support/assistance. Continue regime Encourage milieu involvement Discharge/Aftercare planning. 11/13 Continue plan/regime Meeting with pt's OP team next week Reason for continued inpatient stay Substantial Risk for: rapid decompensation Time Spent With Patient Time: Total time managing care of this patient today ____ minutes.
[2024-11-13] MEDS: risperiDONE 2 MG TABLET 4 MG PO (21:10)
--- NOTE | 2024-11-14 07:22 | HO.PSYCHPN ---
Subjective Subjective Date of Service: 11/14/24 Reason For Visit: Psych Subjective Notes: Conditional Voluntary Healthcare Proxy: No Guardianship: No Medical Problems Affecting Mental Status: No Interim History: 44 with homelessness and alcohol use and psychosis- admitted again doing well on just risperidone without needing hydroxyzine for anxiety though didn't sleep well last pm- may get prn then Medication Compliance: Yes Side effects from medications: No Attending Groups: Intermittent Review of Systems Acute medical concerns: No Medical Review of Systems: unchanged Mental Status Exam Mental Status Exam Patient Appearance: Unkempt Patient Orientation: Person, Place, Time and Situation Level of Consciousness: Awake Patient Behavior: Appropriate, Cooperative and Good Eye Contact Mood Description: Calm Affect Description: Blunted Patient Cognition Impaired: No Ability to Follow Directions: Fair Speech Pattern: Clear Thought Process: Intact and Goal Oriented Thought Content: positive for Intact Depressive Symptoms: Difficulty Sleeping Judgement: Fair Diagnostics Vital Signs (24Hr): Vital Signs - 24 hr 11/13/24 08:00 Temperature 97.5 F Pulse Rate 63 Blood Pressure 101/59 L Pulse Oximetry 98 Oxygen Delivery Method Room Air BMI result Body Mass Index 20.7 Labs 11/12/24 07:57 11/12/24 07:57 Labs: Laboratory Results - last 48 hr 11/12/24 07:57 WBC 7.8 RBC 4.11 L Hgb 13.0 L Hct 37.7 L MCV 91.7 MCH 31.6 MCHC 34.5 RDW 13.6 Plt Count 275 MPV 9.6 Immature Gran % (Auto) 0.4 Neut % (Auto) 51.1 Lymph % (Auto) 35.5 [place] % (Auto) 8.8 Eos % (Auto) 3.7 Baso % (Auto) 0.5 Lymph # (Auto) 2.8 [place] # (Auto) 0.7 Eos # (Auto) 0.3 Baso # (Auto) 0.0 Abs Immat Gran (auto) 0.03 Absolute Neuts (auto) 4.0 Absolute Nucleated RBC 0.000 Nucleated RBC % (auto) 0.0 Sodium 140 Potassium 4.6 Chloride 107 Carbon Dioxide 26 Anion Gap 12 BUN 19 H Creatinine 0.77 Estim Creat Clear Calc 109.7 Estimated GFR > 60 Random Glucose 92 Calcium 9.2 Total Bilirubin 0.4 AST 28 ALT 22 Alkaline Phosphatase 72 Total Protein 7.1 Albumin 4.3 Imaging Radiology Impressions: ITS Impressions Chest X-Ray 04/30/25 15:10 IMPRESSION: No acute cardiopulmonary abnormality. Electronically signed by: Fermín Bowen MD 11/11/2024 03:33 PM EDT Medications Medications Current Medications Acetaminophen (Acetaminophen 325 Mg Tablet) 650 mg PO Q6H PRN PRN Reason: Headache/Pain, Scale 1-10 Al Hydroxide/Mg Hydroxide (Magnesium Hydrox/Alum Hydrox 30 Ml Oral.Susp) 30 ml PO Q6H PRN PRN Reason: Heartburn/Nausea Amoxicillin (Amoxicillin 250 Mg Capsule) 250 mg PO BID [facility] Last Admin: 11/13/24 21:10 Dose: 250 mg Benztropine Mesylate (Benztropine Mesylate 1 Mg Tablet) 1 mg PO BID PRN PRN Reason: stiffness Hydroxyzine HCl (Hydroxyzine Hcl 25 Mg Tablet) 25 mg PO Q6H PRN PRN Reason: mild anxiety Magnesium Hydroxide (Milk Of Magnesia 30 Ml Oral.Susp) 30 ml PO DAILY PRN PRN Reason: Constipation Nicotine (Nicotine 21 Mg Patch.Td24) 21 mg TRANSDERMA DAILY PRN PRN Reason: smoking cessation Nicotine Polacrilex (Nicotine Polacrilex 2 Mg Gum) 4 mg BUCCAL Q2H PRN PRN Reason: Nicotine Cravings Last Admin: 11/13/24 21:14 Dose: 4 mg Olanzapine (Olanzapine 5 Mg Tablet) 5 mg PO TID PRN PRN Reason: agitation Risperidone (Risperidone 2 Mg Tablet) 4 mg PO BEDTIME [facility] Last Admin: 11/13/24 21:10 Dose: 4 mg Trazodone HCl (Trazodone Hcl 50 Mg Tablet) 50 mg PO BEDTIME MRX1 PRN PRN Reason: Insomnia Allergies Allergies Allergy/AdvReac Type Severity Reaction Status Date / Time No Known Allergies Allergy Verified 11/11/24 05:32 Assessment & Plan Assessment & Plan (1) Schizophrenia: Qualifiers: Schizophrenia type: unspecified Qualified Code(s): F20.9 - Schizophrenia, unspecified Status: Acute Code(s): F20.9 - Schizophrenia, unspecified (2) Cocaine use disorder: Status: Acute Code(s): F14.10 - Cocaine abuse, uncomplicated Plan Admit, CV, 15 minute checks Diagnostics as needed --Iron Profile Collateral contact-discussed with team and Lorena Tirado [facility]-who will discuss with OP team pt's need for support/assistance. Continue regime Encourage milieu involvement Discharge/Aftercare planning. 11/13 Continue plan/regime 11/14/24 likely nutritional deficiency anemia- CTP Meeting with pt's OP team next week Patient educated on: other (nutrition suppliments? ) Informed Consent: further education needed Reason for continued inpatient stay Substantial Risk for: rapid decompensation Time Spent With Patient Time: Total time managing care of this patient today ____ minutes.
[2024-11-14 08:16] VITALS: BP 103/58; PULSE 70; RESP 16; TEMP 36.6; O2SAT 96
[2024-11-14] MEDS: Nicotine Polacrilex 2 MG GUM 4 MG BUCCAL (16:30)
[2024-11-14 20:00] VITALS: BP 105/65; PULSE 82; RESP 16; TEMP 36.8; O2SAT 98
[2024-11-14] MEDS: risperiDONE 2 MG TABLET 4 MG PO (20:38)
[2024-11-15 07:55] VITALS: BP 103/61; PULSE 73; RESP 16; TEMP 36.6; O2SAT 97
--- NOTE | 2024-11-15 08:03 | HO.PSYCHPN ---
Subjective Subjective Date of Service: 11/15/24 Reason For Visit: Psych Subjective Notes: Conditional Voluntary Healthcare Proxy: No Guardianship: No Medical Problems Affecting Mental Status: No Interim History: 44 yo WM reports he slept last pm but felt anxious this am so took hydroxyzine- otherwise he is doing fine- tolerating risperidone, no si - Later seen kneeling in room praying- Medication Compliance: Yes Side effects from medications: No Attending Groups: No Review of Systems Acute medical concerns: No Medical Review of Systems: unchanged Mental Status Exam Mental Status Exam Patient Appearance: Unkempt Patient Orientation: Person, Place and Situation Level of Consciousness: Awake and Alert Patient Behavior: Appropriate, Cooperative and Poor Eye Contact (fair brief) Mood Description: Calm Affect Description: Blunted Patient Cognition Impaired: No Ability to Follow Directions: Fair Speech Pattern: Clear and Impoverished Thought Process: Intact and Goal Oriented Thought Content: positive for Intact, positive for [place] and positive for Poverty of Content Depressive Symptoms: Increased Anxiety (some around dc/? hoping to go tomorrow) Judgement: Fair Diagnostics Vital Signs (24Hr): Vital Signs - 24 hr 11/14/24 08:16 11/14/24 20:00 11/15/24 07:55 Temperature 98 F 98.3 F 97.8 F Pulse Rate 70 82 73 Respiratory Rate 16 16 16 Blood Pressure 103/58 L 105/65 103/61 Pulse Oximetry 96 98 97 Oxygen Delivery Method Room Air Room Air Room Air BMI result Body Mass Index 20.7 Labs 11/12/24 07:57 11/12/24 07:57 Imaging Radiology Impressions: ITS Impressions Chest X-Ray 11/11/24 15:10 IMPRESSION: No acute cardiopulmonary abnormality. Electronically signed by: Fermín Bowen MD 11/11/2024 03:33 PM EDT RP Medications Medications Current Medications Acetaminophen (Acetaminophen 325 Mg Tablet) 650 mg PO Q6H PRN PRN Reason: Headache/Pain, Scale 1-10 Al Hydroxide/Mg Hydroxide (Magnesium Hydrox/Alum Hydrox 30 Ml Oral.Susp) 30 ml PO Q6H PRN PRN Reason: Heartburn/Nausea Amoxicillin (Amoxicillin 250 Mg Capsule) 250 mg PO BID [facility]PL[facility] Last Admin: 11/14/24 20:39 Dose: 250 mg Benztropine Mesylate (Benztropine Mesylate 1 Mg Tablet) 1 mg PO BID PRN PRN Reason: stiffness Hydroxyzine HCl (Hydroxyzine Hcl 25 Mg Tablet) 25 mg PO Q6H PRN PRN Reason: mild anxiety Hydroxyzine HCl (Hydroxyzine Hcl 50 Mg Tablet) 50 mg PO BEDTIME PRN PRN Reason: Insomnia Magnesium Hydroxide (Milk Of Magnesia 30 Ml Oral.Susp) 30 ml PO DAILY PRN PRN Reason: Constipation Nicotine (Nicotine 21 Mg Patch.Td24) 21 mg TRANSDERMA DAILY PRN PRN Reason: smoking cessation Nicotine Polacrilex (Nicotine Polacrilex 2 Mg Gum) 4 mg BUCCAL Q2H PRN PRN Reason: Nicotine Cravings Last Admin: 11/14/24 16:30 Dose: 4 mg Olanzapine (Olanzapine 5 Mg Tablet) 5 mg PO TID PRN PRN Reason: agitation Risperidone (Risperidone 2 Mg Tablet) 4 mg PO BEDTIME [facility] Last Admin: 11/14/24 20:38 Dose: 4 mg Trazodone HCl (Trazodone Hcl 50 Mg Tablet) 50 mg PO BEDTIME MRX1 PRN PRN Reason: Insomnia Allergies Allergies Allergy/AdvReac Type Severity Reaction Status Date / Time No Known Allergies Allergy Verified 11/11/24 05:32 Assessment & Plan Assessment & Plan (1) Schizophrenia: Qualifiers: Schizophrenia type: unspecified Qualified Code(s): F20.9 - Schizophrenia, unspecified Status: Acute Code(s): F20.9 - Schizophrenia, unspecified (2) Cocaine use disorder: Status: Acute Code(s): F14.10 - Cocaine abuse, uncomplicated Plan Admit, CV, 15 minute checks Diagnostics as needed --Iron Profile Collateral contact-discussed with team and Lorena Tirado [facility]-who will discuss with OP team pt's need for support/assistance. Continue regime Encourage milieu involvement Discharge/Aftercare planning. 11/13 Continue plan/regime 11/14/24 likely nutritional deficiency anemia- CTP Meeting with pt's OP team next week 11/15/24 CTP Reason for continued inpatient stay Substantial Risk for: inability to function and rapid decompensation Time Spent With Patient Time: Total time managing care of this patient today ____ minutes.
[2024-11-15] MEDS: Nicotine Polacrilex 2 MG GUM 4 MG BUCCAL ×2 (08:38→20:30)
[2024-11-15] MEDS: hydrOXYzine HCL 25 MG TABLET PO ×2 (08:38→21:59)
[2024-11-15 19:46] VITALS: BP 110/61; PULSE 79; TEMP 36.4; O2SAT 97
[2024-11-15] MEDS: risperiDONE 2 MG TABLET 4 MG PO (20:28)
[2024-11-16 07:51] VITALS: BP 96/57; PULSE 61; RESP 16; TEMP 36.8; O2SAT 98
[2024-11-16] MEDS: OLANZapine 10 MG TABLET PO (13:13)
[2024-11-16] MEDS: Nicotine 21 MG PATCH.TD24 TRANSDERMA (13:15)
--- NOTE | 2024-11-16 17:22 | P.PNPSI_ITS ---
Subjective Subjective Date of Service: 11/16/24 Reason For Visit: Psych Subjective Notes: Conditional Voluntary Healthcare Proxy: No Guardianship: No Medical Problems Affecting Mental Status: No Interim History: Psychotic agitation increase. Issues with not being able to smoke. Will increase Risperdal and add Olazapine. Pt, at the end of the day when we checked in again, reports increases have helped and he is feeling improved. Consider scheduling Olanzapine in addition. Medication Compliance: Yes Side effects from medications: No Attending Groups: Intermittent Review of Systems Acute medical concerns: No Review of Systems Review of Systems Denies Mental Status Exam Mental Status Exam Patient Appearance: Unkempt Patient Orientation: Person, Place and Situation Level of Consciousness: Awake and Alert Patient Behavior: Appropriate, Cooperative and Poor Eye Contact (fair brief) Mood Description: Calm Affect Description: Blunted Patient Cognition Impaired: No Ability to Follow Directions: Fair Speech Pattern: Clear and Impoverished Delusions: Paranoid Ideation and Present Thought Process: Intact and Goal Oriented Thought Content: positive for Int[place], positive for [place] and positive for Poverty of Content Depressive Symptoms: Increased Anxiety (some around dc/? hoping to go tomorrow) Judgement: Fair Diagnostics Vital Signs (24Hr): Vital Signs - 24 hr 11/15/24 19:46 11/16/24 07:51 Temperature 97.5 F 98.3 F Pulse Rate 79 61 Respiratory Rate 16 Blood Pressure 110/61 96/57 L Pulse Oximetry 97 98 Oxygen Delivery Method Room Air Room Air BMI result Body Mass Index 20.7 Labs 11/12/24 07:57 11/12/24 07:57 Imaging Radiology Impressions: ITS Impressions Chest X-Ray 11/11/24 15:10 IMPRESSION: No acute cardiopulmonary abnormality. Electronically signed by: Fermín Bowen MD 11/11/2024 03:33 PM EDT Medications Medications Current Medications Acetaminophen (Acetaminophen 325 Mg Tablet) 650 mg PO Q6H PRN PRN Reason: Headache/Pain, Scale 1-10 Al Hydroxide/Mg Hydroxide (Magnesium Hydrox/Alum Hydrox 30 Ml Oral.Susp) 30 ml PO Q6H PRN PRN Reason: Heartburn/Nausea Amoxicillin (Amoxicillin 250 Mg Capsule) 250 mg PO BID HEIDY Last Admin: 11/16/24 08:24 Dose: 250 mg Benztropine Mesylate (Benztropine Mesylate 1 Mg Tablet) 1 mg PO BID PRN PRN Reason: stiffness Hydroxyzine HCl (Hydroxyzine Hcl 25 Mg Tablet) 25 mg PO Q6H PRN PRN Reason: mild anxiety Last Admin: 11/15/24 21:59 Dose: 25 mg Hydroxyzine HCl (Hydroxyzine Hcl 50 Mg Tablet) 50 mg PO BEDTIME PRN PRN Reason: Insomnia Magnesium Hydroxide (Milk Of Magnesia 30 Ml Oral.Susp) 30 ml PO DAILY PRN PRN Reason: Constipation Nicotine (Nicotine 21 Mg Patch.Td24) 21 mg TRANSDERMA DAILY PRN PRN Reason: smoking cessation Last Admin: 11/16/24 13:15 Dose: 21 mg Nicotine Polacrilex (Nicotine Polacrilex 2 Mg Gum) 4 mg BUCCAL Q2H PRN PRN Reason: Nicotine Cravings Last Admin: 11/15/24 20:30 Dose: 4 mg Olanzapine (Olanzapine 5 Mg Tablet) 5 mg PO TID PRN PRN Reason: agitation Risperidone (Risperidone 3 Mg Tablet) 6 mg PO BEDTIME HEIDY Risperidone (Risperidone 2 Mg Tablet) 2 mg PO BID PRN PRN Reason: psychosis Trazodone HCl (Trazodone Hcl 50 Mg Tablet) 50 mg PO BEDTIME MRX1 PRN PRN Reason: Insomnia Allergies Allergies Allergy/AdvReac Type Severity Reaction Status Date / Time No Known Allergies Allergy Verified 11/11/24 05:32 Assessment & Plan Assessment & Plan (1) Schizophrenia: Qualifiers: Schizophrenia type: unspecified Qualified Code(s): F20.9 - Schizophrenia, unspecified Status: Acute Code(s): F20.9 - Schizophrenia, unspecified (2) Cocaine use disorder: Status: Acute Code(s): F14.10 - Cocaine abuse, uncomplicated Plan Admit, CV, 15 minute checks Diagnostics as needed --Iron Profile Collateral contact-discussed with team and Lorena Tirado [facility]-who will discuss with OP team pt's need for support/assistance. Continue regime Encourage milieu involvement Discharge/Aftercare planning. 11/13 Continue plan/regime 11/14/24 likely nutritional deficiency anemia- CTP Meeting with pt's OP team next week 11/15/24 CTP 11/16/24: Olanzapine 10 mg x 1 Increase Risperdal Reason for continued inpatient stay Substantial Risk for: rapid decompensation Time Spent With Patient Time: Total time managing care of this patient today ____ minutes.
[2024-11-16] MEDS: OLANZapine 5 MG TABLET PO (19:10)
[2024-11-16] MEDS: Nicotine Polacrilex 2 MG GUM 4 MG BUCCAL (19:10)
[2024-11-16 20:00] VITALS: BP 116/68; PULSE 81; TEMP -13.1; TEMP 8.4; O2SAT 99
[2024-11-16] MEDS: risperiDONE 3 MG TABLET 6 MG PO (20:12)
[2024-11-17] MEDS: hydrOXYzine HCL 25 MG TABLET PO (00:02)
[2024-11-17 08:00] VITALS: BP 104/70; PULSE 74; RESP 16; TEMP 36.6; O2SAT 97
[2024-11-17] MEDS: OLANZapine 5 MG TABLET PO (09:33)
--- NOTE | 2024-11-17 10:23 | P.PNPSI_ITS ---
Subjective Subjective Date of Service: 11/17/24 Reason For Visit: Psych Subjective Notes: Conditional Voluntary and 3 Day Healthcare Proxy: No Guardianship: No Medical Problems Affecting Mental Status: No Interim History: Pt pushing to discharge. Irritable, angry, accepting of meds, accepting of Risperdal increase and Olanzapine augment. No interest in a mood stabilizer at this time. Has things to do in community . Looking at [employer] for housing, to get a phone and I need clothing . Medication Compliance: Yes Side effects from medications: No Attending Groups: No Review of Systems Acute medical concerns: No Review of Systems Review of Systems Denies Mental Status Exam Mental Status Exam Patient Appearance: Unkempt Patient Orientation: Person, Place and Situation Level of Consciousness: Awake and Alert Patient Behavior: Appropriate, Cooperative and Poor Eye Contact (fair brief) Mood Description: Calm Affect Description: Blunted Patient Cognition Impaired: No Ability to Follow Directions: Fair Speech Pattern: Clear and Impoverished Delusions: Paranoid Ideation and Present Thought Process: Intact and Goal Oriented Thought Content: positive for Intact, positive for [place] and positive for Poverty of Content Depressive Symptoms: Increased Anxiety (some around dc/? hoping to go tomorrow) Judgement: Fair Diagnostics Vital Signs (24Hr): Vital Signs - 24 hr 11/16/24 20:00 Temperature 8.4 F L Pulse Rate 81 Blood Pressure 116/68 Pulse Oximetry 99 Oxygen Delivery Method Room Air BMI result Body Mass Index 20.7 Labs 11/12/24 07:57 11/12/24 07:57 Imaging Radiology Impressions: ITS Impressions Chest X-Ray 11/11/24 15:10 IMPRESSION: No acute cardiopulmonary abnormality. Electronically signed by: Fermín Bowen MD 11/11/2024 03:33 PM EDT Medications Medications Current Medications Acetaminophen (Acetaminophen 325 Mg Tablet) 650 mg PO Q6H PRN PRN Reason: Headache/Pain, Scale 1-10 Al Hydroxide/Mg Hydroxide (Magnesium Hydrox/Alum Hydrox 30 Ml Oral.Susp) 30 ml PO Q6H PRN PRN Reason: Heartburn/Nausea Amoxicillin (Amoxicillin 250 Mg Capsule) 250 mg PO BID HEIDY Last Admin: 11/17/24 09:30 Dose: 250 mg Benztropine Mesylate (Benztropine Mesylate 1 Mg Tablet) 1 mg PO BID PRN PRN Reason: stiffness Hydroxyzine HCl (Hydroxyzine Hcl 25 Mg Tablet) 25 mg PO Q6H PRN PRN Reason: mild anxiety Last Admin: 11/17/24 00:02 Dose: 25 mg Hydroxyzine HCl (Hydroxyzine Hcl 50 Mg Tablet) 50 mg PO BEDTIME PRN PRN Reason: Insomnia Magnesium Hydroxide (Milk Of Magnesia 30 Ml Oral.Susp) 30 ml PO DAILY PRN PRN Reason: Constipation Nicotine (Nicotine 21 Mg Patch.Td24) 21 mg TRANSDERMA DAILY PRN PRN Reason: smoking cessation Last Admin: 11/16/24 13:15 Dose: 21 mg Nicotine Polacrilex (Nicotine Polacrilex 2 Mg Gum) 4 mg BUCCAL Q2H PRN PRN Reason: Nicotine Cravings Last Admin: 11/16/24 19:10 Dose: 4 mg Olanzapine (Olanzapine 5 Mg Tablet) 5 mg PO TID PRN PRN Reason: agitation Last Admin: 11/17/24 09:33 Dose: 5 mg Olanzapine (Olanzapine 10 Mg Tablet) 10 mg PO DAILY HEIDY Risperidone (Risperidone 3 Mg Tablet) 6 mg PO BEDTIME HEIDY Last Admin: 11/16/24 20:12 Dose: 6 mg Risperidone (Risperidone 2 Mg Tablet) 2 mg PO BID PRN PRN Reason: psychosis Trazodone HCl (Trazodone Hcl 50 Mg Tablet) 50 mg PO BEDTIME MRX1 PRN PRN Reason: Insomnia Allergies Allergies Allergy/AdvReac Type Severity Reaction Status Date / Time No Known Allergies Allergy Verified 11/11/24 05:32 Assessment & Plan Assessment & Plan (1) Schizophrenia: Qualifiers: Schizophrenia type: unspecified Qualified Code(s): F20.9 - Schizophrenia, unspecified Status: Acute Code(s): F20.9 - Schizophrenia, unspecified (2) Cocaine use disorder: Status: Acute Code(s): F14.10 - Cocaine abuse, uncomplicated Plan Admit, CV, 15 minute checks Diagnostics as needed --Iron Profile Collateral contact-discussed with team and Lorena Tirado [facility]-who will discuss with OP team pt's need for support/assistance. Continue regime Encourage milieu involvement Discharge/Aftercare planning. 11/13 Continue plan/regime 11/14/24 likely nutritional deficiency anemia- CTP Meeting with pt's OP team next week 11/15/24 CTP 11/17/24 Encourage continued treatment Reason for continued inpatient stay Substantial Risk for: rapid decompensation Time Spent With Patient Time: Total time managing care of this patient today ____ minutes.
[2024-11-17] MEDS: Nicotine Polacrilex 2 MG GUM 4 MG BUCCAL ×3 (11:12→21:37)
[2024-11-17 20:00] VITALS: BP 114/61; PULSE 71; RESP 16; TEMP 36.4; O2SAT 96
[2024-11-17] MEDS: risperiDONE 3 MG TABLET 6 MG PO (20:10)
[2024-11-18 08:00] VITALS: BP 123/60; PULSE 66; TEMP 36.9; O2SAT 99
[2024-11-18] MEDS: Nicotine Polacrilex 2 MG GUM 4 MG BUCCAL ×2 (09:39→19:14)
[2024-11-18] MEDS: OLANZapine 5 MG TABLET PO (11:51)
--- NOTE | 2024-11-18 13:18 | P.PNPSI_ITS ---
Subjective Subjective Date of Service: 11/18/24 Reason For Visit: Psych Subjective Notes: Conditional Voluntary and 3 Day Healthcare Proxy: No Guardianship: No Medical Problems Affecting Mental Status: No Interim History: Planning discharge for 11/19. Expressed anger with [facility]. They have control and I get no options. I don't want them to be my rep payee . Agrees to combine Risperdal with Olanzapine. Wanting to smoke- I will go to respite if I can smoke States his mind is tired of thinking of everything he has to do. Encouraged to remain in pt so we can continue to work on his regime, no, I want to smoke. Medication Compliance: Yes Side effects from medications: No Attending Groups: No Review of Systems Acute medical concerns: No Review of Systems Review of Systems Denies Mental Status Exam Mental Status Exam Patient Appearance: Unkempt Patient Orientation: Person, Place and Situation Level of Consciousness: Awake and Alert Patient Behavior: Appropriate, Cooperative and Poor Eye Contact (fair brief) Mood Description: Calm Affect Description: Blunted Patient Cognition Impaired: No Ability to Follow Directions: Fair Speech Pattern: Clear and Impoverished Delusions: Paranoid Ideation and Present Thought Process: Intact and Goal Oriented Thought Content: positive for Intact, positive for [place] and positive for Poverty of Content Depressive Symptoms: Increased Anxiety (some around dc/? hoping to go tomorrow) Judgement: Fair Diagnostics Vital Signs (24Hr): Vital Signs - 24 hr 11/17/24 20:00 11/18/24 08:00 Temperature 97.5 F 98.4 F Pulse Rate 71 66 Respiratory Rate 16 Blood Pressure 114/61 123/60 Pulse Oximetry 96 99 Oxygen Delivery Method Room Air Room Air BMI result Body Mass Index 20.7 Labs 11/12/24 07:57 11/12/24 07:57 Imaging Radiology Impressions: ITS Impressions Chest X-Ray 11/11/24 15:10 IMPRESSION: No acute cardiopulmonary abnormality. Electronically signed by: Fermín Bowen MD 11/11/2024 03:33 PM EDT RP Medications Medications Current Medications Acetaminophen (Acetaminophen 325 Mg Tablet) 650 mg PO Q6H PRN PRN Reason: Headache/Pain, Scale 1-10 Al Hydroxide/Mg Hydroxide (Magnesium Hydrox/Alum Hydrox 30 Ml Oral.Susp) 30 ml PO Q6H PRN PRN Reason: Heartburn/Nausea Amoxicillin (Amoxicillin 250 Mg Capsule) 250 mg PO BID [facility] Last Admin: 11/18/24 09:37 Dose: 250 mg Benztropine Mesylate (Benztropine Mesylate 1 Mg Tablet) 1 mg PO BID PRN PRN Reason: stiffness Hydroxyzine HCl (Hydroxyzine Hcl 25 Mg Tablet) 25 mg PO Q6H PRN PRN Reason: mild anxiety Last Admin: 11/17/24 00:02 Dose: 25 mg Hydroxyzine HCl (Hydroxyzine Hcl 50 Mg Tablet) 50 mg PO BEDTIME PRN PRN Reason: Insomnia Magnesium Hydroxide (Milk Of Magnesia 30 Ml Oral.Susp) 30 ml PO DAILY PRN PRN Reason: Constipation Nicotine (Nicotine 21 Mg Patch.Td24) 21 mg TRANSDERMA DAILY PRN PRN Reason: smoking cessation Last Admin: 11/16/24 13:15 Dose: 21 mg Nicotine Polacrilex (Nicotine Polacrilex 2 Mg Gum) 4 mg BUCCAL Q2H PRN PRN Reason: Nicotine Cravings Last Admin: 11/18/24 09:39 Dose: 4 mg Olanzapine (Olanzapine 5 Mg Tablet) 5 mg PO TID PRN PRN Reason: agitation Last Admin: 11/18/24 11:51 Dose: 5 mg Olanzapine (Olanzapine 10 Mg Tablet) 10 mg PO DAILY [facility] Last Admin: 11/18/24 09:37 Dose: Not Given Risperidone (Risperidone 3 Mg Tablet) 6 mg PO BEDTIME [facility] Last Admin: 11/17/24 20:10 Dose: 6 mg Risperidone (Risperidone 2 Mg Tablet) 2 mg PO BID PRN PRN Reason: psychosis Trazodone HCl (Trazodone Hcl 50 Mg Tablet) 50 mg PO BEDTIME MRX1 PRN PRN Reason: Insomnia Allergies Allergies Allergy/AdvReac Type Severity Reaction Status Date / Time No Known Allergies Allergy Verified 11/11/24 05:32 Assessment & Plan Assessment & Plan (1) Schizophrenia: Qualifiers: Schizophrenia type: unspecified Qualified Code(s): F20.9 - Schizophrenia, unspecified Status: Acute Code(s): F20.9 - Schizophrenia, unspecified (2) Cocaine use disorder: Status: Acute Code(s): F14.10 - Cocaine abuse, uncomplicated Plan Admit, CV, 15 minute checks Diagnostics as needed --Iron Profile Collateral contact-discussed with team and Lorena Tirado [facility]-who will discuss with OP team pt's need for support/assistance. Continue regime Encourage milieu involvement Discharge/Aftercare planning. 11/13 Continue plan/regime 11/14/24 likely nutritional deficiency anemia- CTP Meeting with pt's OP team next week 11/15/24 CTP 11/16/24: Olanzapine 10 mg x 1 Increase Risperdal 11/18 Scheduled Olanzapine DC 11/19 Reason for continued inpatient stay Substantial Risk for: rapid decompensation Time Spent With Patient Time: Total time managing care of this patient today ____ minutes.
--- NOTE | 2024-11-18 16:43 | PC.ADMIT ---
Savanna is a 39 yr old female admitted for increased depression & suicidal ideation.? Her history includes MDD, Anxiety, PTSD, Borderline PD & polysubstance use.? She is currently on methadone.? Prior to admission Savanna was ejected from a dual diagnosis facility for missing curfew & relapsing.? Her tox screen is positive for methadone, cocaine, fentanyl & THC.? She presented to the ED with increased hopelessness & passive SI x2 weeks. Savanna is alert, oriented & cooperative with the admission process.? She is currently endorsing high anxiety but denies SI. She is able to contract for safety. She denies HI/AVH.? She has had multiple psych hospitalizations over the years, endorses trauma history & had a suicide attempt long ago.? She is currently homeless. Savanna states she needs to get her care straightened out and hopefully go into respite. Her skin check is unremarkable, with exception of callouses on feet & dry cracked heels. Savanna was oriented to the unit & placed on 15 min safety checks.
[2024-11-18 19:33] VITALS: BP 111/66; PULSE 80; RESP 14; TEMP 36.6; O2SAT 96
[2024-11-18] MEDS: risperiDONE 3 MG TABLET 6 MG PO (20:16)
[2024-11-19 08:21] VITALS: BP 111/56; PULSE 79; TEMP 36.5; O2SAT 99
[2024-11-19] MEDS: OLANZapine 10 MG TABLET PO (08:47)
--- NOTE | 2024-11-19 09:59 | PM.PSYDC ---
DS: Providers Provider Date of admission: 11/11/24 15:56 Primary care physician: Unknown Physician DS: Diagnosis Discharge Diagnosis (1) Schizophrenia: Status: Acute (2) Cocaine use disorder: Status: Acute DS: Medications Discharge Medications Home Medications: Previous Rx's ?Medication ?Instructions ?Recorded amoxicillin 250 mg capsule 250 mg PO BID #14 caps 11/09/24 benztropine 1 mg tablet 1 mg PO BID PRN stiffness 30 days 11/09/24 #30 tabs hydroxyzine HCl 25 mg tablet 25 mg PO Q6H PRN mild anxiety #15 11/09/24 tabs nicotine (polacrilex) 2 mg gum 4 mg buccal Q2H PRN Nicotine 11/09/24 Cravings #110 ea risperidone 4 mg tablet 4 mg PO BEDTIME 30 days #15 tabs 11/09/24 Data Imaging Diagnostic Imaging Impressions Chest X-Ray 11/11/24 15:10 IMPRESSION: No acute cardiopulmonary abnormality. Electronically signed by: Fermín Bowen MD 11/11/2024 03:33 PM EDT RP DS: Summary Time Spent with Patient Time attestation: Total time managing care of this patient today ____ minutes. Discharge Plan Discharge Referrals: [facility]-Natanael Collins [Other] - 1 Week Physician,Santosh Guadarrama [Primary Care Provider] - 1 Week Discharge Medications: No Action nicotine (polacrilex) 2 mg Gum 4 mg buccal Q2H PRN (Reason: Nicotine Cravings) Qty: 110 0RF amoxicillin 250 mg Capsule 250 mg PO BID Qty: 14 0RF hydroxyzine HCl 25 mg Tablet 25 mg PO Q6H PRN (Reason: mild anxiety) Qty: 15 1RF risperidone 4 mg tablet 4 mg PO BEDTIME 30 Days Qty: 15 1RF benztropine 1 mg Tablet 1 mg PO BID PRN (Reason: stiffness) 30 Days Qty: 30 1RF Print Language: Unable To Collect
== END 2024-11-19 11:15 | disposition home or self-care (01) | DRG 885 ==
LOC: HO.ED 07:16 → HO.PM5 16:04
PROVIDERS: Admitting Provider Psychiatry & Neurology Psychiatry; Emergency Provider Emergency Medicine; Visit Provider Clinical Nurse Specialist Psychiatric/Mental Health, Adult
DX: F20.9 Schizophrenia, unspecified (principal); Z59.02 Unsheltered homelessness; F17.210 Nicotine dependence, cigarettes, uncomplicated; F14.10 Cocaine abuse, uncomplicated; Z71.6 Tobacco abuse counseling; Z79.899 Other long term (current) drug therapy
CPT/HCPCS: 36415; 71045; 80048; 80053; 80076; 80307; 81003; 85025; 93005; 99285; S9485

== ENCOUNTER → 2024-11-11 11:28 | Outpatient (BNV) | payer OTHER, SELFPAY | PROVIDERS: Admitting Provider Psychiatry & Neurology Psychiatry; Emergency Provider Emergency Medicine; Visit Provider Internal Medicine Cardiovascular Disease | DX: I45.9 Conduction disorder, unspecified (principal) | CPT/HCPCS: 93010 ==

== ENCOUNTER → 2024-11-11 15:10 | Outpatient (BNV) | payer OTHER, SELFPAY | PROVIDERS: Admitting Provider Psychiatry & Neurology Psychiatry; Emergency Provider Emergency Medicine; Visit Provider Radiology Diagnostic Radiology | DX: R05.9 Cough, unspecified (principal) | CPT/HCPCS: 71045 ==

== ENCOUNTER → 2024-11-11 15:56 | Outpatient (BNV) | payer OTHER, SELFPAY | PROVIDERS: Admitting Provider Psychiatry & Neurology Psychiatry; Emergency Provider Emergency Medicine; Visit Provider Clinical Nurse Specialist Psychiatric/Mental Health, Adult | DX: F20.9 Schizophrenia, unspecified (principal); F14.10 Cocaine abuse, uncomplicated | CPT/HCPCS: 90792; 99231; 99232 ==

== ENCOUNTER 2024-12-24 14:48 | Emergency (ER) | payer OTHER, SELFPAY ==
[2024-12-24 15:12] VITALS: BP 109/59; PULSE 79; RESP 18; TEMP 36.4; O2SAT 97; BMI 21.6
--- NOTE | 2024-12-24 15:24 | ED.GENADULT ---
HPI - General Adult General Chief complaint: Psychiatric Symptoms Stated complaint: not feeling well Time Seen by Provider: 12/24/24 15:56 History of Present Illness ED Provider: Blaine Hua MD HPI narrative: This is a 44-year-old male who per triage note came in for substance use disorder assistance and delusions. The patient himself is arousable and speaking interactive but noncontributory to history asked to rest during my interview. Triage note reports crack cocaine use, states that he told them ?chip in my brain?. Vague SI. Related Data Previous Rx's ?Medication ?Instructions ?Recorded olanzapine 10 mg tablet 10 mg PO DAILY #15 tabs 11/19/24 risperidone 3 mg tablet 6 mg (2 x 3 mg) PO BEDTIME #28 tabs 11/19/24 olanzapine 10 mg tablet 10 mg PO DAILY 4 days #4 tabs 12/25/24 Allergies Allergy/AdvReac Type Severity Reaction Status Date / Time No Known Allergies Allergy Verified 12/24/24 15:17 [facility] Past Medical History Medical History Nicotine addiction Psychiatric illness Depression Alcohol use disorder Cocaine use disorder Opioid abuse Suicide attempt Cocaine abuse Crack cocaine use Heroin abuse Substance abuse Schizophrenia Social History Social History Household Members: None Household Members Other:: Roommate that just moved out Housing: Homeless Do you presently have visiting nurse or other home services: No Unable to assess alcohol history related to: Refusing to respond Alcohol intake: current Alcohol intake frequency: a few times a month Patient Tobacco Use Status: Current everyday Tobacco user Tobacco use type: Cigarette Cigarette Packs Per Day: 2 Cigarettes Per Day: 20 Years Smoked: 28 e-Cigarette/Vaping Use: Never Used Second Hand Smoke Exposure: No Substance Use Type: Crack/Cocaine Advance Directives: No Advance Directives Information Provided: No service: No Sexual orientation: Straight/Heterosexual Physical Exam ED Vital Signs: Vital Signs - 24 hr 12/25/24 06:00 12/25/24 14:40 Temperature 97.8 F 98.1 F Pulse Rate 61 76 Respiratory Rate 16 15 Blood Pressure 109/62 119/59 L Pulse Oximetry 97 98 Oxygen Delivery Method Room Air Room Air BMI result Body Mass Index 21.6 Const Other: EXAM: Gen: Resting easily arousable. No gross psychosis or aggression. He is cooperative but does not participate much of the interview. Disheveled and malodorous poorly kempt Head: Atraumatic Eyes: Anicteric, Normal conjunctiva. ENT: Moist mucosa, no pallor. ? Neck: Supple. Skin: ?No observable rash or bruising on exposed or examined skin Respiratory: Breathing comfortably, No distress.Clear to auscultation bilaterally, symmetric chest expansion, No wheeze, rales, ronchi. Cardiovascular: Regular rate and rhythm. No murmurs or rub. Well perfused periphery, warm extremities. No edema. ? Abdominal: No FOCAL TENDERNESS. Soft, no objective distension. No palpable masses or obvious organomegaly. ?No guarding, no rebound tenderness or other peritoneal findings. : No flank tenderness. Neuro: Alert. Gross movement of all extremities intact. ? Psych: Calm. Cooperative. Not answering further questions MSK: No grossly visible deformity. Vital signs: See flowsheet Course Course Course Narrative: RME, this is a rapid medical exam performed by Taiwo Womack please refer to primary provider for complete H&P- 44-year-old male presents for evaluation of depression. He does complain of vague suicidal ideation but no plan. Plan for medical clearance and care team consult Medications Administered Discontinued Medications Generic Name Dose Route Start Last Admin Trade Name Freq PRN Reason Stop Dose Admin Olanzapine 10 mg 12/25/24 09:00 12/25/24 10:46 Olanzapine 10 Mg Tablet PO 10 mg DAILY HEIDY Administration Risperidone 6 mg 12/24/24 21:00 12/24/24 21:41 Risperidone 3 Mg Tablet PO 6 mg BEDTIME HEIDY Administration Medical Decision Making Medical Decision Making MDM Narrative: 44-year-old male with chronic psychiatric illness. Disheveled malodorous noncontributory and not participatory in full psychiatric interview with myself. Nor the care team. Patient will need to rest and be re-evaluated in the morning. Continue previously prescribed psychiatric medicine I think this is reasonable. Hygiene and nourishment as needed. 0700 12/25/24 Provider: Jeffy Gomez, DO Patient in physician observation for psychiatric evaluation.? No acute events reported overnight. No current complaints. VS stable.? Patient is in bed search status/pending CARE team evaluation. Will continue to monitor. Time: 15:42 Date: 12/25/24 Provider: Jeffy Gomez DO Physician observation ended at . Patient has been cleared for discharge by the CARE team. We will be going to a respite, olanzapine 10 mg q.a.m. requested by the team until Saturday Consult Healthcare Provider Management of the patient was discussed with: Behavioral Health Provider (Care team) Lab Data 12/24/24 15:37 12/24/24 15:37 Labs: Lab Results 12/24/24 12/24/24 Range/Units 15:37 19:44 WBC 9.0 (4.8-10.8) X10*3/uL RBC 3.96 L (4.60-5.80) X10*6/uL Hgb 12.7 L (14.0-18.0) g/dl Hct 36.9 L (42.0-52.0) % MCV 93.2 (80.0-98.0) fL MCH 32.1 (27.0-33.0) pg MCHC 34.4 (31.0-36.0) g/dl RDW 13.5 (11.0-16.0) % Plt Count 268 (160-400) X10*3/uL MPV 9.5 (9.4-12.4) fL Immature Gran % (Auto) 0.3 (0.0-0.4) % Neut % (Auto) 48.7 (45-73) % Lymph % (Auto) 39.8 (20-40) % [place] % (Auto) 7.1 (2-11) % Eos % (Auto) 3.5 (0-4) % Baso % (Auto) 0.6 (0-2) % Lymph # (Auto) 3.6 (1.2-4.9) X10*3/uL [place] # (Auto) 0.6 (0.1-1.2) X10*3/uL Eos # (Auto) 0.3 (0.0-0.4) X10*3/uL Baso # (Auto) 0.1 (0.0-0.2) X10*3/uL Abs Immat Gran (auto) 0.03 (0.00-0.03) X10*3/uL Absolute Neuts (auto) 4.4 (2.0-8.3) x10*3/uL Absolute Nucleated RBC 0.000 (0.0-0.012) X10*3/uL Nucleated RBC % (auto) 0.0 (0.0-0.2) /100WBC Sodium 144 (135-145) mmol/L Potassium 4.1 (3.3-5.1) mmol/L Chloride 107 (96-108) mmol/L Carbon Dioxide 29 (22-29) mmol/L Anion Gap 12 (12-20) BUN 15 (9-16) mg/dL Creatinine 0.87 (0.5-1.4) mg/dL Estim Creat Clear Calc 102.9 Estimated GFR > 60 Random Glucose 64 (60-115) mg/dL Calcium 9.4 (8.4-10.2) mg/dL Total Bilirubin 0.2 (0.0-1.0) mg/dL AST 21 (5-37) U/L ALT 16 (0-40) U/L Alkaline Phosphatase 71 (39-117) U/L Total Protein 7.0 (6.5-8.0) g/dL Albumin 4.6 (3.5-5.0) g/dL Urine Opiates Screen Not Detected (Not Detect) Ur Buprenorphine Scrn Not Detected (Not Detect) ng/mL Ur Oxycodone Screen Not Detected (Not Detect) ng/mL Urine Methadone Screen Not Detected (Not Detect) ng/mL Urine Fentanyl Screen Not Detected (Not Detect) Acetaminophen < 3 (<30) mcg/mL Ur Barbiturates Screen Not Detected (Not Detect) Ur Phencyclidine Scrn Not Detected (Not Detect) Ur Amphetamines Screen Not Detected (Not Detect) U Benzodiazepines Scrn Not Detected (Not Detect) Urine Cocaine Screen POSITIVE H (Not Detect) U Marijuana (THC) Screen Not Detected (Not Detect) Ethyl Alcohol < 10 mg/dL Discharge Plan Discharge Clinical Impression: Cocaine use disorder Schizophrenia Qualifiers: Schizophrenia type: unspecified Qualified Code(s): F20.9 - Schizophrenia, unspecified Patient Disposition: Xfer Other Transfer Details: Respite Additional Instructions: Patient evaluated in the emergency department, we will be going to respite, olanzapine ordered, medically cleared. Prescriptions: New olanzapine 10 mg tablet 10 mg PO DAILY 4 Days Qty: 4 0RF No Action olanzapine 10 mg Tablet 10 mg PO DAILY Qty: 15 1RF risperidone 3 mg Tablet 6 mg PO BEDTIME Qty: 28 1RF Interventions: [place]-Suicide Risk Severity Scale Last Done: 12/25/24 16:04 ED Discharge Assessment Last Done: 12/25/24 17:31 Discharge Date/Time: 12/25/24 17:33 Print Language: French
[2024-12-24 15:40] LABS: MANUAL DIFF FLAG NO
[2024-12-24 15:49] LABS: Basophils Absolute Auto 0.1 X10*3/uL (0.0-0.2); Basophils Percent Auto 0.6 % (0-2); Eosinophils Absolute Auto 0.3 X10*3/uL (0.0-0.4); Eosinophils Percent Auto 3.5 % (0-4); Hematocrit 36.9 % (42.0-52.0); Hemoglobin 12.7 g/dl (14.0-18.0); Imm Gran Abs Auto 0.03 X10*3/uL (0.00-0.03); Imm Gran Pct Auto 0.3 % (0.0-0.4); Lymphocytes Absolute Auto 3.6 X10*3/uL (1.2-4.9); Lymphocytes Percent Auto 39.8 % (20-40); Mean Corpuscular HGB Conc 34.4 g/dl (31.0-36.0); Mean Corpuscular Hemoglobin 32.1 pg (27.0-33.0); Mean Corpuscular Volume 93.2 fL (80.0-98.0); Mean Platelet Volume 9.5 fL (9.4-12.4); Monocytes Absolute Auto 0.6 X10*3/uL (0.1-1.2); Monocytes Percent Auto 7.1 % (2-11); Neutrophils Absolute Auto 4.4 x10*3/uL (2.0-8.3); Neutrophils Percent Auto 48.7 % (45-73); Platelet Count 268 X10*3/uL (160-400); Red Blood Count 3.96 X10*6/uL (4.60-5.80); Red Cell Distribution Width 13.5 % (11.0-16.0)
[2024-12-24 15:59] LABS: Acetaminophen LAB < 3 mcg/mL (<30)
[2024-12-24 16:00] LABS: Alanine Aminotransferase 16 U/L (0-40); Albumin Level 4.6 g/dL (3.5-5.0); Alkaline Phosphatase 71 U/L (39-117); Anion Gap 12 (12-20); Aspartate Amino Transferase 21 U/L (5-37); Bilirubin Total 0.2 mg/dL (0.0-1.0); Blood Urea Nitrogen 15 mg/dL (9-16); Calcium 9.4 mg/dL (8.4-10.2); Carbon Dioxide 29 mmol/L (22-29); Chloride 107 mmol/L (96-108); Creatinine Clr Calc Pharmacy 102.9; Estimated Glomerular Filt Rate > 60; Ethanol < 10 mg/dL; Glucose Random 64 mg/dL (60-115); Potassium 4.1 mmol/L (3.3-5.1); Sodium 144 mmol/L (135-145)
--- NOTE | 2024-12-24 18:10 | MHC.CARE ---
Addendum entered by America Leon LCSW 12/24/24 20:29: Pt seen again by the CARE Team and was minimally engaged in the assessment. Case discussed with ED provider and Pt will be a follow-up in order to gather additional collateral information from Pt's outpatient providers. Pt is aware of the care plan. Original Note: Attempted to engage Pt in a crisis assessment, however Pt was unable to. Will attempt again later.
--- OUTSIDE RECORDS SUMMARY | 2024-12-24 18:19 | XMS_ITS | Clinical Summary ---
Author Organization [employer] Address [address] [facility] [address] [place] [address] Care Team Providers Care Creel Cleaner Name Role Phone Unavailable Primary Care Provider Unavailabl e Immunizations Immunization Administration Dates Next Due Moderna Covid-19 Vaccine [...] 1981 Lipid Panel 1981 SDOH Screening 1981 Disability Screening 1981 Alcohol/Substance Use Screening 1993 Tobacco Screening 1993 Family Planning (PISQ) 1996 Hepatitis C Screening 10/27/1999 DTaP/Tdap/Td Vaccines (1 - Tdap) 2000 Hepatitis B Vaccines (1 of 3 - 19+ 3-dose series) 2000 COVID-19 Vaccine ( season) 2024 07/26/2022, 06/30/2021, 09/13/2020, Additional history exists Influenza Vaccine (Season Ended) 2025 Zoster Vaccines (1 of 2) 10/27/2031 RSV [...] patient's age to complete this topic Meningococcal B Vaccine Aged Out No l onger eligible based on patient's age to complete [...] patient's age to complete this topic Insurance < 65 [place] [id number]
[2024-12-24 20:00] LABS: Amphetamine Screen Urine Not Detected (Not Detect); Barbiturates, Urine Not Detected (Not Detect); Benzodiazepines Screen Urine Not Detected (Not Detect); Buprenorphine Scr Not Detected (Not Detect); Cannabinoid Screen Urine Not Detected (Not Detect); Cocaine Screen Urine POSITIVE (Not Detect); Fentanyl, urine Not Detected (Not Detect); Methadone Screen, Urine Not Detected (Not Detect); Opiate Screen Urine Not Detected (Not Detect); Oxycodone Screen Urine Not Detected (Not Detect); Phencyclidine Screen Urine Not Detected (Not Detect)
--- NOTE | 2024-12-24 20:32 | PC.NURSE ---
upon arrival client asleep in room after seeing clinical team t/w followed up w patient regarding his medications reported he was current appears in no distress
[2024-12-24] MEDS: risperiDONE 3 MG TABLET 6 MG PO (21:41)
[2024-12-25 06:00] VITALS: BP 109/62; PULSE 61; RESP 16; TEMP 36.6; O2SAT 97
[2024-12-25] MEDS: OLANZapine 10 MG TABLET PO (10:46)
--- NOTE | 2024-12-25 11:12 | PC.NURSE ---
Patient sleeping for most of morning, easily arousable, calm and cooperative, awaiting disposition
--- NOTE | 2024-12-25 12:23 | PC.NURSE ---
Up ambulating around unit, calm and cooperative
--- NOTE | 2024-12-25 12:43 | PHA.MEDREC ---
Addendum entered by Benito Milner [facility] 12/25/24 13:43: med rec reviewed Original Note: Pharmacy Consult ? Medication Reconciliation Pharmacy reviewed med rec done by nursing. Spoke with pt and he stated he has no more Benztropine 1mg tabs at home and finished those months ago; I took those off the med rec. Pt confirmed he took the Olanzapine and Ripseridone medications yesterday.
--- NOTE | 2024-12-25 13:26 | MHC.CARE ---
faxed ACCS/ respite referral to [facility]
[2024-12-25 14:40] VITALS: BP 119/59; PULSE 76; RESP 15; TEMP 36.7; O2SAT 98
--- NOTE | 2024-12-25 15:28 | MHC.CARE ---
Per Dequan with [facility] ACCS team 2, he and the team RN are working to coordinate patient's medication, ensure they have all of his medication and call to confirm whether they are bringing it to [facility] or [facility].
--- NOTE | 2024-12-25 15:48 | PC.NURSE ---
Per care team, [facility] to drop off meds for patient at 5, plan to call [facility] @ 5:30 for patient to go to respite. Patient aware, provider made aware by Care team.
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
[2024-12-25 17:31] VITALS: BP 119/59; PULSE 76; RESP 15; TEMP 36.7; O2SAT 98
== END 2024-12-25 17:33 | disposition other institution (70) ==
PROVIDERS: Physician Assistant; Emergency Provider Emergency Medicine; PCP Internal Medicine
DX: F20.9 Schizophrenia, unspecified (principal); R45.851 Suicidal ideations; F14.10 Cocaine abuse, uncomplicated; Z51.81 Encounter for therapeutic drug level monitoring; Z79.899 Other long term (current) drug therapy; F17.210 Nicotine dependence, cigarettes, uncomplicated
CPT/HCPCS: 36415; 80053; 80143; 80307; 85025; 99285; S9485

== ENCOUNTER 2025-02-02 05:42 | Emergency (ER) | payer OTHER, SELFPAY ==
[2025-02-02 05:46] VITALS: BP 97/60; PULSE 70; RESP 16; TEMP 36.5; O2SAT 95; BMI 18.5
--- NOTE | 2025-02-02 06:33 | PC.NURSE ---
pt back to 6h bed @ 0625. pt denies AH at this time denies si/hi pt cooperative per admission discharge rn pt does not need spinning frame changer at this time
--- OUTSIDE RECORDS SUMMARY | 2025-02-02 06:33 | XMS_ITS | Clinical Summary ---
Author Organization [employer] Address [address] [place] [address] [address] [place] [address] Care Team Providers Care Classroom Coordinator Name Role Phone Unavailable Primary Care Provider [...] Tobacco Screening 1993 Family Planning (PISQ) 1996 HPV Vaccines (1 - Male 3-dose series) 1996 Hepatitis C Screening 10/27/1999 DTaP/Tdap/Td Vaccines (1 - Tdap) 2000 Hepatitis B Vaccines (1 of 3 - 19+ 3-dose series) 2000 COVID-19 Vaccine ( season) 2024 07/26/2022, 06/30/2021, 09/13/2020, Additional history exists Influenza Vaccine (#1) 2025 Zoster Vaccines (1 of 2) 10/27/2031 [...] Years) and At-Risk Patients (6 to 49) Years Aged Out No longer eligible based on patient's age to complete this topic RSV under 20 months Aged Out No longe r eligible based on patient's age to complete this topic Rotavirus Vaccines Aged Out No longer eligible based on patient's age to complete this topic Insurance < 65 [place] [id number]
--- NOTE | 2025-02-02 08:05 | ED.GENADULT ---
HPI - General Adult General Chief complaint: General Medical Stated complaint: General Med Time Seen by Provider: 02/02/25 08:02 Source: patient, RN notes reviewed and old records reviewed Mode of arrival: ambulatory History of Present Illness ED Provider: Aiyana IRWIN narrative: Patient is a 44-year-old male with history of schizophrenia, polysubstance use disorder, alcohol use disorder, depression, nicotine addiction, currently experiencing homelessness presenting to the emergency department with primary complaint of right upper dental pain. States his tooth recently fractured while he was eating candy. He complains of pain to the area since. Denies discharge or drainage, fevers, or difficulty swallowing. Has not called a dentist yet. Also complains of cracks and blisters to his feet. Denies current SI, HI, AH, VH. complaint: dental pain Onset (ago): day(s) Related Data Previous Rx's ?Medication ?Instructions ?Recorded olanzapine 10 mg tablet 10 mg PO DAILY #15 tabs 11/19/24 risperidone 3 mg tablet 6 mg (2 x 3 mg) PO BEDTIME #28 tabs 11/19/24 olanzapine 10 mg tablet 10 mg PO DAILY 4 days #4 tabs 12/25/24 amoxicillin 875 mg-potassium 1 tab PO BID #14 tabs 02/02/25 clavulanate 125 mg tablet Allergies Allergy/AdvReac Type Severity Reaction Status Date / Time No Known Allergies Allergy Verified 02/02/25 05:51 Review of Systems Review of Systems: As per HPI Yes all other systems are reviewed and are negative Constitutional: Constitutional: Reports as per HPI [facility] Past Medical History Medical History Nicotine addiction Psychiatric illness Depression Alcohol use disorder Cocaine use disorder Opioid abuse Suicide attempt Cocaine abuse Crack cocaine use Heroin abuse Substance abuse Schizophrenia Social History Social History Household Members: None Household Members Other:: Roommate that just moved out Housing: Homeless Do you presently have visiting nurse or other home services: No Unable to assess alcohol history related to: Refusing to respond Alcohol intake: current Alcohol intake frequency: a few times a month Patient Tobacco Use Status: Current everyday Tobacco user Tobacco use type: Cigarette Cigarette Packs Per Day: 2 Cigarettes Per Day: 20 Years Smoked: 28 e-Cigarette/Vaping Use: Never Used Second Hand Smoke Exposure: No Use of substances other than those prescribed or required for medical reasons: Yes Substance Use Type: Crack/Cocaine Advance Directives: No Advance Directives Information Provided: Yes service: No Sexual orientation: Straight/Heterosexual Physical Exam ED Vital Signs: Vital Signs - 24 hr 02/02/25 05:46 Temperature 97.7 F Pulse Rate 70 Respiratory Rate 16 Blood Pressure 97/60 Pulse Oximetry 95 Oxygen Delivery Method Room Air BMI result Body Mass Index 18.5 Vital signs have been reviewed and appear to be correct. Blood pressure normal. Heart rate normal. Respiratory rate normal. Temperature normal. Oxygen saturation normal. Const General: no acute distress, alert, awake, poor hygiene and other (disheveled, malodorous) Orientation/consciousness: oriented to person, oriented to place, oriented to time and patient oriented x3 Limitations: no limitations HENMT Head: Yes normocephalic and Yes atraumatic Ears: external ears normal General nose exam: Normal external nose present Face and sinus: Yes face symmetric Mouth: Normal oral and palatal mucosa present, oropharynx normal, moist mucous membranes, no audible dysphonia, no drooling and no trismus Teeth and gingiva: caries and poor dentition Teeth image:  1. fractured tooth with erythematous gingiva, no fluctuance or drainage Throat: Yes posterior oropharynx normal and Yes uvula midline Eyes Pupils: Equal, round and reactive pupils present Neck Neck: Yes normal visual inspection, Yes no lymphadenopathy and Yes supple Resp Effort & Inspection: normal respiratory effort and able to speak in complete sentences Auscultation: clear to auscultation bilaterally Cardio Rate: regular rate Rhythm: regular rhythm Heart sounds: S1 normal heart sound present and S2 normal heart sound present GI Palpation (GI): Soft to palpation and nontender Auscultation: normoactive bowel sounds General: Yes no CVA tenderness Back/Spine/Pelvis Back: no CVA tenderness Skin General skin exam: elasticity normal and turgor normal Neuro General: oriented to person, oriented to place, oriented to time, patient oriented x3, moves all extremities, no focal motor deficits and CN's II-XI intact bilaterally Cranial nerves: Yes Equal, round and reactive pupils present Cognition (Neuro): normal cognition Extrem Other: bilat feet covered in dirt, superficial fissures between toes without erythema, warmth or drainage General: Yes full ROM, Yes no pedal edema and Yes no calf tenderness Ankle/foot/toe images:  1. 3-4cm blister to medial heel without surrounding erythema/warmth Psych Mental Status: mental status grossly normal Affect: normal affect Thought process: Normal thought process present Medical Decision Making Medical Decision Making [facility] Narrative: Patient is a 44-year-old male with history of schizophrenia, polysubstance use disorder, alcohol use disorder, depression, nicotine addiction, currently experiencing homelessness presenting to the emergency department with primary complaint of right upper dental pain. On exam patient is awake, A+Ox3, VS WNL, afebrile, normal neurological exam without focal deficits, physical exam findings as above. Given reported symptoms and physical exam findings, initial differential includes but is not limited to toothache, dental infection, friction blister of foot. No evidence of dental abscess or Malcolm's angina. No evidence of cellulitis to feet. Will treat patient with Augmentin for dental infection, advised Tylenol and ibuprofen. Discussed with patient that his feet do not appear infected and discussed that he should not rupture his blister. Patient provided with hygiene products as well as extra socks and wipes for cleaning his feet. Patient also provided with list of dental clinics. Return precautions discussed. Patient verbalized understanding of and agreement with plan. Differential Diagnosis Differential Diagnoses: The differential diagnosis associated with the presentation includes As per MDM Admission/Observation Consideration of admission/observation: Escalation of care including admission/observation considered Patient would have been admitted to the hospital had their clinical presentation warranted hospital admission. External Record Review External record reviewed: Inpatient record, Office record and Outpatient record Prescription Management I considered prescription management with: Antibiotic Social Determinants Patient?s care significantly limited by Social Determinants of Health including: Inadequate housing Discharge Plan Discharge Clinical Impression: Dental infection Patient Disposition: Home, Self-Care Additional Instructions: You were evaluated in the emergency department today for complaint of dental pain. You are being treated for a dental infection with antibiotics. Please complete the full course of antibiotics as prescribed even if your symptoms improve. IT IS IMPORTANT THAT YOU FOLLOW UP WITH A DENTIST. We recommend that you take 600 mg of ibuprofen or 650 mg Tylenol every 6 hours as needed for pain. If necessary, you can alternate these medications every 3 hours. For example, at 9:00 a.m. take Tylenol, then at noon take ibuprofen, then at 3:00 p.m. take Tylenol, etc.. Return to the emergency department if you develop worsening pain, swelling, difficulty swallowing, difficulty breathing, fever, or any other concerning symptoms. Call or visit any of the clinics below to establish care with a dentist: [facility] [address] [place] [address] [facility] [address] [facility], [address] [address] [place] [address] [facility] [address] [address] [facility] [address] [place] [address] [place] [address] [place] [address] Prescriptions: New amoxicillin-pot clavulanate 875-125 mg tablet 1 tab PO BID Qty: 14 0RF No Action olanzapine 10 mg Tablet 10 mg PO DAILY Qty: 15 1RF risperidone 3 mg Tablet 6 mg PO BEDTIME Qty: 28 1RF olanzapine 10 mg tablet 10 mg PO DAILY 4 Days Qty: 4 0RF Print Language: Azeri
[2025-02-02 09:37] VITALS: BP 97/60; PULSE 70; RESP 16; TEMP 36.3; O2SAT 99
== END 2025-02-02 09:38 | disposition home or self-care (01) ==
PROVIDERS: Emergency Provider Emergency Medicine
DX: K04.7 Periapical abscess without sinus (principal); K08.89 Other specified disorders of teeth and supporting structures; Z59.00 Homelessness unspecified; F17.210 Nicotine dependence, cigarettes, uncomplicated
CPT/HCPCS: 99283

== ENCOUNTER 2025-02-25 09:49 | Emergency (ER) | payer OTHER, SELFPAY ==
--- NOTE | ~2025-02-25 | XR_ITS ---
EXAMINATION: XR FOOT 1-2 VIEWS RIGHT HISTORY: r/o osteo COMPARISON: There are no prior studies available for comparison. FINDINGS: Three views of the right foot are submitted. There is cortical thickening and coarsening of the trabecular markings in the 5th metatarsal which could represent abscesses disease. There is no fracture or dislocation. The joint spaces are preserved. The soft tissues are unremarkable. 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 Correlation with alkaline phosphatase levels is suggested. Otherwise unremarkable examination of the right foot. Electronically signed by: Fermín Bowen MD 02/25/2025 11:04 AM EDT
--- NOTE | ~2025-02-25 | US_ITS ---
EXAMINATION: US TRIPLEX LOWER EXTREMITY, RIGHT CLINICAL INFORMATION: Edema and pain, right lower extremity. COMPARISON: None available. TECHNIQUE: Color-flow triplex imaging with spectral analysis and compression Doppler were performed on the right lower extremity. FINDINGS: Respiratory variation, normal compression and augmented flow are demonstrated in the interrogated right common femoral vein, superficial femoral vein, profunda femoral vein, popliteal vein and midcalf peroneal and posterior tibial venous segments. There is no Monk's cyst. US/US venous duplex LE RT IMPRESSION: No acute deep venous thrombosis interrogated veins, right lower extremity. Negative for DVT. Electronically signed by: Vish Davenport MD 02/25/2025 02:07 PM EDT
[2025-02-25 10:27] VITALS: BP 93/55; PULSE 72; RESP 18; TEMP 36.4; O2SAT 99; BMI 19.7
[2025-02-25 10:59] LABS: MANUAL DIFF FLAG NO
[2025-02-25 11:00] LABS: Hematocrit 39.2 % (42.0-52.0); Hemoglobin 13.1 g/dl (14.0-18.0); Imm Gran Abs Auto 0.05 X10*3/uL (0.00-0.03); Imm Gran Pct Auto 0.4 % (0.0-0.4); Lymphocytes Absolute Auto 2.9 X10*3/uL (1.2-4.9); Mean Corpuscular HGB Conc 33.4 g/dl (31.0-36.0); Mean Corpuscular Hemoglobin 31.3 pg (27.0-33.0); Mean Corpuscular Volume 93.6 fL (80.0-98.0); NRBC Abs Auto 0.000 X10*3/uL (0.0-0.012); NRBC Pct Auto 0.0 /100WBC (0.0-0.2); Platelet Count 338 X10*3/uL (160-400); Red Blood Count 4.19 X10*6/uL (4.60-5.80); White Blood Count 12.9 X10*3/uL (4.8-10.8)
[2025-02-25 11:20] LABS: Alanine Aminotransferase 15 U/L (0-40); Albumin Level 4.6 g/dL (3.5-5.0); Alkaline Phosphatase 71 U/L (39-117); Anion Gap 12 (12-20); Aspartate Amino Transferase 23 U/L (5-37); Blood Urea Nitrogen 20 mg/dL (9-16); Calcium 9.2 mg/dL (8.4-10.2); Carbon Dioxide 29 mmol/L (22-29); Chloride 105 mmol/L (96-108); Creatinine Clr Calc Pharmacy 103.3; Estimated Glomerular Filt Rate > 60; Potassium 3.5 mmol/L (3.3-5.1); Sodium 142 mmol/L (135-145); Total Protein 7.2 g/dL (6.5-8.0)
[2025-02-25 11:55] LABS: Glucose, Whole Blood 132 mg/dL (60-115)
--- NOTE | 2025-02-25 11:59 | ED_ITS ---
HPI - Extremity Injury (Lower) General Chief Complaint: Extremity Injury, Lower Stated Complaint: R foot pain/swelling Time Seen by Provider: 02/25/25 11:38 Source: patient Mode of arrival: ambulatory Limitations: no limitations History of Present Illness ED Provider: Braden Sanchez PA-C HPI Narrative: 44 yo male schizophrenia, homelessness, ETOH use disorder, cocaine use disorder, movement disorder who presents to the ER for evaluation of right foot pain for the last 4-5 days. He states the pain is on the bottom of his foot. He denies injury or stepping on anything. He states he often wears sneakers without socks. He denies IVDA usually but used 1x IV last week in his left arm. He denies injecting in his legs. He reports some soreness in his right calf with associated redness of the calf and lower leg. he denies chest pain, SOB, fevers, chills, muscle aches, headaches. MD complaint: foot injury Onset (ago): day(s) Type of Injury: unknown Place: street/outdoors Severity: moderate Severity scale (1-10): 7 Relieving factors: nothing Exacerbating factors: weight bearing and palpation Associated symptoms: able to partially bear weight Other symptoms: none Related Data Previous Rx's ?Medication ?Instructions ?Recorded olanzapine 10 mg tablet 10 mg PO DAILY #15 tabs 03/08 risperidone 3 mg tablet 6 mg (2 x 3 mg) PO BEDTIME # 28 tabs 11/19/24 olanzapine 10 mg tablet 10 mg PO DAILY 4 days #4 tab s 12/25/24 amoxicillin 875 mg-potassium 1 tab PO BID #14 tabs clavulanate 125 mg tablet cephalexin 500 mg capsule 500 mg PO Q6H 7 days #28 cap s 02/25/25 doxycycline hyclate 100 mg tablet 100 mg PO BID #14 ta bs 02/25/25 ibuprofen 600 mg tablet 600 mg PO Q8H PRN pain #10 t abs 02/25/25 Allergies Allergy/AdvReac Type Severity Reaction Status Date / Time No Known Allergies Allergy Verified 02/25/25 10:31 Review of Systems 2 Review of Systems: Yes all other systems are reviewed and are negative PMFSH Past Medical History Medical History Nicotine addiction Psychiatric illness Depression Alcohol use disorder Cocaine use disorder Opioid abuse Suicide attempt Cocaine abuse Crack cocaine use Heroin abuse Substance abuse Schizophrenia Social History Social History Household Members: None Household Members Other:: Roommate that just moved out Housing: Homeless Do you presently have visiting nurse or other home services: No Unable to assess alcohol history related to: Refusing to respond Alcohol intake: current Alcohol intake frequency: a few times a month Patient Tobacco Use Status: Current everyday Tobacco user Tobacco use type: Cigarette Cigarette Packs Per Day: 2 Cigarettes Per Day: 20 Years Smoked: 28 e-Cigarette/Vaping Use: Never Used Second Hand Smoke Exposure: No Substance Use Type: Crack/Cocaine Advance Directives: No Advance Directives Information Provided: Yes service: No Sexual orientation: Straight/Heterosexual Physical Exam 2 Exam: Exam: Appearance: Alert. Oriented X3. Disheveled and unkempt, pungent odor Head: normocephalic, atraumatic. Eyes: Pupils equal, round and reactive to light. ENT: Pharynx normal. No tonsillar swelling or exudate. poor dentition Neck: Normal inspection. Neck supple. CVS: Normal heart rate and rhythm. Pulses normal. Respiratory: No respiratory distress. Breath sounds normal. Abdomen: Soft and nontender. +BS x4 Skin: Skin warm and dry. Normal skin color. Normal skin turgor. No rashes. Extremities: right lower leg with erythema, warmth and tenderness of the posterior lower leg, anterior distal RLE with mild erythema as well. plantar aspect of the right foot with white, macerated tissue with small circular depressions/lesions, tender to touch. NV inact. no fluctuance or drainage Neuro/psych: Oriented X 3. No motor deficit. No sensory deficit. CN II-XII intact. Normal speech and cognition. Vital Signs: Vital Signs: Last Vital Signs Temp 98.1 F 02/25/25 14:00 Pulse 72 02/25/25 14:00 Resp 18 02/25/25 14:00 BP 102/60 02/25/25 14:00 Pulse Ox 99 02/25/25 14:00 O2 Del Method Room Air 02/25/25 14:00 BMI result Body Mass Index 19.7 Medications Administered Discontinued Medications Generic Name Dose Route Start Last Admin Trade Name Freq PRN Reason Stop Dose Admin Cephalexin HCl 500 mg 02/25/25 14:58 02/25/25 15:10 Cephalexin 500 Mg Capsule PO 02/25/25 14:59 500 mg ONCE ONE Administration Doxycycline Monohydrate 100 mg 02/25/25 14:58 02/25/25 15:10 Doxycycline Monohydrate 100 Mg Capsule PO 02/25/25 14:59 100 mg ONCE ONE Administration Ibuprofen 600 mg 02/25/25 14:59 02/25/25 15:10 Ibuprofen 600 Mg Tablet PO 02/25/25 15:00 600 mg ONCE ONE Administration Medical Decision Making Medical Decision Making [facility] Narrative: 44 yo male schizophrenia, homelessness, ETOH use disorder, cocaine use disorder, movement disorder who presents to the ER for evaluation of right foot pain for the last 4-5 days. Plantar aspect of the right foot w/ macerated tissue and some erosions likely due to chronic moisture erythema and warmth of lower leg. hypoglycemic on labs done in , asymptomatic. has not eaten today. no hx DM given PO and sugar improved LE US negative for DVT labs w/ mild leukocytosis. no fever or tachycardia, not septic. comfortable with starting him PO abx and discharging. he will pick[employer] at [facility] stable for d/c home Differential Diagnosis Differential Diagnoses: The differential diagnosis associated with the presentation includes cellulitis, DVT, trench foot, puncture wound, low suspicion for bacteremia and endocarditis Admission/Observation Consideration of admission/observation: Escalation of care including admission/observation considered Lab Data [facility] Lab Attestation statement: I reviewed the patient's lab results. leukocytosis, hypoglycemia 02/25/25 10:52 02/25/25 10:52 Labs: Lab Results 02/25/25 02/25/25 Range/Units 10:52 11:51 WBC 12.9 H (4.8-10.8) X10*3/uL RBC 4.19 L (4.60-5.80) X10*6/uL Hgb 13.1 L (14.0-18.0) g/dl Hct 39.2 L (42.0-52.0) % MCV 93.6 (80.0-98.0) fL MCH 31.3 (27.0-33.0) pg MCHC 33.4 (31.0-36.0) g/dl RDW 13.0 (11.0-16.0) % Plt Count 338 D (160-400) X10*3/uL MPV 9.5 (9.4-12.4) fL Immature Gran % (Auto) 0.4 (0.0-0.4) % Neut % (Auto) 65.9 (45-73) % Lymph % (Auto) 22.7 (20-40) % Cabell % (Auto) 8.8 (2-11) % Eos % (Auto) 1.7 (0-4) % Baso % (Auto) 0.5 (0-2) % Lymph # (Auto) 2.9 (1.2-4.9) X10*3/uL Cabell # (Auto) 1.1 (0.1-1.2) X10*3/uL Eos # (Auto) 0.2 (0.0-0.4) X10*3/uL Baso # (Auto) 0.1 (0.0-0.2) X10*3/uL Abs Immat Gran (auto) 0.05 H (0.00-0.03) X10*3/uL Absolute Neuts (auto) 8.5 H (2.0-8.3) x10*3/uL Absolute Nucleated RBC 0.000 (0.0-0.012) X10*3/uL Nucleated RBC % (auto) 0.0 (0.0-0.2) /100WBC Sodium 142 (135-145) mmol/L Potassium 3.5 (3.3-5.1) mmol/L Chloride 105 (96-108) mmol/L Carbon Dioxide 29 (22-29) mmol/L Anion Gap 12 (12-20) BUN 20 H (9-16) mg/dL Creatinine 0.79 (0.5-1.4) mg/dL Estim Creat Clear Calc 103.3 Estimated GFR > 60 POC Glucose 132 H (60-115) mg/dL Random Glucose 54 L* (60-115) mg/dL Calcium 9.2 (8.4-10.2) mg/dL Total Bilirubin 0.7 (0.0-1.0) mg/dL AST 23 (5-37) U/L ALT 15 (0-40) U/L Alkaline Phosphatase 71 (39-117) U/L Total Protein 7.2 (6.5-8.0) g/dL Albumin 4.6 (3.5-5.0) g/dL Independent Interpretation I performed an independent interpretation of an: Ultrasound Interpretation: no dvt seen External Record Review External record reviewed: Outpatient record, Prior outpatient labs and Prior outpatient radiology Prescription Management I considered prescription management with: Pain Medication and Antibiotic Chronic Conditions Patient?s care impacted by: Other (schizophrenia) Social Determinants Patient?s care significantly limited by Social Determinants of Health including: Inadequate housing, Problems related to primary support group and Other Social Determinant of Health Critical Care Time Critical Care Time Critical Care Time: No Discharge Plan Discharge Clinical Impression: Cellulitis Qualifiers: Site of cellulitis: extremity Site of cellulitis of extremity: lower extremity Laterality: right Qualified Code(s): L03.115 - Cellulitis of right lower limb Patient Disposition: Home, Self-Care Instructions: Cellulitis (ED) Additional Instructions: you need to keep your feet dry change your socks once per day allow them open to air for several hours per day if able Take the prescribed antibiotics as directed, complete the entire course and do not miss any doses your ultrasound was negative for blood clot If you develop new or worsening symptoms call 911 or come back to the ER for further evaluation. Prescriptions: New doxycycline hyclate 100 mg tablet 100 mg PO BID Qty: 14 0RF ibuprofen 600 mg tablet 600 mg PO Q8H PRN (Reason: pain) Qty: 10 0RF cephalexin 500 mg capsule 500 mg PO Q6H 7 Days Qty: 28 0RF No Action olanzapine 10 mg Tablet 10 mg PO DAILY Qty: 15 1RF risperidone 3 mg Tablet 6 mg PO BEDTIME Qty: 28 1RF olanzapine 10 mg tablet 10 mg PO DAILY 4 Days Qty: 4 0RF amoxicillin-pot clavulanate 875-125 mg tablet 1 tab PO BID Qty: 14 0RF Print Language: Serbian
[2025-02-25 14:00] VITALS: BP 102/60; PULSE 72; RESP 18; TEMP 36.7; O2SAT 99
--- NOTE | 2025-02-25 14:45 | PC.NURSE ---
Pt resting on stretcher, respirations equal/unlabored.
[2025-02-25 15:18] VITALS: BP 102/60; PULSE 72; RESP 18; TEMP 36.7; O2SAT 99
== END 2025-02-25 15:18 | disposition home or self-care (01) ==
PROVIDERS: Emergency Provider Emergency Medicine
DX: L03.115 Cellulitis of right lower limb (principal); M79.604 Pain in right leg; M79.671 Pain in right foot
CPT/HCPCS: 36415; 73620; 80053; 82947; 85025; 93971; 99283; 99284

== ENCOUNTER → 2025-02-25 10:01 | Outpatient (BNV) | payer OTHER, SELFPAY | PROVIDERS: Emergency Provider Emergency Medicine; Visit Provider Radiology Diagnostic Radiology | DX: R22.41 Localized swelling, mass and lump, right lower limb (principal); M89.371 Hypertrophy of bone, right ankle and foot | CPT/HCPCS: 73620; 93971 ==

== ENCOUNTER 2025-02-27 19:49 | Emergency (ER) | payer OTHER, SELFPAY ==
--- NOTE | 2025-02-27 | ECG_ITS ---
Test Reason : LIGHTHEADEDNESS Blood Pressure : */* mmHG Vent. Rate : 58 BPM Atrial Rate : 58 BPM P-R Int : 122 ms QRS Dur : 92 ms QT Int : 406 ms P-R-T Axes : 57 88 71 degrees QTcB Int : 398 ms Sinus bradycardia Otherwise normal ECG When compared with ECG of 11-Nov-2024 11:32, No significant change was found Referred By: Generic ED Physician Electronically Signed By: Stuart Gary
[2025-02-27 19:57] VITALS: BP 86/54; PULSE 68; O2SAT 95
[2025-02-27 20:06] VITALS: BP 98/57; PULSE 62; RESP 18; TEMP 36.3; O2SAT 96; BMI 20.7
[2025-02-27 20:32] LABS: MANUAL DIFF FLAG NO
[2025-02-27 20:33] LABS: Hematocrit 35.2 % (42.0-52.0); Hemoglobin 12.2 g/dl (14.0-18.0); Imm Gran Abs Auto 0.03 X10*3/uL (0.00-0.03); Imm Gran Pct Auto 0.3 % (0.0-0.4); Lymphocytes Absolute Auto 2.4 X10*3/uL (1.2-4.9); Mean Corpuscular HGB Conc 34.7 g/dl (31.0-36.0); Mean Corpuscular Hemoglobin 31.9 pg (27.0-33.0); Mean Corpuscular Volume 92.1 fL (80.0-98.0); NRBC Abs Auto 0.000 X10*3/uL (0.0-0.012); NRBC Pct Auto 0.0 /100WBC (0.0-0.2); Platelet Count 285 X10*3/uL (160-400); Red Blood Count 3.82 X10*6/uL (4.60-5.80); White Blood Count 9.8 X10*3/uL (4.8-10.8)
[2025-02-27 21:00] LABS: Troponin-I High Sensitivity < 2.7 ng/L (<3.5-35.0)
--- NOTE | 2025-02-27 21:00 | ED_ITS ---
HPI - General Adult General Chief complaint: General Medical Stated complaint: Unwell feeling, light headed, bp 82/54 Time Seen by Provider: 02/27/25 20:58 Source: patient, EMS and old records reviewed Mode of arrival: EMS Limitations: no limitations History of Present Illness ED Provider: ZAIDA IRWIN narrative: 44 yo male with PMH of schizophrenia, cocaine use disorder, ETOH use disorder who was just seen here 02/25 for R foot cellulitis treated with cephalexin and doxy and doing well he notes he has been changing his socks and rash is improved. He comes in today after being out in the heat all day and feels he didn't drink enough. He is weak and tired. No n/v/d, no fevers or cough. He has no SI/HI MD complaint: feels unwell Onset (ago): day(s) (1) Radiation: non-radiation Severity: moderate Relieving factors: rest Exacerbating factors: movement Associated symptoms: loss of appetite, malaise and weakness Treatments prior to arrival: none Related Data Previous Rx's ?Medication ?Instructions ?Recorded olanzapine 10 mg tablet 10 mg PO DAILY #15 tabs 0503/08 risperidone 3 mg tablet 6 mg (2 x 3 mg) PO BEDTIME # 28 tabs 11/19/24 olanzapine 10 mg tablet 10 mg PO DAILY 4 days #4 tab s 12/25/24 amoxicillin 875 mg-potassium 1 tab PO BID #14 tabs clavulanate 125 mg tablet cephalexin 500 mg capsule 500 mg PO Q6H 7 days #28 cap s 02/25/25 doxycycline hyclate 100 mg tablet 100 mg PO BID #14 ta bs 02/25/25 ibuprofen 600 mg tablet 600 mg PO Q8H PRN pain #10 t abs 02/25/25 Allergies Allergy/AdvReac Type Severity Reaction Status Date / Time No Known Allergies Allergy Verified 02/27/25 20:13 Review of Systems 2 Review of Systems: Constitutional : No Fever, No Chills, No Fatigue ENT/Mouth : No sore throat, No Rhinorrhea Eyes: No Eye Pain, No Swelling, No Redness Cardiovascular : No Chest Pain, No SOB, No Dyspnea on Exertion Respiratory : No Cough, No Sputum Gastrointestinal : No Nausea, No Vomiting, No Diarrhea, No abdominal Pain Genitourinary : No Dysuria, No Urinary Frequency, No Hematuria, Musculoskeletal : No joint pain, No Myalgias, No Joint Swelling Skin : No Skin Lesions, No rash Neuro : pos Weakness, No Numbness, No Dizziness, no Headache All other systems reviewed and are negative [facility] Past Medical History Attestation statement: The following information was validated with the patient. Source: old records reviewed Medical History Nicotine addiction Psychiatric illness Depression Alcohol use disorder Cocaine use disorder Opioid abuse Suicide attempt Cocaine abuse Crack cocaine use Heroin abuse Substance abuse Schizophrenia Social History Social History Household Members: None Household Members Other:: Roommate that just moved out Housing: Homeless Do you presently have visiting nurse or other home services: No Unable to assess alcohol history related to: Refusing to respond Alcohol intake: current Alcohol intake frequency: a few times a month Patient Tobacco Use Status: Current everyday Tobacco user Tobacco use type: Cigarette Cigarette Packs Per Day: 2 Cigarettes Per Day: 20 Years Smoked: 28 Smoked in Last 30 Days: Yes e-Cigarette/Vaping Use: Never Used Second Hand Smoke Exposure: No Use of substances other than those prescribed or required for medical reasons: Yes Substance Use Type: Crack/Cocaine and Heroin Substance Use Frequency: Occasionally Substance Use Frequency Other:: states not for few days Last Used Substance: Days (ago) Advance Directives: No Advance Directives Information Provided: No service: No Sexual orientation: Straight/Heterosexual Physical Exam ED Vital Signs: Vital Signs - 24 hr 02/27/25 20:06 02/27/25 21:49 02/27/25 23:46 Temperature 97.4 F 97.6 F Pulse Rate 62 58 54 Respiratory Rate 18 16 18 Blood Pressure 98/57 L 90/55 L 99/51 L Pulse Oximetry 96 95 94 Oxygen Delivery Method Room Air Room Air Room Air 02/28/25 03:42 02/28/25 06:14 Temperature 97.9 F 97.9 F Pulse Rate 67 70 Respiratory Rate 18 18 Blood Pressure 108/61 135/78 Pulse Oximetry 94 96 Oxygen Delivery Method Room Air Room Air BMI result Body Mass Index 20.7 Appearance: Alert. Oriented X3. No acute distress. unkempt and disheveled Eyes: Pupils equal, round and reactive to light. ENT: Pharynx mild dry MM Neck: Normal inspection. Neck supple. CVS: Normal heart rate and rhythm. Pulses normal. Respiratory: No respiratory distress. Breath sounds normal. Abdomen: Soft and nontender. Skin: Skin warm and dry. Normal skin color. Normal skin turgor. Extremities: No lower extremity edema. R foot well healing no redness or warmth skin is dry on arrival Neuro: Oriented X 3. No motor deficit. No sensory deficit. CN2-12 intact Course Course Course Narrative: awake alert stable for DC Medications Administered Discontinued Medications Generic Name Dose Route Start Last Admin Trade Name Marcello PRN Reason Stop Dose Admin Lactated Ringer's 1,000 mls @ 999 mls/hr 02/27/25 21:13 02/27/25 23:12 Lr IV 02/27/25 22:13 Infused .Q1H1M ONE Infusion Medical Decision Making Medical Decision Making [facility] Narrative: 44 yo male with PMH of schizophrenia, cocaine use disorder, ETOH use disorder here with c/o not feeling well his cellulitis is vastly improved he has no fevers, cough, GIB symptoms, CP/SOB, URI symptoms at this time he blames it on being outside in the heat. Will obtain basic labs and start hydration. He has no SI/HI Differential Diagnosis Differential Diagnoses: The differential diagnosis associated with the presentation includes dehydration, exposure, anemia Admission/Observation Consideration of admission/observation: Escalation of care including admission/observation considered Lab Data [facility] Lab Attestation statement: I reviewed the patient's lab results. 02/27/25 20:26 02/27/25 20:26 Labs: Lab Results 02/27/25 Range/Units 20:26 WBC 9.8 (4.8-10.8) X10*3/uL RBC 3.82 L (4.60-5.80) X10*6/uL Hgb 12.2 L (14.0-18.0) g/dl Hct 35.2 L (42.0-52.0) % MCV 92.1 (80.0-98.0) fL MCH 31.9 (27.0-33.0) pg MCHC 34.7 (31.0-36.0) g/dl RDW 13.1 (11.0-16.0) % Plt Count 285 (160-400) X10*3/uL MPV 9.8 (9.4-12.4) fL Immature Gran % (Auto) 0.3 (0.0-0.4) % Neut % (Auto) 64.7 (45-73) % Lymph % (Auto) 24.9 (20-40) % [place] % (Auto) 7.5 (2-11) % Eos % (Auto) 2.2 (0-4) % Baso % (Auto) 0.4 (0-2) % Lymph # (Auto) 2.4 (1.2-4.9) X10*3/uL [place]od # (Auto) 0.7 (0.1-1.2) X10*3/uL Eos # (Auto) 0.2 (0.0-0.4) X10*3/uL Baso # (Auto) 0.0 (0.0-0.2) X10*3/uL Abs Immat Gran (auto) 0.03 (0.00-0.03) X10*3/uL Absolute Neuts (auto) 6.3 (2.0-8.3) x10*3/uL Absolute Nucleated RBC 0.000 (0.0-0.012) X10*3/uL Nucleated RBC % (auto) 0.0 (0.0-0.2) /100WBC Sodium 140 (135-145) mmol/L Potassium 4.0 (3.3-5.1) mmol/L Chloride 107 (96-108) mmol/L Carbon Dioxide 23 (22-29) mmol/L Anion Gap 14 (12-20) BUN 19 H (9-16) mg/dL Creatinine 0.76 (0.5-1.4) mg/dL Estim Creat Clear Calc 112.5 Estimated GFR > 60 Random Glucose 82 (60-115) mg/dL Lactic Acid 0.8 (0.5-2.0) mmol/L Calcium 8.6 D (8.4-10.2) mg/dL Magnesium 2.1 (1.6-2.6) mg/dL Total Bilirubin 0.5 (0.0-1.0) mg/dL AST 23 (5-37) U/L ALT 10 (0-40) U/L Alkaline Phosphatase 65 (39-117) U/L Troponin I High Sens < 2.7 (<3.5-35.0) ng/L Total Protein 6.3 L (6.5-8.0) g/dL Albumin 4.0 (3.5-5.0) g/dL Influenza Type A (PCR) NEGATIVE (Negative) Influenza Type B (PCR) NEGATIVE (Negative) RSV RNA Qual (PCR) NEGATIVE (Negative) SARS-CoV-2 RNA (RT-PCR) NEGATIVE (Negative) Independent Interpretation I performed an independent interpretation of an: EKG Interpretation: Rate: 58 Rhythm: sinus bradycardia [place]: Normal P waves. Normal ALESSANDRA. Normal QRS complex. ST T wave : inverted t waves V1, aVL, no LOVELY qTC: 398 prior studies: normal The study has been interpreted contemporaneously by me. . Independent Historian Clinical information obtained from an independent historian. History obtained from or confirmed by: EMS External Record Review External record reviewed: Inpatient record and Outpatient record Social Determinants Patient?s care significantly limited by Social Determinants of Health including: Inadequate housing, Problems related to primary support group and Unemployment Discharge Plan Discharge Clinical Impression: Malaise Patient Disposition: Home, Self-Care Instructions: Fatigue (ED) Additional Instructions: please rest and stay hydrated finish your antibiotics return for any worsening symptoms or concerns Prescriptions: No Action olanzapine 10 mg Tablet 10 mg PO DAILY Qty: 15 1RF risperidone 3 mg Tablet 6 mg PO BEDTIME Qty: 28 1RF olanzapine 10 mg tablet 10 mg PO DAILY 4 Days Qty: 4 0RF doxycycline hyclate 100 mg tablet 100 mg PO BID Qty: 14 0RF ibuprofen 600 mg tablet 600 mg PO Q8H PRN (Reason: pain) Qty: 10 0RF cephalexin 500 mg capsule 500 mg PO Q6H 7 Days Qty: 28 0RF amoxicillin-pot clavulanate 875-125 mg tablet 1 tab PO BID Qty: 14 0RF Print Language: Bhutanese
[2025-02-27 21:10] LABS: Resp Syncy Virus RNA Qual PCR NEGATIVE (Negative); SARS COV2 PCR INHOUSE NEGATIVE (Negative)
[2025-02-27 21:49] VITALS: BP 90/55; PULSE 58; RESP 16; TEMP 36.4; O2SAT 95
[2025-02-27] MEDS: Lactated Ringers 1,000 ML 999 ML IV (22:05)
[2025-02-27 22:49] LABS: Alanine Aminotransferase 10 U/L (0-40); Albumin Level 4.0 g/dL (3.5-5.0); Alkaline Phosphatase 65 U/L (39-117); Anion Gap 14 (12-20); Aspartate Amino Transferase 23 U/L (5-37); Blood Urea Nitrogen 19 mg/dL (9-16); Calcium 8.6 mg/dL (8.4-10.2); Carbon Dioxide 23 mmol/L (22-29); Chloride 107 mmol/L (96-108); Creatinine Clr Calc Pharmacy 112.5; Estimated Glomerular Filt Rate > 60; Magnesium 2.1 mg/dL (1.6-2.6); Potassium 4.0 mmol/L (3.3-5.1); Sodium 140 mmol/L (135-145); Total Protein 6.3 g/dL (6.5-8.0)
[2025-02-27 23:46] VITALS: BP 99/51; PULSE 54; RESP 18; O2SAT 94
[2025-02-28 03:42] VITALS: BP 108/61; PULSE 67; RESP 18; TEMP 36.6; O2SAT 94
[2025-02-28 06:14] VITALS: BP 135/78; PULSE 70; RESP 18; TEMP 36.6; O2SAT 96
--- NOTE | 2025-02-28 06:55 | PC.NURSE ---
at this time this RN attempted to D/C this pt, pt stated I can't go I don't feel well...the smell of my clothes makes me sick...I'm not able to take my antibiotics. among other statements. This RN offered hospital clothing, some snacks, and informed the pt they can wait in the waiting for the city bus. Pt stated he had no where to go, this RN offered to call his mother Casandra from contact list, phone call attempted at this time, w/ no answer message was left for this pt's mom
--- NOTE | 2025-02-28 07:05 | PC.NURSE ---
pt resistant to leave at this time, this RN ofered his PRN ativan, pt stated I don't want anything , refused VS and medication, requested snack to go. This RN offered a sandwich and drink, informed the pt he can wait in the waiting room for the bus.
[2025-02-28 07:06] VITALS: BP 0/0; PULSE 0; RESP 18; TEMP -17.7; TEMP 0; O2SAT 0
== END 2025-02-28 07:09 | disposition home or self-care (01) ==
PROVIDERS: Emergency Provider Emergency Medicine
DX: R42 Dizziness and giddiness (principal); R53.81 Other malaise; R00.1 Bradycardia, unspecified; F25.9 Schizoaffective disorder, unspecified; R11.0 Nausea; F17.210 Nicotine dependence, cigarettes, uncomplicated; Z03.818 Encounter for observation for suspected exposure to other biological agents ruled out
CPT/HCPCS: 80053; 83605; 83735; 84484; 85025; 87637; 93005; 96360; 99284; J7120

== ENCOUNTER → 2025-02-27 20:32 | Outpatient (BNV) | payer OTHER, SELFPAY | PROVIDERS: Emergency Provider Emergency Medicine; Visit Provider Internal Medicine Cardiovascular Disease | DX: R00.1 Bradycardia, unspecified (principal) | CPT/HCPCS: 93010 ==

== ENCOUNTER 2025-03-15 22:36 | Emergency (ER) | payer OTHER, SELFPAY ==
--- NOTE | 2025-03-15 | ECG_ITS ---
Test Reason : OVERDOSE Blood Pressure : */* mmHG Vent. Rate : 90 BPM Atrial Rate : 90 BPM P-R Int : 124 ms QRS Dur : 84 ms QT Int : 334 ms P-R-T Axes : 66 79 58 degrees QTcB Int : 408 ms Normal sinus rhythm Normal ECG When compared with ECG of 27-Feb-2025 20:32, Vent. rate has increased by 32 bpm Referred By: Generic ED Physician Electronically Signed By: Stuart Gary
[2025-03-15 22:39] VITALS: BP 129/86; PULSE 110; O2SAT 98; BMI 20.7
[2025-03-15 22:46] VITALS: BP 119/60; PULSE 93; RESP 22; TEMP 36.9; O2SAT 97
--- OUTSIDE RECORDS SUMMARY | 2025-03-15 23:17 | XMS_ITS | Clinical Summary ---
Author Organization [employer] Address [address] [place] [address] [address] [place] [address] Care Team Providers Care [employer] Name Role Phone Unavailable Primary Care Provider [...] this topic Insurance < 65 GAVIN BERNARDO [id number]
[2025-03-15 23:24] LABS: MANUAL DIFF FLAG NO
[2025-03-15 23:25] LABS: Hematocrit 38.5 % (42.0-52.0); Hemoglobin 13.3 g/dl (14.0-18.0); Imm Gran Abs Auto 0.17 X10*3/uL (0.00-0.03); Imm Gran Pct Auto 1.9 % (0.0-0.4); Lymphocytes Absolute Auto 1.0 X10*3/uL (1.2-4.9); Mean Corpuscular HGB Conc 34.5 g/dl (31.0-36.0); Mean Corpuscular Hemoglobin 31.0 pg (27.0-33.0); Mean Corpuscular Volume 89.7 fL (80.0-98.0); NRBC Abs Auto 0.000 X10*3/uL (0.0-0.012); NRBC Pct Auto 0.0 /100WBC (0.0-0.2); Platelet Count 230 X10*3/uL (160-400); Red Blood Count 4.29 X10*6/uL (4.60-5.80); White Blood Count 9.0 X10*3/uL (4.8-10.8)
[2025-03-15 23:35] LABS: Cannabinoid Screen Urine Not Detected (Not Detect)
[2025-03-15 23:44] LABS: Alanine Aminotransferase 28 U/L (0-40); Albumin Level 4.2 g/dL (3.5-5.0); Alkaline Phosphatase 73 U/L (39-117); Anion Gap 17 (12-20); Aspartate Amino Transferase 39 U/L (5-37); Blood Urea Nitrogen 18 mg/dL (9-16); Calcium 8.7 mg/dL (8.4-10.2); Carbon Dioxide 21 mmol/L (22-29); Chloride 106 mmol/L (96-108); Creatinine Clr Calc Pharmacy 105.6; Estimated Glomerular Filt Rate > 60; Potassium 3.6 mmol/L (3.3-5.1); Sodium 140 mmol/L (135-145); Total Protein 7.1 g/dL (6.5-8.0)
--- NOTE | 2025-03-16 01:46 | ED.OVERDOSE ---
HPI - Overdose General Chief Complaint: ETOH/Substance Use Stated Complaint: Heroine use, narcan given by bystander Time Seen by Provider: 03/16/25 01:33 Source: patient and EMS Mode of arrival: EMS Limitations: no limitations History of Present Illness ED Provider: Dr. Mei Worrell HPI Narrative: 44-year-old male with history of schizophrenia, housing insecurity, opioid use disorder presenting after an apparent unintentional overdose. Patient reports that he was using what he thought to be heroin intravenously. Laid down to take a nap and was reportedly found to have low breathing. Was given intranasal Narcan by EMS prior to arrival. Upon arrival to the emergency department, he is alert, oriented and requesting discharge. Reports this was unintentional, has no intention of self-harm. He has a history of opioid overdose requiring Narcan. Denies illness prior to this. Denies alcohol use. He does not desire detox. Related Data Previous Rx's ?Medication ?Instructions ?Recorded olanzapine 10 mg tablet 10 mg PO DAILY #15 tabs 11/19/24 risperidone 3 mg tablet 6 mg (2 x 3 mg) PO BEDTIME #28 tabs 11/19/24 olanzapine 10 mg tablet 10 mg PO DAILY 4 days #4 tabs 12/25/24 amoxicillin 875 mg-potassium 1 tab PO BID #14 tabs 02/02/25 clavulanate 125 mg tablet cephalexin 500 mg capsule 500 mg PO Q6H 7 days #28 caps 02/25/25 doxycycline hyclate 100 mg tablet 100 mg PO BID #14 tabs 02/25/25 ibuprofen 600 mg tablet 600 mg PO Q8H PRN pain #10 tabs 02/25/25 Allergies Allergy/AdvReac Type Severity Reaction Status Date / Time No Known Allergies Allergy Verified 03/15/25 22:44 Review of Systems Review of Systems: as per HPI, full review of systems performed and negative but for the above mentioned pertinent positives and negatives. PMFSH Past Medical History Medical History Nicotine addiction Psychiatric illness Depression Alcohol use disorder Cocaine use disorder Opioid abuse Suicide attempt Cocaine abuse Crack cocaine use Heroin abuse Substance abuse Schizophrenia Social History Social History Household Members: None Household Members Other:: Roommate that just moved out Housing: Homeless Do you presently have visiting nurse or other home services: No Unable to assess alcohol history related to: Unknown Alcohol intake: current Alcohol intake frequency: a few times a month Patient Tobacco Use Status: Current everyday Tobacco user Tobacco use type: Cigarette Cigarette Packs Per Day: 2 Cigarettes Per Day: 20 Years Smoked: 28 Smoked in Last 30 Days: Yes e-Cigarette/Vaping Use: Never Used Second Hand Smoke Exposure: No Use of substances other than those prescribed or required for medical reasons: Yes Substance Use Type: Heroin Last Used Substance: Just Prior to Admission Advance Directives: No Advance Directives Information Provided: Yes service: No Sexual orientation: Straight/Heterosexual Physical Exam Exam: Exam: GENERAL: Appears intoxicated, GCS 13, eyes open to voice, slurred speech, no acute distress. SKIN: Normal skin color for ethnicity, warm, dry, no rashes noted. HEENT: Normocephalic, atraumatic, no stridor, posterior oropharynx nonerythematous, dentition intact, EOMI, pupils are pinpoint bilaterally, reactive to light. NECK: Soft, supple, no step-offs, no deformities, no lymphadenopathy. CHEST: Heart regular tachycardia, no murmurs, symmetric chest rise and fall. PULMONARY: Clear to auscultation bilaterally, diminished at the bases, no labored breathing, no wheezes/rhales/rhonchi. ABDOMINAL: Soft, nondistended, positive bowel sounds in all quadrants. : Deferred. MUSCULOSKELETAL: Normal tone, full range of motion, no deformities, no peripheral edema. NEURO: GCS 13, eyes open to voice, slightly slurred speech, CN II through XII intact, equal strength and sensation bilateral upper and lower extremities, no focal neurologic deficits. PSYCHIATRIC: Flat affect, poor eye contact. Vital Signs: Vital Signs: Last Vital Signs Temp 98.4 F 03/15/25 22:46 Pulse 93 03/15/25 22:46 Resp 22 H 03/15/25 22:46 BP 119/60 03/15/25 22:46 Pulse Ox 97 03/15/25 22:46 O2 Del Method Room Air 03/15/25 22:46 BMI result Body Mass Index 20.7 Medical Decision Making Medical Decision Making MDM Narrative: Patient presents with a chief complaint of possible overdose. Differential diagnosis includes life-threatening toxidrome such as anticholinergic syndrome, serotonin syndrome, sympathomimetic, opioid induced, among others. Also includes co-ingestions, acidosis, intracranial process such as mass, hemorrhage, or CVA. Patient evaluated to determine if there is adequate GCS to maintain their airway as well as for hemodynamic stability. Placed on dynamometer tuner for blood pressure, heart rhythm and oxygen levels. Frequent reevaluations to ensure no worsening neurologic or hemodynamic instability. 1:50 AM 03/16/2025 (Dr. Mei Worrell, D.O.) patient feeling improved, requesting discharge. Blood work is relatively normal aside from his drug screen which is positive for cocaine, fentanyl and opiates. He is beverly for safety. Does not desire detox. Given Narcan kit for home. Discharged in stable condition. Differential Diagnosis Differential Diagnoses: The differential diagnosis associated with the presentation includes (as above) Admission/Observation Consideration of admission/observation: Escalation of care including admission/observation considered Lab Data MDM Lab Attestation statement: I reviewed the patient's lab results. 03/15/25 23:17 03/15/25 23:17 Labs: Lab Results 03/15/25 Range/Units 23:17 WBC 9.0 (4.8-10.8) X10*3/uL RBC 4.29 L (4.60-5.80) X10*6/uL Hgb 13.3 L (14.0-18.0) g/dl Hct 38.5 L (42.0-52.0) % MCV 89.7 (80.0-98.0) fL MCH 31.0 (27.0-33.0) pg MCHC 34.5 (31.0-36.0) g/dl RDW 13.1 (11.0-16.0) % Plt Count 230 (160-400) X10*3/uL MPV 9.1 L (9.4-12.4) fL Immature Gran % (Auto) 1.9 H (0.0-0.4) % Neut % (Auto) 84.3 H (45-73) % Lymph % (Auto) 11.5 L (20-40) % [place] % (Auto) 1.6 L (2-11) % Eos % (Auto) 0.3 (0-4) % Baso % (Auto) 0.4 (0-2) % Lymph # (Auto) 1.0 L (1.2-4.9) X10*3/uL [place] # (Auto) 0.1 (0.1-1.2) X10*3/uL Eos # (Auto) 0.0 (0.0-0.4) X10*3/uL Baso # (Auto) 0.0 (0.0-0.2) X10*3/uL Abs Immat Gran (auto) 0.17 H (0.00-0.03) X10*3/uL Absolute Neuts (auto) 7.6 (2.0-8.3) x10*3/uL Absolute Nucleated RBC 0.000 (0.0-0.012) X10*3/uL Nucleated RBC % (auto) 0.0 (0.0-0.2) /100WBC Sodium 140 (135-145) mmol/L Potassium 3.6 (3.3-5.1) mmol/L Chloride 106 (96-108) mmol/L Carbon Dioxide 21 L (22-29) mmol/L Anion Gap 17 (12-20) BUN 18 H (9-16) mg/dL Creatinine 0.81 (0.5-1.4) mg/dL Estim Creat Clear Calc 105.6 Estimated GFR > 60 Random Glucose 79 (60-115) mg/dL Calcium 8.7 (8.4-10.2) mg/dL Total Bilirubin 0.4 (0.0-1.0) mg/dL AST 39 H (5-37) U/L ALT 28 (0-40) U/L Alkaline Phosphatase 73 (39-117) U/L Total Protein 7.1 (6.5-8.0) g/dL Albumin 4.2 (3.5-5.0) g/dL Urine Opiates Screen POSITIVE H (Not Detect) Ur Buprenorphine Scrn Not Detected (Not Detect) ng/mL Ur Oxycodone Screen Not Detected (Not Detect) ng/mL Urine Methadone Screen Not Detected (Not Detect) ng/mL Urine Fentanyl Screen POSITIVE H (Not Detect) Ur Barbiturates Screen Not Detected (Not Detect) Ur Phencyclidine Scrn Not Detected (Not Detect) Ur Amphetamines Screen Not Detected (Not Detect) U Benzodiazepines Scrn Not Detected (Not Detect) Urine Cocaine Screen POSITIVE H (Not Detect) U Marijuana (THC) Screen Not Detected (Not Detect) Ethyl Alcohol < 10 mg/dL Independent Interpretation Interpretation: My independent interpretation of the ECG reveals normal sinus rhythm with rate of 90, normal axis, normal intervals, no ST elevations or depressions to suggest ischemic changes, relatively unchanged from previous on 02/27/2025. External Record Review External record reviewed: Inpatient record Prescription Management I considered prescription management with: Other (Narcan kit) Chronic Conditions Patient?s care impacted by: Other (Opioid use disorder, housing insecurity) Social Determinants Patient?s care significantly limited by Social Determinants of Health including: Inadequate housing, Alcoholism and drug addiction in family and Problems related to primary support group Discharge Plan Discharge Clinical Impression: Accidental overdose, Opioid use disorder Patient Disposition: Home, Self-Care Instructions: Adult Overdose (ED) Additional Instructions: Overdose You were seen in our Emergency Department for an overdose today. You received narcan in order to reverse the effects of overdose. Narcan only lasts about 45 min to 1 hour in the system. You may have been given narcan to take home with you today, please keep it near you if you are going to use again, so others can use it if needed.? The number one risk for fatal overdose is using alone? [employer] is a / hotline where you can be on the phone with someone while you use, and they can call for help if they suspect an overdose: [phone] Things to look out for when you leave include severe vomiting or diarrhea, headaches, muscle cramps, fever, coughing, chest pain, or if you feel so short of breath you cannot walk to the bathroom. Please seek care and return any time for worsening symptoms.? You may have been provided with safer injection?items, please take time to take care of YOU and your health. Use new supplies whenever possible to lessen the chances of infections and other illnesses.? If you need more supplies, please go [facility],? [address] [place] [address] OR you can call or text to coordinate delivery of safer supplies. If you decide you want to stop or cut down on how much you?re using, please call the numbers on the list provided to you or you can come to our outpatient Addiction Treatment office [facility] (M-F 9am-5p) [address] [place] [address], [address] [place], [place]. [phone] Prescriptions: No Action olanzapine 10 mg Tablet 10 mg PO DAILY Qty: 15 1RF risperidone 3 mg Tablet 6 mg PO BEDTIME Qty: 28 1RF olanzapine 10 mg tablet 10 mg PO DAILY 4 Days Qty: 4 0RF doxycycline hyclate 100 mg tablet 100 mg PO BID Qty: 14 0RF ibuprofen 600 mg tablet 600 mg PO Q8H PRN (Reason: pain) Qty: 10 0RF cephalexin 500 mg capsule 500 mg PO Q6H 7 Days Qty: 28 0RF amoxicillin-pot clavulanate 875-125 mg tablet 1 tab PO BID Qty: 14 0RF Print Language: Nigerien
[2025-03-16] MEDS: Naloxone HCl Nasal TAKE HOME 4 MG SPRAY 8 MG NOSTRILALT (01:55)
[2025-03-16 02:20] VITALS: BP 119/60; PULSE 93; RESP 22; TEMP 36.9; O2SAT 97
== END 2025-03-16 02:10 | disposition home or self-care (01) ==
PROVIDERS: Emergency Provider Emergency Medicine
DX: T65.91XA Toxic effect of unspecified substance, accidental (unintentional), initial encounter (principal); R53.83 Other fatigue; Y92.9 Unspecified place or not applicable; F11.90 Opioid use, unspecified, uncomplicated
CPT/HCPCS: 36415; 80053; 80307; 85025; 93005; 99284

== ENCOUNTER → 2025-03-15 23:03 | Outpatient (BNV) | payer OTHER, SELFPAY | PROVIDERS: Emergency Provider Emergency Medicine; Visit Provider Internal Medicine Cardiovascular Disease | DX: T40.1X1A Poisoning by heroin, accidental (unintentional), initial encounter (principal) | CPT/HCPCS: 93010 ==

== ENCOUNTER 2025-05-27 12:29 | Emergency (ER) | payer OTHER, SELFPAY ==
[2025-05-27 13:00] VITALS: BP 127/60; PULSE 93; RESP 18; TEMP 36.4; O2SAT 96; BMI 22.9
--- NOTE | 2025-05-27 13:05 | ED.GENADULT ---
HPI - General Adult General Chief complaint: ETOH/Substance Use Stated complaint: detox Time Seen by Provider: 05/27/25 13:37 Source: patient and old records reviewed Mode of arrival: ambulatory Limitations: no limitations History of Present Illness ED Provider: ZAIDA HPI narrative: 44 yo male with PMH of schizophrenia, ETOH use disorder, cocaine use disorder states he went 'away for 45 days after S35. He was then placed in sober living but then states he left facility with no medications and just a duffel bag two days ago. He has vague SI no plan. No HI. He has nowhere to go. He is asking [facility] for mcc. He states he needs help. Related Data Home Medications ?Medication ?Instructions ?Recorded ?Confirmed benztropine 1 mg tablet 3 mg PO BEDTIME 05/27/25 05/27/25 Previous Rx's ?Medication ?Instructions ?Recorded olanzapine 10 mg tablet 10 mg PO DAILY #15 tabs 11/19/24 risperidone 3 mg tablet 6 mg (2 x 3 mg) PO BEDTIME #28 tabs 11/19/24 Allergies Allergy/AdvReac Type Severity Reaction Status Date / Time No Known Allergies Allergy Verified 05/27/25 13:01 Review of Systems Review of Systems: Constitutional : No Fever, No Chills ENT/Mouth : No Ear Pain, No Nasal Congestion, No sore throat Eyes: No Eye Pain, No Swelling, No Redness Cardiovascular : No Chest Pain, No SOB Respiratory : No Cough, No Sputum, No Dyspnea Gastrointestinal : No Nausea, No Vomiting, No Diarrhea, No Hematochezia, No Melena Genitourinary : No Dysuria, No Urinary Frequency, No Hematuria Musculoskeletal : No Myalgias Skin : No Skin Lesions, No rash Neuro : No Weakness, No Numbness, No Paresthesias, No Dizziness, No Headache Psych : positive Anxiety, positive Depression, positive SI, no HI All other systems reviewed and are negative PMFSH Past Medical History Attestation statement: The following information was validated with the patient. Source: old records reviewed Medical History Nicotine addiction Psychiatric illness Depression Alcohol use disorder Cocaine use disorder Opioid abuse Suicide attempt Cocaine abuse Crack cocaine use Heroin abuse Substance abuse Schizophrenia Social History Social History Household Members: None Household Members Other:: Roommate that just moved out Housing: Homeless Do you presently have visiting nurse or other home services: No Alcohol intake: current Alcohol intake frequency: holidays/special occasions only Alcohol type: hard liquor Patient Tobacco Use Status: Current everyday Tobacco user Tobacco use type: Cigarette Cigarette Packs Per Day: 2 Cigarettes Per Day: 20 Years Smoked: 28 Smoked in Last 30 Days: Yes e-Cigarette/Vaping Use: Never Used Second Hand Smoke Exposure: No Use of substances other than those prescribed or required for medical reasons: Yes Substance Use Type: Crack/Cocaine Substance Use Frequency: Occasionally Last Used Substance: Days (ago) Any prior treatment program specific to substance use: No Advance Directives: No Advance Directives Information Provided: No service: No Sexual orientation: Straight/Heterosexual Physical Exam ED Vital Signs: Vital Signs - 24 hr 05/27/25 13:00 05/27/25 17:28 Temperature 97.5 F 97.5 F Pulse Rate 93 93 Respiratory Rate 18 18 Blood Pressure 127/60 127/60 Pulse Oximetry 96 96 Oxygen Delivery Method Room Air Room Air BMI result Body Mass Index 22.9 Appearance: Alert. Oriented X3. No acute distress. disheveled, unkempt Eyes: Pupils equal, round and reactive to light. ENT: Pharynx normal. Neck: Normal inspection. Neck supple. CVS: Normal heart rate and rhythm. Pulses normal. Respiratory: No respiratory distress. Breath sounds normal. Abdomen: Soft and nontender. Skin: Skin warm and dry. Normal skin color. Extremities: No lower extremity edema. Neuro: Oriented X 3. No motor deficit. No sensory deficit. cranial nerve exam not applicable Course Course Course Narrative: RME: 44 yold male with pmh of cocaine abuse presents to the ED for detox from cocaine. patietn states no other complaints. Reevaluation(s) Reevaluation #1: phys observation ended 172905/28/25 [facility] ZAIDA Medical Decision Making Medical Decision Making MDM Narrative: 44 yo male with PMH of schizophrenia, ETOH use disorder, cocaine use disorder here with c/o vague SI no plan, he has no medical complaints. He reports he otherwise feels well. He will need med clearance and consult to CARE team. Took over patient's case of the change of shift. Patient well-appearing. Currently not suicidal not homicidal. Wants to go home. Has a already been seen by the care team. Has a plan to go to detox. Feel comfortable with going home. Differential Diagnosis Differential Diagnoses: The differential diagnosis associated with the presentation includes cocaine use disorder, poor support, schizophrenia Admission/Observation Consideration of admission/observation: Escalation of care including admission/observation considered physician observation started at 2pm pending CARE team Consult Healthcare Provider Management of the patient was discussed with: Behavioral Health Provider Lab Data [facility] Lab Attestation statement: I reviewed the patient's lab results. 05/27/25 13:20 05/27/25 13:20 Labs: Lab Results 05/27/25 Range/Units 13:20 WBC 8.9 (4.8-10.8) X10*3/uL RBC 4.34 L (4.60-5.80) X10*6/uL Hgb 13.4 L (14.0-18.0) g/dl Hct 38.8 L (42.0-52.0) % MCV 89.4 (80.0-98.0) fL MCH 30.9 (27.0-33.0) pg MCHC 34.5 (31.0-36.0) g/dl RDW 14.3 (11.0-16.0) % Plt Count 324 D (160-400) X10*3/uL MPV 10.0 (9.4-12.4) fL Immature Gran % (Auto) 0.3 (0.0-0.4) % Neut % (Auto) 59.4 (45-73) % Lymph % (Auto) 31.5 (20-40) % [place] % (Auto) 7.8 (2-11) % Eos % (Auto) 0.7 (0-4) % Baso % (Auto) 0.3 (0-2) % Lymph # (Auto) 2.8 (1.2-4.9) X10*3/uL [place] # (Auto) 0.7 (0.1-1.2) X10*3/uL Eos # (Auto) 0.1 (0.0-0.4) X10*3/uL Baso # (Auto) 0.0 (0.0-0.2) X10*3/uL Abs Immat Gran (auto) 0.03 (0.00-0.03) X10*3/uL Absolute Neuts (auto) 5.3 (2.0-8.3) x10*3/uL Absolute Nucleated RBC 0.000 (0.0-0.012) X10*3/uL Nucleated RBC % (auto) 0.0 (0.0-0.2) /100WBC Sodium 140 (135-145) mmol/L Potassium 4.3 (3.3-5.1) mmol/L Chloride 105 (96-108) mmol/L Carbon Dioxide 24 (22-29) mmol/L Anion Gap 15 (12-20) BUN 16 (9-16) mg/dL Creatinine 0.77 (0.5-1.4) mg/dL Estim Creat Clear Calc 126.6 Estimated GFR > 60 Random Glucose 81 (60-115) mg/dL Calcium 9.6 D (8.4-10.2) mg/dL Total Bilirubin 0.5 (0.0-1.0) mg/dL AST 81 H (5-37) U/L ALT 65 H (0-40) U/L Alkaline Phosphatase 93 (39-117) U/L Total Protein 8.2 H (6.5-8.0) g/dL Albumin 4.9 (3.5-5.0) g/dL Urine Color Yellow Urine Appearance Clear Urine pH 5.5 (5.0-9.0) Ur Specific [place] 1.015 (1.005-1.025) Urine Protein Negative (Neg-Trace) mg/dL Urine Glucose (UA) Negative (Negative) mg/dL Urine Ketones Negative (Negative) mg/dL Urine Blood Negative (Negative) Urine Nitrite Negative (Negative) Ur Leukocyte Esterase Negative (Negative) Urine Opiates Screen Not Detected (Not Detect) Ur Buprenorphine Scrn Not Detected (Not Detect) ng/mL Ur Oxycodone Screen Not Detected (Not Detect) ng/mL Urine Methadone Screen Not Detected (Not Detect) ng/mL Urine Fentanyl Screen Not Detected (Not Detect) Ur Barbiturates Screen Not Detected (Not Detect) Ur Phencyclidine Scrn Not Detected (Not Detect) Ur Amphetamines Screen Not Detected (Not Detect) U Benzodiazepines Scrn Not Detected (Not Detect) Urine Cocaine Screen POSITIVE H (Not Detect) U Marijuana (THC) Screen Not Detected (Not Detect) Ethyl Alcohol < 10 mg/dL External Record Review External record reviewed: Inpatient record and Outpatient record Social Determinants Patient?s care significantly limited by Social Determinants of Health including: Inadequate housing, Low income, Problems related to primary support group and Unemployment Discharge Plan Discharge Clinical Impression: Cocaine use disorder Schizophrenia Qualifiers: Schizophrenia type: unspecified Qualified Code(s): F20.9 - Schizophrenia, unspecified Patient Disposition: Home, Self-Care Instructions: Schizophrenia (ED), Polysubstance Use Disorder (ED) Additional Instructions: You were seen in our Emergency Department today for treatment of a behavioral health issue. It is important after your visit that you follow up with either your behavioral health provider or a primary care doctor within 7 days.? If you have trouble finding a therapist you can reach out to [address] [phone] [facility] [place] [facility] can be reached 7 days a week 24 hours a day.? Call [phone] to speak with someone.? Return for any worsening symptoms or concerns such as thoughts of self harm or harm to others. Please call 911 if you feel your mental health is worsening.? Prescriptions: No Action olanzapine 10 mg Tablet 10 mg PO DAILY Qty: 15 1RF risperidone 3 mg Tablet 6 mg PO BEDTIME Qty: 28 1RF benztropine 1 mg tablet 3 mg PO BEDTIME Referrals: Physician,None [Primary Care Provider, Medical] Referral Note: Please follow-up as per care team Interventions: ED Discharge Assessment Last Done: 05/27/25 17:28 Discharge Date/Time: 05/27/25 17:39 Print Language: Icelandic
[2025-05-27 13:28] LABS: MANUAL DIFF FLAG NO
[2025-05-27 13:32] LABS: Appearance Urine Clear; Glucose Urine UA Negative (Negative); PH 5.5 (5.0-9.0); Specific Gravity - Urine 1.015 (1.005-1.025)
[2025-05-27 13:34] LABS: Hematocrit 38.8 % (42.0-52.0); Hemoglobin 13.4 g/dl (14.0-18.0); Imm Gran Abs Auto 0.03 X10*3/uL (0.00-0.03); Imm Gran Pct Auto 0.3 % (0.0-0.4); Lymphocytes Absolute Auto 2.8 X10*3/uL (1.2-4.9); Mean Corpuscular HGB Conc 34.5 g/dl (31.0-36.0); Mean Corpuscular Hemoglobin 30.9 pg (27.0-33.0); Mean Corpuscular Volume 89.4 fL (80.0-98.0); NRBC Abs Auto 0.000 X10*3/uL (0.0-0.012); NRBC Pct Auto 0.0 /100WBC (0.0-0.2); Platelet Count 324 X10*3/uL (160-400); Red Blood Count 4.34 X10*6/uL (4.60-5.80); White Blood Count 8.9 X10*3/uL (4.8-10.8)
[2025-05-27 13:42] LABS: Cannabinoid Screen Urine Not Detected (Not Detect)
[2025-05-27 13:54] LABS: Alanine Aminotransferase 65 U/L (0-40); Albumin Level 4.9 g/dL (3.5-5.0); Alkaline Phosphatase 93 U/L (39-117); Anion Gap 15 (12-20); Aspartate Amino Transferase 81 U/L (5-37); Blood Urea Nitrogen 16 mg/dL (9-16); Calcium 9.6 mg/dL (8.4-10.2); Carbon Dioxide 24 mmol/L (22-29); Chloride 105 mmol/L (96-108); Creatinine Clr Calc Pharmacy 126.6; Estimated Glomerular Filt Rate > 60; Potassium 4.3 mmol/L (3.3-5.1); Sodium 140 mmol/L (135-145); Total Protein 8.2 g/dL (6.5-8.0)
--- NOTE | 2025-05-27 15:18 | PC.NURSE ---
Benito is calm and cooperative at this time, help seeking, requesting help with detox from crack/cocaine
[2025-05-27 17:28] VITALS: BP 127/60; PULSE 93; RESP 18; TEMP 36.4; O2SAT 96
== END 2025-05-27 17:39 | disposition home or self-care (01) ==
PROVIDERS: Physician Assistant; Emergency Provider Emergency Medicine
DX: F20.9 Schizophrenia, unspecified (principal); F14.90 Cocaine use, unspecified, uncomplicated; Z79.899 Other long term (current) drug therapy; R45.851 Suicidal ideations; Z51.81 Encounter for therapeutic drug level monitoring
CPT/HCPCS: 36415; 80053; 80307; 81003; 85025; 99284; S9485